=== PATIENT | female | born 1985 | race Caucasian/White ===

== ENCOUNTER → 2022-11-19 | Outpatient (OUT) | payer OTHER, MEDICAID, SELFPAY ==
[2022-11-19 15:16] LABS: Basophils Percent Auto 0.5 % (0.2-2.0); Eosinophils Absolute Auto 0.2 10^3/uL (0.0-0.7); Eosinophils Percent Auto 2.9 % (0.9-7.0); Hematocrit 39.3 % (36.0-48.0); Hemoglobin 13.3 g/dL (12.0-16.0); Immature Granulocytes Abs Auto 0.01 10^3/uL (0.00-0.03); Immature Granulocytes Pct Auto 0.2 % (0.0-0.5); Lymphocytes Absolute Auto 1.4 10^3/uL (1.2-3.8); Lymphocytes Percent Auto 24.7 % (20.5-60.0); Mean Corpuscular HGB Conc 33.8 g/dL (29.9-35.2); Mean Corpuscular Hemoglobin 29.8 pg (26.7-34.0); Mean Corpuscular Volume 88.1 fL (81.0-99.0); Mean Platelet Volume 9.8 fL (9.5-13.5); Monocytes Absolute Auto 0.6 10^3/uL (0.3-0.8); Monocytes Percent Auto 9.9 % (1.7-12.0); Neutrophils Absolute Auto 3.4 10^3/uL (1.4-6.5); Neutrophils Percent Auto 61.8 % (43.0-75.0); Platelet Count 254 10^3/uL (150-450); Red Blood Count 4.46 10^6/uL (4.20-5.40); Red Cell Distribution Width 12.6 % (11.0-15.0); White Blood Count 5.6 10^3/uL (4.0-11.0)
[2022-11-19 15:40] LABS: Alanine Aminotransferase 19 U/L (14-59); Albumin Globulin Ratio 1.2; Albumin Level 3.8 g/dL (3.4-5.0); Alkaline Phosphatase 48 U/L (46-116); Anion Gap 13.8; Aspartate Amino Transferase 13 U/L (15-37); BUN Creatinine Ratio 9.2; Bilirubin Total 0.4 mg/dL (0.2-1.0); Calcium 8.8 mg/dL (8.5-10.1); Carbon Dioxide 28.2 mmol/L (21.0-32.0); Chloride 100 mmol/L (98-107); Estimated GFR (African America >60 (>=60); Estimated GFR (Non-African Ame >60 (>=60); Globulin 3.2 g/dL; Glucose 100 mg/dL (74-106); Sodium 138 mmol/L (136-145)
== END ==
LOC: LAB 14:58
PROVIDERS: PCP Family Medicine; Visit Provider Physician Assistant
DX: G35 Multiple sclerosis (principal)
CPT/HCPCS: 36415; 80053; 85025

== ENCOUNTER 2023-04-23 10:30 | Outpatient (OUT) | payer OTHER, MEDICAID, SELFPAY ==
[2023-04-23 12:19] LABS: Basophils Absolute Auto 0.1 10^3/uL (0.0-0.1); Basophils Percent Auto 0.8 % (0.2-2.0); Eosinophils Absolute Auto 0.2 10^3/uL (0.0-0.7); Eosinophils Percent Auto 2.3 % (0.9-7.0); Hematocrit 40.1 % (36.0-48.0); Hemoglobin 13.5 g/dL (12.0-16.0); Immature Granulocytes Abs Auto 0.02 10^3/uL (0.00-0.03); Immature Granulocytes Pct Auto 0.3 % (0.0-0.5); Lymphocytes Absolute Auto 1.5 10^3/uL (1.2-3.8); Lymphocytes Percent Auto 20.1 % (20.5-60.0); Mean Corpuscular HGB Conc 33.7 g/dL (29.9-35.2); Mean Corpuscular Volume 89.1 fL (81.0-99.0); Mean Platelet Volume 10.1 fL (9.5-13.5); Monocytes Absolute Auto 0.6 10^3/uL (0.3-0.8); Monocytes Percent Auto 8.3 % (1.7-12.0); Neutrophils Absolute Auto 5.1 10^3/uL (1.4-6.5); Neutrophils Percent Auto 68.2 % (43.0-75.0); Platelet Count 240 10^3/uL (150-450); Red Cell Distribution Width 13.2 % (11.0-15.0); White Blood Count 7.5 10^3/uL (4.0-11.0)
[2023-04-23 12:39] LABS: Alanine Aminotransferase 16 U/L (14-59); Albumin Globulin Ratio 1.3; Albumin Level 3.8 g/dL (3.4-5.0); Alkaline Phosphatase 48 U/L (46-116); Anion Gap 12.2; Aspartate Amino Transferase 14 U/L (15-37); BUN Creatinine Ratio 9.6; Bilirubin Total 0.3 mg/dL (0.2-1.0); Carbon Dioxide 27.9 mmol/L (21.0-32.0); Chloride 102 mmol/L (98-107); Estimated GFR (African America >60 (>=60); Estimated GFR (Non-African Ame >60 (>=60); Globulin 2.9 g/dL; Glucose 98 mg/dL (74-106); Potassium 4.1 mmol/L (3.5-5.1); Sodium 138 mmol/L (136-145); Total Protein 6.7 g/dL (6.4-8.2)
--- OUTSIDE RECORDS SUMMARY | 2023-06-03 13:50 | XMS_ITS | CCD ---
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 Name Role Phone Dot Patricia Primary Care Physician MD Francesca White Primary Care Provider [phone] CHANTEL Wallace Attending Provider Jennifer Moon Primary Care Physician [phone] CLAYTON WALLACE Admitting Unavailable CLAYTON WALLACE Attending Unavailable CLAYTON WALLACE Consulting Unavailable CLAYTON WALLACE Primary Care Unavailable DR FRANCESCA WHITE Primary Care Unavailable ONESIMOFABIO Attending Unavailable SUSAN ECHOLSOE Admitting Unavailable SHAVON, DR MA Primary Care Unavailable SHAVON, DR MA Admitting Unavailable SHAVON, DR AM Attending Unavailable DR FRANCESCA WHITE Consulting Unavailable WEST, DR TYLER Méndez Consulting Unavailable CLAYTON WALLACE Attending Unavailable CLAYTON WALLACE Consulting Unavailable CLAYTON WALLACE Primary Care Unavailable CLAYTON WALLACE Admitting Unavailable MD Francesca White Primary Care Provider [phone] DO Marty Jade Attending Provider Marty Jade Admitting Unavailab Marty Rider Attending Unavailab Francesca Marie Primary Care Unavailable Francesca White Primary Care Unavailable Clayton Wallace Admitting Unavailable Clayton Wallace Attending Unavailable Marty Jade Admitting Unavailab Marty Rider Attending Unavailab Francesca Marie Primary Care Unavailable Francesca White MD Primary Care Provider [phone] Giorgio Kim Attending Unavailable Giorgio Kim Admitting Unavailable iGorgio Kim Admitting Unavailable Giorgio Kim Attending Unavailable Giorgio Kim Admitting Unavailable Giorgio Kim Attending Unavailable Giorgio Kim Admitting Unavailable Giorgio Kim Attending Unavailable FRANCESCA WHITE Primary Care Unavailable NURIA GONSALEZ Attending Unavailable Allergies Allergy Classification Reported Allergen(s) Allergy Type Date of Onset Reaction(s) Facility (2 sources) diphenhydrAMINE; Translations: [diphenhydramine] Drug Allergy itching [facility] (1 source) diphenhydrAMINE Drug Allergy [facility] Repository Medications Current Medications Medication Drug Class(es) Dates Sig (Normalized) Sig (Original) acetaminophen 325 mg / HYDROcodone bitartrate 5 mg oral tablet (4 sources) Opioid Agonist Start: 01-15-2019 [place] 325 mg-5 mg oral tablet 1 tab(s), Oral, q6hr for pain, 8 tab(s), Refill(s) 0 Start Date: 10/25/20 Status: Ordered cephalexin 500 mg oral capsule (1 source) Cephalosporin Antibacterial Start: 01-15-2019 take 1 capsule by mouth twice daily Keflex 500 mg Cap 500 mg = 1 cap(s), Oral, BID, # 14 cap(s), Refills(s) 0, Pharmacy: [facility]/pharmacy #[id number] Start Date: 01/15/19 Status: Ordered Ibuprofen (4 sources) Nonsteroidal Anti-inflammatory Drug Start: 10-25-2020 ibuprofen Refills(s) 0 Start Date: 10/25/20 Status: Ordered Start: 12-23-2013 take 1 tablet by aleksander th every eight hours at mealtime Motrin 800 mg Tab 800 mg = 1 tab(s), Oral, q8hr, Take one tab by mouth every eight hours with food, # 10 tab(s), Refills(s) 0 Start Date: 12/23/13 Status: Ordered Synthroid (3 sources) l-Thyroxine Start: 05-06-2010 Synthroid Ananya y, Refills(s) 0 Start Date: 05/06/10 Status: Ordered take 1 tablet by mouth once ananya y levothyroxine (SYNTHROID) 125 mcg tablet Take 125 mcg by mouth once daily. 0 Active Comment on above: Take 125 mcg by mout h once daily. naproxen 500 mg oral tablet (3 sources) Nonsteroidal Anti-inflammatory Drug Start: 10-25-2020 take 1 tablet by mouth twice daily at mealtime naproxen 500 mg Tab 500 mg = 1 tab(s), Oral, BID, with food, # 14 tab(s), Refills(s) 0 Start Date: 10/25/20 Status: Ordered penicillin v potassium 500 mg oral tablet (1 source) Start: 12-23-2013 take 1 tablet by mouth every six hours penicillin V potassium 500 mg Tab 500 mg = 1 tab(s), Oral, q6hr, # 40 tab(s), Refills(s) 0 Start Date: 12/23/13 Status: Ordered tamsulosin hydrochloride 0.4 mg oral capsule (1 source) alpha-Adrenergic Araseli Start: 01-15-2019 take 1 capsule by mouth once daily Flomax 0.4 mg Cap 0.4 mg = 1 cap(s), Oral, Daily Start Date: 01/15/19 Status: Ordered Completed/Discontinued Medications Medication Drug Class(es) Dates Sig (Normalized) Sig (Original) amitriptyline hydrochloride 100 mg oral tablet (2 sources) Tricyclic Antidepressant take 1 tablet by mouth once daily at bedtime amitriptyline (ELAVIL) 100 mg tablet Take 100 mg by mouth daily at bedtime. 0 Active Comment on above: Take 100 mg by mouth daily at bedtime. fingolimod 0.5 mg oral capsule (2 sources) Sphingosine 1-phosphate Receptor Modulator Start: 12-23-2016 take 1 capsule by mouth once daily fingolimod (GILENYA) 0.5 mg cap Indications: Multiple sclerosis (HCC) Take 1 capsule by mouth once daily. 90 capsule 3 12/23/2016 Active Comment on above: Take 1 capsule by [facility] once daily. gabapentin 300 mg oral capsule (1 source) Anti-epileptic Agent Start: 11-04-2017 take 1 capsule by mouth three times daily gabapentin (NEURONTIN) 300 mg capsule TAKE ONE CAPSULE BY MOUTH 3 TIMES A DAY 90 capsule 11 11/04/2017 Active Comment on above: TAKE ONE CAPSULE BY MOUTH 3 TIMES A DAY medroxyPROGESTERone (2 sources) Progestin MEDROXYPROGESTER ONE ACETATE (DEPO-PROVERA INTRAMUSC.) Inject intramuscularly every 3 months. 0 Active Comment on above: Inject intramuscular ly every 3 months. Problems Active Problems Problem Classification Problem Date Documented Da te Episodic/Chronic Abdominal pain (1 source) Flank pain 08-09-2021 Episodic Calculus of urinary tract (8 sources) Kidney stone; Translations: [Ureteric stone] 01-27-2015 Episodic Comment on above: left RIGHT Deficiency and other anemia (1 source) Anemia, unspecified; Translations: [ANEMIA UNSPECIFIED] Onset: 07-09-2022 Episodic Diabetes mellitus without complication (1 source) Type 2 diabetes mellitus without complications; Translations: [TYPE 2 DM WITHOUT COMPLICATIONS] Onset: 07-09-2022 Chronic Disorders of lipid metabolism (1 source) Hyperlipidemia, unspecified; Translations: [HYPERLIPIDEMIA UNSPECIFIED] Onset: 07-09-2022 Chronic Genitourinary symptoms and ill-defined conditions (4 sources) Dysuria; Translations: [Liam hematuria] 08-09-2021 Episodic Headache; including migraine (1 source) Migraine 08-09-2021 Chronic Heart valve disorders (1 source) Mitral valve stenosis 08-09-2021 Chronic Malaise and fatigue (5 sources) Other fatigue; Translations: [OTHER FATIGUE] Onset: 08-18-2021 Episodic Multiple sclerosis (8 sources) Multiple sclerosis; Translations: [Multiple sclerosis] Onset: 07-28-2012 Chronic Nutritional deficiencies (1 source) Vitamin D deficiency, unspecified; Translations: [VITAMIN D DEFICIENCY UNSPECIFIED] Onset: 07-09-2022 Chronic Other aftercare (1 source) Other nursing home (current) drug therapy; Translations: [OTH USP CURRENT DRUG THERAPY] Onset: 07-09-2022 Episodic Other and unspecified benign neoplasm (1 source) Neoplasm of meninges; Translations: [Benign neoplasm of meninges, unspecified] 02-21-2023 Chronic Other screening for suspected conditions (not mental disorders or infectious disease) (1 source) Encounter for screening mammogram for malignant neoplasm of breast; Translations: [ENC SCR MAMMO MALIG NEOPLASM BREAST] Onset: 07-09-2022 Episodic Residual codes; unclassified (1 source) Family history of malignant neoplasm of breast; Translations: [FAMILY HX MALIG NEOPLASM OF BREAST] Onset: 07-09-2022 Episodic Substance-related disorders (7 sources) Cigarette smoker ; Translations: [Smoker] Resolved: 11-16-2009 08-27-2013 Chronic Comment on above: Added secondary to d ocumentation in Social History. Unclassified (1 source) Late care( Confirmed ) 09-06-2019 Unclassified (2 sources) Late care 09-06-2019 Past or Other Problems Problem Classification Problem Date Documented Da te Episodic/Chronic Unclassified (15 sources) Onset: 04-07-2011 Resolved: 09-07-2019 12-22-2014 Results Test Name Value Interpretation Reference Range Facil ity Nursing Assessmenton 023 Nursing Assessment [id number]:127 Normal [facility] MR cervical spine wo/w conon 02-07-2023 MR cervical spine wo/w con [facility] [place] [address] [place] [address] MRI Report Signed Patient: Martha Valencia MR#: [id number] : 1985 Acct:[id number] Age/Sex: 37 / F ADM Date: 02/07/23 Loc: Room: Type: [facility] Attending Dr: Marty Jade DO Copies to: Marty Jade DO Ordering Provider: Marty Jade DO Date of Service: 02/07/23 MR/MR cervical spine wo/w con: G35 MR cervical spine wo/w con 02/07/2023 10:21 AM SIGNS AND SYMPTOMS: History of multiple sclerosis, annual follow-up. Weakness and numbness on left side PROTOCOL: Multiplanar multisequence MR images of the cervical spine were obtained with and without IV contrast CONTRAST: 11 mL of intravenous ProHance COMPARISON: 03/05/2021 FINDINGS: There is straightening of the normal cervical lordosis. There is preservation of vertebral body heights. There is disc desiccation with mild disc height loss at C5-C6 and C6-C7. There is Modic type I endplate edema at C6-C7. The marrow signal is within normal limits, otherwise. There are areas of increased T2 and STIR signal intensity within the cervical cord at C2, C3, C4, and C5, similar to that seen on the prior exam. There is a new focus of T2 and STIR hyperintense signal centrally and to the left of midline posteriorly at the level of the C4-C5 intervertebral disc measuring 11 mm in length. No accompanying abnormal postcontrast enhancement is noted. No epidural or paraspinous fluid collection is appreciated. The visualized paraspinous soft tissues are within normal limits. The prevertebral soft tissues are within normal limits. At C2-C3: There is a normal disc, central canal, and neural foramen. At C3-C4: There is a normal disc, central canal, and neural foramen. At C4-C5: There is a normal disc, central canal, and neural foramen. At C5-C6: There is a broad-based disc bulge with uncovertebral joint spurring contributing to mild spinal canal narrowing and mild bilateral neural foraminal narrowing. This is unchanged. At C6-C7: There is a left central disc protrusion with uncovertebral joint spurring contributing to mild left neural foraminal narrowing and mild spinal canal stenosis. This is unchanged. At C7-T1: There is a normal disc, central canal, and neural foramen. MR/MR cervical spine wo/w con IMPRESSION: There is a new focus of T2 and STIR hyperintense signal centrally and to the left of midline posteriorly at the level of the C4-C5 intervertebral disc measuring 11 mm in length. No accompanying abnormal postcontrast enhancement is noted. There are areas of increased T2 and STIR signal intensity within the cervical cord at C2, C3, C4, and C5, similar to that seen on the prior exam. At C5-C6: There is a broad-based disc bulge with uncovertebral joint spurring contributing to mild spinal canal narrowing and mild bilateral neural foraminal narrowing. This is unchanged. At C6-C7: There is a left central disc protrusion with uncovertebral joint spurring contributing to mild left neural foraminal narrowing and mild spinal canal stenosis. This is unchanged. Impression dictated by: Daniel Mcgee M.D.02/07/2023 3:10 PM Dictation Location: [place] [address] Transcribed By: [facility] 02/07/23 0420 Dictated By: Daniel Mcgee II, MD 02/07/23 5686 Signed By: 02/07/23 6770 [facility] MR head/brain wo/w sukumaron MR head/brain wo/w con [place] [address] MRI Report Signed Patient: Martha Valencia MR#: [id number] : 1985 Acct:[id number] Age/Sex: 37 / F ADM Date: 02/07/23 Loc: MR Room: Type: [facility] Attending Dr: Marty Jade DO Copies to: Marty Jade DO Ordering Provider: Marty Jade DO Date of Service: 02/07/23 MR/MR head/brain wo/w con: G35 MR head/brain wo/w con 02/07/2023 10:21 AM SIGN AND SYMPTOMS: History of multiple sclerosis. Left-sided weakness and numbness. PROTOCOL: Multiplanar multisequence MR images of the brain were obtained with and without IV contrast CONTRAST: 11 mL of intravenous ProHance COMPARISON: None. FINDINGS: Extra axial spaces: There is mild diffuse volume loss. Along the floor of the right anterior cranial fossa is an extra-axial dural based homogeneously enhancing 13 x 8 x 10 mm meningioma. Hemorrhage: None. Ventricular system: Within normal limits. Basal cisterns: Within normal limits and not effaced. Cerebral parenchyma: Atrophy of the corpus callosum is noted. Multifocal T2 and FLAIR hyperintense foci are noted in the periventricular white matter, subcortical white matter, and corpus callosum consistent with a history of gliosis. Midline shift: None.. Cerebellum: T2 and FLAIR hyperintense foci are noted in the right middle cerebellar peduncle. There is also T2 and FLAIR hyperintense focus in the left cerebellar hemisphere. Brainstem: T2 and FLAIR hyperintense foci are noted in the pontine white matter. OTHER: Calvarium: Normal marrow signal. Vascular system: Satisfactory flow voids within the anterior and posterior circulation. Visualized Paranasal sinuses: Within normal limits. Visualized Orbits: Within normal limits. Visualized upper cervical spine: Within normal limits. Sella and skull base: Within normal limits. MR/MR head/brain wo/w con IMPRESSION: Findings consistent with the history of demyelinating disease with multiple demyelinating plaques, as above. There is no diffusion restriction or abnormal postcontrast enhancement accompanying these plaques to suggest active demyelination. There is mild diffuse volume loss. Along the floor of the right anterior cranial fossa is an extra-axial dural based homogeneously enhancing 13 x 8 x 10 mm meningioma. Impression dictated by: Daniel Mcgee M.D.02/07/2023 3:21 PM Dictation Location: [place] [address] Transcribed By: [facility] 02/07/23 152 Dictated By: Daniel Mcgee II, MD 02/07/23 151 Signed By: 02/07/23 152 [facility] Insurance Correspondence Off ice01-14-2023 Insurance Correspondence Office [id number]:127 Normal [facility] General Message Officeon General Message Office --- --- --- --- - -- --- --- --- --- From: CruzDinesh, DirectInbox To: MARTHA VALENCIA Sent: 01/11/23 02:30:57 AM EDT Subject: Discharge Summary Ready to View A summary regarding your recent visit is available in the Documents section of your health record. Normal [facility] C Urineon 01-10-2023 Bacteria identified Cx Nom (U) Microbiology PROCEDURE: Urine Culture [R1] SOURCE: U Cath BODY SITE: COLLECTED DATE/TIME: 01/08/2023 21:20 EDT RECEIVED DATE/TIME: 01/08/2023 22:03 EDT START DATE/TIME: 01/08/2023 22:03 EDT FREE TEXT SOURCE: SYSTEM, SYSTEM SYSTEM, SYSTEM FINAL REPORTS Final Report [] Verified Date/Time: 01/10/2023 06:57 EDT No growth at 2 days. Performing Locations R1: This test was performed at: [facility], [address] [place] [address], [phone] , [place], Normal [facility] Comment on above: Performed By: #### 1 [id number] ####[facility] [address] [place] [address] CBC w/Indiceson 01-10-2023 Erythrocyte distribution wid th (RBC) [Ratio] 14.7 % High 10.9-14.2 [facility] Comment on above: Performed By: #### 2 [id number] ####[address] [address] Hematocrit (Bld) [Volume fraction] 35.4 % Normal 34.0-46.0 [facility] Comment on above: Performed By: #### 2 [id number] ####[address] [address] Hemoglobin (Bld) [Mass/Vol] 11.7 g/dL Low 12.0-16. 0 [facility] Comment on above: Performed By: #### 2 [id number] ####[address] [address] MCH (RBC) [Entitic mass] 27.3 pg Normal 27.0-34.0 [facility] Comment on above: Performed By: #### 2 [id number] ####[address] [address] MCHC (RBC) [Mass/Vol] 33.1 g/dL Normal 31.4-36.0 [facility] Comment on above: Performed By: #### 2 [id number] ####[address] [address] MCV (RBC) [Entitic vol] 82.3 fL Normal 80.0-100.0 [facility] Comment on above: Performed By: #### 2 [id number] ####[address] [address] Platelet mean volume (Bld) [Entitic vol] 7.1 fL Normal 6.4-10.8 [facility] Comment on above: Performed By: #### 2 [id number] ####[address] [address] Platelets (Bld) [#/Vol] 183.0 E9/L Normal 150.0-500.0 [facility] Comment on above: Performed By: #### 2 [id number] ####[address] [address] RBC (Bld) [#/Vol] 4.3 E12/L Normal 4.3-5.9 [facility] Comment on above: Performed By: #### 2 [id number] ####[facility] [address] [place] [address] WBC corrected for nucl RBC A uto (Bld) [#/Vol] 7.7 E9/L Normal 4.0-11.0 [facility] Comment on above: Performed By: #### 2 [id number] ####[facility] [address] [place] [address] Delivery Summaryon Delivery Summary DATE OF DELIVERY: The patient is a 35 year old, VII, Para V, I, white female at 39 weeks and 1/7 who presented to Labor and Delivery for labor. She had artificial rupture of membranes, a gentle Pitocin augmentation which allowed her to make gradual progress through the latent phase of labor into the active phase of labor. She reached complete and complete and pushed through the second stage of labor spontaneously delivering an 8 pound 6 ounce male with Apgars of seven and nine. Nuchal cord reduced x1. Arterial cord pH obtained. The placenta delivered spontaneously intact. Uterus contracted down well. No repair was necessary and both mom and were doing well in the Room. Giorgio Kim M.D. lr Dictated: 01/10/2023 [id number] Transcribed: 01/10/2023 Normal [facility] Comment on above: Result Comment: Elec tronically Signed By: Giorgio Kim MD\.br\Date and Time Signed: 01/10/23 09:47 EDT Discharge Instructionson Discharge Instructions [id number]:127 Normal [facility] Help Me Grow Referralon 12-15 Help Me Grow Referral [id number]:127 Normal [facility] Inpatient Clinical Summaryon 01-10-2023 Inpatient Clinical Summary [address] [address] Clinical Summary Person Information Name: MARTHA VALENCIA [place] Age: 35 Years : 1987 Sex: Female PCP: Dot Patricia DO Marital Status: Single Race: White Ethnicity: Non- or Language: Pashto Visit Id: Visit Reason: INDUCTION Speciality: Acuity: 1 PP Enc Type: Inpatient Med Service: Obstetrics Arrival: 01/08/2023 16:54:02 Discharge: 01/10/2023 17:45:00 Dispo Type: Home (Routine DC) Address: [address] [place] [id number] Provider Notes: Diagnosis: AMA (advanced maternal age) multigravida 35+; (spontaneous vaginal delivery); Smoker Problems Active Smoker Ureteral stone Smoking Status: Former Smoker Functional Status: Sensory Deficits: History of Falls: Mobility Assistance Prior to Admission: Independent ADLs: Independent Current Level of Assistance for Self-Care/Mobility: Cognitive Status: Allergies No Known Allergies Laboratory or Other Results This Visit (last charted value for your 01/08/2023 visit) Hematology 01/10/2023 5:45 AM Hct: 35.4 % -- Normal range between ( 34.0 and 46.0 ) HGB: 11.7 gm/dL -- Normal range between ( 12.0 and 16.0 ) RBC: 4.3 E12/L -- Normal range between ( 4.3 and 5.9 ) RDW: 14.7 % -- Normal range between ( 10.9 and 14.2 ) MCH: 27.3 pg -- Normal range between ( 27.0 and 34.0 ) MCHC: 33.1 gm/dL -- Normal range between ( 31.4 and 36.0 ) MCV: 82.3 fL -- Normal range between ( 80.0 and 100.0 ) MPV: 7.1 fL -- Normal range between ( 6.4 and 10.8 ) Platelet: 183.0 E9/L -- Normal range between ( 150.0 and 500.0 ) WBC: 7.7 E9/L -- Normal range between ( 4.0 and 11.0 ) Urinalysis 01/08/2023 9:20 PM UA Bili: Negative UA Color: Yellow UA Glucose: Negative UA Ketones: Trace UA Leuk Est: 1+ UA Nitrite: Negative UA Protein: Negative UA RBC: 21-30 /HPF UA Squam Epithelial: 0-2 /HPF UA Urobilinogen: 0.2 EU/dL -- Normal range between ( 0.0 and 1.0 ) UA WBC: 0-5 /HPF UA Spec Desc: Leger UA Blood: 3+ UA Clarity: Clear UA pH: 6.0 -- Normal range between ( 5.0 and 9.0 ) UA Spec Grav: 1.020 -- Normal range between ( 1.005 and 1.030 ) Microbiology 01/08/2023 9:20 PM Urine Culture: NEG Blood Bank 01/08/2023 5:31 PM ABO/Rh: A POS ABSC Gel Interp: Negative Measurements: Height: 172.7 cm Weight: 120 kg Blood Pressure: 117 mmHg / 81 mmHg BMI: 40.56 kg/m2 Procedures No Procedures Documented Immunizations No Immunizations Documented This Visit Final Med List: multivitamin By Mouth every day. Care Team Members: Attending Physician: Giorgio Kim MD Consulting Physician: Referring Physician: Follow up: With: Address: When: Dr. Kim [phone] Within 6 weeks Comments: Call for any problems. Call Dr if fever>100.5 F, heavy bleeding Nothing in the vagina for 6 weeks Patient Education Information: Normal [facility] Inpatient Patient Summaryon 01-10-2023 Inpatient Patient Summary [place] [address] Patient Discharge Instructions PERSON INFORMATION Name: MARTHA VALENCIA Date of : 1987 Current Date: 01/10/2023 17:52:51 PHYSICIANS Admitting Physician: Giorgio Kim MD Primary Care Physician: Dot Patricia DO PCP Comment: Discharge Diagnosis: AMA (advanced maternal age) multigravida 35+; (spontaneous vaginal delivery); Smoker Condition at Discharge: Stable MARTHA VALENCIA has been given the following list of follow-up instructions, prescriptions, and patient education materials: PATIENT FOLLOW-UP INFORMATION Diet: Regular Activity: Expect mild pain, Expect minimal amount of drainage and/or bleeding, Activity as tolerated Wound Care Instructions: Remove Your Dressing IN: Days Call Your Doctor For: Persistent or heavy bleeding, Temperature above 101.5 degrees, Persistent vomiting IF UNABLE TO CONTACT YOUR PHYSICIAN AND YOU FEEL IT IS AN EMERGENCY, GO TO THE NEAREST EMERGENCY ROOM OR CALL 911 Home Treatment: Devices/Equipment: Special Services: Additional Instructions: Physician to provide the following pending test results: None Follow up: With: Address: When: Dr. Kim [phone] Within 6 weeks Comments: Call for any problems. Call Dr if fever>100.5 F, heavy bleeding Nothing in the vagina for 6 weeks In the event that this physician does not participate in your insurance network, please consult with your insurance company to find a nearby participating provider. Comment: JIMMY Suarez JENNIFER L, have received the attached patient education materials/instructions and have verbalized understanding. Patient Signature Date Clinican/Nurse Signature Date MEDICATION LIST Medications to Continue with No Changes Other Medications multivitamin By Mouth every day. Last Dose: Next Dose: Pharmacy Information: [facility] PATIENT EDUCATION INFORMATION Instructions: Medication Leaflets: You may receive a survey from Alexandra Kirby asking you to rate your care experience. Your feedback is important and will help us understand what we do well and how we can improve the quality of care we provide to you, your loved ones and our community. It?s an honor to serve you. Thank you for choosing [facility] 01-09-2023 Consent [id number] :127 [facility] Discharge Instructionson Discharge Instructions [id number]:127 [facility] GetWell Education Videoon GetWell Education Video Yes Well-Baby Visits to the Doctor Patient [facility] GetWell Education Video Patient Safe Sleep for Babies Yes [facility] GetWell Education Video Yes Patient Jaundice in Newborns Normal [facility] GetWell Education Video Yes Patient Caring for Yourself After Vaginal Delivery [facility] GetWell Education Video Yes Patient Car Seat Safety [facility] GetWell Education Video Yes Patient Your Baby [facility] GetWell Education Video Understanding Po stpartum Depression [facility] GetWell Education Video Yes Patient Ways to Keep Your Baby Safe [facility] GetWell Education Video Yes Patient Infant CPR [facility] GetWell Education Video Yes Patient Avoiding Infections in the Hospital [facility] Insurance Correspondence Off iceon 01-09-2023 Insurance Correspondence Office [id number]#1.00CD:127 [facility] Insurance Correspondence Office [id number]#1.00CD:127 [facility] Recordson Records [id number]#1.00CD:127 Normal [facility] Vaccinationson 01-09-2023 Vaccinations [id number]#1.00 CD:127 Normal [facility] ABO/Rhon 01-08-2023 ABO/Rh Positive Invalid Interpretation Code [facility] Comment on above: Performed By: #### 2 [id number], [id number], [id number], [id number] ####[facility] [address] [place] [address] ABO/Rh History Checkon 01-08 ABO/Rh History Check Verified Hx Blood Type Normal [facility] Comment on above: Performed By: #### 2 [id number], [id number], [id number], [id number] ####[facility] [address] [place] [address] ABSCon 01-08-2023 ABSC Gel Interp Negative Normal [facility] Comment on above: Performed By: #### 2 984646, [id number], [id number], [id number] ####[facility] [address] [place] [address] Blood Bank ID#on 01-08-2023 BBID# [id number] Invalid Interpretation Code [facility] Comment on above: Performed By: #### 2 [id number], [id number], [id number], [id number] ####[facility] [address] [place] [address] CBC w/Indiceson 01-08-2023 Erythrocyte distribution wid th (RBC) [Ratio] 14.5 % High 10.9-14.2 [facility] Comment on above: Performed By: #### 2 653338 ####[facility] [address] [place] [address] Hematocrit (Bld) [Volume fraction] 37.2 % Normal 34.0-46.0 [facility] Comment on above: Performed By: #### 2 419807 ####[facility] [address] [place] [address] Hemoglobin (Bld) [Mass/Vol] 12.4 g/dL Normal 12.0-16. 0 [facility] Comment on above: Performed By: #### 2 720989 ####[address] [address] MCH (RBC) [Entitic mass] 27.5 pg Normal 27.0-34.0 [facility] Comment on above: Performed By: #### 2 880421 ####[address] [address] MCHC (RBC) [Mass/Vol] 33.4 g/dL Normal 31.4-36.0 [facility] Comment on above: Performed By: #### 2 271730 ####[address] [address] MCV (RBC) [Entitic vol] 82.1 fL Normal 80.0-100.0 [facility] Comment on above: Performed By: #### 2 921376 ####[address] [address] Platelet mean volume (Bld) [Entitic vol] 7.5 fL Normal 6.4-10.8 [facility] Comment on above: Performed By: #### 2 667171 ####[address] [address] Platelets (Bld) [#/Vol] 203.0 E9/L Normal 150.0-500.0 [facility] Comment on above: Performed By: #### 2 364498 ####[address] [address] RBC (Bld) [#/Vol] 4.5 E12/L Normal 4.3-5.9 [facility] Comment on above: Performed By: #### 2 697586 ####[address] [address] WBC corrected for nucl RBC A uto (Bld) [#/Vol] 9.0 E9/L Normal 4.0-11.0 [facility] Comment on above: Performed By: #### 2 771419 ####[facility] [address] [place] [address] Consenton 01-08-2023 Consent [id number]#1.00CD :127 [facility] Consent for Treatmenton 12-15 Consent for Treatment [id number]#1.00CD:127 [facility] Consent for Treatment [id number]#1.00CD:127 [facility] Progress Note-Physicianon Progress Note-Physician Patient: MARTHA IRWIN Age: 35 years Sex: Female : 1987 Associated Diagnoses: None Author: Broderick Uribe Jr., DO Postoperative Information Postoperative disposition: Postoperative disposition: Day 2. Optimetrix number: Optimetrix number [id number]. Anesthetic utilized: Regional: Epidural. Physical Examination Hemodynamically stable. Pain Assessment: Controlled. General: Awake, Alert, Appropriate. Respiratory: Adequate air exchange. Cardiovascular: Stable. Neurological: Normal sensory function. Assessment Anesthetic outcome No post-epidural complications noted.. Review / Management Condition: Stable. Plan Transfer/Discharge: Stable for discharge from anesthetic standpoint.. [facility] Comment on above: Result Comment: Elec tronically Signed By: Broderick Uribe Jr., DO\.br\Date and Time Signed: 01/08/23 21:20 EDT Progress Note-Physician Patient: MARTHA IRWIN Age: 35 years Sex: Female : 1987 Associated Diagnoses: None Author: Broderick Uribe Jr., DO Postoperative Information Postoperative disposition: Postoperative disposition: Day 2. Optimetrix number: Optimetrix number [id number]. Anesthetic utilized: Regional: Epidural. Physical Examination Hemodynamically stable. Pain Assessment: Controlled. General: Awake, Alert, Appropriate. Respiratory: Adequate air exchange. Cardiovascular: Stable. Neurological: Normal sensory function. Assessment Anesthetic outcome No post-epidural complications noted.. Review / Management Condition: Stable. Plan Transfer/Discharge: Stable for discharge from anesthetic standpoint.. Normal [facility] Comment on above: Result Comment: Elec tronically Signed By: Broderick Uribe Jr., DO\.br\Date and Time Signed: 01/08/23 21:19 EDT Progress Note-Physician Patient: MARTHA IRWIN Age: 35 years Sex: Female : 1987 Associated Diagnoses: None Author: Broderick Uribe Jr., DO Postoperative Information Postoperative disposition: Postoperative disposition: Day 2. Optimetrix number Anesthetic utilized: Regional: Epidural. Physical Examination Hemodynamically stable. Pain Assessment: Controlled. General: Awake, Alert, Appropriate. Respiratory: Adequate air exchange. Cardiovascular: Stable. Neurological: Normal sensory function. Assessment Anesthetic outcome No post-epidural complications noted.. Review / Management Condition: Stable. Plan Transfer/Discharge: Stable for discharge from anesthetic standpoint.. Normal [facility] Comment on above: Result Comment: Elec tronically Signed By: Broderick Uribe Jr., DO Progress Note-Physician Patient: MARTHA IRWIN Age: 35 years Sex: Female : 1987 Associated Diagnoses: None Author: Broderick Uribe Jr., DO Chief Complaint Intrauterine Health Status Allergies: Allergic Reactions (All) No Known Allergies Canceled/Inactive Reactions (All) Mild Benadryl- No reactions were documented. Current medications.Problem list: All Problems Age mother conceived over 35 / Patient Care / Confirmed Group B streptococcus / SNOMED CT 726619973 / Confirmed Kidney stone complicating / SNOMED CT 399936227 / Confirmed left Late care / Patient Care / Confirmed Obesity / ICD-9-CM 278.00 / Possible / SNOMED CT 732930164 / Confirmed Smoker / SNOMED CT 597680585 / Confirmed Added secondary to documentation in Social History. Ureteral stone / SNOMED CT 75572647 / Confirmed RIGHT Resolved: / SNOMED CT 672737721 Resolved: / SNOMED CT 085607175 Resolved: / SNOMED CT 715332808 Resolved: Cigarette smoker / SNOMED CT 691948472 Resolved: / SNOMED CT 375818479 Resolved: / SNOMED CT 671763021 Resolved: / SNOMED CT 933117520 Review of Systems Respiratory: Negative. Cardiovascular: Negative. Hematology/Lymphatics: No bruising tendency, No bleeding tendency. Neurologic: Negative. Physical Examination Please refer to Labor floor nursing records for ongoing vital signs, and for intake and output totals while epidural was running. Review / Management Differential diagnosis: Active labor. Impression and Plan Plan Labor epidural at request of patient.. Procedure Epidural injection procedure Date/ Time: 01/08/2023 20:25:00. Confirmed: patient, procedure, site, safety procedures followed. Performed by: Broderick Uribe DO. Informed consent: signed by patient. Indication: Active labor.. Preparation and technique: informed consent obtained (from patient before the procedure), positioned (sitting), sterile preparation of site (patient's back was sterilly prepped and draped) (in usual fashion, with 10 % povidone iodine, draped to expose affected area), local anesthesia (1% lidocaine was applied to the patient's back before the epidural was attempted) (lidocaine without epinephrine, _1_ cc injected subcutaneously), approach (midline), needle (17 ga touhy) (placed via loss of resistance technique, At _L4-L5_ interspace.), aspiration (attempted for blood and CSF), injectant (test dose consisting of 3 ml of 1.5% lodocaine with 1:200,000 epi) (test dose given, Epidural catheter inserted and secured at a depth of _11_ cm at skin.). Procedure tolerated: well. Complications: Negative heme, negative CSF, and negative response to test dose.. [facility] Epidural Medications Administered: Bolus dose consisted of 5 ml of 0.2% Ropivacaine and 100 mcg of fentanyl (2 ml) at 2040. Then a premixed epidural bag of 0.2% Ropivacaine, and 2 mcg/ml of fentanyl was administered via PCEA with basal rate at 10 ml/hour and demand boluses of _5_ ml with a lockout interval of _30_ minutes. The PCEA was started at 2043. Normal [facility] Comment on above: Result Comment: Elec tronically Signed By: Broderick Uribe Jr., DO.br\Date and Time Signed: 01/08/23 21:18 EDT UA With Cult Reflexon 2022 Bilirubin Ql (U) Negative Normal Negative [facility] Comment on above: Order Comment: Urina ry Catheter Insertion triggered Urinalysis With Culture Reflex order by discern. Performed By: #### 1 [id number], 0555075 ####[facility] [address] [place] [address] Clarity (U) CLEAR Normal Clear [facility] Comment on above: Order Comment: Urina ry Catheter Insertion triggered Urinalysis With Culture Reflex order by discern. Performed By: #### 1 3336466, 9689609 ####[address] [address] Color (U) YELLOW Normal Yellow [facility] Comment on above: Order Comment: Urina ry Catheter Insertion triggered Urinalysis With Culture Reflex order by discern. Performed By: #### 1 0275537, 9184754 ####[address] [address] Epithelial cells.squamous LM .HPF (Urine sed) [#/Area] 0-2 Normal 0-2 [facility] Comment on above: Order Comment: Urina ry Catheter Insertion triggered Urinalysis With Culture Reflex order by discern. Performed By: #### 1 6726738, 4909831 ####[facility] [address] [place] [address] Glucose Test strip (U) [Mass/Vol] Negative Normal Negative [facility] Comment on above: Order Comment: Urina ry Catheter Insertion triggered Urinalysis With Culture Reflex order by discern. Performed By: #### 1 2082011, 5490050 ####[facility] [address] [place] [address] Hemoglobin Ql (U) 3+ Abnormal Negative [facility] Comment on above: Order Comment: Urina ry Catheter Insertion triggered Urinalysis With Culture Reflex order by discern. Performed By: #### 1 9636890, 1428005 ####[address] [address] Ketones (U) [Mass/Vol] TRACE Abnormal Negative [facility] Comment on above: Order Comment: Urina ry Catheter Insertion triggered Urinalysis With Culture Reflex order by discern. Performed By: #### 1 2193525, 8655575 ####[address] [address] [place].plasma/[place].RBC ( Bld) [Mass ratio] 21-30 Abnormal 0-3 [facility] Comment on above: Order Comment: Urina ry Catheter Insertion triggered Urinalysis With Culture Reflex order by discern. Performed By: #### 1 5537114, 4557731 ####[address] [address] Nitrite Ql (U) Negative Normal Negative [facility] Comment on above: Order Comment: Urina ry Catheter Insertion triggered Urinalysis With Culture Reflex order by discern. Performed By: #### 1 4932162, 5244497 ####[place] [address]857 pH (U) 6.0 [pH] Invalid Interpretation Code 5.0-9.0 [facility] Comment on above: Order Comment: Urina ry Catheter Insertion triggered Urinalysis With Culture Reflex order by discern. Performed By: #### 1 2739355, 7902861 ####[address] [address] Protein (U) [Mass/Vol] Negative Normal Negative [facility] Comment on above: Order Comment: Urina ry Catheter Insertion triggered Urinalysis With Culture Reflex order by discern. Performed By: #### 1 2809762, 5189809 ####[address] [address] Specific gravity (U) [Rel density] 1.020 Invalid Interpretation Code 1.005-1.030 [facility] Comment on above: Order Comment: Urina ry Catheter Insertion triggered Urinalysis With Culture Reflex order by discern. Performed By: #### 1 0551482, 3395362 ####[address] [address] Type of Urine collection method Leger Normal [facility] Comment on above: Order Comment: Urina ry Catheter Insertion triggered Urinalysis With Culture Reflex order by discern. Performed By: #### 1 3847422, 2058958 ####[address] [address] Urobilinogen Qn (U) 0.2 {Bob'U}/dL Normal 0.0-1.0 [facility] Comment on above: Order Comment: Urina ry Catheter Insertion triggered Urinalysis With Culture Reflex order by discern. Performed By: #### 1 2286895, 8807542 ####[address] [address] WBC Auto Ql (U) 1+ Abnormal Negative [facility] Comment on above: Order Comment: Urina ry Catheter Insertion triggered Urinalysis With Culture Reflex order by discern. Performed By: #### 1 9513914, 3460242 ####[place] [address]857 WBC LM.HPF (Urine sed) [#/Area] 0-5 Normal 0-5 [facility] Comment on above: Order Comment: Urina ry Catheter Insertion triggered Urinalysis With Culture Reflex order by discern. Performed By: #### 1 7038936, 9058903 ####[address] [address] RPR with Conf Rfxon 11-09-19 23 Reagin Ab RPR Ql (S) Non-Reactive Invalid Interpretation Code Non Reactive [facility] Comment on above: Result Comment: Perf ormed at: [facility] [address] [id number] PhD Aftab Flores Performed By: #### 1 1432276, [id number], [id number] ####[place] [address]857 Consent for Treatmenton 10-15 Consent for Treatment [id number]:127 Normal [facility] Gest Scr Glu 1 Hron 05-24-20 23 Glucose [Mass/Vol] 127 mg/dL Normal 55-140 [facility] Comment on above: Result Comment: Posi tive Screen =1 HR > 140mg/dL Performed By: #### 1 4157781, 03580124, [id number] ####[facility] [address] [place] [address] Hct & Hgbon 11-06-2022 Hematocrit (Bld) [Volume fraction] 35.7 % Normal 34.0-46.0 [facility] Comment on above: Performed By: #### 1 0054665, 97395385, [id number] ####[place] [address] [place] [address] Hemoglobin (Bld) [Mass/Vol] 12.0 g/dL Normal 12.0-16. 0 [facility] Comment on above: Performed By: #### 1 8701136, 05175346, [id number] ####[address] [place] [address] Physician Orderon 11-06-2022 Physician Order [id number]#1.00CD:127 Normal [facility] Coding Summary.on 07-12-2022 Coding Summary. CD:[id number] [file] ci1j (more content not included)... Normal [facility] C Urineon 07-10-2022 Bacteria identified Cx Nom (U) Microbiology PROCEDURE: Urine Culture [R1] SOURCE: U CleanCatch BODY SITE: COLLECTED DATE/TIME: 07/08/2022 12:00 EST RECEIVED DATE/TIME: 07/08/2022 22:23 EST START DATE/TIME: 07/08/2022 22:23 EST FREE TEXT SOURCE: Julio REYNOSO, Giorgio Kim MD, Giorgio Katz FINAL REPORTS Final Report [] Verified Date/Time: 07/10/2022 10:06 EST 10,000 cfu/ml Streptococcus agalactiae (Group B) Presumptive isolated. Penicillin is the drug of choice for Beta Hemolytic Streptococci Isolates. Routine susceptibility testing on Beta Hemolytic Streptococcus isolates is no longer performed. Susceptibilities will continue to be performed on Isolates from sterile body fluids and serious wound infections. 3,000 cfu/ml Mixed skin contaminants Performing Locations R1: This test was performed at: [facility], [address] [place] [address], [address] , , [facility] Comment on above: Performed By: #### 2 [id number] ####[facility] [address] [place] [address] Physician Orderon 07-08-2022 Physician Order [id number]#1.00CD:127 [facility] CBC AUTO DIFFon 07-04-2022 BASO # 0.0 103/ul Normal 0.0-0.1 [facility] Comment on above: Performed By: #### T SH, T7, LIPID, CMP #### [facility] [address] [place] [address] Dr. Shari Mobley Basophils/100 WBC (Bld) 0.6 % Normal 0.2-2.0 [facility] Comment on above: Performed By: #### T SH, T7, LIPID, CMP #### [facility] [address] [place] [address] Dr. Shari Mobley EO # 0.1 103/ul Normal 0.0-0.7 [facility] Comment on above: Performed By: #### T SH, T7, LIPID, CMP #### [facility] [address] [place] [address] Dr. Shari Mobley Eosinophils/100 WBC (Bld) 2.1 % Normal 0.9-7.0 [facility] Comment on above: Performed By: #### T SH, T7, LIPID, CMP #### [facility] [address] [place] [address] Dr. Shari Mobley Erythrocyte distribution wid th (RBC) [Ratio] 13.1 % Normal 11.0-15.0 [facility] Comment on above: Performed By: #### T SH, T7, LIPID, CMP #### [facility] [address] [place] [address] Dr. Shari Mobley Hematocrit (Bld) [Volume fraction] 40.0 % Normal 3 6.0-48.0 [facility] Comment on above: Performed By: #### T SH, T7, LIPID, CMP #### [facility] [address] [place] [address] Dr. Shari Mobley Hemoglobin (Bld) [Mass/Vol] 13.3 g/dL Normal 12.0-16. 0 [facility] Comment on above: Performed By: #### T SH, T7, LIPID, CMP #### [facility] [address] [place] [address] Dr. Shari Mobley IG # 0.02 10e3/ul Normal 0.00-0.03 [facility] Comment on above: Performed By: #### T SH, T7, LIPID, CMP #### [facility] [address] [place] [address] Dr. Shari Mobley IG % 0.3 % Normal 0.0-0.5 [facility] Comment on above: Performed By: #### T SH, T7, LIPID, CMP #### [facility] [address] [place] [address] Dr. Shari Mobley LYMPH # 1.3 103/ul Normal 1.2-3.8 [facility] Comment on above: Performed By: #### T SH, T7, LIPID, CMP #### [facility] [address] [place] [address] Dr. Shari Mobley Lymphocytes/100 WBC (Bld) 20.6 % Normal 20.5-60.0 [facility] Comment on above: Performed By: #### T SH, T7, LIPID, CMP #### [facility] [address] [place] [address] Dr. Shari Mobley MANUAL DIFF REQ NO Normal [facility] Comment on above: Performed By: #### T SH, T7, LIPID, CMP #### [facility] [address] [place] [address] Dr. Shari Mobley MCH (RBC) [Entitic mass] 28.7 pg Normal 26.7-34.0 [facility] Comment on above: Performed By: #### T SH, T7, LIPID, CMP #### [facility] [address] [place] [address] Dr. Shari Mobley MCHC (RBC) [Mass/Vol] 33.3 g/dL Normal 29.9-35.2 [facility] Comment on above: Performed By: #### T SH, T7, LIPID, CMP #### [facility] [address] [place] [address] Dr. Shari Mobley MCV (RBC) [Entitic vol] 86.2 fL Normal 81.0-99.0 [facility] Comment on above: Performed By: #### T SH, T7, LIPID, CMP #### [facility] [address] [place] [address] Dr. Shari Mobley MONO # 0.7 103/ul Normal 0.3-0.8 [facility] Comment on above: Performed By: #### T SH, T7, LIPID, CMP #### [facility] [address] [place] [address] Dr. Shari Mobley Monocytes/100 WBC (Bld) 10.6 % Normal 1.7-12.0 [facility] Comment on above: Performed By: #### T SH, T7, LIPID, CMP #### [facility] [address] [place] [address] Dr. Shari Mobley NEUT # 4.2 103/ul Normal 1.4-6.5 [facility] Comment on above: Performed By: #### T SH, T7, LIPID, CMP #### [facility] [address] [place] [address] Dr. Shari Mobley Neutrophils/100 WBC (Bld) 65.8 % Normal 43.0-75.0 [facility] Comment on above: Performed By: #### T SH, T7, LIPID, CMP #### [facility] [address] [place] [address] Dr. Shari Mobley Platelet mean volume (Bld) [Entitic vol] 9.6 fL Normal 9.5-13.5 [facility] Comment on above: Performed By: #### T SH, T7, LIPID, CMP #### [facility] [address] [place] [address] Dr. Shari Mobley PLT 304 103/ul Normal 150-450 [facility] Comment on above: Performed By: #### T SH, T7, LIPID, CMP #### [facility] [address] [place] [address] Dr. Shari Mobley RBC 4.64 106/ul Normal 4.20-5.40 [facility] Comment on above: Performed By: #### T SH, T7, LIPID, CMP #### [facility] [address] [place] [address] Dr. Shari Mobley WBC 6.3 103/ul Normal 4.0-11.0 [facility] Comment on above: Performed By: #### T SH, T7, LIPID, CMP #### [facility] [address] [place] [address] Dr. Shari Mobley FREE THYROXINE INDEX T7on FTI 2.48 Normal 1.30-4.50 [facility] Comment on above: Performed By: #### T SH, T7, LIPID, CMP #### [facility] [address] [place] [address] Dr. Shari Mobley T3U 34.0 % Normal 30.0-39.0 [facility] Comment on above: Performed By: #### T SH, T7, LIPID, CMP #### [facility] [address] [place] [address] Dr. Shari Mobley T4 [Mass/Vol] 7.30 ug/dL Normal 4.80-13.90 [facility] Comment on above: Performed By: #### T SH, T7, LIPID, CMP #### [facility] [address] [place] [address] Dr. Shari Mobley GLYCOHEMOGLOBIN A1Con 2022 ADA RECOMMENDATION SEE BELOW Normal [facility] Comment on above: Result Comment: ADA RECOMMENDED LIMIT 4.0 - 6.0 ADA THERAPEUTIC TARGET < 7.0 ACTION SUGGESTED > 7.0 Performed By: #### T SH, T7, LIPID, CMP #### [facility] [address] [address] [address] Shari Mobley Glucose [Mass/Vol] 111 mg/dL Normal [facility] Comment on above: Performed By: #### T SH, T7, LIPID, CMP #### [facility] [address] [address] [address] Shari Mobley HbA1c (Bld) [Mass fraction] 5.5 % Normal 4.5-6.2 [facility] Comment on above: Performed By: #### T SH, T7, LIPID, CMP #### [facility] [address] [place] [address] Dr. Shari Mobley IRONon 07-04-2022 Iron [Mass/Vol] 61.0 ug/dL Normal 50.0-170.0 [facility] Comment on above: Performed By: #### I TRENA VITAD #### [facility] [address] [place] [address] Dr. Shari Mobley LIPID PROFILEon 07-04-2022 CHOL-HDL RATIO NORM SEE BELOW Normal [facility] Comment on above: Result Comment: 3.3 - 4.4 LOW RISK 4.4 - 7.1 AVERAGE RISK 7.1 - 11.0 MODERATE RISK >11.0 HIGH RISK Performed By: #### T SH, T7, LIPID, CMP #### [facility] [address] [address] [address] Shari Mobley Cholesterol [Mass/Vol] 145 mg/dL Normal <=200 Th [facility] Comment on above: Performed By: #### T SH, T7, LIPID, CMP #### [facility] [address] [address] [address] Shari Mobley Cholesterol in HDL [Mass/Vol] 64 mg/dL Critically high 4 0-60 [facility] Comment on above: Performed By: #### T SH, T7, LIPID, CMP #### [facility] [address] [address] [address] Shari Mobley Cholesterol in LDL [Mass/Vol] 65.0 mg/dL Normal [facility] Comment on above: Performed By: #### T SH, T7, LIPID, CMP #### [facility] [address] [address] [address] Shari Mobley Cholesterol.total/Cholestero l in HDL [Mass ratio] 2.3 {ratio} Normal [facility] Comment on above: Performed By: #### T SH, T7, LIPID, CMP #### [facility] [address] [address] [address] Shari Mobley HDL NORMAL > or = 60 mg/dl - LO W CARDIOVASCULAR RISK <40 mg/dl - HIGH CARDIOVASCULAR RISK Normal [facility] Comment on above: Performed By: #### T SH, T7, LIPID, CMP #### [facility] [address] [address] [address] Shari Mobley LDL CALC NORMAL SEE BELOW Normal [facility] Comment on above: Result Comment: <100 mg/dl OPTIMAL 100 - 129 mg/dl NEAR OR ABOVE OPTIMAL 130 - 159 mg/dl BORDERLINE HIGH 160 - 189 mg/dl HIGH >190 mg/dl VERY HIGH Performed By: #### T SH, T7, LIPID, CMP #### [facility] [address] [address] [address] Shari Mobley Triglyceride [Mass/Vol] 80 mg/dL Normal <=150 [facility] Comment on above: Performed By: #### T SH, T7, LIPID, CMP #### [facility] [address] [address] [address] Shari Mobley VLDL CALC 16.0 mg/dL Normal [facility] Comment on above: Performed By: #### T SH, T7, LIPID, CMP #### [facility] [address] [address] [address] Shari Mobley MG MAMM SCREEN 3D ANNY CADon 07-04-2022 MG MAMM SCREEN 3D ANNY CAD Patient: MARTHA VALENCIAKory Exam Date: 07/04/2022 : 1985 Gender:F Ordering : DR FRANCESCA WHITE . Admission #: [id number] Family : Order #: [id number] CLICK HERE TO VIEW EXAM RADIOLOGY REPORT PROCEDURE: MAMMOGRAM SCREENING 3D BILATERAL CAD COMPARISON: None. INDICATIONS: Screening mammography Calculator Name NCI Breast Cancer Risk Assessment Tool 5 Year Breast Cancer Risk 0.20% Lifetime Breast Cancer Risk 6.80% Personal Breast Cancer No Personal Ovarian Cancer No Treatments None Family Cancers Aunt-paternal with breast cancer at age 32; Grandmother-paternal with breast cancer at age 55. LOCATION: [facility] BREAST COMPOSITION: Scattered areas fibroglandular density. FINDINGS: DIAGNOSTIC CATEGORY 1--NEGATIVE. RIGHT BREAST: No significant suspicious finding. LEFT BREAST: No significant suspicious finding. RECOMMENDATIONS: CLINICAL EVALUATION. PLEASE NOTE: A NORMAL MAMMOGRAM DOES NOT EXCLUDE THE POSSIBILITY OF BREAST CANCER. A CLINICALLY SUSPICIOUS PALPABLE LUMP SHOULD BE BIOPSIED. Dictated by: Tyler Trejo MD on 07/04/2022 at 10:56 Approved by: Tyler Trejo MD on 07/04/2022 at 10:58 Normal [facility] l PROF 14(COMP METB)on 023 Albumin [Mass/Vol] 4.1 g/dL Normal 3.4-5.0 [facility] Comment on above: Performed By: #### T SH, T7, LIPID, CMP #### [facility] [address] [place] [address] Dr. Shari Mobley Albumin/Globulin [Mass ratio] 1.3 {ratio} Normal [facility] Comment on above: Performed By: #### T SH, T7, LIPID, CMP #### [facility] [address] [address] [address] Shari Mobley ALP [Catalytic activity/Vol] 49 U/L Normal 46-116 [facility] Comment on above: Performed By: #### T SH, T7, LIPID, CMP #### [facility] [address] [address] [address] Shari Mobley ALT [Catalytic activity/Vol] 16 U/L Normal 14-59 [facility] Comment on above: Performed By: #### T SH, T7, LIPID, CMP #### [facility] [address] [address] [address] Shari Mobley Anion gap [Moles/Vol] 10.5 mmol/L Normal Th [facility] Comment on above: Performed By: #### T SH, T7, LIPID, CMP #### [facility] [address] [address] [address] Shari Mobley AST [Catalytic activity/Vol] 15 U/L Normal 15-37 [facility] Comment on above: Performed By: #### T SH, T7, LIPID, CMP #### [facility] [address] [place] [address] Dr. Shari Mobley Bilirubin [Mass/Vol] 0.4 mg/dL Normal 0.2-1.0 [facility] Comment on above: Performed By: #### T SH, T7, LIPID, CMP #### [facility] [address] [place] [address] Dr. Shari Mobley Calcium [Mass/Vol] 9.5 mg/dL Normal 8.5-10.1 [facility] Comment on above: Performed By: #### T SH, T7, LIPID, CMP #### [facility] [address] [address] [address] Shari Mobley Chloride [Moles/Vol] 100 mmol/L Normal 98-107 [facility] Comment on above: Performed By: #### T SH, T7, LIPID, CMP #### [facility] [address] [address] [address] Shari Mobley CO2 [Moles/Vol] 30.9 mmol/L Normal 21.0-32.0 [facility] Comment on above: Performed By: #### T SH, T7, LIPID, CMP #### [facility] [address] [place] [address] Dr. Shari Mobley Creatinine [Mass/Vol] 0.84 mg/dL Normal 0.55-1.02 [facility] Comment on above: Performed By: #### T SH, T7, LIPID, CMP #### [facility] [address] [place] [address] Dr. Shari Mobley EGFR-AF TRISTANIAN >60 Normal >=60 [facility] Comment on above: Performed By: #### T SH, T7, LIPID, CMP #### [facility] [address] [place] [address] Dr. Shari Mobley EGFR-NON AF TRISTANIAN >60 Normal >=60 [facility] Comment on above: Performed By: #### T SH, T7, LIPID, CMP #### [facility] [address] [place] [address] Dr. Shari Mobley Globulin (S) [Mass/Vol] 3.1 g/dL Normal T [facility] Comment on above: Performed By: #### T SH, T7, LIPID, CMP #### [facility] [address] [place] [address] Dr. Shari Mobley Glucose [Mass/Vol] 78 mg/dL Normal 74-106 [facility] Comment on above: Performed By: #### T SH, T7, LIPID, CMP #### [facility] [address] [place] [address] Dr. Shari Mobley Potassium [Moles/Vol] 4.4 mmol/L Normal 3.5-5.1 [facility] Comment on above: Performed By: #### T SH, T7, LIPID, CMP #### [facility] [address] [place] [address] Dr. Shari Mobley Protein [Mass/Vol] 7.2 g/dL Normal 6.4-8.2 [facility] Comment on above: Performed By: #### T SH, T7, LIPID, CMP #### [facility] [address] [place] [address] Dr. Shari Mobley Sodium [Moles/Vol] 137 mmol/L Normal 136-145 [facility] Comment on above: Performed By: #### T SH, T7, LIPID, CMP #### [facility] [address] [place] [address] Dr. Shari Mobley Urea nitrogen [Mass/Vol] 10.0 mg/dL Normal 7.0-18.0 [facility] Comment on above: Performed By: #### T SH, T7, LIPID, CMP #### [facility] [address] [address] [address] Shari Mobley Urea nitrogen/Creatinine [Mass ratio] 11.9 mg/mg Normal [facility] Comment on above: Performed By: #### T SH, T7, LIPID, CMP #### [facility] [address] [address] [address] Shari Mobley TSHon 07-04-2022 TSH 2.258 uIU/mL Normal 0.358-3.740 [facility] Comment on above: Performed By: #### T SH, T7, LIPID, CMP #### [facility] [address] [address] [address] Shari Mobley VITAMIN D 25 OHon 07-04-2022 VIT D 25-OH 47.2 ng/mL Normal [facility] Comment on above: Performed By: #### I TRENA, VITAD #### [facility] [address] [place] [address] Dr. Shari Mobley VIT D RANGES SEE BELOW Normal [facility] Comment on above: Result Comment: <20 ng/mL Vit D deficient 20 - <30 ng/mL Vit D insufficient 30 - 100 ng/mL Vit D sufficient >100 ng/mL Potential Toxicity Performed By: #### I TRENA, VITAD #### [facility] [address] [place] [address] Dr. Shari Mobley Coding Summary.on 06-27-2022 Coding Summary. CD:[id number] [file] Y29s (more content not included)... Normal Fish er [facility] HIV Screen 4th Generation wR fxon 06-26-2022 HIV 1+2 Ab+HIV1 p24 Ag IA Ql Non-Reactive Invalid Interpretation Code Non Reactive [facility] Comment on above: Result Comment: HIV Negative HIV-1/HIV-2 antibodies and HIV-1 p24 antigen were NOT detected. There is no laboratory evidence of HIV infection. Performed at: [address] [id number] PhD Aftab Flores Performed By: #### 2 [id number], [id number], 6735070, [id number], [id number], [id number] ####[facility] [address] [place] [address] Hep Bs Agon 06-26-2022 HBV surface Ag IA Ql Negative Invalid Interpretation Cod e Negative [facility] Comment on above: Result Comment: Perf ormed at: [address] [id number] PhD Aftab Flores Performed By: #### 2 [id number], [id number], 4497620, 4680044, [id number], [id number] ####[address] [address] RPR with Conf Rfxon 06-26-19 23 Reagin Ab RPR Ql (S) Non-Reactive Invalid Interpretation Code Non Reactive [facility] Comment on above: Result Comment: Perf ormed at: [address] [id number] PhD Aftab Flores Performed By: #### 2 510788, [id number], 6870347, 1398596, [id number], [id number] ####[address] [address] Rubella IgGon 06-26-2022 Rubella virus IgG Qn (S) 3.33 [IU]/mL Invalid Interpretation Code Immune >0.99 [facility] Comment on above: Result Comment: Non- immune <0.90 Equivocal 0.90 - 0.99 Immune >0.99 Performed at: [address] [id number] PhD Aftab Flores Performed By: #### 2 901496, [id number], 0226301, 6783471, [id number], [id number] ####[address] [place] [address] ABO/Rhon 06-25-2022 ABO/Rh Positive Invalid Interpretation Code [facility] Comment on above: Performed By: #### 2 477648, [id number] ####[facility] [address] [place] [address] ABSCon 06-25-2022 ABSC Gel Interp Negative Normal [facility] Comment on above: Performed By: #### 2 547962, [id number] ####[facility] [address] [place] [address] BLOOD BANKOrdered By: Ileana Christianson on 06-25-2022 ABO/Rh Interp Positive Invalid Interpretation Code FT BB Subsection ABSC Gel Interp Negative (06/25/22 1:45 PM) Normal [facility] BB Subsection BhCG Quanton 06-25-2022 [place] [address] m[IU]/mL High 1-3 F [facility] Comment on above: Result Comment: GEST ATIONAL AGE HCG RANGE (mIU/mL) NON- <1-3 0.2-1 WEEKS 5-50 1-2 WEEKS 50-500 2-3 WEEKS 100-5,000 3-4 WEEKS 500-10,000 4-5 WEEKS 1,000-50,000 5-6 WEEKS 10,000-100,000 6-8 WEEKS 15,000-200,000 8-12 WEEKS 10,000-100,000 Performed By: #### 2 635183 ####[address] [place] [address] CBC w/Indiceson 06-25-2022 Erythrocyte distribution wid th (RBC) [Ratio] 13.7 % Normal 10.9-14.2 [facility] Comment on above: Performed By: #### 2 755202, [id number], 0751235, 3727432, [id number], 75550391 ####[facility] [address] [place] [address] Hematocrit (Bld) [Volume fraction] 42.0 % Normal 34.0-46.0 [facility] Comment on above: Performed By: #### 2 929085, 723163096, 2845613, 7450383, 248787605, 90565212 ####[facility] [address] [place] [address] Hemoglobin (Bld) [Mass/Vol] 14.4 g/dL Normal 12.0-16. 0 [facility] Comment on above: Performed By: #### 2 658390, [id number], 4991456, 7271100, 632093204, 02778443 ####[facility] [address] [place] [address] MCH (RBC) [Entitic mass] 29.7 pg Normal 27.0-34.0 [facility] Comment on above: Performed By: #### 2 379381, [id number], 5908120, 6093387, 571332238, 27800671 ####[facility] [address] [place] [address] MCHC (RBC) [Mass/Vol] 34.3 g/dL Normal 31.4-36.0 [facility] Comment on above: Performed By: #### 2 546075, 888887949, 9912244, 1009054, 451551286, 17882310 ####[facility] [address] [place] [address] MCV (RBC) [Entitic vol] 86.4 fL Normal 80.0-100.0 [facility] Comment on above: Performed By: #### 2 679303, 037015817, 2283684, 3476872, 174705197, 47238962 ####[facility] [address] [place] [address] Platelet mean volume (Bld) [Entitic vol] 7.2 fL Normal 6.4-10.8 [facility] Comment on above: Performed By: #### 2 755180, 668645346, 8007636, 4838161, 867179086, 94079141 ####[facility] [address] [place] [address] Platelets (Bld) [#/Vol] 231.0 E9/L Normal 150.0-500.0 [facility] Comment on above: Performed By: #### 2 785593, 224441014, 4131824, 2333710, 953703545, 29620733 ####[facility] [address] [place] [address] RBC (Bld) [#/Vol] 4.9 E12/L Normal 4.3-5.9 [facility] Comment on above: Performed By: #### 2 617987, 111155168, 9876787, 1225514, 308564396, 86535528 ####[facility] [address] [place] [address] WBC corrected for nucl RBC A uto (Bld) [#/Vol] 8.5 E9/L Normal 4.0-11.0 [facility] Comment on above: Performed By: #### 2 211021, 012860712, 9664541, 9966758, 477254768, 24693359 ####[facility] [address] [place] [address] CHEMISTRYOrdered By: [employer] SYSTEM on 06-25-2022 [place] [address] m[IU]/mL High 1 - 3 mIU/mL FT Remisol Progesterone [Mass/Vol] 10.80 ng/mL Invalid Interpretation Code [facility] Remisol Consent for Treatmenton 06-16 Consent for Treatment [id number]:127 Normal [facility] HEMATOLOGYOrdered By: Juana Hartley on 06-25-2022 Erythrocyte distribution wid th (RBC) [Ratio] 13.7 % Normal 10.9 - 14.2 % FT [facility] Hematocrit (Bld) [Volume fraction] 42.0 % Normal 34.0 - 46.0 % FT [facility] Hemoglobin (Bld) [Mass/Vol] 14.4 g/dL Normal 12.0 - 1 6.0 gm/dL [facility] MCH (RBC) [Entitic mass] 29.7 pg Normal 27.0 - 34.0 pg [facility]eAutoSS MCHC (RBC) [Mass/Vol] 34.3 g/dL Normal 31.4 - 36.0 gm /dL [facility] HemeAutoSS MCV (RBC) [Entitic vol] 86.4 fL Normal 80.0 - 100.0 fL [facility]eAutoSS Platelet mean volume (Bld) [Entitic vol] 7.2 fL Normal 6.4 - 10.8 fL [facility]eAutoSS Platelets (Bld) [#/Vol] 231.0 E9/L Normal 150.0 - 500. 0 E9/L [facility] HemeAutoSS RBC (Bld) [#/Vol] 4.9 E12/L Normal 4.3 - 5.9 E12/L [facility] HemeAutoSS WBC corrected for nucl RBC A uto (Bld) [#/Vol] 8.5 E9/L Normal 4.0 - 11.0 E9/L [facility] Physician Orderon 06-25-2022 Physician Order [id number]:127 Normal [facility] Progesteroneon 06-25-2022 Progesterone [Mass/Vol] 10.80 ng/mL Invalid Interpretation Code [facility] Comment on above: Result Comment: REFE RENCE RANGE Males 0.14-2.06 ng/mL Non- Females Follicular 0.10-0.60 ng/mL Luteal 3.00-17.5 ng/mL Midluteal 3.30-18.6 ng/mL Post-Menopausal 0.10-0.40 ng/mL First Trimester 8.30-66.5 ng/mL Second Trimester 18.9-66.1 ng/mL Third Trimester 35.8-312.4 ng/mL Performed By: #### 2 273694, [id number], 5046686, 9981988, 330203591, 60293323 ####[facility] [address] [place] [address] MR thoracic spine wo/w conon 03-22-2022 MR thoracic spine wo/w [facility] [address] [address] MRI Report Signed Patient: Martha Valencia MR#: [id number] : 1985 Acct:[id number] Age/Sex: 36 / F ADM Date: 03/22/22 Loc: MR Room: Type: [facility] Attending Dr: Clayton Wallace PA-C Copies to: Clayton Wallace PA-C Ordering Provider: Clayton Wallace PA-C Date of Service: 03/22/22 MR/MR thoracic spine wo/w con: G35 MR thoracic spine wo/w con 03/22/2022 10:47 AM SIGNS AND SYMPTOMS: History of multiple sclerosis, numbness in left upper and lower extremity, dizziness, memory loss PROTOCOL: Multiplanar multisequence MR images of the thoracic spine were obtained with and without IV contrast CONTRAST: 12 mL of intravenous ProHance COMPARISON: 03/05/2021 FINDINGS: The bones of the thoracic spine are in anatomic alignment. There is preservation of vertebral body heights and intervertebral disc spaces. The marrow signal is within normal limits. There is STIR and T2 hyperintense signal within the thoracic cord similar to that seen on the prior exam posteriorly at T7, diffusely at T8 and T9, at the T10-T11 disc level, and to the right of midline at T11 and T12. There does appear to be a new demyelinating lesion to the left of midline at T6 which is not visualized on the prior exam. This measures approximately 2 mm in greatest axial dimension and is best seen on series 7 image 38. No epidural or paraspinous fluid collection is appreciated. The visualized paraspinous soft tissues are within normal limits. There is no abnormal postcontrast enhancement. At T1-T2: There is a normal disc, central canal, and neural foramen. At T2-T3: There is a normal disc, central canal, and neural foramen. At T3-T4: There is a normal disc, central canal, and neural foramen. At T4-T5: There is a normal disc, central canal, and neural foramen. At T5-T6: There is a normal disc, central canal, and neural foramen. At T6-T7: There is a normal disc, central canal, and neural foramen. At T7-T8: There is a normal disc, central canal, and neural foramen. At T8-T9: There is a normal disc, central canal, and neural foramen. At T9-T10: There is a normal disc, central canal, and neural foramen. At T10-T11: There is a normal disc, central canal, and neural foramen. At T11-T12: There is a normal disc, central canal, and neural foramen. At T12-L1: There is a normal disc, central canal, and neural foramen. MR/MR thoracic spine wo/w con IMPRESSION: There is a new demyelinating lesion to the left of midline at T6 which is not visualized on the prior exam. This measures approximately 2 mm in greatest axial dimension and is best seen on series 7 image 38. There is no accompanying abnormal enhancement. Additional unchanged demyelinating plaques are noted below this. These are similar to that seen on the prior study. No significant spinal canal or neural foraminal narrowing is noted. Impression dictated by: Daniel Mcgee M.D.03/22/2022 3:56 PM Dictation Location: [address] [address] Transcribed By: [facility] 03/22/22 1556 Dictated By: Daniel Mcgee II, MD 03/22/22 1545 Signed By: 03/22/22 1556 [facility] CBC AUTO DIFFon 12-03-2021 BASO # 0.1 103/ul Normal 0.0-0.1 [facility] Comment on above: Performed By: #### T SH, T7, LIPID, CMP #### [facility] [address] [place] [address] Dr. Shari Mobley Basophils/100 WBC (Bld) 0.8 % Normal 0.2-2.0 [facility] Comment on above: Performed By: #### T SH, T7, LIPID, CMP #### [facility] [address] [place] [address] Dr. Shari Mobley EO # 0.1 103/ul Normal 0.0-0.7 [facility] Comment on above: Performed By: #### T SH, T7, LIPID, CMP #### [facility] [address] [place] [address] Dr. Shari Mobley Eosinophils/100 WBC (Bld) 1.0 % Normal 0.9-7.0 [facility] Comment on above: Performed By: #### T SH, T7, LIPID, CMP #### [facility] [address] [place] [address] Dr. Shari Mobley Erythrocyte distribution wid th (RBC) [Ratio] 12.3 % Normal 11.0-15.0 [facility] Comment on above: Performed By: #### T SH, T7, LIPID, CMP #### [facility] [address] [place] [address] Dr. Shari Mobley Hematocrit (Bld) [Volume fraction] 42.6 % Normal 3 6.0-48.0 [facility] Comment on above: Performed By: #### T SH, T7, LIPID, CMP #### [facility] [address] [place] [address] Dr. Shari Mobley Hemoglobin (Bld) [Mass/Vol] 14.5 g/dL Normal 12.0-16. 0 [facility] Comment on above: Performed By: #### T SH, T7, LIPID, CMP #### [facility] [address] [place] [address] Dr. Shari Mobley IG # 0.02 10e3/ul Normal 0.00-0.03 [facility] Comment on above: Performed By: #### T SH, T7, LIPID, CMP #### [facility] [address] [place] [address] Dr. Shari Mobley IG % 0.3 % Normal 0.0-0.5 [facility] Comment on above: Performed By: #### T SH, T7, LIPID, CMP #### [facility] [address] [place] [address] Dr. Shari Mobley LYMPH # 1.4 103/ul Normal 1.2-3.8 [facility] Comment on above: Performed By: #### T SH, T7, LIPID, CMP #### [facility] [address] [place] [address] Dr. Shari Mobley Lymphocytes/100 WBC (Bld) 23.1 % Normal 20.5-60.0 [facility] Comment on above: Performed By: #### T SH, T7, LIPID, CMP #### [facility] [address] [place] [address] Dr. Shari Mobley MANUAL DIFF REQ NO Normal [facility] Comment on above: Performed By: #### T SH, T7, LIPID, CMP #### [facility] [address] [place] [address] Dr. Shari Mobley MCH (RBC) [Entitic mass] 30.3 pg Normal 26.7-34.0 [facility] Comment on above: Performed By: #### T SH, T7, LIPID, CMP #### [facility] [address] [place] [address] Dr. Shari Mobley MCHC (RBC) [Mass/Vol] 34.0 g/dL Normal 29.9-35.2 [facility] Comment on above: Performed By: #### T SH, T7, LIPID, CMP #### [facility] [address] [place] [address] Dr. Shari Mobley MCV (RBC) [Entitic vol] 88.9 fL Normal 81.0-99.0 [facility] Comment on above: Performed By: #### T SH, T7, LIPID, CMP #### [facility] [address] [place] [address] Dr. Shari Mobley MONO # 0.5 103/ul Normal 0.3-0.8 [facility] Comment on above: Performed By: #### T SH, T7, LIPID, CMP #### [facility] Laboratory [address] [place] [address] Dr. Shari Mobley Monocytes/100 WBC (Bld) 9.0 % Normal 1.7-12.0 [facility] Comment on above: Performed By: #### T SH, T7, LIPID, CMP #### [facility] [address] [place] [address] Dr. Shari Mobley NEUT # 4.0 103/ul Normal 1.4-6.5 [facility] Comment on above: Performed By: #### T SH, T7, LIPID, CMP #### [facility] [address] [place] [address] Dr. Shari Mobley Neutrophils/100 WBC (Bld) 65.8 % Normal 43.0-75.0 [facility] Comment on above: Performed By: #### T SH, T7, LIPID, CMP #### [facility] [address] [place] [address] Dr. Shari Mobley Platelet mean volume (Bld) [Entitic vol] 9.9 fL Normal 9.5-13.5 [facility] Comment on above: Performed By: #### T SH, T7, LIPID, CMP #### [facility] [address] [place] [address] Dr. Shari Mobley PLT 251 103/ul Normal 150-450 [facility] Comment on above: Performed By: #### T SH, T7, LIPID, CMP #### [facility] [address] [place] [address] Dr. Shari Mobley RBC 4.79 106/ul Normal 4.20-5.40 [facility] Comment on above: Performed By: #### T SOURAV, T7, LIPID, CMP #### [facility] [address] [place] [address] Dr. Shari Mobley WBC 6.0 103/ul Normal 4.0-11.0 [facility] Comment on above: Performed By: #### T SH, T7, LIPID, CMP #### [facility] [address] [place] [address] Dr. Shari Mobley LIVER PROFILEon 12-03-2021 Albumin [Mass/Vol] 4.3 g/dL Normal 3.4-5.0 [facility] Comment on above: Performed By: #### L CHRISTINA BMP #### [facility] [address] [place] [address] Dr. Shari Mobley Albumin/Globulin [Mass ratio] 1.4 {ratio} Normal [facility] Comment on above: Performed By: #### Carolyne VASQUEZ BMP #### [facility] [address] [place] [address] Dr. Shari Mobley ALP [Catalytic activity/Vol] 48 U/L Normal 46-116 [facility] Comment on above: Performed By: #### L IVER, BMP #### [facility] [address] [place] [address] Dr. Shari Mobley ALT [Catalytic activity/Vol] 24 U/L Normal 14-59 [facility] Comment on above: Performed By: #### L IVER, BMP #### [facility] [address] [place] [address] Dr. Shari Mobley AST [Catalytic activity/Vol] 15 U/L Normal 15-37 [facility] Comment on above: Performed By: #### L IVER, BMP #### [facility] [address] [place] [address] Dr. Shari Mobley BILI, CONJUGATED 0.1 mg/dL Normal 0.0-0.2 [facility] Comment on above: Performed By: #### L IVER, BMP #### [facility] [address] [place] [address] Dr. Shari Mobley Bilirubin [Mass/Vol] 0.6 mg/dL Normal 0.2-1.0 [facility] Comment on above: Performed By: #### L IVER, BMP #### [facility] [address] [place] [address] Dr. Shari Mobley Globulin (S) [Mass/Vol] 3.1 g/dL Normal T [facility] Comment on above: Performed By: #### L IVER, BMP #### [facility] [address] [place] [address] Dr. Shari Mobley Protein [Mass/Vol] 7.4 g/dL Normal 6.4-8.2 [facility] Comment on above: Performed By: #### L IVER, BMP #### [facility] [address] [place] [address] Dr. Shari Mobley PROF CHEM 8 (BAS METB)on Anion gap [Moles/Vol] 12.3 mmol/L Normal [facility] Comment on above: Performed By: #### L IVER, BMP #### [facility] [address] [place] [address] Dr. Shari Mobley Calcium [Mass/Vol] 9.2 mg/dL Normal 8.5-10.1 [facility] Comment on above: Performed By: #### L IVER, BMP #### [facility] [address] [address] [address] Shari Mobley Chloride [Moles/Vol] 102 mmol/L Normal 98-107 [facility] Comment on above: Performed By: #### L IVER, BMP #### [facility] [address] [address] [address] Shari Mobley CO2 [Moles/Vol] 26.7 mmol/L Normal 21.0-32.0 [facility] Comment on above: Performed By: #### L IVER, BMP #### [facility] [address] [address] [address] Shari Mobley Creatinine [Mass/Vol] 0.89 mg/dL Normal 0.55-1.02 [facility] Comment on above: Performed By: #### L IVER, BMP #### [facility] [address] [place] [address] Dr. Shari Mobley EGFR-AF TRISTANIAN >60 Normal >=60 [facility] Comment on above: Performed By: #### L IVER, BMP #### [facility] [address] [place] [address] Dr. Shari Mobley EGFR-NON AF TRISTANIAN >60 Normal >=60 [facility] Comment on above: Performed By: #### L IVER, BMP #### [facility] [address] [address] [address] Shari Mobley Glucose [Mass/Vol] 98 mg/dL Normal 74-106 [facility] Comment on above: Performed By: #### L IVER, BMP #### [facility] [address] [address] [address] Shari Mobley Potassium [Moles/Vol] 4.0 mmol/L Normal 3.5-5.1 [facility] Comment on above: Performed By: #### L IVER, BMP #### [facility] [address] [place] [address] Dr. Shari Mobley Sodium [Moles/Vol] 137 mmol/L Normal 136-145 [facility] Comment on above: Performed By: #### L CHRISTINA, BMP #### [facility] [address] [place] [address] Dr. Shari Mobley Urea nitrogen [Mass/Vol] 8.0 mg/dL Normal 7.0-18.0 [facility] Comment on above: Performed By: #### L CHRISTINA, BMP #### [facility] [address] [place] [address] Dr. Shari Mobley Urea nitrogen/Creatinine [Mass ratio] 9.0 mg/mg Normal [facility] Comment on above: Performed By: #### L CHRISTINA, BMP #### [facility] [address] [place] [address] Dr. Shari Mobley CBC AUTO DIFFon 08-18-2021 BASO # 0.1 103/ul Normal 0.0-0.1 [facility] Comment on above: Performed By: #### C BC #### [facility] [address] [place] [address] Dr. Shari Mobley Basophils/100 WBC (Bld) 1.0 % Normal 0.2-2.0 [facility] Comment on above: Performed By: #### C BC #### [facility] [address] [place] [address] Dr. Shari Mobley EO # 0.0 103/ul Normal 0.0-0.7 [facility] Comment on above: Performed By: #### C BC #### [facility] [address] [place] [address] Dr. Shari Mobley Eosinophils/100 WBC (Bld) 0.3 % Critically low 0.9-7. 0 [facility] Comment on above: Performed By: #### C BC #### [facility] [address] [place] [address] Dr. Shari Mobley Erythrocyte distribution wid th (RBC) [Ratio] 13.2 % Normal 11.0-15.0 [facility] Comment on above: Performed By: #### C BC #### [facility] [address] [place] [address] Dr. Shari Mobley Hematocrit (Bld) [Volume fraction] 39.9 % Normal 3 6.0-48.0 [facility] Comment on above: Performed By: #### C BC #### [facility] [address] [place] [address] Dr. Shari Mobley Hemoglobin (Bld) [Mass/Vol] 13.4 g/dL Normal 12.0-16. 0 [facility] Comment on above: Performed By: #### C BC #### [facility] [address] [place] [address] Dr. Shari Mobley IG # 0.01 10e3/ul Normal 0.00-0.03 [facility] Comment on above: Performed By: #### C BC #### [facility] [address] [place] [address] Dr. Shari Mobley IG % 0.2 % Normal 0.0-0.5 [facility] Comment on above: Performed By: #### C BC #### [facility] [address] [place] [address] Dr. Shari Mobley LYMPH # 2.0 103/ul Normal 1.2-3.8 [facility] Comment on above: Performed By: #### C BC #### [facility] [address] [place] [address] Dr. Shari Mobley Lymphocytes/100 WBC (Bld) 31.6 % Normal 20.5-60.0 [facility] Comment on above: Performed By: #### C BC #### [facility] [address] [place] [address] Dr. Shari Mobley MANUAL DIFF REQ NO Normal [facility] Comment on above: Performed By: #### C BC #### [facility] [address] [place] [address] Dr. Shari Mobley MCH (RBC) [Entitic mass] 30.2 pg Normal 26.7-34.0 [facility] Comment on above: Performed By: #### C BC #### [facility] [address] [place] [address] Dr. Shari Mobley MCHC (RBC) [Mass/Vol] 33.6 g/dL Normal 29.9-35.2 [facility] Comment on above: Performed By: #### C BC #### [facility] [address] [place] [address] Dr. Shari Mobley MCV (RBC) [Entitic vol] 90.1 fL Normal 81.0-99.0 [facility] Comment on above: Performed By: #### C BC #### [facility] [address] [place] [address] Dr. Shari Mobley MONO # 0.7 103/ul Normal 0.3-0.8 [facility] Comment on above: Performed By: #### C BC #### [facility] [address] [place] [address] Dr. Shari Mobley Monocytes/100 WBC (Bld) 10.7 % Normal 1.7-12.0 [facility] Comment on above: Performed By: #### C BC #### [facility] [address] [place] [address] Dr. Shari Mobley NEUT # 3.5 103/ul Normal 1.4-6.5 [facility] Comment on above: Performed By: #### C BC #### [facility] [address] [place] [address] Dr. Shari Mobley Neutrophils/100 WBC (Bld) 56.2 % Normal 43.0-75.0 [facility] Comment on above: Performed By: #### C BC #### [facility] [address] [place] [address] Dr. Shari Mobley Platelet mean volume (Bld) [Entitic vol] 9.7 fL Normal 9.5-13.5 [facility] Comment on above: Performed By: #### C BC #### [facility] [address] [place] [address] Dr. Shari Mobley PLT 256 103/ul Normal 150-450 [facility] Comment on above: Performed By: #### C BC #### [facility] [address] [place] [address] Dr. Shari Mobley RBC 4.43 106/ul Normal 4.20-5.40 [facility] Comment on above: Performed By: #### C BC #### [facility] [address] [address] [address] Shari Mobley WBC 6.2 103/ul Normal 4.0-11.0 [facility] Comment on above: Performed By: #### C BC #### [facility] [address] [address] [address] Shari Mobley PROF 14(COMP METB)on 022 Albumin [Mass/Vol] 3.9 g/dL Normal 3.5-5.0 [facility] Comment on above: Performed By: #### T SH, T7, LIPID, CMP #### [facility] [address] [place] [address] Dr. Shari Mobley Albumin/Globulin [Mass ratio] 1.4 {ratio} Normal [facility] Comment on above: Performed By: #### T SH, T7, LIPID, CMP #### [facility] [address] [place] [address] Dr. Shari Mobley ALP [Catalytic activity/Vol] 50 U/L Normal 38-126 [facility] Comment on above: Performed By: #### T SH, T7, LIPID, CMP #### [facility] [address] [place] [address] Dr. Shari Mobley ALT [Catalytic activity/Vol] 12 U/L Normal 9-52 [facility] Comment on above: Performed By: #### T SH, T7, LIPID, CMP #### [facility] [address] [place] [address] Dr. Shari Mobley Anion gap [Moles/Vol] 9.6 mmol/L Normal [facility] Comment on above: Performed By: #### T SH, T7, LIPID, CMP #### [facility] [address] [place] [address] Dr. Shari Mobley AST [Catalytic activity/Vol] 12 U/L Critically low 14- 36 [facility] Comment on above: Performed By: #### T SH, T7, LIPID, CMP #### [facility] [address] [address] [address] Shari Mobley Bilirubin [Mass/Vol] 0.6 mg/dL Normal 0.2-1.3 [facility] Comment on above: Performed By: #### T SH, T7, LIPID, CMP #### [facility] [address] [address] [address] Shari Mobley Calcium [Mass/Vol] 8.8 mg/dL Normal 8.4-10.2 [facility] Comment on above: Performed By: #### T SH, T7, LIPID, CMP #### [facility] [address] [address] [address] Shari Mobley Chloride [Moles/Vol] 103 mmol/L Normal 98-107 [facility] Comment on above: Performed By: #### T SH, T7, LIPID, CMP #### [facility] [address] [place] [address] Dr. Shari Mobley CO2 [Moles/Vol] 28.6 mmol/L Normal 22.0-30.0 [facility] Comment on above: Performed By: #### T SH, T7, LIPID, CMP #### [facility] [address] [address] [address] Shari Mobley Creatinine [Mass/Vol] 0.98 mg/dL Normal 0.52-1.04 [facility] Comment on above: Performed By: #### T SH, T7, LIPID, CMP #### [facility] [address] [place] [address] Dr. Shari Mobley EGFR-AF TRISTANIAN >60 Normal >=60 [facility] Comment on above: Performed By: #### T SH, T7, LIPID, CMP #### [facility] [address] [address] [address] Shari Mobley EGFR-NON AF TRISTANIAN >60 Normal >=60 [facility] Comment on above: Performed By: #### T SH, T7, LIPID, CMP #### [facility] [address] [place] [address] Dr. Shari Mobley Globulin (S) [Mass/Vol] 2.8 g/dL Normal T [facility] Comment on above: Performed By: #### T SH, T7, LIPID, CMP #### [facility] [address] [address] [address] Shari Mobley Glucose [Mass/Vol] 103 mg/dL Normal 74-106 [facility] Comment on above: Performed By: #### T SH, T7, LIPID, CMP #### [facility] [address] [address] [address] Shari Mobley Potassium [Moles/Vol] 4.2 mmol/L Normal 3.4-5.0 [facility] Comment on above: Performed By: #### T SH, T7, LIPID, CMP #### [facility] [address] [place] [address] Dr. Shari Mobley Protein [Mass/Vol] 6.7 g/dL Normal 6.1-8.2 [facility] Comment on above: Performed By: #### T SH, T7, LIPID, CMP #### [facility] [address] [address] [address] Shari Mobley Sodium [Moles/Vol] 137 mmol/L Normal 137-145 [facility] Comment on above: Performed By: #### T SH, T7, LIPID, CMP #### [facility] [address] [place] [address] Dr. Shari Mobley Urea nitrogen [Mass/Vol] 10.0 mg/dL Normal 7.0-17.0 [facility] Comment on above: Performed By: #### T SH, T7, LIPID, CMP #### [facility] [address] [place] [address] Dr. Shari Mobley Urea nitrogen/Creatinine [Mass ratio] 10.2 mg/mg Normal [facility] Comment on above: Performed By: #### T SH, T7, LIPID, CMP #### [facility] [address] [place] [address] Dr. Shari Mobley TSHon 08-18-2021 TSH 1.756 uIU/mL Normal 0.470-4.680 [facility] Comment on above: Performed By: #### T SH, T7, LIPID, CMP #### [facility] [address] [address] [address] Shari Mobley TSH RANGE SEE BELOW Normal [facility] Comment on above: Result Comment: <0.3 4 UIU/ml HYPERTHYROID 0.34-5.60 UIU/ml EUTHYROID >5.60 UIU/ml HYPOTHYROID Performed By: #### T SH, T7, LIPID, CMP #### [facility] [address] [address] [address] Shari Mobley Provider Letteron 01-10-2020 Provider Letter (Inserted Image. Agatha ble to display) January 10, 2020 MARTHA VALENCIA [address] [place] [id number] MARTHA VALENCIA 1985 Dear Martha Valencia, This letter is to inform you that you have missed at least two appointments in our office within a twelve-month period which you did not cancel. According to our records those missed appointments were on: 08-25-2019 and 01-10-2020. We make every effort to accommodate patients as quickly as possible. If we know you are not able to make an appointment, we can schedule another patient who needs to see one of our providers. As our previous letter stated, there is a $30.00 charge for a second missed *no show* appointment. This is in accordance with our office policy. If you are unable to keep future appointments, please let us know 24 hours in advance. Sincerely, [facility], [facility] [address], [address] [place] [id number] Normal [facility] Coding Summary.on 02-10-2019 Coding Summary. CODING DATE: 019 FINAL [facility] DSC STATUS: Home (Routine DC) PAYOR: Laurie WADE DESCRIPTION 5373 Level 3 Urology and Related Services ADMIT DX: REASON FOR VISIT DX: Z46.6 Encounter for fitting and adjustment of urinary device FINAL DX: PRINCIPAL: Z46.6 Encounter for fitting and adjustment of urinary device SECONDARY: Z87.442 Personal history of urinary calculi F17.210 Nicotine dependence, cigarettes, uncomplicated PYMT PROC APC STAT DESCRIPTION DOCTOR NAME DATE NOTE: The code number assigned matches the documented diagnosis and / or procedure in the patient's chart. However, the narrative phrase printed from the coding software may appear abbreviated, or result in slightly different terminology. Coded By: Luciana Mcfadden Date Saved: 02/10/2019 12:02 pm Normal [facility] Main OR Intraoperative Recor don 02-09-2019 Main OR Intraoperative Record IntraOp Document Type FTURO Summary Primary Physician: Eric SANCHEZ MD Finalized Date/Time: 02/09/19 15:13:08 Pt. Name: MARTHA VALENCIA Carolyne Godinez/Sex: 1985 Female Med Rec #: [id number] Physician: Eric SANCHEZ MD Financial #: [id number] Pt. Type: O Room/Bed: / Admit/Disch: 02/09/19 13:50:37 - Institution: Case Times FTURO Entry 1 Patient Times In Room 02/09/19 15:01:00 Out Room 02/09/19 15:12:00 Procedure Times Start 02/09/19 15:08:00 Stop 02/09/19 15:10:00 Anesthesia Times Last Modified By: CHRISTIN Matias RN, Lou Ann 02/09/19 15:11:11 Case Attendance FTURO Entry 1 Entry 2 Entry 3 Case Attendee Eric SANCHEZ MD RN, ARTOR, Catherine Copeland CST, Miquel Webb Role Performed Surgeon - Primary Roller Operator - Primary Scrub - Primary Time In 02/09/19 15:06:00 02/09/19 15:01:00 02/09/19 15:01:00 Time Out 02/09/19 15:12:00 02/09/19 15:12:00 02/09/19 15:12:00 Procedure CYSTOSCOPY LOCAL WITH CYSTOSCOPY LOCAL WITH CYSTOSCOPY LOCAL WITH STENT REMOVAL(Left) STENT REMOVAL(Left) STENT REMOVAL(Left) Comments Last Modified By: Polly MEHTA, ARTOR, Catherine Matias RN, ARTOR, Catherine Matias RN, ARTOR, Catherine Treviño 02/09/19 15:11:12 02/09/19 15:11:12 02/09/19 15:11:12 Surgical Procedures FTURO Entry 1 Procedure Description Procedure CYSTOSCOPY LOCAL WITH Modifiers Left STENT REMOVAL Surgeon Description CYSTOSCOPY LEFT STENT REMOVAL Primary Procedure Yes Primary Surgeon Eric SANCHEZ MD Start 02/09/19 15:08:00 Stop 02/09/19 15:10:00 Anesthesia Type Local Surgical Service Urology Wound Class 2 - Clean-Contaminated Last Modified By: CHRISTIN Matias RN, Lou Ann 02/09/19 15:11:13 General Case Data FTURO Pre-Care Text: Classifies surgical wound, implements aseptic technique, initiates traffic control Entry 1 Case Information OR URO 1 FT Case Level None Wound Class 2 - Clean-Contaminated Specialty Urology Preop Diagnosis S/P LEFT STENT PLACEMENT Postop Same As Preop Yes Postop Diagnosis S/P LEFT STENT PLACEMENT Outcomes Met? Yes Last Modified By: CHRISTIN Matias RN, Lou Ann 02/09/19 13:54:22 Post-Care Text: The patient is free from signs and symptoms of infection EU IntraOp - FTURO Pre-Care Text: Implements protective measures prior to operative or invasive procedure, confirms identity before the operative or invasive procedure, verifies operative procedure, surgical site, and laterality Entry 1 EU Perioperative Protocols Procedure(s) CYSTOSCOPY LOCAL WITH Patient Identity ID Band Check, Patient STENT REMOVAL(Left) Verified (select at Participation least 2): Consents / H and P HandP, Surgery/Procedure Operative Site N/A Verified Consent Marking Verified Surgical Site Yes Laterality Verified Yes Verified Procedure Verified Yes Correct Patient Yes Position Verified Availability Equipment, Medication Time Out Eric SANCHEZ MD, Verified (If Participants CHRISTIN Matias RN, Lou Applicable) Dinorah Treviño CST, Foster M Time Out Complete 02/09/19 15:06:00 Allergies Reviewed? Yes Allergies Reviewed Self/Patient With Body Position Frog Legged Prep Area perenium Prep Agents Betadine Solution Skin. Condition Intact, [place], Warm, and Dry Additional Other (See Comment) Specimens Comment stent disposed of Specimens Collected Vitals - EU Blood Pressure Pulse Respirations SPO2 EBL 0 IandO - EU Total Intake 0 mL Total Output 0 mL Outcomes Met? Yes Last Modified By: CHRISTIN Matias RN, Lou Ann 02/09/19 15:10:29 Post-Care Text: The patient is free from signs and symptoms of injury caused by extraneous objects Case Comments Finalized By: CHRISTIN Matias RN, Lou Ann Document Signatures Signed By: CHRISTIN Matias RN, Lou Ann 02/09/19 15:13 Normal [facility] Main OR Preoperative Recordo n 02-09-2019 Main OR Preoperative Record Holding Area Document Type FTURO Summary Primary Physician: Eric SANCHEZ MD Finalized Date/Time: 02/09/19 15:03:32 Pt. Name: MARTHA VALENCIA /Sex: 1985 Female Med Rec #: [id number] Physician: Eric SANCHEZ MD Financial #: [id number] Pt. Type: O Room/Bed: / Admit/Disch: 02/09/19 13:50:37 - Institution: Case Times Holding FTURO Pre-Care Text: Verifies consent for planned procedure, identifies individual values and wishes concerning care, includes family members in perioperative teaching Secures patient's records' belongings, and valuables, maintains patient's dignity and privacy, and maintains patient confidentiality Entry 1 In Holding 02/09/19 14:14:00 Outcomes Met? Yes Last Modified By: Marcie Rice LPN 02/09/19 14:14:08 Post-Care Text: The patient participates in decisions affecting his or her perioperative plan of care The patient's right to privacy is maintained Surgery Checklist FTURO Entry 1 Patient Birthday, ID Band Procedure History and Physical, Identification: Check, Patient Verification: Surgical Consent, With Participation Patient NPO after Midnight: n/a Personal Items: Jewelry Personal Items nose ring Complaints of Pain: No Comment: Skin Integrity Intact, [place], Warm, & Dry Vitals - EU Blood Pressure 111/69 Pulse 55 bpm Respirations 18 br/min SPO2 Additional None RN Reviewed Yes Specimens Collected Last Modified By: CHRISTIN Matias RN, Lou Ann 02/09/19 15:03:30 Finalized By: CHRISTIN Matias RN, Lou Ann Document Signatures Signed By: Marcie Rice LPN 02/09/19 14:16 CHRISTIN Matias RN, Lou Ann 02/09/19 15:03 Normal [facility] Operative Reporton 9 Operative Report Patient: Pamela VALENCIA Age: 33 years Sex: Female : 1985 Associated Diagnoses: None Author: Eric SANCHEZ MD Procedure Operative Information Details: Date/ Time: 02/09/19 15:11:00. Pre-Op Dx: Foreign Body in Bladder - T19.1XXA. Post-Op Dx: Same. Anesthesia Type: Local. Procedure: Local Cystoscopy with Stent Removal. Complications: None. Risks/Benefits/Informed Consent: Surgical risks, benefits, details of the procedure have been explained to the patient, Full informed consent has been obtained. Intraoperative Information Prepped: The patient was placed in a modified dorso-lithotomy position, The patient was prepped with the Betadine solution. Anesthesia: 2% Xylocaine Jelly per urethra. Procedure: Cystoscopy and Left Stent Removal, The flexible Cystoscope was passed in retrograde fashion into the bladder without difficulty, The bladder was viewed in entirety and found to be without tumors or stones, Mild inflammation was seen surrounding the orifice with the stent seen protruding from it, The stent was then grasped and removed in its entirety. Specimens Removed: None. Devices Implanted: None. Postoperative Information Discharge: The patient tolerated the procedure well and was subsequently discharged home. metabolic w/u and 3 month f/u.. Normal [facility] Comment on above: Result Comment: Elec tronically Signed By: Eric SANCHEZ MD\.br\Date and Time Signed: 02/09/19 15:11 EDT Vital Signs Date Time Vital Sign Value Performing Clinician Debbie alonso 02-07-2023 10:38-0400 Diastolic blood pressure 102 mm[Hg] MD Francesca White Work Phone: [facility] 02-07-2023 10:38-0400 Heart rate 86 /min MD Francesca White Work Phone: [facility] 02-07-2023 10:38-0400 Respiratory rate 16 /min MD Francesca White Work Phone: [facility] 02-07-2023 10:38-0400 SaO2% (BldA) [Mass fraction] 100 % MD Francesca White Work Phone: [facility] 02-07-2023 10:38-0400 Systolic blood pressure 138 mm[Hg] MD Francesca White Work Phone: [facility] 02-07-2023 10:27-0400 Body height 165.1 cm MD Francesca Whtie Work Phone: [facility] 02-07-2023 10:27-0400 Body weight 61.23 kg MD Francesca White Work Phone: [facility] 01-03-2023 10:10-0400 Diastolic blood pressure 73 mm[Hg] MD Francesca White Work Phone: [facility] 01-03-2023 10:10-0400 Heart rate 100 /min MD Francesca White Work Phone: [facility] 01-03-2023 10:10-0400 Systolic blood pressure 123 mm[Hg] MD Francesca White Work Phone: [facility] 07-05-2022 09:05-0500 Body temperature 97.5 [degF] MD Francesca White Work Phone: [facility] 07-05-2022 09:05-0500 Respiratory rate 18 /min MD Francesca White Work Phone: [facility] 07-05-2022 09:05-0500 SaO2% (BldA) [Mass fraction] 96 % MD Francesca White Work Phone: [facility] 03-22-2022 10:57-0400 Diastolic blood pressure 84 mm[Hg] MD Francesca White Work Phone: [facility] 03-22-2022 10:57-0400 Heart rate 79 /min MD Francesca White Work Phone: [facility] 03-22-2022 10:57-0400 Respiratory rate 14 /min MD Francesca White Work Phone: [facility] 03-22-2022 10:57-0400 SaO2% (BldA) [Mass fraction] 100 % MD Francesca White Work Phone: [facility] 03-22-2022 10:57-0400 Systolic blood pressure 117 mm[Hg] MD Francesca White Work Phone: [facility] 03-22-2022 07:24-0400 Body height 165.1 cm MD Francesca White Work Phone: [facility] 03-22-2022 07:24-0400 Body weight 58.96 kg MD Francesca White Work Phone: [facility] 05-01-2021 12:52-0500 Body height 165.1 cm MD Francesca White Work Phone: [facility] 05-01-2021 12:52-0500 Body mass index (BMI) [Ratio] 24.4 kg/m2 MD Francesca White Work Phone: [facility] 05-01-2021 12:52-0500 Body weight 66.68 kg MD Francesca White Work Phone: [facility] Encounters Encounter Date Encounter Type Care Provider Facility Start: 03-05-2023 ambulatory Nuria Gonsalez MD Work Phone: [facility] Comment on above: Martha Valencia Start: 02-21-2023 End: 02-21-2023 ambulatory Nuria Gonsalez MD Work Phone: [facility] Comment on above: Meningioma (HCC) (Pr imary Dx) Start: 02-21-2023 End: 02-21-2023 Telemedicine consultation with patient Nuria Gonsalez MD Work Phone: [facility] Start: 02-07-2023 End: 02-07-2023 ambulatory Marty Jade Facility:[facility] Start: 02-07-2023 End: 02-07-2023 ambulatory MD Francesca White Work Phone: [facility] Work Phone: Start: 02-07-2023 End: 02-07-2023 Patient encounter procedure MD Francesca White Work Phone: [facility] [place] Work Phone: Start: 01-08-2023 End: 01-10-2023 Evaluation and management of inpatient Giorgio Kim Facility:[facility] Start: 01-03-2023 ambulatory Marty Zapien acility:[facility] Start: 01-03-2023 Registered Recurring MD Yessenia White Work Phone: [facility]Infusion Therapy [facility] Work Phone: Start: 11-06-2022 End: 11-07-2022 ambulatory Giorgio Hatchten Facility:[facility] Start: 07-09-2022 Encounter for genera l adult medical examination without abnormal findings DR FRANCESCA WHITE [facility] Start: 07-08-2022 End: 07-09-2022 ambulatory Giorgio Hatchten Facility:[facility] Start: 07-08-2022 End: 07-08-2022 Lab Drop off Giorgio Kim [facility] Start: 07-04-2022 End: 07-05-2022 Encounter for general adult medical examination without abnormal findings DR FRANCESCA WHITE Facility: Start: 07-04-2022 End: 07-05-[address] FRANCESCA WHITE Facility: Start: 06-25-2022 End: 06-26-2022 ambulatory Giorgio Hatchten Facility:[facility] Start: 06-25-2022 End: 06-25-2022 Patient encounter procedure Giorgio Kim [facility] Start: 03-22-2022 End: 03-22-2022 ambulatory Francesca White Facility:[facility] Start: 03-22-2022 End: 03-22-2022 ambulatory MD Francesca White Work Phone: [facility] Work Phone: Start: 03-22-2022 End: 03-22-2022 Patient encounter procedure MD Francesca White Work Phone: [facility] [place] Start: 12-28-2021 End: 12-28-2021 Lab Drop off Betzaida J Dago [facility] Start: 12-03-2021 End: 12-04-2021 ambulatory [facility] Facility:H1 Start: 08-18-2021 End: 08-19-2021 ambulatory [facility] Facility:[facility] Procedures Date Procedure Procedure Detail Performing Clinician Start: 02-07-2023 MRI of head MD Francesca White Work Phone: Start: 02-07-2023 MRI of cervical spin e with contrast MD Francesca White Work Phone: Start: 03-22-2022 MRI of thoracic spin e with contrast MD Francesca White Work Phone: Start: 02-03-2015 cystoscopy 1 Betzaida Antonio pe Comment on above: spinal Start: 11-18-2014 cystoscopy, left ure teroscopy all the way up to the left ureteropelvic junction, Holmium laser ablation, attempt at basket extraction of fragments without success, and a left facet joint stent placement under fluoroscopic guidance Betzaida Dago section Betzaida Lamp e Cholecystectomy Betzaida Dago Extracorporeal shock wave lithotripsy of calculus of kidney Betzaida Dago Plan of Treatment Date Care Activity Detail Author Start: 02-14-2023 Influenza vaccination [facility] Start: 06-16-2022 DEPRESSION ASSESSMENT DEPRESSION ASS ESSMENT [facility] Start: 12-17-2015 HPV TESTING HPV TESTING [facility] Start: 2006 PAP TESTING PAP TESTING [facility] Start: 2004 Urine microalbumin profile [facility] Start: 12-17-2003 HEPATITIS C SCREENING HEPATITIS C SC DAVID [facility] Start: 12-17-2003 HIV SCREENING HIV SCREENING [facility] Start: 12-17-1991 PNEUMOCOCCAL (1 - PCV) PNEUMOCOCCAL (1 - PCV) [facility] Start: 12-17-1991 Pneumococcal vaccination Pneum ococcal Vaccine (1 - PCV) [facility] Start: 06-18-1986 COVID-19 VACCINE (#1) COVID-19 VACCI NE (#1) [facility] Start: 1985 HEPATITIS B (1 of 3 - 3-dose series) HEPATITIS B (1 of 3 - 3-dose series) [facility] Start: 1985 Hepatitis B Vaccine (1 of 3 - 3-dose series) Hepatitis B Vaccine (1 of 3 - 3-dose series) [facility] Immunizations Immunization Date Immunization Notes Care Provider Fa bradley 04-20-2009 influenza virus vacc ine, unspecified formulation Nuria Gonsalez MD Work Phone: [facility] Payers Date Payer Category Payer Medicare DEVOTED MEDICARE [facility] HMO [id number] 2022-Present [phone] [address] [place] [address] O [id number] 2022 Unknown [id number] 2022 Unknown [id number] 2021 Medicare [facility] [id number] 2021 Self-pay [id number] 2012 Medicaid [place] [id number] 2012-Present [phone] [address] [place] [address] Medicaid [id number] 1987 Unknown [id number] 1987 Unknown [id number] 1987 Unknown [id number] 1987 Unknown [id number] 1985 Unknown [id number] 1985 Unknown [id number] 1985 Unknown [id number] 1985 Unknown [id number] 1959 Medicaid [id number] 1959 Medicare [id number] 1959 Unknown [id number] Medicare [place] [employer] Dual Adv [id number] Unknown [id number] Unknown [id number] Unknown [id number] Social History Date Type Detail Facility Start: 01-15-2019 Tobacco smoking status Heavy t obacco smoker (finding) [facility] Start: 12-15-2017 End: 02-21-2023 Sex Assigned At Female [facility] Start: 1985 Sex Assigned At Female F [facility] Start: 04-03-2015 Tobacco smoking status Ex-smoker (fi nding) [facility] Start: 08-14-2015 Tobacco smoking stat us KYIS Smokes tobacco daily [facility] History of tobacco use Cigarette Smoker [facility] Start: 08-14-2015 End: 02-21-2023 Cigarettes smoked current (pack per day) - Reported 1 [facility] Start: 08-14-2015 Tobacco use and exposure Smokeless tobacco non-user [facility] Start: 12-23-2016 Alcohol intake Current drinke r of alcohol (finding) [facility] Adult Depression Screening Assessment 5 [facility] Start: 08-14-2015 Tobacco Comment Patient states she is currently trying to quit [facility] Start: 1985 Sex Assigned At Not on file C [facility] Start: 02-19-2023 Gender identity Identifies as female gender (finding) [facility] Clinical Notes 12-01-2021 to 02-21-2023 Nuria Gonsalez MD - 02/21/2023 11:07 AM EDT Note Date & Type Note Facility 02-21-2023 Note HNO ID: [id number] Author: Nuria Gonsalez MD Service: ? Author Type: Physician Type: Progress Notes Filed: 02/21/2023 12:52 PM Note Text: [facility]ULT[facility] VIRTUAL VISIT FOR NEW PATIENT EVALUATION Referral source: No referring provider defined for this encounter. Also followed by: Francesca White [address] [place] [address] PRINCIPAL NEUROLOGIC DIAGNOSIS: Multiple sclerosis, meningioma incidentally discovered HISTORY OF ILLNESS: Date of onset: 2008 Date of diagnosis of MS: 2008 Disease course at onset: relapsing remitting Current disease course: relapsing remitting Medications for MS Used in the Past: Rebif (2008, stopped when - only took for 4 mos), Gilenya. Started: 2009 Current MS med: Ocrevus (started mid-2021) Most recent MRI brain: 23 DEC 2016 (stable) Most recent MRI cervical: 02 AUG 2015 JCV Status: Positive (MAY 2013) HISTORY OF ILLNESS: The patient requested a virtual visit for education about MS diagnosis or management. History is taken via the virtual visit platform. Former [facility]ie/Maurice patient. Last seen by Katy Richards 2016. Marty Jade from [facility] in [place] She has been dropping things with the left side of her body, and slurred speech, and severe headache, for about 6 months. Currently on Ocrevus for MS, since 2021 approximately. On a scan a few weeks ago they told her she had a brain tumor. Scan was at [facility] in [place]. She reads the report to me: mild diffuse volume loss. right anterior cranial fossa extraxial dural based enhancing [id number]. Likely meningioma. Neuro-Qol Functions (higher = better functioning) 02/21/2023 08/14/2015 Upper Extremity Domain T Score 30 35.13 02/21/2023 08/14/2015 Lower Extremity Domain T Score 36 44.4 02/21/2023 Cognitive Function Domain T Score 38 02/21/2023 Ability To Participate In Social Roles T Score 42 02/21/2023 Satisfaction With Social Roles T Score 46 Neuro-Qol Symptoms (higher = worse symptoms) 02/21/2023 08/14/2015 Sleep Domain T Score 65 65.92 02/21/2023 08/14/2015 Fatigue Domain T Score 65 58.38 02/21/2023 Anxiety Domain T Score 63 02/21/2023 Depression Domain T Score 58 02/21/2023 Stigma Domain T Score 60 *NeuroQoL is a multi-domain patient-reported quality of life questionnaire. PAST HISTORY: PAST MEDICAL HISTORY Diagnosis Date Migraine MS (multiple sclerosis) (HCC) PAST SURGICAL HISTORY Procedure Laterality Date REMOVAL GALLBLADDER Cholecystectomy Current Outpatient Medications Medication Sig gabapentin (NEURONTIN) 300 mg capsule TAKE ONE CAPSULE BY MOUTH 3 TIMES A DAY amitriptyline (ELAVIL) 100 mg tablet Take 100 mg by mouth daily at bedtime. fingolimod (GILENYA) 0.5 mg cap Take 1 capsule by mouth once daily. levothyroxine (SYNTHROID) 125 mcg tablet Take 125 mcg by mouth once daily. MEDROXYPROGESTERONE ACETATE (DEPO-PROVERA INTRAMUSC.) Inject intramuscularly every 3 months. No current facility-administered medications for this visit. ALLERGIES No Known Allergies FAMILY HISTORY Problem Relation Age of Onset Hypertension Father Thyroid Mother REVIEW OF OUTSIDE RECORDS: No outside records were available for my review. REVIEW OF IMAGING STUDIES: No imaging studies were available for my review. ASSESSMENT: 37 year-old woman with MS, on Ocrevus, plus discovered extraaxial mass that must be new since the last MRI brain we have on file from 2017. -refer to [facility] neurosurgery/BTNC for management plan for meningioma -call to [facility] imaging who will send MRIs to [facility] PACS -for MS follow-up, a good option would be Dr. Carmen Bobo at [facility] I have communicated my name and active licensure. The patient's identity and physical location were verified at the time of this visit. Either the patient or their legal underwriting service representative has been informed of the risks and benefits of -- and alternatives to -- treatment through a remote evaluation and consents to proceed with the evaluation remotely. Nuria Gonsalez MD Staff Neurologist [facility] 02-21-2023 History of Present illness Narrative [facility] VIRTUAL VISIT FOR NEW PATIENT EVALUATION Referral source: No referring provider defined for this encounter. Also followed by: Francesca White [facility] [place] [address] PRINCIPAL NEUROLOGIC DIAGNOSIS: Multiple sclerosis, meningioma incidentally discovered HISTORY OF ILLNESS: Date of onset: 2008 Date of diagnosis of MS: 2008 Disease course at onset: relapsing remitting Current disease course: relapsing remitting Medications for MS Used in the Past: Rebif (2008, stopped when - only took for 4 mos), Gilenya. Started: 2009 Current MS med: Ocrevus (started mid-2021) Most recent MRI brain: 23 DEC 2016 (stable) Most recent MRI cervical: 02 AUG 2015 JCV Status: Positive (MAY 2013) HISTORY OF ILLNESS: The patient requested a virtual visit for education about MS diagnosis or management. History is taken via the virtual visit platform. Former [facility]/Maurice patient. Last seen by Katy Richards 2016. Marty Jade from [facility] in [place] She has been dropping things with the left side of her body, and slurred speech, and severe headache, for about 6 months. Currently on Ocrevus for MS, since 2021 approximately. On a scan a few weeks ago they told her she had a brain tumor. Scan was at [facility] in [place]. She reads the report to me: mild diffuse volume loss. right anterior cranial fossa extraxial dural based enhancing [id number]. Likely meningioma. Neuro-Qol Functions (higher = better functioning) 02/21/2023 08/14/2015 Upper Extremity Domain T Score 30 35.13 02/21/2023 08/14/2015 Lower Extremity Domain T Score 36 44.4 02/21/2023 Cognitive Function Domain T Score 38 02/21/2023 Ability To Participate In Social Roles T Score 42 02/21/2023 Satisfaction With Social Roles T Score 46 Neuro-Qol Symptoms (higher = worse symptoms) 02/21/2023 08/14/2015 Sleep Domain T Score 65 65.92 02/21/2023 08/14/2015 Fatigue Domain T Score 65 58.38 02/21/2023 Anxiety Domain T Score 63 02/21/2023 Depression Domain T Score 58 02/21/2023 Stigma Domain T Score 60 *NeuroQoL is a multi-domain patient-reported quality of life questionnaire. PAST HISTORY: PAST MEDICAL HISTORY Diagnosis Date Migraine MS (multiple sclerosis) (HCC) PAST SURGICAL HISTORY Procedure Laterality Date REMOVAL GALLBLADDER Cholecystectomy Current Outpatient Medications Medication Sig gabapentin (NEURONTIN) 300 mg capsule TAKE ONE CAPSULE BY MOUTH 3 TIMES A DAY amitriptyline (ELAVIL) 100 mg tablet Take 100 mg by mouth daily at bedtime. fingolimod (GILENYA) 0.5 mg cap Take 1 capsule by mouth once daily. levothyroxine (SYNTHROID) 125 mcg tablet Take 125 mcg by mouth once daily. MEDROXYPROGESTERONE ACETATE (DEPO-PROVERA INTRAMUSC.) Inject intramuscularly every 3 months. No current facility-administered medications for this visit. ALLERGIES No Known Allergies FAMILY HISTORY Problem Relation Age of Onset Hypertension Father Thyroid Mother REVIEW OF OUTSIDE RECORDS: No outside records were available for my review. REVIEW OF IMAGING STUDIES: No imaging studies were available for my review. ASSESSMENT: 37 year-old woman with MS, on Ocrevus, plus discovered extraaxial mass that must be new since the last MRI brain we have on file from 2017. -refer to [facility] neurosurgery/BTNC for management plan for meningioma -call to [facility] imaging who will send MRIs to [facility] PACS -for MS follow-up, a good option would be Dr. Carmen Bobo at [facility] I have communicated my name and active licensure. The patient's identity and physical location were verified at the time of this visit. Either the patient or their legal underwriting service representative has been informed of the risks and benefits of -- and alternatives to -- treatment through a remote evaluation and consents to proceed with the evaluation remotely. Nuria Gonsalez MD Staff Neurologist [facility] documented in this encounter [facility] 01-22-2023 Note DATE OF DISCHARGE: 0 01/10/2023 The patient is without complaints. Positive flatus. Positive void. Vital signs are stable, afebrile. Breasts non-tender, non-pathologic. Abdomen fundus firm and below the umbilicus. She has scant lochia. The perineum is intact. The patient is ready for release. Good instructions are given. The patient is to return to my office in six weeks. She is given the following prescriptions for her home use: Motrin and vitamins. DISCHARGE DIAGNOSIS: Vaginal delivery. Course: Advanced maternal age, otherwise uncomplicated. Intrapartum Course: Spontaneously vaginal delivery of an 8 pound 6 ounce male infant with Apgars of 7 and 9, nuchal cord reduced x 1, otherwise without complications. Course: Without complications. Whitney Isaacs Dictated: 01/19/2023 [id number] Transcribed: 01/20/2023 [facility] Comment on above: Result Comment: Elec tronically Signed By: Giorgio Kim MD\.br\Date and Time Signed: 01/22/23 07:22 EDT 01-10-2023 Note The following Patien t Education Materials have been given to the patient: EducationMaterial [facility] 01-10-2023 Note HOSPITAL REGULATIONS : All Positive and Important Negative Findings Shall Be Recorded DATE ADMITTED: 01/08/2023 TRIAGE NOTE The patient is a 35 year old, VII, Para V, I, white female who presented to Labor and Delivery for labor. Her course had been complicated by advanced maternal age, otherwise relatively uncomplicated. We anticipate spontaneous vaginal delivery around 8.5 pounds. Please see records for details. Giorgio Kim M.D. lr Dictated: 01/10/2023 [id number] Transcribed: 01/10/2023 [facility] Comment on above: Result Comment: Elec tronically Signed By: Giorgio Kim MD\.br\Date and Time Signed: 01/10/23 09:47 EDT 01-23-2023 Evaluation + Plan note Diagnostic Tests PendingUrine Culture 07/08/22 [facility] 06-25-2022 Evaluation + Plan note Diagnostic Tests PendingRubella Antibody IgG 06/25/22[facility]PR with Conf Rfx 06/25/22Hepatitis B Surface Antigen 06/25/22HIV Screen 4th Generation wRfx 06/25/22 [facility] 12-01-2021 Evaluation + Plan note Diagnostic Tests PendingPAP [id number] IG Apt HPV,rfx 16/18,45 12/28/21 [facility] Evaluation note No assessment inform ation available [facility] Work Phone: Evaluation note Diagnosis Meningioma (HCC)- Primary Benign neoplasm of cerebral meninges [facility] N[facility] No data available for this section [facility] No data available for this section [facility] No data available for this section [facility] Summary Purpose Family History No Family History Records FoundNo Family History Records FoundNo Family History Records FoundNo Family History Records FoundNo Family History Records Found Advance Directives Advance Directive Response Recorded Date/ Time Advance Directives No February 5:09pm Chief Complaint and Reason for Visit Chief Complaint G35 Chief Complaint MS g35 Reason for Referral Specialty Diagnoses / Procedures Referred By Brett harrison Referred To Contact Neurosurgery Diagnoses Meningioma (HCC) Procedures CONSULT TO NEUROSURGERY OFFICE/OUTPATIENT NEW HIGH MDM 60-74 MINUTES Nuria Gonsalez MD [address] [place] [address] Referral ID Status Reason Start Date Expiration Date Visits Requested Visits Authorized [id number] Pending Review PCP Requested Referral 02/21/2023 02/21/2024 1 1 Additional Source Comments INFORMATION SOURCE (unrecogn ized section and content) DATE CREATED AUTHOR 01/10/2020 [facility] DATE CREATED AUTHOR AUTHOR'S ORGANIZ ATION 07/10/2022 [facility] DATE CREATED AUTHOR AUTHOR'S ORGANIZ ATION 02/16/2023 [facility] DATE CREATED AUTHOR AUTHOR'S ORGANIZ ATION 02/22/2023 [facility] DATE CREATED AUTHOR AUTHOR'S ORGANIZ ATION 02/22/2023 [facility] Care Team (unrecognized sect ion and content) Team Status: Inactive Member Role Status Dates Francesca White MD Primary Care Provider Active Clayton Wallace PA-C Attending Provider Active Team Status: Active Member Role Status Dates Francesca White MD Primary Care Provider Active Team Status: Inactive Member Role Status Dates Francesca White MD Primary Care Provider Active Marty Jade , DO Attending Provider Active Team Status: Active Member Role Status Dates Francesca White MD Primary Care Provider Active Marty Jade , DO Attending Provider Active Liberal Arts Teacher Relationship Specialty Start Date End Date Francesca White MD PCP - General Family Medicine 05/28/12 Liberal Arts Teacher Relationship Specialty Start Date End Date Francesca White MD PCP - General Family Medicine 05/28/12 Goals (unrecognized section and content) Goals may be documented in a n alternate section Source Comments (unrecognize d section and content) In the event this informatio n is protected by the Federal Confidentiality of Alcohol and Drug Abuse Patient Records regulations: The Federal rules restrict any use of the information to criminally investigate or prosecute any alcohol or drug abuse patient.[facility] the event this information is protected by the Federal Confidentiality of Alcohol and Drug Abuse Patient Records regulations: The Federal rules restrict any use of the information to criminally investigate or prosecute any alcohol or drug abuse patient.[facility] Reason for Visit (unrecogniz ed section and content) Reason Comments New Patient Evaluation FOR RECORDS PERTAINING TO PATIENTS WHO ARE OR HAVE BEEN ENROLLED IN A CHEMICAL DEPENDENCY/SUBSTANCEABUSE PROGRAM, SOME INFORMATION MAY BE OMITTED. This clinical summary was aggregated from multiple sources. Caution should be exercised in using it in the provision of clinical care. This summary normalizes information from multiple sources, and as a consequence, information in this document may materially change the coding, format and clinical context of patient data. In addition, data may be omitted in some cases. CLINICAL DECISIONS SHOULD BE BASED ON THE PRIMARY CLINICAL RECORDS. [facility] [employer] [facility]. provides no warranty or guarantee of the accuracy or completeness of information in this document.
== END 2023-04-23 10:31 | disposition home or self-care (01) ==
LOC: LAB 10:33
PROVIDERS: PCP Family Medicine; Visit Provider Psychiatry & Neurology Neurology
DX: G35 Multiple sclerosis (principal); R41.3 Other amnesia; F98.8 Other specified behavioral and emotional disorders with onset usually occurring in childhood and adolescence
CPT/HCPCS: 36415; 80053; 85025

== ENCOUNTER 2024-12-20 20:29 | Emergency (ER) | payer MEDICARE, MEDICAID, SELFPAY ==
--- OUTSIDE RECORDS SUMMARY | 2024-10-22 10:41 | XMS_ITS ---
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 Role Phone NO PCP, NO PCP Primary Care Unavailable MILLY DEMARCO Attending Unavailable Purpose PROBLEMS DATE TYPE CONDITION / CODE ATTENDING STATUS [facility] 10/22/2024 Unknown Procedure and treatment not carried out due to patient leaving prior to being seen by health care provider / Z53.21(ICD-10) MILLY DEMARCO [facility] 10/22/2024 Unknown Chest pain, unspecified / R07.9(ICD-10) MILLY DEMARCO [facility] 10/22/2024 Unknown Medical Screenin g / [facility](AOF) MILLY DEMARCO [facility] 10/22/2024 Unknown Numbness / UNK(Unknown) JOHNMILLY PANCHAL [facility] PROCEDURES No Procedure Records Found VITAL SIGNS No Vital Signs Records Found RESULTS TROP I, HIGH SENSITIVITY 1 HOUR Collected: 02/2025 12:22 PM Status: COMPLETED Source: [facility] TYPE CODE TESTS RESULT OUT OF RANGE REFERENCE UNITS LAB TNIHS TROPONIN I, HIGH SENSITIVITY <^2 <16 ng/L Performed By: #### [email or web address] ## ## [facility] ([address] BRAIN WO CONT Observed: 10/22/2024 11:36 AM Status: COMPLETED Source: [facility] CT BRAIN WO CONT STUDY: CT HEAD WITHOUT CONTRAST CLINICAL HISTORY: MS relapse Weakness. Dropping objects. COMPARISON: None Procedure: Multi-detector CT performed through the brain without IV contrast. The lack of IV contrast limits evaluation for acute infarct, mass, infectious process,or demyelinating disease.Automated exposure control was utilized. Findings: Probable calcified meningioma right frontal floor of the anterior cranial fossa measuring 11.3 mm. Contrast brain MRI including demyelinating protocol recommended for further assessment. Scattered periventricular heterogeneous white matter attenuation which can be seen with demyelinating process but nonspecific. Demyelinating protocol brain MRI with contrast recommended. There is no other intracranial hemorrhage, extra-axial fluid collection, mass effect, or hydrocephalus. Franco-white matter differentiation is appropriate. Infarcts and masses may be occult on CT, but grossly no acute infarct identified There is no midline shift. IMPRESSION: Probable calcified meningioma right frontal floor of the anterior cranial fossa measuring 11.3 mm. Contrast brain MRI including demyelinating protocol recommended for further assessment. Scattered periventricular heterogeneous white matter attenuation which can be seen with demyelinating process but nonspecific. Demyelinating protocol brain MRI with contrast recommended. * All CT scans at this facility use dose modulation, iterative reconstruction, and/or weight based dosing when appropriate to reduce radiation dose to as low as reasonably achievable. Finalized by Mendoza Aguirre MD on 10/22/2024 11:46 AM POCT , URINE (NUCG) Collected: 10/22/2024 11:25 AM Status: COMPLETED Source: [facility] TYPE CODE TESTS RESULT OUT OF RANGE REFERENCE UNITS LAB NUCG URINE NURSING Negative Negative Performed By: #### NUCG #### [facility] ([address] [place] [address] VIR POCT NURSING URINE MACROSCOPIC UA Collected: 10/22/2024 11:24 AM Status: COMPLETED Source: [facility] TYPE CODE TESTS RESULT OUT OF RANGE REFERENCE UNITS LAB SPGRN SPECIFIC GRAVITY BRAD 1.015 1.010, 1.015, 1.020, 1.025 LAB LESTN LEUKOCYTE ESTERASE BRAD Negative Negative LAB NITN NITRITE BRAD Negative Negative LAB PHURN PH BRAD 7.5 5.0, 6.0, 6.5, 7.0, 7.5, 8.0, 8.5, 5.5 LAB PRURN PROTEIN BRAD Negative Negative LAB GLURN GLUCOSE BRAD Negative Negative LAB KETN KETONES BRAD Negative Negative LAB UROBN UROBILINOGEN BRAD 0.2 E.U./dL LAB BILEN BILIRUBIN BRAD Negative Negative LAB BLURN BLOOD/HGB BRAD Negative Negative Performed By: #### NUM #### [facility] ([address] [address] VIR CBC WITH AUTO DIFFERENTIAL Collected: 0 10/22/2024 11:18 AM Status: COMPLETED Source: [facility] TYPE CODE TESTS RESULT OUT OF RANGE REFERENCE UNITS LAB WBC WBC 6.1 4-11 x10E9/L LAB RBC RBC COUNT 4.69 3.8-5.2 X10E12/L LAB HGB HEMOGLOBIN 13.9 11.7-15.5 g/dL LAB HCT HEMATOCRIT 40.3 35-47 % LAB MCV MCV 86 80-100 fL LAB MCH MCH 29.6 27-34 pg LAB MCHC MCHC 34.4 32-36 g/dL LAB RDW RDW 13.6 11.5-15 % LAB PLTC PLATELET COUNT 272 150-450 X10E9/L LAB MPV MPV 8.3 7-12 fL LAB NEUT NEUTROPHILS RELATIVE PERCENT BY AUTOMATED COUNT 58.9 % LAB LYMP LYMPHOCYTES RELATIVE PERCENT BY AUTOMATED COUNT 28.4 % LAB MONO MONOCYTES RELATIVE PERCENT BY AUTOMATED COUNT 8.4 % LAB EOS EOSINOPHILS RELATIVE PERCENT BY AUTOMATED COUNT 2.9 % LAB BASO BASOPHILS RELATIVE PERCENT BY AUTOMATED COUNT 1.4 % LAB ANEUT NEUTROPHILS ABSOLUTE COUNT BY AUTOMATED COUNT 3.6 1.5-6.6 10*3/uL LAB ALYMP LYMPHOCYTES ABSOLUTE COUNT (10*3/UL) BY AUTOMATED COUNT 1.7 1.0-3.5 10*3/uL LAB AMONO MONOCYTES ABSOLUTE COUNT (10*3/UL) BY AUTOMATED COUNT 0.5 0.0-0.9 10*3/uL LAB AEOS EOSINOPHILS ABSOLUTE COUNT (10*3/UL) BY AUTOMATED COUNT 0.2 0.0-0.4 10*3/uL LAB ABASO BASOPHILS ABSOLUTE COUNT (10*3/UL) BY AUTOMATED COUNT 0.1 0.0-0.2 10*3/uL LAB DTYPE CELLAVISION DIFFERENTIAL TYPE AUTOMATED DIFFERENTIAL Performed By: #### CBCA #### [facility] ([address] [address] VIR MAGNESIUM Collected: 10/22/2024 11:18 AM Status: COMPLETED Source: [facility] TYPE CODE TESTS RESULT OUT OF RANGE REFERENCE UNITS LAB MG MAGNESIUM 1.9 1.8-2.6 mg/dL Performed By: #### MG #### [facility] ([address] [address] VIR COMPREHENSIVE METABOLIC PANEL Collected : 10/22/2024 11:18 AM Status: COMPLETED Source: [facility] TYPE CODE TESTS RESULT OUT OF RANGE REFERENCE UNITS LAB NA SODIUM 136 134-146 mmol/L LAB K POTASSIUM 4.1 3.5-5.0 mmol/L LAB CL CHLORIDE 105 98-109 mmol/L LAB CO2 CARBON DIOXIDE 25 22-32 mmol/L LAB AGAP ANION GAP 6 5-15 mmol/L LAB BUN BLOOD UREA NITROGEN 11 5-23 mg/dL LAB CRET CREATININE 0.96 0.40-1.00 mg/dL Result Comment: METHOD TRACE ABLE TO IDMS STANDARD LAB GLU GLUCOSE 96 65-99 mg/dL LAB CA CALCIUM 9.4 8.5-10.5 mg/dL LAB TP TOTAL PROTEIN 7.2 6.0-8.0 g/dL LAB ALB ALBUMIN 4.3 3.2-5.3 g/dL LAB ALK ALKALINE PHOSPHATASE 43 39-130 U/L LAB AST AST 16 <=41 U/L LAB ALT ALT 10 <=31 U/L LAB TBIL BILIRUBIN,TOTAL 0.9 0.3-1.2 mg/dL LAB EGFR EGFR (CKD-EPI) NON-RACE DEPENDENT 78 >=60 ml/min/1 .73sq.m Result Comment: eGFR not rep orted due to non-numeric value for Creatinine. Reported eGFR is based on the CKD-EPI 2020 equation that does not use a race coefficient. Performed By: #### CMP #### [facility] ([address] [address] VIR TROPONIN I, HIGH SENSITIVITY 0 HOUR Collected: 10/22/2024 11:18 AM Status: COMPLETED Source: [facility] TYPE CODE TESTS RESULT OUT OF RANGE REFERENCE UNITS LAB TNIHS TROPONIN I, HIGH SENSITIVITY 2 <16 ng/L Performed By: #### TNIHS0 ## ## [facility] ([place] [address] [place] [address] VIR ALLERGIES DATE TYPE / CODE NAME / CODE REACTION SEVERITY SOURCE Drug Class/[id number](SNO MED CT) NO KNOWN ALLERGIES [facility] ENCOUNTERS ADMIT/DISCHARGE ACCOUNT NUMBER ADMITTING ENCOUNTER CLASS LOCATION SOURCE 10/22/2024/ 5 [id number] Emergency Building:[facility]_ EDRoom: 10Bed: 10 [facility] FUNCTIONAL STATUS No Functional Status Records Found EQUIPMENT No Equipment Records Found PAYERS ENCOUNTER GUARANTOR PAYER SUBSCRIBER SOURCE 10/22/2024 THEODORA ABBASIOB: [id number] [place] [address]Wrc: () Primary Insurance:[facility] MEDICARE ADVANTAGE [facility] Number: [id number] Date:2024-09-14 THEODORA ABBASIOB: [id number] [place] [address] [facility] SOCIAL HISTORY No Social History Records Found FAMILY HISTORY No Family History Records Found ADVANCE DIRECTIVES No Advanced Directives Records Found INFORMATION SOURCE DATE CREATED AUTHOR AUTHOR'S SANTANA ATION 12/21/2024 JACINTO
[2024-12-20] VITALS (9 sets, daily range): BP systolic 114–124; BP diastolic 76–82; PULSE 69–89; TEMP 36.6; O2SAT 98–100; BMI 24.1
--- NOTE | 2024-12-20 20:38 | ED.GENADUL1 ---
HPI HPI - General Adult General Chief complaint: Chest Pain Stated complaint: CHEST PAIN Time Seen by Provider: 12/20/24 20:36 History of Present Illness HPI narrative: The patient is a 39-year-old female presenting to the emergency department complaining of chest pain. The patient stated that she was engaged in nonspecific activity 1 hour prior to arrival. She felt chest pain in the left breast area. It lasted about 10 minutes. It did not radiate or move anywhere. Unknown what made it worse. Nothing in particular made it better. She took no pain medication prior to arrival. She described the pain as moderate in severity. It was associated with shortness of breath. It was not associated with radiation, diaphoresis, or nausea. The patient has no known medical history with coronary artery disease but she does have family with a medical history. The patient states that she does not have high blood pressure, high cholesterol, or diabetes. She does have a primary medical physician Dr. White but states has been greater than a year since she has seen him. Recently the patient states that she has had chest pain and shortness of breath with exertion. The patient stated that she walked about an hour here to be evaluated. Related Data Home Medications ?Medication ?Instructions ?Recorded ?Confirmed No Known Home Medications 12/20/24 12/20/24 Allergies Allergy/AdvReac Type Severity Reaction Status Date / Time No Known Drug Allergies Allergy Verified 12/20/24 20:40 Review of Systems ROS Narrative 10 Systems were reviewed, and unless noted in the HPI, all other systems are reviewed, unremarkable, or noncontributory. PFSH PFS Social History Little interest or pleasure in doing things: not at all Feeling down, depressed, or hopeless: not at all Exam Narrative Exam Narrative: Prior to examining the patient, I have washed with hospital approved and provided Antiseptic Hand Assembly Associate and have also applied gloves.? Prior to touching the patient, I asked for consent to examine the patient.? General: Alert and oriented, well nourished, mild distress. Eye: PERRL, EOMI, normal conjunctiva. HENT: Normocephalic, normal hearing, moist oral mucosa, no scleral icterus, no sinus tenderness. Neck: Supple, non-tender, no carotid bruits, no JVD, no lymphadenopathy. Lungs: Clear to auscultation and percussion, non-labored respiration. Heart: Normal rate, regular rhythm, no murmur, gallop or edema. Abdomen: Soft, non-tender, non-distended, normal bowel sounds, no masses. Musculoskeletal: Normal range of motion and strength, no tenderness or swelling. Skin: Skin is warm, dry and pink, no rashes or lesions. Neurologic: Awake, alert, and oriented X3, CN II-XII intact. Psychiatric: Cooperative, appropriate mood and affect.? Following the conclusion of the examination, I have washed my hands thoroughly after removing examination gloves. Constitutional Vital Signs, click to edit/add: Last Vital Signs Temp 97.9 F 12/20/24 20:36 Pulse 88 12/20/24 20:36 Resp 18 12/20/24 20:36 BP 114/82 12/20/24 20:36 Pulse Ox 99 12/20/24 20:36 O2 Del Method Room Air 12/20/24 20:36 Course Course Hospital Course: The patient arrived by herself. She was hooked up to clinical research monitor. The clinical research monitor reveals a sinus rhythm with a ventricular rate in the 70s. There is no evidence of ectopy or arrhythmia appreciated with normal morphology appreciated. The patient currently is pain-free and is not going to necessitate any pain medications initially upon arrival. The patient is going to be started with some laboratories, an EKG, and a chest x-ray. At this time, I cannot PERC the patient out for pulmonary embolism so I do have to get a D-dimer. Reevaluation(s) Reevaluation #1: Discussed all of the results with the patient. Time: 21:27 Vital Signs Vital signs: Vital Signs Temperature 97.9 F 12/20/24 20:36 Pulse Rate 88 12/20/24 20:36 Respiratory Rate 18 12/20/24 20:36 Blood Pressure 114/82 12/20/24 20:36 Pulse Oximetry 99 12/20/24 20:36 Oxygen Delivery Method Room Air 12/20/24 20:36 Temperature 97.9 F 12/20/24 20:36 Pulse Rate 88 12/20/24 20:36 Respiratory Rate 18 12/20/24 20:36 Blood Pressure 114/82 12/20/24 20:36 Pulse Oximetry 99 12/20/24 20:36 Oxygen Delivery Method Room Air 12/20/24 20:36 Medical Decision Making MDM Narrative Medical decision making narrative: The patient's heart rate was too high to PERC her out so I did a D-dimer the D-dimer was negative. The patient is low risk per Wells criteria and therefore is negative for a blood clot and does not need to have a scan. The patient's HEART score is 2 with family history and then her troponin being 1 times the normal limit. Patient's considered low risk with a MACE of 0.9 to 1.7%. Therefore the patient can be safely discharged to follow-up with Dr. White. Differential Diagnosis Differential Diagnosis: Acute chest wall pain, acute coronary syndrome, pulmonary embolism, anxiety Medical Records Medical records reviewed: Yes I reviewed the patient's medical records Lab Data Lab results reviewed: Yes I reviewed the patient's lab results Labs: Lab Results 12/20/24 Range/Units 20:47 WBC 9.5 (4.0-11.0) 10^3/uL RBC 4.64 (4.20-5.40) 10^6/uL Hgb 13.7 (12.0-16.0) g/dL Hct 40.2 (36.0-48.0) % MCV 86.6 (81.0-99.0) fL MCH 29.5 (26.7-34.0) pg MCHC 34.1 (29.9-35.2) g/dL RDW 13.2 (11.0-15.0) % Plt Count 280 (150-450) 10^3/uL MPV 10.1 (9.5-13.5) fL Neut % (Auto) 62.4 (43.0-75.0) % Lymph % (Auto) 26.9 (20.5-60.0) % [place] % (Auto) 7.9 (1.7-12.0) % Eos % (Auto) 2.1 (0.9-7.0) % Baso % (Auto) 0.5 (0.2-2.0) % Neut # (Auto) 5.9 (1.4-6.5) 10^3/uL Lymph # (Auto) 2.6 (1.2-3.8) 10^3/uL [place] # (Auto) 0.8 (0.3-0.8) 10^3/uL Eos # (Auto) 0.2 (0.0-0.7) 10^3/uL Baso # (Auto) 0.1 (0.0-0.1) 10^3/uL Abs Immat Gran (auto) 0.02 (0.00-0.03) 10^3/uL Imm/Tot Granulo (auto) 0.2 (0.0-0.5) % D-Dimer 0.21 (<=0.59) mg/L FEU Sodium 138 (136-145) mmol/L Potassium 4.0 (3.5-5.1) mmol/L Chloride 102 (98-107) mmol/L Carbon Dioxide 27.4 (21.0-32.0) mmol/L Anion Gap 12.6 BUN 11.0 (7.0-18.0) mg/dL Creatinine 0.80 (0.55-1.02) mg/dL Est GFR ( Amer) >60 (>=60 mL/min/1.73m^2) Est GFR (Non-Af Amer) >60 (>=60 mL/min/1.73m^2) BUN/Creatinine Ratio 13.8 Glucose 100 (74-106) mg/dL Calcium 9.7 (8.5-10.1) mg/dL Total Bilirubin 0.4 (0.2-1.0) mg/dL AST 14 L (15-37) U/L ALT 13 L (14-59) U/L Alkaline Phosphatase 50 (46-116) U/L Troponin I High Sens 4.5 (4.0-51.3) pg/mL Total Protein 7.0 (6.4-8.2) g/dL Albumin 3.8 (3.4-5.0) g/dL Globulin 3.2 g/dL Albumin/Globulin Ratio 1.2 Imaging Data Chest x-ray: Radiologist's impression: ITS Impressions Chest X-Ray 12/20/24 20:44 IMPRESSION: NO ACUTE CARDIOPULMONARY ABNORMALITY. Impression dictated by: Hector Mo M.D. 12/20/2024 9:14 PM Dictation Location: [place] [address] Electronically authenticated by: [id number] Y Date: 12/20/2024 21:14 ECG Data Attestation: I personally reviewed and interpreted this ECG as follows: Interpretation: Twelve-lead EKG reveals a sinus rhythm with a ventricular of 86 bpm. The PA interval and QRS duration are normal. QTc is not prolonged. No evidence of ST segment elevation or depression suggestive of infarction or ischemia. There is baseline wandering in the septal leads. Summary: Normal EKG. Discharge Plan Discharge Chief Complaint: Chest Pain Clinical Impression: Chest pain Patient Disposition: Home, Self-Care Time of Disposition Decision: 21:31 Condition: Good Mode of Transportation: Private Vehicle Prescriptions / Home Meds: No Action No Known Home Medications Print Language: Trinidadian Instructions: Chest Pain (ED) Additional Instructions: Thank you for trusting me with your care today. I am sorry that I was unable to discover what was causing her discomfort this evening. Obviously it was concerning or you would not be in the emergency department. Please follow-up with Dr. White for further evaluation. Referrals: Oh White MD [Primary Care Provider, Family Practice] - 1 week
--- NOTE | 2024-12-20 20:44 | XR_ITS ---
The [address] [address] Patient Name: THEODORA MARQUEZ MRN: [id number] date: 1985 Sex: F Assigned Patient Location: ER Current Patient Location: ED.MAIN Accession/Order Number: [id number] Exam Date: 12/20/2024 21:13 Report Date: 12/20/2024 21:14 At the request of: ILAN AMES DO Procedure: XR chest 2V PA AND LATERAL CHEST: CLINICAL HISTORY: CP COMPARISON: None FINDINGS: Unremarkable cardiomediastinal. Lungs clear. No effusion or pneumothorax. XR/XR chest 2V IMPRESSION: NO ACUTE CARDIOPULMONARY ABNORMALITY. Impression dictated by: Hector Mo M.D. 12/20/2024 9:14 PM Dictation Location: [place] [address] Electronically authenticated by: [id number] Y Date: 12/20/2024 21:14
--- NOTE | 2024-12-20 20:44 | ECG_ITS ---
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 Measurements Intervals [place] Rate: 86 P: 58 VT: 108 QRS: 77 QRSD: 70 T: 69 QT: 352 QTc: 395 Interpretive Statements 1100 Sinus rhythm 2210 Short VT interval 9150 abnormal ECG Compared to ECG 12/30/2020 18:55:53 Short VT interval now present T-wave abnormality no longer present Electronically Signed On 12-21-2024 17:49:49 EDT by SATYA IBARRA M.D.
[2024-12-20 20:53] LABS: Hematocrit 40.2 % (36.0-48.0); Hemoglobin 13.7 g/dL (12.0-16.0); Immature Granulocytes Abs Auto 0.02 10^3/uL (0.00-0.03); Immature Granulocytes Pct Auto 0.2 % (0.0-0.5); Lymphocytes Absolute Auto 2.6 10^3/uL (1.2-3.8); Mean Corpuscular HGB Conc 34.1 g/dL (29.9-35.2); Mean Corpuscular Hemoglobin 29.5 pg (26.7-34.0); Mean Corpuscular Volume 86.6 fL (81.0-99.0); Platelet Count 280 10^3/uL (150-450); Red Blood Count 4.64 10^6/uL (4.20-5.40); White Blood Count 9.5 10^3/uL (4.0-11.0)
[2024-12-20 21:09] LABS: Alanine Aminotransferase 13 U/L (14-59); Albumin Globulin Ratio 1.2; Albumin Level 3.8 g/dL (3.4-5.0); Alkaline Phosphatase 50 U/L (46-116); Anion Gap 12.6; Aspartate Amino Transferase 14 U/L (15-37); Blood Urea Nitrogen 11.0 mg/dL (7.0-18.0); Calcium 9.7 mg/dL (8.5-10.1); Carbon Dioxide 27.4 mmol/L (21.0-32.0); Chloride 102 mmol/L (98-107); Estimated GFR (African America >60 (>=60 mL/min/1.73m^2); Estimated GFR (Non-African Ame >60 (>=60 mL/min/1.73m^2); Globulin 3.2 g/dL; Glucose 100 mg/dL (74-106); Potassium 4.0 mmol/L (3.5-5.1); Sodium 138 mmol/L (136-145); Total Protein 7.0 g/dL (6.4-8.2)
== END 2024-12-20 21:40 | disposition home or self-care (01) ==
PROVIDERS: Emergency Provider Emergency Medicine; PCP Family Medicine
DX: R07.9 Chest pain, unspecified (principal)
CPT/HCPCS: 36415; 71046; 80053; 84484; 85025; 85378; 93005; 99285

== ENCOUNTER 2025-01-12 13:05 | Outpatient (OUT) | payer MEDICARE, SELFPAY ==
--- OUTSIDE RECORDS SUMMARY | 2023-10-20 04:59 | XMS_ITS ---
Author Organization The [facility] in [place] Address [address] [place] [address] Care Team Providers Care Sander Operator Name Role Phone Silver Sands Primary Care Provider [phone] FRANCESCA SANDS Unavailable [phone] REASON FOR VISIT Yearly Appt Encounters Encounter Location Date Provider Diagnosis [facility] [address] [facility] [place] [address] 10/20/2023 FRANCESCA SANDS Plan Of Treatment No Information Progress Notes * Martha MARQUEZ LDOB:08/1985 (37 yo F)Acc No.[id number]:10/20/2023 Patient: Key MOYASterling Martha Carolyne :1985 A ge:37 Y S ex:Female Address:[address] [place] [address] * true * Date: Generated for Osmari trent/Fayarielg/eTransmitting on: 0 01/12/2025 01:12 PM EDT
--- OUTSIDE RECORDS SUMMARY | 2023-12-10 07:15 | XMS_ITS ---
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) Active confirmed Problem COVID-19 (963606158) COVID-19 (U07.1) Active confirmed Problem Neck pain (01994141) Neck pain (M54.2) Active confirmed Problem Insomnia (381709961) Insomnia (G47.00) Active confirmed Problem Vertigo (515752691) Vertigo (R42) Active confirmed Problem Migraine (51810859) Migraine (G43.909) Active confirmed Problem Edema (76893078) Edema (R60.9) Active confirmed Problem Gait abnormality (38077139) Gait abnormality (R26.9) Active confirmed Problem Weakness (75957277) Weakness (R53.1) Active confirmed Problem Paresthesia (21600731) Paresthesia (R20.2) Active confirmed Problem Depression (862489164) Depression (F32.9) Active confirmed Encounters Encounter Location Date Provider Diagnosis [facility] [address] [place] [address] 12/10/2023 FRANCESCA SANDS Plan Of Treatment No Information Progress Notes * Martha MARQUEZ LDOB:08/1985 (39 yo F)Acc No.[id number]:12/10/2023 UNLOCKED PROGRESS NOTE Progress Note Patient: Martha PEARSON Provider: Sterling Sands M.D. :1985 A ge:37 Y S ex:Female Date:12/10/2023 Address:[address] [place], [place] [address] Pcp:Shaneka Sands Subjective: * Chief Complaints: * * Medical History: Objective: * Vitals: Assessment: Plan: * Treatment: * * Electronic signature of SHANEKA SANDS MD on 01/12/2025 at 01:12 PM EDT Sign off status: Pending Visit Status: C ANCPHONE (Cancelled Phone) * Provider: Sterling Sands M.D. Date: 12/10/2023 Generated for Ken newman/Tiffani/eTransmitting on: 01/12/2025 01:12 PM EDT
--- OUTSIDE RECORDS SUMMARY | 2025-01-12 13:13 | XMS_ITS | Patient Health Record ---
Author Organization [facility] [place] Address [address] [place] [address] Care Team Providers Care Journalism Professor Name Role Phone Silver White Primary Care Provider Results Component Value Reference Range Notes CBC AUTO DIFF Reviewed date:12/20/2024 09:32:14 PM Interpretation: Performing Lab: Notes/Report: [facility] , White Blood Count 9.5 4.0-11.0 10 3/uL Red Blood Count 4.64 4.20-5.40 10 6/uL Hemoglobin 13.7 12.0-16.0 g/dL Hematocrit 40.2 36.0-48.0 % Mean Corpuscular Volume 86.6 81.0-99.0 fL Mean Corpuscular Hemoglobin 29.5 26.7-34.0 pg Mean Corpuscular HGB Conc 34.1 29.9-35.2 g/dL Red Cell Distribution Width 13.2 11.0-15.0 % Platelet Count 280 150-450 10 3/uL Mean Platelet Volume 10.1 9.5-13.5 fL Neutrophils Percent Auto 62.4 43.0-75.0 % Lymphocytes Percent Auto 26.9 20.5-60.0 % Monocytes Percent Auto 7.9 1.7-12.0 % Eosinophils Percent Auto 2.1 0.9-7.0 % Basophils Percent Auto 0.5 0.2-2.0 % Immature Granulocytes Pct Auto 0.2 0.0-0.5 % Neutrophils Absolute Auto 5.9 1.4-6.5 10 3/uL Lymphocytes Absolute Auto 2.6 1.2-3.8 10 3/uL Monocytes Absolute Auto 0.8 0.3-0.8 10 3/uL Eosinophils Absolute Auto 0.2 0.0-0.7 10 3/uL Basophils Absolute Auto 0.1 0.0-0.1 10 3/uL Immature Granulocytes Abs Auto 0.02 0.00-0.03 10 3/uL Performing Lab: see note ML - [facility] LB D-DIMER Reviewed date:12/20/2024 09:32:14 PM Interpretation: Performing Lab: Notes/Report: [facility] , D Dimer 0.21 <=0.59 mg/L FEU of disorders including advanced age, , coronary reference range. D-Dimers may also be elevated for a variety event cannot be diagnosed with certainty on the basis of the size, and age of the thrombus. Therefore, a thromboembolic hospitalization. Increases in D-Dimer concentration observed with or anticoagulant therapy, stress, and generalized hematoma, DIC, trauma, post-surgery, diabetes, thrombolytic disease, cancer, liver disease, infection, inflammation, thromboembolic events can be variable due to localization, Performing Lab: see note ML - [facility] LB PROF 14(COMP METB) Reviewed date:12/20/2024 09:32:14 PM Interpretation: Performing Lab: Notes/Report: [facility] , Sodium 138 136-145 mmol/L Potassium 4.0 3.5-5.1 mmol/L Chloride 102 98-107 mmol/L Carbon Dioxide 27.4 21.0-32.0 mmol/L Anion Gap 12.6 Glucose 100 74-106 mg/dL Blood Urea Nitrogen 11.0 7.0-18.0 mg/dL Creatinine 0.80 0.55-1.02 mg/dL Estimated GFR ( Kathi >60 >=60 mL/min/1.73m 2 Estimated GFR (Non- Honey >60 >=60 mL/min/1.73m 2 BUN Creatinine Ratio 13.8 Calcium 9.7 8.5-10.1 mg/dL Bilirubin Total 0.4 0.2-1.0 mg/dL Aspartate Amino Transferase 14 15-37 U/L Alanine Aminotransferase 13 14-59 U/L Alkaline Phosphatase 50 46-116 U/L Total Protein 7.0 6.4-8.2 g/dL Albumin Level 3.8 3.4-5.0 g/dL Globulin 3.2 Albumin Globulin Ratio 1.2 Performing Lab: see note ML - [facility] LB Troponin I High Sensitivity Reviewed date:12/20/2024 09:32:14 PM Interpretation: Performing Lab: Notes/Report: [facility] , Troponin I High Sensitivity 4.5 4.0-51.3 pg/mL NOTE: HIGH-SENSITIVITY TROPONIN ASSAY IS NOT INTENDED TO BE 99TH PERCENTILE = 51.4 PG/ML HAS BEEN CONFIRMED THE DECISION THRESHOLD FOR ME PERCENTILE OF cTnI DISTRIBUTION IN A REFERENCE POPULATION, DIAGNOSIS. REFERENCE LIMIT (URL) OF TROPONIN, DEFINED THE 99TH CUT-OFF POINTS HAVE BEEN ESTABLISHED BASED ON THE FOURTH UNIVERSAL DEFINITION OF MYOCARDIAL INFARCTION. THE UPPER WITH OTHER DIAGNOSTIC AND CLINICAL INFORMATION. USED IN ISOLATION BUT SHOULD BE INTERPRETED IN CONJUNCTION Performing Lab: see note ML - [facility] LB ECG 12 lead Reviewed date:12/21/2024 07:27:21 PM Interpretation: Performing Lab: Notes/Report: Source Facility: [place] [address] Electrocardiograph Report Signed Patient: THEODORA MARQUEZ MR#: [id number] : 1985 Acct:[id number] Age/Sex: 39 / F ADM Date: 12/20/24 Loc: ER Attending Dr: Ordering Physician: Ilan Medina D.O. 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 Measurements Intervals [place] Rate: 86 P: 58 IL: 108 QRS: 77 QRSD: 70 T: 69 QT: 352 QTc: 395 Interpretive Statements 1100 Sinus rhythm 2210 Short IL interval 9150 abnormal ECG Compared to ECG 12/30/2020 18:55:53 Short [place] interval now present T-wave abnormality no longer present Electronically Signed On 12-21-2024 17:49:49 EDT by SATYA IBARRA M.D. Dictated By: SATYA IBARRA Signed By: 12/21/241749 DD/ 37 TD/TT: Workforce Planner: [place] [address] Electrocardiograph Report Signed Patient: THEODORA MARQUEZ MR#: [id number] : 1985 Acct:[id number] Age/Sex: 39 / F ADM Date: 12/20/24 Loc: ER Attending Dr: Ordering Physician: Ilan Medina D.O. Date of Service: 12/20/24 Procedure(s): ECG 12 lead Accession Number(s): [id number] cc: [facility] Test Date: 2024-12-20 Pat Name: THEODORA MARQUEZ Department: 26 Room: - Gender: Female Relief Charge Nurse: : 1985 Requ ested By: 2381 Order Number: [id number] Reading MD: SATYA IBARRA M.D. Measurements Intervals [place] Rate: 86 P: 58 IL: 108 QRS: 77 QRSD: 70 T: 69 QT: 352 QTc: 395 Interpretive Statements 1100 Sinus rhythm 2210 Short IL interval 9150 abnormal ECG Compared to ECG 12/30/2020 18:55:53 Short [place] interval no w present T-wave abnormality n o longer present Electronically Sandra d On 12-21-2024 17:49:49 EDT by SATYA IBARRA M.D. Dictated By: SATYA IBARRA Signed By: 12/21/241749 DD/ 37 TD/TT: Workforce Planner: [facility] chest 2V Reviewed date:12/20/2024 09:32:14 PM Interpretation: Performing Lab: Notes/Report: Source Facility: [place] [address] [place] [address] XRay Report Signed Patient: THEODORA MARQUEZ MR#: [id number] : 1985 Acct:[id number] Age/Sex: 39 / F ADM Date: 12/20/24 Loc: ER Attending Dr: Ordering Physician: Ilan Medina D.O. Date of Service: 12/20/24 Procedure(s): XR chest 2V Accession Number(s): [id number] cc: Oh Wihte M.D.; Ilan Medina D.O. [place] [address] Patient Name: THEODORA MARQUEZ MRN: [facility]:[id number] date: 1985 Sex: F Assigned Patient Location: ER Current Patient Location: ED.MAIN Accession/Order Number: [id number] Exam Date: 12/20/2024 21:13 Report Date: 12/20/2024 21:14 At the request of: ILAN MEDINA DO Procedure: XR chest 2V PA AND LATERAL CHEST: CLINICAL HISTORY: CP COMPARISON: None FINDINGS: Unremarkable cardiomediastinal. Lungs clear. No effusion or pneumothorax. XR/XR chest 2V IMPRESSION: NO ACUTE CARDIOPULMONARY ABNORMALITY. Impression dictated by: Hector Mo M.D. 12/20/2024 9:14 PM Dictation Location: [place] [address] Electronically authenticated by: [id number] Y Date: 12/20/2024 21:14 Dictated By: Hector Mo M.D. Signed By: 12/20/242116 DD/ 13 TD/TT: Workforce Planner: [place] [address] XRay Report Signed Patient: THEODORA MARQUEZ MR#: [id number] : 1985 Acct:[id number] Age/Sex: 39 / F ADM Date: 12/20/24 Loc: ER Attending Dr: Ordering Physician: Ilan Medina D.O. Date of Service: 12/20/24 Procedure(s): XR chest 2V Accession Number(s): [id number] cc: Oh White M.D. ; Ilan Medina D.O. [address] [address] Patient Name: THEODORA MARQUEZ MRN: [id number] date: 1985 Sex: F Assigned Patient Location: ER Current Patient Loca tion: ED.MAIN Accession/Order Numb er: [id number] Exam Date: 12/20/2024 21:13 Report Date: 12/20/2024 21:14 At the request of: ILAN FONTENOT DO Procedure: XR chest 2V PA AND LATERAL CHEST: CLINICAL HISTORY: CP COMPARISON: None FINDINGS: Unremarkable cardiomediastinal. Lungs clear. No effusion or pneumothorax. X R/XR chest 2V IMPRESSION: NO ACUTE CARDIOPULMO NARY ABNORMALITY. Impression dictated by: Hector Mo M.D. 12/20/2024 9:14 PM Dictation Location: [place] [address] Electronically authenticated by: [id number] Y Date: 12/20/2024 21:14 Dictated By: Nafisa Mo M.D. Signed By: 12/20/242116 DD/ 13 TD/TT: Workforce Planner: Reason For Referral No Information Medications Medication SIG (Take, Route, Frequency, Duration) Notes Start Date End Date Status oxyBUTYnin Chloride ER 5 MG 1 tablet Ora lly Once a day for 90 days 12/19/2022 Active Desvenlafaxine Succinate ER 50 mg TAKE ONE TABLET BY MOUTH DAILY AT 9AM for 30 Active valACYclovir HCl 500 MG 1 tablet Orally Once a day for 90 days 2022 Active Problems Problem Type SNOMED Code ICD Code Onset Dates Problem Status W/U Status Risk Notes Problem Weakness (22007717) Weakness (R53.1) Active confirmed Problem Neck pain (14842483) Neck pain (M54.2) Active confirmed Problem Edema (08839921) Edema (R60.9) Active confirmed Problem Depression (101279267) Depression (F32.9) Active confirmed Problem Vertigo (153103369) Vertigo (R42) Active confirmed Problem Insomnia (904554862) Insomnia (G47.00) Active confirmed Problem Migraine (83609560) Migraine (G43.909) Active confirmed Problem Gait abnormality (26652677) Gait abnormality (R26.9) Active confirmed Problem Paresthesia (20353038) Paresthesia (R20.2) Active confirmed Problem COVID-19 (243772183) COVID-19 (U07.1) Active confirmed Problem 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
--- OUTSIDE RECORDS SUMMARY | 2025-01-12 13:13 | XMS_ITS | Clinical Summary ---
Author Organization [facility] Address [address] [place] [address] Phone Care Team Providers Care Grain Broker And Market Operator Name Role Phone Unavailable Primary Care Provider Unavailabl e Social History Tobacco Use Types Packs/Day Years Used Date Smoking Tobacco: Never Assessed Comments Unknown Sex and Gender Information Value Date Recorded Sex Assigned at Not on file Legal Sex Female 8:15 AM EST Gender Identity Not on file Sexual Orientation Not on file Plan of Treatment Not on file
--- OUTSIDE RECORDS SUMMARY | 2025-01-12 13:13 | XMS_ITS | Encounter Summary ---
Author Organization [facility] Address [address] [place] [address] Care Team Providers Care Dinkey Operator Slag Name Role Phone Oh White MD Primary Care Provider [phone] Encounter Details Date Type Department Care Team ([facility] st Contact Info) Description 04/18/2023 Abstract [facility] [address] [place] [phone] Osmar Hernandez MD [address] [facility] [address] [place] [address] Social History Tobacco Use Types Packs/Day Years Used Date Smoking Tobacco: Every Day Cigarettes Smokeless Tobacco: Never Tobacco Cessation:Ready to Q uit: Not Asked; Counseling Given: Not Answered Comments:11-20 cigarettes/day Alcohol Use Standard Drinks/Week Comments Yes 0 (1 standard drink = 0.6 oz pur e alcohol) 1-2 drinks on a typical day Comments Unknown Sex and Gender Information Value Date Recorded Sex Assigned at Not on file Legal Sex Female 6:36 PM EDT Gender Identity Not on file Sexual Orientation Not on file documented as of this encounter Plan of Treatment Not on file documented as of this encounter Visit Diagnoses Not on filedocumented in this encounter Care Teams Dinkey Operator Slag Relationship Specialty Start Date End Date Oh White MD PCP - General Family Medicine 03/26/23 documented as of this encounter
--- OUTSIDE RECORDS SUMMARY | 2025-01-12 13:13 | XMS_ITS | Clinical Summary ---
Author Organization [facility] Address [address] [place] [address] Care Team Providers Care Embroidery Supervisor Name Role Phone Oh White MD Primary Care Provider [phone] Allergies Active Allergy Reactions Criticality Noted Date Comments Other Medium 12/08/2023 IVP DYE Medications desvenlafaxine (Pristiq) 50 MG 24 hr tablet TAKE ONE TABLET BY MOUTH DAILY AT 9AM Active gabapentin (Neurontin) 300 MG capsule TAKE ONE CAPSULE BY MOUTH THREE TIMES DAILY @ 9AM-1PM-5PM Active valACYclovir (Valtrex) 500 MG tablet TAKE ONE TABLET BY MOUTH DAILY AT 9AM Active propranolol LA (Inderal LA) 60 MG 24 hr capsuleIndication s:Multiple sclerosis (HCC),Shakiness,R acing heart beat TAKE 1 CAPSULE BY MOUTH DAILY DO NOT CRUSH, CHEW, OR SPLIT 90 capsule 1 11/03/19 24 Active ofatumumab (Kesimpta) 20 MG/0.4ML injectionIndicati ons:Multiple sclerosis (HCC) Inject subcutaneously once every 30 days 0.4 mL 11 12/08/19 24 Active lisdexamfetamine (Vyvanse) 50 MG capsuleIndication s:Multiple sclerosis (HCC),ADD (attention deficit disorder) without hyperactivity TAKE ONE CAPSULE (50 MG) BY MOUTH IN THE MORNING 30 capsule 04/13/20 24 Active Active Problems Problem Noted Date Diagnosed Date COVID-19 03/01/2024 Edema 03/01/2024 Insomnia 03/01/2024 Major depressive disorder, single episode, unspe cified 03/01/2024 Monoplegia of upper limb affecting left nondomin ant side 03/01/2024 Paresthesia 03/01/2024 Weakness 03/01/2024 Cervical paraspinal muscle spasm 12/10/2023 ADD (attention deficit disorder) without hyperac tivity 10/12/2023 Migraine 03/24/2023 Dizziness 03/24/2023 Abnormal gait 03/24/2023 Multiple sclerosis 07/28/2012 Encounters Date Type Department Care Team Description 10/22/2024 Telephone [facility] [address] [place] [facility] [place] [address] Osmar Hernandez MD 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 Last 3 Months Family History Medical History Relation Name Comments ADD / ADHD Brother 1 Faisal Barton ADD / ADHD Brother 2 Marty Barton Anxiety disorder Brother 2 Marty Barton Depression Brother 2 Marty Barton Seizures Brother 2 Marty Barton Breast cancer Father Colon cancer Father Hyperlipidemia Father Hypertension Father Diabetes Mother Hypothyroidism Mother Depression Other Family history Heart disease Other Family history Hyperlipidemia Other Family history Hypertension Other Family history Relation Name Status Comments Brother 1 Faisal Barton Brother 2 Marty Barton Father Mother Other Family history Social History Tobacco Use Types Packs/Day Years Used Date Smoking Tobacco: Former Cigarettes 1 15 0 06/17/2008 - 06/17/2023 Smokeless Tobacco: Never Tobacco Cessation:Counseling Given: Not Answered Comments:I switched to vaping Alcohol Use Standard Drinks/Week Comments Yes 2 (1 standard drink = 0.6 oz pur e alcohol) 1-2 drinks on a typical day Comments Unknown Sex and Gender Information Value Date Recorded Sex Assigned at Not on file Legal Sex Female 6:36 PM EDT Gender Identity Not on file Sexual Orientation Not on file Last Filed Vital Signs Vital Sign Reading Time Taken Comments Blood Pressure 119/83 04/25/2023 8:59 AM EST Pulse 102 04/25/2023 8:59 AM EST Temperature - - Respiratory Rate - - Oxygen Saturation - - Inhaled Oxygen Concentration - - Weight 56.1 kg (123 lb 9.6 oz) 12/05/2023 12:43 PM EDT Height 165.1 cm (5' 5 ) 12/05/2023 12:43 PM EDT Body Mass Index 20.57 12/05/2023 12:43 PM EDT Plan of Treatment Not on file Insurance [facility] MEDICAID [place] Care Teams Embroidery Supervisor Relationship Specialty Start Date End Date hO White MD PCP - General Family Medicine 03/26/23
[2025-01-12 14:37] LABS: Thyroid Stimulating Hormone 2.240 uIU/mL (0.358-3.740)
[2025-01-12 17:25] LABS: BOX Test Sent Out CD19 COUNT
[2025-01-12 17:26] LABS: BOX Test Date Sent 7/30/25; BOX Test Reference Lab CLEVELAND CLINIC
[2025-01-13 08:13] LABS: Immunoglobulin A, Qn, Serum 131 mg/dL (87-352)
[2025-01-14 12:15] LABS: BOX Test Result 7/31/25
== END 2025-01-12 13:06 | disposition home or self-care (01) ==
LOC: LAB 13:11
PROVIDERS: PCP Family Medicine
DX: G35 Multiple sclerosis (principal); Z51.81 Encounter for therapeutic drug level monitoring; E03.9 Hypothyroidism, unspecified
CPT/HCPCS: 36415; 82784; 84443; 85048; 86355; 86480; 86704; 86706; 86803; 87340

== ENCOUNTER 2025-03-29 08:09 | Outpatient (OUT) | payer MEDICARE, SELFPAY ==
--- OUTSIDE RECORDS SUMMARY | 2025-03-29 08:22 | XMS_ITS | CCD ---
Author Organization [facility] Care Team Providers Care Finish Photographer Name Role Phone MD Francesca White Primary Care Provider [phone] CHANTEL Wallace Attending Provider CLAYTON WALLACE Admitting Unavailable CLAYTON WALLACE Attending Unavailable CLAYTON WALLACE Consulting Unavailable CLAYTON WALLACE Primary Care Unavailable DR FRANCESCA WHITE Primary Care Unavailable FABIO ECHOLS Attending Unavailable SUSAN ECHOLSOE Admitting Unavailable DR FRANCESCA WHITE Primary Care Unavailable SHAVON, DR MA Admitting Unavailable DR FRANCESCA WHITE Attending Unavailable DR FRANCESCA WHITE Consulting Unavailable WEST, DR TYLER Méndez Consulting Unavailable CLAYTON WALLACE Attending Unavailable CLAYTON WALLACE Consulting Unavailable CLAYTON WALLACE Primary Care Unavailable CLAYTON WALLACE Admitting Unavailable MD Francesca White Primary Care Provider [phone] DO Marty Jade Attending Provider [phone] Marty Jade Admitting Unavailab Marty Rider Attending Unavailab Francesca Marie Primary Care Unavailable Francesca White Primary Care Unavailable Clayton Wallace Admitting Unavailable Clayton Wallace Attending Unavailable Marty Jade Admitting Unavailab Marty Rider Attending Unavailab Francesca Marie Primary Care Unavailable Francesca White MD Primary Care Provider [phone] Francesca White MD Primary Care Provider [phone] Francesca White MD Primary Care Provider [phone] PCP, NO PCP Primary Care Unavailable MILLY DEMARCO Attending Unavailable Francesca White MD Primary Care Provider [phone] FRANCESCA WHITE Primary Care Unavailable SELF Referring Unavailable GAL NOGUEIRA Attending Unavailable SURINDER HERNANDEZ Attending Unavailable SURINDER HERNANDEZ Referring Unavailable Marcio Navarro Attending Unavailable Allergies Allergy Classification Reported Allergen(s) Allergy Type Date of Onset Reaction(s) Facility (2 sources) diphenhydrAMINE; Translations: [Benadryl] Drug Allergy [facility] Repository (5 sources) Other Propensity to adverse reactions 4 [facility] Medications Current Medications Medication Drug Class(es) Dates Sig (Normalized) Sig (Original) cyclobenzaprine hydrochloride 5 mg oral tablet (2 sources) Muscle Relaxant Start: 12-05-2023 End: 03-04-2024 take 1 tablet by mouth at bedtime cyclobenzaprine (Flexeril) 5 MG tablet Indications: Cervical paraspinal muscle spasm Take 1 tablet (5 mg) by mouth at bedtime 90 tablet 2 12/05/2023 03/04/2024 Active take 1 tablet by aleksander th once daily at bedtime cyclobenzaprine (Flexeril) 5 MG tablet T VIRGIE ONE TABLET BY MOUTH DAILY AT 9PM AT BEDTIME 0 Active LORazepam 0.5 mg oral tablet (2 sources) Benzodiazepine Start: 01-13-2025 take 1 tablet by mouth once LORazepam (Ativan) 0.5 MG tablet Indications: Claustrophobia Take 1 tablet (0.5 mg) by mouth every 12 (twelve) hours if needed for anxiety for up to 1 day 2 tablet 01/13/2025 Active metroNIDAZOLE 500 mg oral tablet (1 source) Nitroimidazole Antimicrobial Start: 07-16-2023 End: 07-23-2023 take 1 tablet by mouth in the morning metroNIDAZOLE (Flagyl) 500 MG tablet Indications: BV (bacterial vaginosis) Take 1 tablet (500 mg) by mouth in the morning and 1 tablet (500 mg) before bedtime. Do all this for 7 days. Do not drink alcohol while taking this medication. 14 tablet 0 07/16/2023 07/23/2023 Active 24 hr oxybutynin chloride 5 mg extended release oral tablet (1 source) Cholinergic Muscarinic Antagonist take 1 tablet by mouth once daily oxybutynin XL (Ditropan-XL) 5 MG 24 hr tablet TAKE ONE TABLET BY MOUTH DAILY AT 9AM 0 Active Completed/Discontinued Medications Medication Drug Class(es) Dates Sig (Normalized) Sig (Original) amitriptyline hydrochloride 100 mg oral tablet (3 sources) Tricyclic Antidepressant End: 01-11-2025 take 1 tablet by mouth once daily at bedtime amitriptyline (ELAVIL) 100 mg tablet Take 100 mg by mouth daily at bedtime. 01/11/2025 Discontinued Comment on above: Take 100 mg by mouth daily at bedtime. 24 hr desvenlafaxine succinate 50 mg extended release oral tablet (8 sources) Serotonin and Norepinephrine Reuptake Inhibitor End: 01-13-2025 take 1 tablet by mouth once daily desvenlafaxine (Pristiq) 50 MG 24 hr tablet TAKE ONE TABLET BY MOUTH DAILY AT 9AM 01/13/2025 Discontinued (Therapy completed) fingolimod 0.5 mg oral capsule (3 sources) Sphingosine 1-phosphate Receptor Modulator Start: 12-23-2016 End: 01-11-2025 take 1 capsule by mouth once daily fingolimod (GILENYA) 0.5 mg cap Indications: Multiple sclerosis (HCC) Take 1 capsule by mouth once daily. 90 capsule 3 12/23/2016 01/11/2025 Discontinued Comment on above: Take 1 capsule by [facility] once daily. gabapentin 300 mg oral capsule (10 sources) Anti-epileptic Agent Start: 11-04-2017 End: 01-13-2025 take 1 capsule by mouth three times daily gabapentin (NEURONTIN) 300 mg capsule TAKE ONE CAPSULE BY MOUTH 3 TIMES A DAY 90 capsule 11 11/04/2017 01/11/2025 Discontinued Comment on above: TAKE ONE CAPSULE BY MOUTH 3 TIMES A DAY iv contrast (will be provided with radiology test) (2 sources) Start: 01-11-2025 End: 01-12-2025 inject 1 dose intravenously once iv contrast (will be provided with radiology test) MRI Brain Inject, intravenously, once for 1 dose.No IV access, insert saline lock prior to beginning of sedation, infusion, injection of imaging exam.Discontinue saline lock post exam. If Pt. has a central line or IVAD, may access for administration according to line specific nursing protocol.Once exam is complete flush line and de-access according to line specific nursing protocol in the MR contrast administration guidelines link 1 each 01/11/2025 01/12/2025 Start: 01-11-2025 End: 01-12-2025 iv contrast (will be provide d with radiology test) MRI CSP Inject, intravenously, once for 1 dose. No IV access, insert saline lock prior to the beginning of sedation, infusion, injection of imaging exam. Discontinue saline lock post exam. If Pt. has a central line or IVAD, may access for administration according to line specific nursing protocol. Once exam is complete flush line and de-access according to line specific nursing protocol in the MR contrast administration guidelines link. 1 each 01/11/2025 01/12/2025 levothyroxine sodium 0.125 mg oral tablet (3 sources) l-Thyroxine End: 01-11-2025 take 1 tablet by mouth once daily levothyroxine (SYNTHROID) 125 mcg tablet Take 125 mcg by mouth once daily. 01/11/2025 Discontinued Comment on above: Take 125 mcg by mout h once daily. lisdexamfetamine dimesylate 50 mg oral capsule (10 sources) Central Nervous System Stimulant Start: 04-13-2024 End: 01-13-2025 take 1 capsule by mouth in the morning lisdexamfetamine (Vyvanse) 50 MG capsule Indications: Multiple sclerosis (HCC) , ADD (attention deficit disorder) without hyperactivity TAKE ONE CAPSULE (50 MG) BY MOUTH IN THE MORNING 30 capsule 04/13/2024 01/13/2025 Discontinued (Therapy completed) Start: 03-05-2024 take 1 capsule by mo uth in the morning lisdexamfetamine (Vyvanse) 50 MG capsule Indications: Multiple sclerosis (CMS/HCC) , ADD (attention deficit disorder) without hyperactivity TAKE ONE CAPSULE (50 MG) BY MOUTH IN THE MORNING 30 capsule 03/05/2024 Active Start: 2023 End: 04-13-2024 take 1 capsule by mouth in the morning lisdexamfetamine (Vyvanse) 50 MG capsule Indications: Multiple sclerosis (CMS/HCC) , ADD (attention deficit disorder) without hyperactivity TAKE ONE CAPSULE (50 MG) BY MOUTH IN THE MORNING 30 capsule 03/05/2024 04/13/2024 Discontinued take 1 capsule by mo uth in the morning lisdexamfetamine (Vyvanse) 40 MG capsule Take 40 mg by mouth in the morning. 0 Active medroxyPROGESTERone (3 sources) Progestin End: 01-11-2025 MEDROXYPROGESTERONE ACETATE (DEPO-PROVERA INTRAMUSC.) Inject intramuscularly every 3 months. 01/11/2025 Discontinued MEDROXYPROGESTER ONE ACETATE (DEPO-PROVERA INTRAMUSC.) Inject intramuscularly every 3 months. 0 Active Comment on above: Inject intramuscular ly every 3 months. 0.4 ml ofatumumab 50 mg/ml pen injector (8 sources) [id number] Cytolytic Antibody Start: 12-08-2023 End: 01-13-2025 ofatumumab (Kesimpta) 20 MG/0.4ML injection Indications: Multiple sclerosis (HCC) Inject subcutaneously once every 30 days 0.4 mL 12/08/2023 01/13/2025 Discontinued (Therapy completed) Start: 05-12-2023 ofatumumab (Ke simpta) 20 MG/0.4ML injection Indications: Multiple sclerosis (CMS/HCC) Inject subcutaneously once every 30 days 0.4 mL 05/12/2023 Active 24 hr propranolol hydrochloride 60 mg extended release oral capsule (7 sources) beta-Adrenergic Araseli Start: 11-03-2023 End: 01-13-2025 take 1 capsule by mouth once daily propranolol LA (Inderal LA) 60 MG 24 hr capsule Indications: Multiple sclerosis (HCC) , Shakiness , Racing heart beat TAKE 1 CAPSULE BY MOUTH DAILY DO NOT CRUSH, CHEW, OR SPLIT 90 capsule 1 11/03/2023 01/13/2025 Discontinued (Therapy completed) valACYclovir 500 mg oral tablet (8 sources) Herpesvirus Nucleoside Analog DNA Polymerase Inhibitor, Herpes Simplex Virus Nucleoside Analog DNA Polymerase Inhibitor, Herpes Zoster Virus Nucleoside Analog DNA Polymerase Inhibitor End: 01-13-2025 take 1 tablet by mouth once daily valACYclovir (Valtrex) 500 MG tablet TAKE ONE TABLET BY MOUTH DAILY AT 9AM 01/13/2025 Discontinued (Therapy completed) Problems Active Problems Problem Classification Problem Date Documented Date Episodic/Chronic Anxiety disorders (2 sources) Claustrophobia; Translations: [Claustrophobia] 01-13-2025 Chronic Blindness and vision defects (1 source) Blurring of visual image; Translations: [Other visual disturbances] 01-13-2025 Episodic Deficiency and other anemia (1 source) Anemia, unspecified; Translations: [ANEMIA UNSPECIFIED] Onset: 07-09-2022 Episodic Diabetes mellitus without complication (1 source) Type 2 diabetes mellitus without complications; Translations: [TYPE 2 DM WITHOUT COMPLICATIONS] Onset: 07-09-2022 Chronic Disorders of lipid metabolism (1 source) Hyperlipidemia, unspecified; Translations: [HYPERLIPIDEMIA UNSPECIFIED] Onset: 07-09-2022 Chronic Disorders usually diagnosed in infancy, childhood, or adolescence (10 sources) Attention deficit hyperactivity disorder, predominantly inattentive type; Translations: [Other specified behavioral and emotional disorders with onset usually occurring in childhood and adolescence] Onset: 10-12-2023 04-13-2024 Chronic Headache; including migraine (8 sources) Migraine; Translations: [Migraine, unspecified, not intractable, without status migrainosus] Onset: 03-24-2023 03-24-2023 Chronic Mood disorders (6 sources) Major depression, single episode; Translations: [Major depressive disorder, single episode, unspecified] Onset: 03-01-2024 03-01-2024 Chronic Multiple sclerosis (20 sources) Multiple sclerosis; Translations: [Multiple sclerosis] Onset: 07-28-2012 Chronic Nonspecific chest pain (1 source) Chest pain, unspecified; Translations: [Chest pain, unspecified] Onset: 10-22-2024 Episodic Nutritional deficiencies (1 source) Vitamin D deficiency, unspecified; Translations: [VITAMIN D DEFICIENCY UNSPECIFIED] Onset: 07-09-2022 Chronic Other aftercare (1 source) Other usp (current) drug therapy; Translations: [OTH [facility]FP CURRENT DRUG THERAPY] Onset: 07-09-2022 Episodic Other aftercare (1 source) Patient encounter status; Translations: [Encounter for therapeutic drug level monitoring] 01-11-2025 Episodic Other aftercare (1 source) Encounter for therapeutic drug level monitoring; Translations: [Medication monitoring encounter] Onset: 01-11-2025 Episodic Other and unspecified benign neoplasm (1 source) Neoplasm of meninges; Translations: [Benign neoplasm of meninges, unspecified] 02-21-2023 Chronic Other nervous system disorders (1 source) Numbness Onset: 10-22-2024 Episodic Other screening for suspected conditions (not mental disorders or infectious disease) (1 source) Encounter for screening mammogram for malignant neoplasm of breast; Translations: [ENC SCR MAMMO MALIG NEOPLASM BREAST] Onset: 07-09-2022 Episodic Paralysis (6 sources) Monoplegia of left nondominant upper limb; 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] Onset: 03-01-2024 03-01-2024 Chronic Residual codes; unclassified (1 source) Family history of malignant neoplasm of breast; Translations: [FAMILY HX MALIG NEOPLASM OF BREAST] Onset: 07-09-2022 Episodic Residual codes; unclassified (1 source) Procedure and treatment not carried out due to patient leaving prior to being seen by health care provider; Translations: [Procedure and treatment not carried out due to patient leaving prior to being seen by health care provider] Onset: 10-22-2024 Episodic Thyroid disorders (2 sources) Hypothyroidism; Translations: [Hypothyroidism, unspecified] Onset: 01-11-2025 01-11-2025 Chronic Unclassified (1 source) Medical Screening Onset: 10-22-2024 Past or Other Problems Problem Classification Problem Date Documented Date Episodic/Chronic Conditions associated with dizziness or vertigo (8 sources) Dizziness; Translations: [Dizziness and giddiness] Onset: 03-24-2023 03-24-2023 Episodic Malaise and fatigue (11 sources) Other fatigue; Translations: [Asthenia] Onset: 08-18-2021 Episodic Other connective tissue disease (7 sources) Spasm of cervical paraspinous muscle; Translations: [Other muscle spasm] Onset: 12-10-2023 12-10-2023 Episodic Other nervous system disorders (8 sources) Abnormal gait; Translations: [Unspecified abnormalities of gait and mobility] Onset: 03-24-2023 03-24-2023 Episodic Other nervous system disorders (6 sources) Paresthesia; Translations: [Paresthesia of skin] Onset: 03-01-2024 03-01-2024 Episodic Residual codes; unclassified (6 sources) Edema; Translations: [Edema, unspecified] Onset: 03-01-2024 03-01-2024 Episodic Residual codes; unclassified (6 sources) Insomnia; Translations: [Insomnia, unspecified] Onset: 03-01-2024 03-01-2024 Episodic Viral infection (6 sources) Disease caused by 2019-nCoV; Translations: [COVID-19] Onset: 03-01-2024 03-01-2024 Episodic Results Test Name Value Interpretation Reference Range Facility XR Chest Single Viewon 03-09 XR Chest Single View Exam Date/Time: 03/08/2025 16:28 EDT Reason for Exam: Chest pain Report IMPRESSION: No acute findings by portable radiography. EXAMINATION/TECHNIQU E: XR Chest Single View HISTORY: Chest pain. Shortness of breath. Smoking history. COMPARISON: None RESULT: No consolidation. No pleural effusion. No pneumothorax. Hyperinflated lungs. Normal cardiomediastinal silhouette. No acute osseous findings. Ordering Provider: Marcio Navarro FINAL REPORT Dictated: 03/09/2025 10:08 am Mateo Marks MD Signed (Electronic Signature): 03/09/2025 10:08 am Signed by: Mateo Marks MD Transcribed by: GRICELDA Technologist: CML Normal [facility] BMPon 03-08-2025 Anion gap [Moles/Vol] 9 mmol/L Normal 6-16 [facility] Comment on above: Performed By: #### 2 [id number] #### [facility] [address] [place] [address] BUN/Creat Ratio 10 No Units Normal 10-20 [facility] Comment on above: Performed By: #### 2 [id number] #### [facility] [address] [place] [address] Calcium [Mass/Vol] 9.2 mg/dL Normal 8.9-11.1 [facility] Comment on above: Performed By: #### 2 [id number] #### [facility] [address] [place] [address] Chloride [Moles/Vol] 105 mmol/L Normal 101-111 [facility] Comment on above: Performed By: #### 2 [id number] #### [facility] [address] [place] [address] CO2 [Moles/Vol] 25 mmol/L Normal 21-31 [facility] Comment on above: Performed By: #### 2 [id number] #### [facility] [address] [place] [address] Creatinine [Mass/Vol] 1.0 mg/dL Normal 0.5-1.3 [facility] Comment on above: Performed By: #### 2 [id number] #### [facility] [address] [place] [address] Glucose [Mass/Vol] 95 mg/dL Normal 55-199 [facility] Comment on above: Performed By: #### 2 [id number] #### [facility] [address] [place] [address] Potassium [Moles/Vol] 3.7 mmol/L Normal 3.5-5.3 [facility] Comment on above: Performed By: #### 2 [id number] #### [facility] [address] [place] [address] Sodium [Moles/Vol] 135 mmol/L Normal 135-145 [facility] Comment on above: Performed By: #### 2 [id number] #### [facility] [address] [place] [address] Urea nitrogen [Mass/Vol] 10 mg/dL Normal 5-21 [facility] Comment on above: Performed By: #### 2 [id number] #### [facility] [address] [place] [address] CBC w/ Auto Diffon 5 Basophil Absolute 0.1 E9/L Normal 0.0-0.2 [facility] Comment on above: Performed By: #### 2 [id number] #### [facility] [address] [place] [address] Basophils/100 WBC (Bld) 1.6 % Normal 0.0-2.0 [facility] Comment on above: Performed By: #### 2 [id number] #### [facility] [address] [place] [address] Eos Absolute 0.2 E9/L Normal 0.0-0.5 [facility] Comment on above: Performed By: #### 2 [id number] #### [facility] [address] [place] [address] Eosinophils/100 WBC (Bld) 2.2 % Normal 0.0-8.0 [facility] Comment on above: Performed By: #### 2 [id number] #### [facility] [address] [place] [address] Erythrocyte distribution width (RBC) [Ratio] 13.8 % Normal 10.9-14.2 [facility] Comment on above: Performed By: #### 2 [id number] #### [facility] [address] [place] [address] Hematocrit (Bld) [Volume fraction] 42.0 % Normal 34.0-46.0 [facility] Comment on above: Performed By: #### 2 [id number] #### [facility] [address] [place] [address] Hemoglobin (Bld) [Mass/Vol] 14.7 g/dL Normal 12.0-16.0 [facility] Comment on above: Performed By: #### 2 [id number] #### [facility] [address] [place] [address] Lymph Absolute 2.1 E9/L Normal 1.0-4.0 [facility] Comment on above: Performed By: #### 2 [id number] #### [facility] [address] [place] [address] Lymphocytes/100 WBC (Bld) 23.2 % Normal 14.0-50.0 [facility] Comment on above: Performed By: #### 2 [id number] #### [facility] [address] [place] [address] MCH (RBC) [Entitic mass] 29.9 pg Normal 27.0-34.0 [facility] Comment on above: Performed By: #### 2 [id number] #### [facility] [address] [place] [address] MCHC (RBC) [Mass/Vol] 34.9 g/dL Normal 31.4-36.0 [facility] Comment on above: Performed By: #### 2 [id number] #### [facility] [address] [place] [address] MCV (RBC) [Entitic vol] 85.8 fL Normal 80.0-100.0 [facility] Comment on above: Performed By: #### 2 [id number] #### [facility] [address] [place] [address] [place] Absolute 0.9 E9/L Normal 0.2-1.0 [facility] Comment on above: Performed By: #### 2 [id number] #### [facility] [address] [place] [address] Monocytes/100 WBC (Bld) 9.9 % Normal 4.0-14.0 [facility] Comment on above: Performed By: #### 2 [id number] #### [facility] [address] [place] [address] Neutro Absolute 5.7 E9/L Normal 2.0-7.5 [facility] Comment on above: Performed By: #### 2 [id number] #### [facility] [address] [place] [address] Neutro Auto 63.1 % Normal 36.0-75.0 [facility] Comment on above: Performed By: #### 2 [id number] #### [facility] [address] [place] [address] Platelet 260.0 E9/L Normal 150.0-500.0 [facility] Comment on above: Performed By: #### 2 [id number] #### [facility] [address] [place] [address] Platelet mean volume (Bld) [Entitic vol] 8.3 fL Normal 6.4-10.8 [facility] Comment on above: Performed By: #### 2 [id number] #### [facility] [address] [place] [address] RBC 4.9 E12/L Normal 4.3-5.9 [facility] Comment on above: Performed By: #### 2 [id number] #### [facility] [address] [place] [address] WBC 9.1 E9/L Normal 4.0-11.0 [facility] Comment on above: Performed By: #### 2 [id number] #### [facility] [address] [place] [address] ED Clinical Summaryon 2024 ED Clinical Summary ED Clinical Summary [address] [address] ED Clinical Summary Person Information Name: MARTHA VALENCIA [place] Age: 39 Years : 1985 Sex: Female Language: Greenlandic PCP: Francesca White MD Marital Status: Phone: [phone] Visit Id: Visit Reason: Paresthesia; Shortness of breath; Chest pain; SOB, RAPID HR, LEFT SIDED NUMBNESS Speciality: Acuity: 2 Enc Type: Emergency Med Service: Emergency Arrival: 03/08/2025 15:58:45 Discharge: 03/08/2025 19:27:55 LOS: 000 03:29 Checkin: 03/08/2025 15:58:45 Checkout: 03/08/2025 19:27:55 Dispo Type: Home (Routine DC) EVENTS: Event Name Event Status Request Date/Time Start Date/Time Complete Date/Time Arrive Complete 03/08/2025 15:58:45 03/08/2025 15:58:45 03/08/2025 15:58:45 Document Home Meds Request 03/08/2025 15:58:45 Triage Complete 03/08/2025 15:58:45 03/08/2025 16:05:02 03/08/2025 16:05:02 Bed Assign Complete 03/08/2025 16:00:17 03/08/2025 16:00:17 03/08/2025 16:00:17 Dr Exam Complete 03/08/2025 16:00:17 03/08/2025 16:02:59 03/08/2025 16:02:59 RN Exam Complete 03/08/2025 16:00:17 03/08/2025 18:13:29 03/08/2025 18:13:29 EKG Complete 03/08/2025 16:02:06 03/08/2025 16:08:38 Registration Complete 03/08/2025 16:02:59 03/08/2025 16:47:52 03/08/2025 16:47:52 Pending Labs Complete 03/08/2025 16:07:53 03/08/2025 19:00:01 Lab Complete 03/08/2025 16:07:53 03/08/2025 17:19:02 Patient Care Request 03/08/2025 16:07:53 RT Request 03/08/2025 16:07:53 X-Ray Complete 03/08/2025 16:07:53 03/08/2025 16:12:40 03/08/2025 16:28:51 Wet Read Request 03/08/2025 16:28:51 Reg Complete Request 03/08/2025 16:47:52 Reg Bed Request Complete 03/08/2025 16:47:52 03/08/2025 16:47:52 03/08/2025 16:47:52 Pending Labs Complete 03/08/2025 16:54:06 03/08/2025 16:54:06 03/08/2025 17:19:02 Lab Complete 03/08/2025 16:54:06 03/08/2025 16:54:06 03/08/2025 17:19:02 Discharge Complete 03/08/2025 19:11:48 03/08/2025 19:28:37 03/08/2025 19:28:37 Transfer Complete 03/08/2025 19:28:37 03/08/2025 19:28:37 03/08/2025 19:28:37 ADDRESS: [facility] [place] [address] PHYS DOC NOTES: MEDICAL INFORMATION: Prescriptions Given: New Medications [id number], [address], [place] [id number], [phone] predniSONE (predniSONE 20 mg Tab) 3 By Mouth every day. Refills: 0. Medications to Continue with No Changes Other Medications acetaminophen-hydroc odone (Rillito 325 mg-5 mg oral tablet) 1 Tablets By Mouth every 6 hours. Refills: 0. cephalexin (Keflex 500 mg Cap) 1 Capsules By Mouth 2 times a day. Refills: 0. ibuprofen (Motrin 800 mg Tab) 1 Tablets By Mouth every 8 hours. Take one tab by mouth every eight hours with food. Refills: 0. levothyroxine (Synthroid) every day. penicillin V potassium (penicillin V potassium 500 mg Tab) 1 Tablets By Mouth every 6 hours. Refills: 0. tamsulosin (Flomax 0.4 mg Cap) 1 Capsules By Mouth every day. PATIENT EDUCATION INFORMATION: Instructions: Follow up: With: Address: When: Francesca White [address] [place] [address], [address] [place] [phone] Business (1) In 3 days DIAGNOSIS: Chest pain; Paresthesias Normal [facility] ED Note-Physicianon 03-08-20 ED Note-Physician ED Note-Physician Basic Information Time Seen: Marcio Navarro DO 03/08/2025 16:03 Chief Complaint patient presents with chest pain and SOB that started 1 hour ago when she woke up from nap. also c/o left sided numbness that started 1 month. hx MS History of Present Illness MsKory Valencia is a 39 year old female with a PMHx of multiple sclerosis who presents to the ER d/t chest pain and SOB that began after waking from a nap about 1 hr ago. She states heart conditions run in her family which prompted her to come here. She does note L sided numbness which has been ongoing for the last month. Patient states she has not taken any medications and is not on any anticoagulants but reports smoking hx. patient states that she has history of MS and sometimes these types of things flareup on her regarding the numbness on the left side of her body. Patient just had an MRI recently she does not wish to have any CT scans at this time. Only CAD risk factor includes tobacco use. She has never had cardiac workup previously. No other aggravating or relieving factors no other associated symptoms no other prior treatments or complaints. Family: Reviewed and noncontributory Social: lives at home Review of systems negative unless otherwise specified in the HPI. Review of Systems Constitutional: no fever, no chills, no sweats, no weakness Respiratory: no shortness of breath, no cough, no orthopnea, no wheezing Cardiovascular: no chest pain, no palpitations, no edema Gastrointestinal: no nausea, no vomiting, no diarrhea, no GI bleeding Neurologic: no headache, no dizziness, moderate L sided numbness, no weakness Physical Exam Vitals & Measurements T: 36.6 ???C(Oral) HR: 109(Peripheral) RR: 20 BP: 132/92 SpO2: 100% HT: 165.10 cm WT: 64.2 kg BMI: 23.55 General: The patient appears well and in no apparent distress. Patient is resting comfortably on cart. Skin: Warm, dry, no pallor noted. Head: Normocephalic, atraumatic Neck: No JVD Eye: PERRLA, EOMI ENT: Moist mucus membranes Cardiovascular: Regular rate normal peripheral perfusion Respiratory: No respiratory distress no accessory muscle use no obvious audible wheezing Chest Wall: no deformity Musculoskeletal: normal ROM, no deformity, no swelling GI: Soft no obvious distention. No rebound or rigidity. No guarding. No tenderness. Neurological: A&O moves all extremities equal strength and symmetry. Cranial nerves grossly intact as tested Psychiatric: Cooperative and appropriate Procedure Heart Score for Major Cardiac Event History: Example factors for history - pattern of chest pain, onset, duration, relation with exercise, stress or cold, localization, concominant symptoms. reaction to sublingual nitrates, [] Highly suspicious +2 [] Moderately suspicious +1 [x] Slightly suspicious 0 EKG: [] Significant ST-Depression +2 [] Non specific repolarization disturbance +1 [x] Normal 0 Age: [] >= 65 +2 [] 45-65 + 1 [x] <45 0 Risk Factors: (HLD, HTN, DM, Cigarette Smoking, Pos Family Hx, Obesity) [] >3 risk factors or hx of atheroslerotic disease + 2 [x] 1-2 risk factors + 1 [] No risk factors known 0 Troponin: [] >= 3X normal + 2 [] 1-3X normal + 1 [x] <= Normal 0 [x] 0-3 Points 0.9 - 1.7% risk of major adverse cardiac event in 6 weeks [] 4-6 Points 12-16.6% risk of major adverse cardiac event in 6 weeks [] 7-10 Points 50-65% risk of major adverse cardiac event in 6 weeks [] 0-3 Points with 2 sets of negative cardiac markers <1% risk of major adverse cardiac event in 30 days. Medical Decision Making Workup in the ER has been reviewed and noted. Initial cardiac workup including EKG chest x-ray 2 negative cardiac enzymes reviewed and noted. Ultimately patient is discharged home will be provided with some prednisone as this may help with the MS flareup and also may help with any bronchospasm that she is having could be playing a role in her chest discomfort. She is to follow-up in the outpatient setting return to ER symptoms change or worsen. We did offer CT scan she declined stating she just had MRI I think this is reasonable given that the paresthesias have been ongoing for quite some time. I, Dr. Navarro was present for the student's history, physical exam and medical decision making. I personally performed a physical exam and medical decision making. I have verified the documentation by the student as accurately representing the information obtained. Assessment/Plan Chest pain (R07.9: Chest pain, unspecified) Paresthesias (R20.2: Paresthesia of skin) Orders: predniSONE, 3, Oral, Daily, # 15 tab(s), Refills(s) 0, Pharmacy: [facility]/pharmacy #[id number], 165.1, cm, 03/08/25 16:05:00 EDT, Height/Length Dosing, 64.2, kg, 03/08/25 16:05:00 EDT, Weight Dosing Basic Metabolic Panel CB (more content not included)... Normal [facility] Comment on above: Result Comment: Elec tronically Signed By: Marcio Navarro DO\.br\Date and Time Signed: 03/08/25 19:13 EDT ED Patient Education Noteon 03-08-2025 ED Patient Education Note ED Patient Education Note Normal [facility] ED Patient Summaryon 025 ED Patient Summary ED Patient Summary [address] [address] Patient Discharge Instructions Person Information Name: MARTHA VALENCIA Age: 39 Years Arrival Date: 03/08/2025 15:58:45 Discharge Diagnosis: Chest pain; Paresthesias Primary Care Physician: Francesca White MD Provider Information Primary Provider: Marcio Navarro DO Advanced President/[employer] Live Experiences:None The exam and treatment you received in the Emergency Department were for an urgent problem and are not intended as complete care. It is important that you follow up with a doctor, nurse practitioner, or physician???s case management assistant for ongoing care. If your symptoms become worse or you do not improve as expected and you are unable to reach your usual health care provider, you should return to the Emergency Department. We are available 24 hours a day. MARTHA VALENCIA has been given the following list of patient education materials, prescriptions and follow-up instructions: Follow-up Instructions: With: Address: When: Francesca White [address] [place] [address], [facility] [place] [address] [facility] (1) In 3 days In the event that this physician does not participate in your insurance network, please consult with your insurance company to find a nearby participating provider. Patient Education Materials: A MESSAGE TO ALL PATIENTS REGARDING OPIOIDS PRESCRIPTION OPIOIDS: WHAT YOU NEED TO KNOW Prescription opioids can be used to help relieve qybejkjz-my-sxtdvi pain and are often prescribed following a surgery or injury, or for certain health conditions. These medications can be an important part of the treatment but also come with serious risks. It is important to work with your healthcare provider to make sure you are getting the safest, most effective care. WHAT ARE THE RISKS AND SIDE EFFECTS OF OPIOID USE? Prescription opioids carry serious risks of addiction and overdose, especially with prolonged use. An opioid overdose, often marked by slowed breathing, can cause sudden . The use of prescription opioids can have a number of side effects as well, even when taken as directed: ??? Tolerance???meaning you might need to take more of the medication for the same pain relief ??? Physical dependence???meaning you have symptoms of withdrawal when a medication is stopped ??? Increased sensitivity to pain ??? Constipation ??? Nausea, vomiting, and dry mouth ??? Sleepiness and dizziness ??? Confusion ??? Depression ??? Low levels of testosterone that can result in lower sex drive, energy, and strength ??? Itching and sweating RISKS ARE GREATER WITH: ??? History of drug misuse, substance use disorder, or overdose ??? Mental health conditions (such as depression or anxiety) ??? Sleep apnea ??? Older age (65 years and older) ??? Avoid alcohol while taking prescription opioids. Also, unless specifically advised by your health care provider, medications to avoid include: ??? Benzodiazepines (such as Xanax or Valium) ??? Muscle relaxants (such as Soma or Flexeril) ??? Hypnotics (such as Ambien or Lunesta) ??? Other prescription opioids KNOW YOUR OPTIONS Talk to your health care provider about ways to manage your pain that don???t involve prescription opioids. Some of these options may actually work better and have fewer risks and side effects. Options may include: ??? Pain relievers such as acetaminophen, ibuprofen, and naproxen ??? Some medication that are also used for depression or seizures ??? Physical therapy and exercise ??? Cognitive behavioral therapy, a psychological, goal-directed approach, in which patients learn how to modify physical, behavioral, and emotional triggers of pain and stress. IF YOU ARE PRESCRIBED OPIOIDS FOR PAIN: ??? Never take opioids in greater amounts or more often than prescribed. ??? Follow up with your primary health care provider. o Work together to create a plan on how to manage your pain. o Talk about ways to help manage your pain that don???t involve prescription opioids. o Talk about any and all concerns and side effects. ??? Help prevent misuse and abuse o Never sell or share prescription opioids. o Never use another person???s prescription opioids. ??? Store prescription opioids in a secure place and out of reach of others (this may include visitors, children, friends, and family). ??? Safely dispose of unused prescription opioids: Find your community drug take-back program or your pharmacy mail-back program, or flush them down the toilet, following guidance from the Food and Drug Administration (www.fda.gov/Drugs/R esourcesForYou). ??? Visit www.cdc.gov/drugover dose to learn about the risks of opioids abuse and overdose. ??? If you believe you may be struggling with addiction, tell your health animal caregiver and ask for guidance or call [facility]??? (more content not included)... Normal [facility] PT & PTTon 03-08-2025 INR Coag (PPP) [Relative time] 0.96 {INR} Invalid Interpretation Code [facility] Comment on above: Result Comment: INR results are specifically intended to assess patients stabilized on long-term Anticoagulation therapy suggested INR???s ???Less Intensive Anticoagulation??? 2.0 ??? 3.0 Conventional Range 3.0 ??? 4.5 Performed By: #### 1 [id number] #### [facility] [address] [place] [address] PT 10.7 second(s) Normal 9.4-12.5 [facility] Comment on above: Result Comment: 15 d ays - 4 weeks 1 - 5 months 6 -11 months 1 ??? 5 years 6 ??? 10 years 11 -17 years Mean: 11.2 (9.5 ??? 12.6) Mean: 11.0 (9.7 ??? 12.8) Mean: 11.0 (9.8 ??? 13.0) Mean: 11.3 (9.9 ??? 13.4) Mean: 11.7 (10.0 ??? 14.6) Mean: 11.8 (10.0 - 14.1) Pediatric Reference ranges were obtained from a study by salvatore Dickens al. prepared from 1437 samples obtained at 7 different centers using the same coagulation reagent and instrumentation as [facility]. Currently there are no coagulation studies available worldwide for children to 14 days, and no normal ranges. Performed By: #### 1 [id number] #### [facility] [address] [place] [address] PTT 34.2 second(s) Normal 25.1-36.5 [facility] Comment on above: Result Comment: Para meter 15 days - 4 weeks 1 - 5 months 6 - 11 months 1 - 5 years 6 - 10 years 11 - 17 years PTT Mean: 35.4 (27.6-45.6) Mean: 33.5 (24.8-40.7) Mean: 32.4 (25.1-40.7) Mean: 31.6 (24.0-39.2) Mean: 31.6 (26.9-38.7) Mean: 31.0 (24.6-38.4) Pediatric Reference ranges were obtained from a study by Flakito Armenta et al. prepared from 1437 samples obtained at 7 different centers using the same coagulation reagent and instrumentation as [facility]. Currently there are no coagulation studies available worldwide for children to 14 days, and no normal ranges. Heparin therapeutic range (represented by Anti-Factor Xa activity of 0.2 - 0.4 U/mL) corresponds to PTT of 56.6 - 109.0 sec. Performed By: #### 1 [id number] #### [facility] [address] [place] [address] Troponin 0 Hr.on 03-08-2025 Troponin HS 4.90 pg/mL Low 10.10-27.10 [facility] Comment on above: Result Comment: The 95% CI (Confidence Interval) PPV (Positive Predictive Value) for myocardial infarction in females is 38 pg/mL, in males 51 pg/mL. The results should be used in conjunction with clinical conditions of myocardial infarction. (Access High Sensitivity Troponin I Instructions For Use, [place], January 2018) Performed By: #### 1 [id number] #### [facility] [address] [place] [address] Troponin 1 Hr.on 03-08-2025 Troponin HS <2.30 Low 10.10-27.10 [facility] Comment on above: Order Comment: 1 pop sylvester due at 1744 Result Comment: The 95% CI (Confidence Interval) PPV (Positive Predictive Value) for myocardial infarction in females is 38 pg/mL, in males 51 pg/mL. The results should be used in conjunction with clinical conditions of myocardial infarction. (Access High Sensitivity Troponin I Instructions For Use, [employer] Mike, January 2018) Performed By: #### 1 [id number] #### [facility] [address] [place] [address] eGFRon 03-08-2025 eGFR 73 mL/min/1.73 m2 Normal >=59 [facility] Comment on above: Performed By: #### 1 [id number] #### [facility] [address] [place] [address] MR BRAIN W AND WO CONTRAST ( ROUTINE)on 01-26-2025 MR BRAIN W AND WO CONTRAST (ROUTINE) EXAM: MR BRAIN W AND WO CONTRAST (ROUTINE) History: Multiple sclerosis Technique: Multiplanar multisequence MRI of the brain was performed without and with contrast. Comparison: MRI of the brain February 07, 2023 Findings: Bilateral supratentorial periventricular and subcortical white matter lesions and right cerebellar peduncle lesion are again identified and do not appear significantly changed. There is a new rim-enhancing lesion of the periventricular white matter of the right frontal lobe measuring approximately 9 mm x 7 mm x 13 mm in craniocaudal dimension. An avidly enhancing lesion of the anterior right frontal region just superior to the orbit has not safely changed, measuring approximately 1.2 cm in greatest dimension. This appears to be extra-axial and may have a tiny dural tail, favored to represent a meningioma rather than lesion of MS. Prominence of the sulci and ventricles compatible with mild generalized parenchymal volume loss. No acute hemorrhage, mass effect, midline shift, or abnormal extra-axial fluid collection. There is diffuse thinning of the corpus callosum. No overt abnormality of the pituitary gland. Rachel and midbrain appear within normal limits. There is no diffusion restriction. No susceptibility artifact is identified on the gradient echo sequence. The major intracranial vascular flow voids are maintained. Cranial nerve 7/8 complexes appear grossly unremarkable. The visualized paranasal sinuses and bilateral mastoid air cells are clear. IMPRESSION: New rim-enhancing 9 x 7 x 13 mm lesion within the periventricular white matter of the right frontal lobe most likely representing demyelinating plaque of multiple sclerosis. Otherwise no significant interval change. ELECTRONICALLY SIGNED BY: Jim J Kath, DO Normal Not Available CD19 ABSOLUTE COUNTon 2024 CD3-CD19+ cells (Bld) [#/Vol] 278 cells/uL Normal 75-660 [facility] Comment on above: Order Comment: Ree araujo Type: BLOOD SPECIMEN Ordering Facility: [facility] Address: ATTN: LABORATORY, [place] [address] Performed By: #### A BS19 #### [facility] CLIA [id number] [address] [place] [address] [place] [facility] CD3-CD19+ cells/100 cells (Bld) 15 % Normal 5-22 [facility] Comment on above: Order Comment: Ree araujo Type: BLOOD SPECIMEN Ordering Facility: [facility] Address: ATTN: LABORATORY, [place] [address] Performed By: #### A BS19 #### [facility] CLIA [id number] [address] [place] Lymphocytes/100 WBC FC (Bld) Normal [facility] Comment on above: Order Comment: Ree araujo Type: BLOOD SPECIMEN Ordering Facility: [facility] Address: ATTN: LABORATORY, [place] [address] Performed By: #### A BS19 #### [facility] CLIA [id number] [address] [place] CNOVon 01-11-2025 CNOV [place] MARTHA VALENCIA ([id number]) 1985 F Date Time Provider Department 01/11/25 2:30 PM [facility] During your visit today, we recorded the following information about you: Blood pressure Weight 124/84 65 kg Ludwin Nogueirakelli Arana, KLYSTROM TUBE TESTER.ATOMIC SPECTROSCOPIST 01/13/2025 4:33 PM [facility] FOLLOWUP/ESTABLISHED PATIENT VISIT PRINCIPAL NEUROLOGIC DIAGNOSIS: Multiple sclerosis, meningioma incidentally discovered HISTORY OF ILLNESS: Date of onset: 2008 Date of diagnosis of MS: 2008 Disease course at onset: relapsing remitting Current disease course: relapsing remitting Medications for MS Used in the Past: - Rebif (2008- 2008, stopped when - only took for 4 mos) - Gilenya. Started: 2009 - Ocrevus (summer 2021-summer 2022, felt not beneficial) - Kesimpta (fall 2022-winter 2023) Current MS med: none Most recent MRI brain: 23 DEC 2016 (stable) Most recent MRI cervical: 02 AUG 2015 JCV Status: Positive (MAY 2013) CHIEF COMPLAINT: Follow-up for monitoring off MS modifying therapy INTERVAL HISTORY: Refer to patient-entered data. Usual treating team: Wallace/Jose The patient is unaccompanied. The patient was last seen 02/21/23, currently Not on DMT. Since the patient's last visit the patient reports overall feeling stable. Last seen 02/21/23 by virtual visit to establish care with Dr Gonsalez. Previously seen by Dr Loomis/Katy Richards PA-C. In the interim, following with Dr Surinder Hernandez in [place] for MS care. Switched from Ocrevus to Kesimpta given perceived lack of benefit. Switched Adderall to Vyvanse for cognitive symptoms. Last office visit 11/2023. Reports wanted to continue following with Dr Hernandez but her kids felt she should follow up at [facility] since she was historically seen here. Admits she has difficulty driving to [place] and [place] would be easier. Lost on way to appt today and arrived at 3:09 for 2:30 appt. Has been without all medications for the past 6 months or so. Reports medical records got messed up . Liked Kesimpta and was tolerating well. [place] she was able to manage injections. Had a hard time tolerating Ocrevus. Throat irritation during infusion, felt restless during long infusion. No new neurological symptoms, but continued fluctuations of her typical symptoms. - intermittent foot drop, primarily right side - intermittent numbness, primarily left hand - daily mild headaches associated with stress, treats with PRN ibuprofen (reports tried multiple prescription medications over the years to treat) - intermittent blurry vision and tunnel vision, no recent eye appt - worsening cognitive symptoms, attention deficit Mood stable without medication. Previously taking Pristiq for depression and Adderall for attention/concentrat ion deficit and fatigue. Prefers to avoid anti-depressants unless needed. Hx hypothyroid, but has been without Synthroid for several months. PCP was managing previously. Has not reached out. 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 No notable recent infections or illnesses. Neuro-QoL Functions (higher=better functioning) Flowsheet [facility] from 02/21/2023 in [facility] Office Visit from 08/14/2015 in [facility] Appointment from 07/03/2015 in [facility] Upper Extremity Domain T Score 30 35.13 45.23 Lower Extremity Domain T Score 36 44.4 44.4 Cognitive Function Domain T Score 38 -- -- Positive Affect Well Being T Score -- -- -- Ability To Participate In Social Roles T Score 42 -- -- Satisfaction With Social Roles T Score 46 -- -- Neuro-QoL Symptoms (higher=worse symptoms) Flowsheet [facility] from 02/21/2023 in [facility] Office Visit from 08/14/2015 in [facility] Appointment from 07/03/2015 in [facility] Sleep Domain T Score 65 65.92 74.44 Fatigue Domain T Score 65 58.38 65.37 Anxiety Domain T Score 63 -- -- Depression Domain T Score 58 -- -- Stigma Domain T Score 60 -- -- Emotional Behavior Dyscontrol T Score -- -- -- has a past medical history of Migraine and MS (multiple sclerosis) ([facility]). currently has no medications in their medication list. EXAM: BP 124/84 Wt 65 kg (143 lb 3.2 oz) BMI 23.83 kg/m? MSPT Results Flowsheet [facility] Office Visit from 12/23/2016 in [facility] Office Visit from 08/14/2015 in [facility] Appointment from 07/03/2015 in [facility] Processing Speed Total Number Correct 47 -- -- Processing Speed Z score -- -- -- Dominant hand Right hand Right hand Right hand MDT Left Hand Time 29.5 -- -- MDT Right Hand Time 27.8 -- -- Walking Speed Test (25 feet) 5.4 -- -- Memory Z Score -- -- -- EXAM: General Appearance: well appearing, in no acute distress Mental status evaluation during the interview and examination showed normal l (more content not included)... Normal [facility] CBC WITH AUTO DIFFERENTIALon 10-22-2024 BASOPHILS ABSOLUTE COUNT (10*3/UL) BY AUTOMATED COUNT 0.1 10*3/uL Normal 0.0-0.2 [facility] Comment on above: Performed By: #### C BCA #### [facility] ([address] [place] [address] VIR BASOPHILS RELATIVE PERCENT BY AUTOMATED COUNT 1.4 % Normal [facility] Comment on above: Performed By: #### C BCA #### [facility] ([address] [place] [address] VIR CELLAVISION DIFFERENTIAL TYPE AUTOMATED DIFFERENTIAL Normal [facility] Comment on above: Performed By: #### C BCA #### [facility] ([address] [place] [address] VIR Eosinophils (Bld) [#/Vol] 0.2 10*3/uL Normal 0.0-0.4 [facility] Comment on above: Performed By: #### C BCA #### [facility] ([address] [place] [address] VIR EOSINOPHILS RELATIVE PERCENT BY AUTOMATED COUNT 2.9 % Normal [facility] Comment on above: Performed By: #### C BCA #### [facility] ([address] [place] [address] VIR Erythrocyte distribution width (RBC) [Ratio] 13.6 % Normal 11.5-15 [facility] Comment on above: Performed By: #### C BCA #### [facility] ([address] [place] [address] VIR Hematocrit (Bld) [Volume fraction] 40.3 % Normal 35-47 [facility] Comment on above: Performed By: #### C BCA #### [facility] ([address] [address] VIR Hemoglobin (Bld) [Mass/Vol] 13.9 g/dL Normal 11.7-15.5 [facility] Comment on above: Performed By: #### C BCA #### [facility] ([address] [address] VIR LYMPHOCYTES ABSOLUTE COUNT (10*3/UL) BY AUTOMATED COUNT 1.7 10*3/uL Normal 1.0-3.5 [facility] Comment on above: Performed By: #### C BCA #### [facility] ([address] [address] VIR LYMPHOCYTES RELATIVE PERCENT BY AUTOMATED COUNT 28.4 % Normal [facility] Comment on above: Performed By: #### C BCA #### [facility] ([address] [address] VIR MCH (RBC) [Entitic mass] 29.6 pg Normal 27-34 [facility] Comment on above: Performed By: #### C BCA #### [facility] ([address] [address] VIR MCHC (RBC) [Mass/Vol] 34.4 g/dL Normal 32-36 [facility] Comment on above: Performed By: #### C BCA #### [facility] ([address] [address] VIR MCV (RBC) [Entitic vol] 86 fL Normal 80-100 [facility] Comment on above: Performed By: #### C BCA #### [facility] ([address] [address] VIR MONOCYTES ABSOLUTE COUNT (10*3/UL) BY AUTOMATED COUNT 0.5 10*3/uL Normal 0.0-0.9 [facility] Comment on above: Performed By: #### C BCA #### [facility] ([address] [address] VIR MONOCYTES RELATIVE PERCENT BY AUTOMATED COUNT 8.4 % Normal [facility] Comment on above: Performed By: #### C BCA #### [facility] ([address] [address] VIR NEUTROPHILS ABSOLUTE COUNT BY AUTOMATED COUNT 3.6 10*3/uL Normal 1.5-6.6 [facility] Comment on above: Performed By: #### C BCA #### [facility] ([address] [address] VIR NEUTROPHILS RELATIVE PERCENT BY AUTOMATED COUNT 58.9 % Normal [facility] Comment on above: Performed By: #### C BCA #### [facility] ([address] [address] VIR Platelet mean volume (Bld) [Entitic vol] 8.3 fL Normal 7-12 [facility] Comment on above: Performed By: #### C BCA #### [facility] ([address] [address] VIR Platelets (Bld) [#/Vol] 272 10*3/uL Normal 150-450 [facility] Comment on above: Performed By: #### C BCA #### [facility] ([address] [address] VIR RBC COUNT 4.69 X10E12/L Normal 3.8-5.2 [facility] Comment on above: Performed By: #### C BCA #### [facility] ([address] [place] [address] VIR WBC (Bld) [#/Vol] 6.1 10*3/uL Normal 4-11 [facility] Comment on above: Performed By: #### C BCA #### [facility] ([place] [address] [place] [address] VIR COMPREHENSIVE METABOLIC PANE [place] 10-22-2024 Albumin [Mass/Vol] 4.3 g/dL Normal 3.2-5.3 [facility] Comment on above: Performed By: #### C MP #### [facility] ([place] [address] [address] VIR ALP [Catalytic activity/Vol] 43 U/L Normal 39-130 [facility] Comment on above: Performed By: #### C MP #### [facility] ([address] [place] [address] VIR ALT [Catalytic activity/Vol] 10 U/L Normal <=31 [facility] Comment on above: Performed By: #### C MP #### [facility] ([address] [address] VIR Anion gap [Moles/Vol] 6 mmol/L Normal 5-15 [facility] Comment on above: Performed By: #### C MP #### [facility] ([address] [place] [address] VIR AST [Catalytic activity/Vol] 16 U/L Normal <=41 [facility] Comment on above: Performed By: #### C MP #### [facility] ([place] [address] [address] VIR Bilirubin [Mass/Vol] 0.9 mg/dL Normal 0.3-1.2 [facility] Comment on above: Performed By: #### C MP #### [facility] ([place] [address] [place] [address] VIR Calcium [Mass/Vol] 9.4 mg/dL Normal 8.5-10.5 [facility] Comment on above: Performed By: #### C MP #### [facility] ([address] [place] [address] VIR Chloride [Moles/Vol] 105 mmol/L Normal 98-109 [facility] Comment on above: Performed By: #### C MP #### [facility] ([address] [place] [address] VIR CO2 [Moles/Vol] 25 mmol/L Normal 22-32 [facility] Comment on above: Performed By: #### C MP #### [facility] ([address] [place] [address] VIR Creatinine [Mass/Vol] 0.96 mg/dL Normal 0.40-1.00 [facility] Comment on above: Result Comment: METH OD TRACEABLE TO IDMS STANDARD Performed By: #### C MP #### [facility] ([address] [place] [address] VIR GFR/1.73 sq M.predicted among non-blacks MDRD (S/P/Bld) [Vol rate/Area] 78 mL/min/{1.73_m2} Normal >=60 [facility] Comment on above: Result Comment: eGFR not reported due to non-numeric value for Creatinine. Reported eGFR is based on the CKD-EPI 1 equation that does not use a race coefficient. Performed By: #### C MP #### [facility] ([address] [place] [address] VIR Glucose [Mass/Vol] 96 mg/dL Normal 65-99 [facility] Comment on above: Performed By: #### C MP #### [facility] ([address] [place] [address] VIR Potassium [Moles/Vol] 4.1 mmol/L Normal 3.5-5.0 [facility] Comment on above: Performed By: #### C MP #### [facility] ([address] [place] [address] VIR Protein [Mass/Vol] 7.2 g/dL Normal 6.0-8.0 [facility] Comment on above: Performed By: #### C MP #### [facility] ([facility]) [address] [place] [address] [place] [address] VIR Sodium [Moles/Vol] 136 mmol/L Normal 134-146 [facility] Comment on above: Performed By: #### C MP #### [facility] ([facility]) [address] [place] [address] [place] [address] VIR Urea nitrogen [Mass/Vol] 11 mg/dL Normal 5-23 [facility] Comment on above: Performed By: #### C MP #### [facility] ([facility]) [address] [place] [address] [place] [address] BRAIN WO CONTon 5 CT BRAIN WO CONT CT BRAIN WO CONT STUDY: CT HEAD [...] Mendoza Aguirre MD on 10/22/2024 11:46 AM Normal [facility] MAGNESIUMon 10-22-2024 Magnesium [Mass/Vol] 1.9 mg/dL Normal 1.8-2.6 [facility] Comment on above: Performed By: #### M G #### [facility] ([address] [place] [address] VIR POCT NURSING URINE MACROSCOP IC UAon 10-22-2024 BILIRUBIN BRAD Negative Normal Negative [facility] Comment on above: Performed By: #### N UM #### [facility] ([address] [place] [address] VIR BLOOD/HGB BRAD Negative Normal Negative [facility] Comment on above: Performed By: #### N UM #### [facility] ([address] [place] [address] VIR GLUCOSE BRAD Negative Normal Negative [facility] Comment on above: Performed By: #### N UM #### [facility] ([address] [place] [address] VIR KETONES BRAD Negative Normal Negative [facility] Comment on above: Performed By: #### N UM #### [facility] ([address] [place] [address] VIR LEUKOCYTE ESTERASE BRAD Negative Normal Negative [facility] Comment on above: Performed By: #### N UM #### [facility] ([address] [place] [address] VIR NITRITE BRAD Negative Normal Negative [facility] Comment on above: Performed By: #### N UM #### [facility] ([address] [place] [address] VIR PH BRAD 7.5 Normal 5.0, 6.0, 6.5, 7.0, 7.5, 8.0, 8.5, 5.5 [facility] Comment on above: Performed By: #### N UM #### [facility] ([address] [place] [address] VIR PROTEIN BRAD Negative Normal Negative [facility] Comment on above: Performed By: #### N UM #### [facility] ([address] [place] [address] VIR SPECIFIC GRAVITY BRAD 1.015 Normal 1.010, 1.015, 1.020, 1.025 [facility] Comment on above: Performed By: #### N UM #### [facility] ([address] [place] [address] VIR UROBILINOGEN BRAD 0.2 E.U./dL Normal [facility] Comment on above: Performed By: #### N UM #### [facility] ([address] [place] [address] VIR POCT , URINE (NUCG) on 10-22-2024 Beta HCG ( test) Ql (U) Negative Normal Negative [facility] Comment on above: Performed By: #### N UCG #### [facility] ([address] [place] [address] VIR TROP I, HIGH SENSITIVITY 1 H OURon 10-22-2024 TROPONIN I, HIGH SENSITIVITY <^2 Normal <16 [facility] Comment on above: Performed By: #### T NIHS1 #### [facility] ([address] [place] [address] VIR TROPONIN I, HIGH SENSITIVITY 0 HOURon 10-22-2024 TROPONIN I, HIGH SENSITIVITY 2 ng/L Normal <16 [facility] Comment on above: Performed By: #### T NIHS0 #### [facility] ([address] [place] [address] VIR MR cervical spine wo/w conon 02-07-2023 MR cervical spine wo/w con [facility] [place] [address] [place] [address] MRI Report Signed Patient: Martha Valencia MR#: [id number] : 1985 Acct:[id number] Age/Sex: 37 / F ADM Date: 02/07/23 Loc: MR Room: Type: [facility] Attending Dr: Marty Jade DO Copies to: [...] Daniel Mcgee M.D.02/07/2023 3:10 PM Dictation Location: [place] [address] Transcribed By: [facility] 02/07/23 1510 Dictated By: aDniel Mcgee II, MD 02/07/23 1455 Signed By: 02/07/23 1510 [facility] MR head/brain wo/w conon MR head/brain wo/w [place] [address] MRI Report Signed Patient: Martha Valencia MR#: [id number] : 1985 Acct:[id number] Age/Sex: 37 / F ADM Date: 02/07/23 Loc: MR Room: Type: [facility] Attending Dr: Marty Jade DO Copies to: [...] Daniel Mcgee M.D.02/07/2023 3:21 PM Dictation Location: [place] [address] Transcribed By: [facility] 02/07/23 1521 Dictated By: Daniel Mcgee II, MD 02/07/23 1512 Signed By: 02/07/23 1521 [facility] CBC AUTO DIFFon 07-04-2022 BASO # 0.0 103/ul Normal 0.0-0.1 [facility] Comment on above: Performed By: #### T SH, T7, LIPID, CMP #### [facility] [address] [place] [address] Dr. Shari Mobley Basophils/100 WBC (Bld) 0.6 % Normal 0.2-2.0 [facility] Comment on above: Performed By: #### T SH, T7, LIPID, CMP #### [facility] [address] [place] [address] Dr. Shari Mobley EO # 0.1 103/ul Normal 0.0-0.7 [facility] Comment on above: Performed By: #### T SH, T7, LIPID, CMP #### [facility] [address] [place] [address] Dr. Shari Mobley Eosinophils/100 WBC (Bld) 2.1 % Normal 0.9-7.0 [facility] Comment on above: Performed By: #### T SH, T7, LIPID, CMP #### [facility] [address] [place] [address] Dr. Shari Mobley Erythrocyte distribution width (RBC) [Ratio] 13.1 % Normal 11.0-15.0 [facility] Comment on above: Performed By: #### T SH, T7, LIPID, CMP #### [facility] [address] [place] [address] Dr. Shari Mobley Hematocrit (Bld) [Volume fraction] 40.0 % Normal 36.0-48.0 [facility] Comment on above: Performed By: #### T SH, T7, LIPID, CMP #### [facility] [address] [place] [address] Dr. Shari Mobley Hemoglobin (Bld) [Mass/Vol] 13.3 g/dL Normal 12.0-16.0 [facility] Comment on above: Performed By: #### T SH, T7, LIPID, CMP #### [facility] [address] [place] [address] Dr. Shari Mobley IG # 0.02 10e3/ul Normal 0.00-0.03 [facility] Comment on above: Performed By: #### T SH, T7, LIPID, CMP #### [facility] [address] [place] [address] Dr. Shari Mobley IG % 0.3 % Normal 0.0-0.5 [facility] Comment on above: Performed By: #### T SH, T7, LIPID, CMP #### [facility] [address] [place] [address] Dr. Shari Mobley LYMPH # 1.3 103/ul Normal 1.2-3.8 [facility] Comment on above: Performed By: #### T SH, T7, LIPID, CMP #### [facility] [address] [place] [address] Dr. Shari Mobley Lymphocytes/100 WBC (Bld) 20.6 % Normal 20.5-60.0 [facility] Comment on above: Performed By: #### T SH, T7, LIPID, CMP #### [facility] [address] [place] [address] Dr. Shari Mobley MANUAL DIFF REQ NO Normal [facility] Comment on above: Performed By: #### T SH, T7, LIPID, CMP #### [facility] [address] [place] [address] Dr. Shari Mobley MCH (RBC) [Entitic mass] 28.7 pg Normal 26.7-34.0 [facility] Comment on above: Performed By: #### T SH, T7, LIPID, CMP #### [facility] [address] [place] [address] Dr. Shari Mobley MCHC (RBC) [Mass/Vol] 33.3 g/dL Normal 29.9-35.2 [facility] Comment on above: Performed By: #### T SH, T7, LIPID, CMP #### [facility] [address] [place] [address] Dr. Shari Mobley MCV (RBC) [Entitic vol] 86.2 fL Normal 81.0-99.0 [facility] Comment on above: Performed By: #### T SH, T7, LIPID, CMP #### [facility] [address] [place] [address] Dr. Shari Mobley MONO # 0.7 103/ul Normal 0.3-0.8 [facility] Comment on above: Performed By: #### T SH, T7, LIPID, CMP #### [facility] [address] [place] [address] [address] Shari Mobley Monocytes/100 WBC (Bld) 10.6 % Normal 1.7-12.0 [facility] Comment on above: Performed By: #### T SH, T7, LIPID, CMP #### [facility] [address] [place] [address] [address] Shari Mobley NEUT # 4.2 103/ul Normal 1.4-6.5 [facility] Comment on above: Performed By: #### T SH, T7, LIPID, CMP #### [facility] [address] [place] [address] Dr. Shari Mobley Neutrophils/100 WBC (Bld) 65.8 % Normal 43.0-75.0 [facility] Comment on above: Performed By: #### T SH, T7, LIPID, CMP #### [facility] [address] [place] [address] Dr. Shari Mobley Platelet mean volume (Bld) [Entitic vol] 9.6 fL Normal 9.5-13.5 [facility] Comment on above: Performed By: #### T SH, T7, LIPID, CMP #### [facility] [address] [place] [address] Dr. Shari Mobley PLT 304 103/ul Normal 150-450 [facility] Comment on above: Performed By: #### T SH, T7, LIPID, CMP #### [facility] [address] [place] [address] Dr. Shari Mobley RBC 4.64 106/ul Normal 4.20-5.40 [facility] Comment on above: Performed By: #### T SH, T7, LIPID, CMP #### [facility] [address] [place] [address] Dr. Shari Mobley WBC 6.3 103/ul Normal 4.0-11.0 [facility] Comment on above: Performed By: #### T SH, T7, LIPID, CMP #### [facility] [address] [place] [address] Dr. Shari Mobley FREE THYROXINE INDEX T7on FTI 2.48 Normal 1.30-4.50 [facility] Comment on above: Performed By: #### T SH, T7, LIPID, CMP #### [facility] [address] [place] [address] [address] Shari Mobley T3U 34.0 % Normal 30.0-39.0 [facility] Comment on above: Performed By: #### T SH, T7, LIPID, CMP #### [facility] [address] [place] [address] [address] Shari Mobley T4 [Mass/Vol] 7.30 ug/dL Normal 4.80-13.90 [facility] Comment on above: Performed By: #### T SH, T7, LIPID, CMP #### [facility] [address] [place] [address] [address] Shari Mobley GLYCOHEMOGLOBIN A1Con 2022 ADA RECOMMENDATION SEE BELOW Normal [facility] Comment on above: Result Comment: ADA RECOMMENDED LIMIT 4.0 - 6.0 ADA THERAPEUTIC TARGET < 7.0 ACTION SUGGESTED > 7.0 Performed By: #### T SH, T7, LIPID, CMP #### [facility] [address] [place] [address] [address] Shari Mobley Glucose [Mass/Vol] 111 mg/dL Normal [facility] Comment on above: Performed By: #### T SH, T7, LIPID, CMP #### [facility] [address] [place] [address] [address] Shari Mobley HbA1c (Bld) [Mass fraction] 5.5 % Normal 4.5-6.2 [facility] Comment on above: Performed By: #### T SH, T7, LIPID, CMP #### [facility] [address] [place] [address] [address] Shari Mobley IRONon 07-04-2022 Iron [Mass/Vol] 61.0 ug/dL Normal 50.0-170.0 [facility] Comment on above: Performed By: #### I TRENA, VITAD #### [facility] [address] [place] [address] [address] Shari Mobley LIPID PROFILEon 01-19-2023 CHOL-HDL RATIO NORM SEE BELOW Normal [facility] Comment on above: Result Comment: 3.3 - 4.4 LOW RISK 4.4 - 7.1 AVERAGE RISK 7.1 - 11.0 MODERATE RISK >11.0 HIGH RISK Performed By: #### T SH, T7, LIPID, CMP #### [facility] [address] [place] [address] [address] Shari Mobley Cholesterol [Mass/Vol] 145 mg/dL Normal <=200 [facility] Comment on above: Performed By: #### T SH, T7, LIPID, CMP #### [facility] [address] [place] [address] [address] Shari Mobley Cholesterol in HDL [Mass/Vol] 64 mg/dL Critically high 40-60 [facility] Comment on above: Performed By: #### T SH, T7, LIPID, CMP #### [facility] [address] [place] [address] Dr. Shari Mobley Cholesterol in LDL [Mass/Vol] 65.0 mg/dL Normal [facility] Comment on above: Performed By: #### T SH, T7, LIPID, CMP #### [facility] [address] [place] [address] [address] Shari Mobley Cholesterol.total/Ch olesterol in HDL [Mass ratio] 2.3 {ratio} Normal [facility] Comment on above: Performed By: #### T SH, T7, LIPID, CMP #### [facility] [address] [place] [address] [address] Shari Mobley HDL NORMAL > or = 60 mg/dl - LOW CARDIOVASCULAR RISK <40 mg/dl - HIGH CARDIOVASCULAR RISK Normal [facility] Comment on above: Performed By: #### T SH, T7, LIPID, CMP #### [facility] [address] [place] [address] Dr. Shari Mobley LDL CALC NORMAL SEE BELOW Normal [facility] Comment on above: Result Comment: <100 mg/dl OPTIMAL 100 - 129 mg/dl NEAR OR ABOVE OPTIMAL 130 - 159 mg/dl BORDERLINE HIGH 160 - 189 mg/dl HIGH >190 mg/dl VERY HIGH Performed By: #### T SH, T7, LIPID, CMP #### [facility] [address] [place] [address] [address] Shari Mobley Triglyceride [Mass/Vol] 80 mg/dL Normal <=150 [facility] Comment on above: Performed By: #### T SH, T7, LIPID, CMP #### [facility] [address] [place] [address] [address] Shari Mobley VLDL CALC 16.0 mg/dL Normal [facility] Comment on above: Performed By: #### T SH, T7, LIPID, CMP #### [facility] [address] [place] [address] [address] Shari Mobley MG MAMM SCREEN 3D ANNY CADon 07-04-2022 MG MAMM SCREEN 3D ANNY CAD Patient: MARTHA VALENCIA Exam Date: 07/04/2022 : 1985 Gender:F Ordering : DR FRANCESCA WHITE . Admission #: [id number] Family : Order #: [id number] CLICK HERE TO VIEW EXAM RADIOLOGY REPORT [...] breast cancer at age 55. LOCATION: [facility] BREAST COMPOSITION: Scattered areas fibroglandular density. FINDINGS: [...] MD on 07/04/2022 at 10:58 Normal [facility] PROF 14(COMP METB)on 023 Albumin [Mass/Vol] 4.1 g/dL Normal 3.4-5.0 [facility] Comment on above: Performed By: #### T SH, T7, LIPID, CMP #### [facility] [address] [place] [address] [address] Shari Mobley Albumin/Globulin [Mass ratio] 1.3 {ratio} Normal [facility] Comment on above: Performed By: #### T SH, T7, LIPID, CMP #### [facility] [address] [place] [address] Dr. Shari Mobley ALP [Catalytic activity/Vol] 49 U/L Normal 46-116 [facility] Comment on above: Performed By: #### T SH, T7, LIPID, CMP #### [facility] [address] [place] [address] Dr. Shari Mobley ALT [Catalytic activity/Vol] 16 U/L Normal 14-59 [facility] Comment on above: Performed By: #### T SH, T7, LIPID, CMP #### [facility] [address] [place] [address] Dr. Shari Mobley Anion gap [Moles/Vol] 10.5 mmol/L Normal [facility] Comment on above: Performed By: #### T SH, T7, LIPID, CMP #### [facility] [address] [place] [address] Dr. Shari Mobley AST [Catalytic activity/Vol] 15 U/L Normal 15-37 [facility] Comment on above: Performed By: #### T SH, T7, LIPID, CMP #### [facility] [address] [place] [address] Dr. Shari Mobley Bilirubin [Mass/Vol] 0.4 mg/dL Normal 0.2-1.0 [facility] Comment on above: Performed By: #### T SH, T7, LIPID, CMP #### [facility] [address] [place] [address] Dr. Shari Mobley Calcium [Mass/Vol] 9.5 mg/dL Normal 8.5-10.1 [facility] Comment on above: Performed By: #### T SH, T7, LIPID, CMP #### [facility] [address] [place] [address] Dr. Shari Mobley Chloride [Moles/Vol] 100 mmol/L Normal 98-107 [facility] Comment on above: Performed By: #### T SH, T7, LIPID, CMP #### [facility] [address] [place] [address] [address] Shari Mobley CO2 [Moles/Vol] 30.9 mmol/L Normal 21.0-32.0 [facility] Comment on above: Performed By: #### T SH, T7, LIPID, CMP #### [facility] [address] [place] [address] [address] Shari Mobley Creatinine [Mass/Vol] 0.84 mg/dL Normal 0.55-1.02 [facility] Comment on above: Performed By: #### T SH, T7, LIPID, CMP #### [facility] [address] [place] [address] [address] Shari Mobley EGFR-AF [place]IZ[place] >60 Normal >=60 [facility] Comment on above: Performed By: #### T SH, T7, LIPID, CMP #### [facility] [address] [place] [address] [address] Shari Mobley EGFR-NON AF CITIZEN [place] >60 Normal >=60 [facility] Comment on above: Performed By: #### T SH, T7, LIPID, CMP #### [facility] [address] [place] [address] [address] Shari Mobley Globulin (S) [Mass/Vol] 3.1 g/dL Normal [facility] Comment on above: Performed By: #### T SH, T7, LIPID, CMP #### [facility] [address] [place] [address] [address] Shari Mobley Glucose [Mass/Vol] 78 mg/dL Normal 74-106 [facility] Comment on above: Performed By: #### T SH, T7, LIPID, CMP #### [facility] [address] [place] [address] [address] Shari Mobley Potassium [Moles/Vol] 4.4 mmol/L Normal 3.5-5.1 [facility] Comment on above: Performed By: #### T SH, T7, LIPID, CMP #### [facility] [address] [place] [address] [address] Shari Mobley Protein [Mass/Vol] 7.2 g/dL Normal 6.4-8.2 [facility] Comment on above: Performed By: #### T SH, T7, LIPID, CMP #### [facility] [address] [place] [address] Dr. Shari Mobley Sodium [Moles/Vol] 137 mmol/L Normal 136-145 [facility] Comment on above: Performed By: #### T SH, T7, LIPID, CMP #### [facility] [address] [place] [address] Dr. Shari Mobley Urea nitrogen [Mass/Vol] 10.0 mg/dL Normal 7.0-18.0 [facility] Comment on above: Performed By: #### T SH, T7, LIPID, CMP #### [facility] [address] [place] [address] Dr. Shari Mobley Urea nitrogen/Creatinine [Mass ratio] 11.9 mg/mg Normal [facility] Comment on above: Performed By: #### T SOURAV, T7, LIPID, CMP #### [facility] [facility] [address] [place] [address] Dr. Shari Mobley TSHon 07-04-2022 TSH 2.258 uIU/mL Normal 0.358-3.740 [facility] Comment on above: Performed By: #### T SH, T7, LIPID, CMP #### [facility] [address] [place] [address] Dr. Shari Mobley VITAMIN D 25 OHon 07-04-2022 VIT D 25-OH 47.2 ng/mL Normal [facility] Comment on above: Performed By: #### I TRENA VITAD #### [facility] [address] [place] [address] Dr. Shari Mobley VIT D RANGES SEE BELOW Normal [facility] Comment on above: Result Comment: <20 ng/mL Vit D deficient 20 - <30 ng/mL Vit D insufficient 30 - 100 ng/mL Vit D sufficient >100 ng/mL Potential Toxicity Performed By: #### I TRENA VITAD #### [facility] [address] [place] [address] Dr. Shari Mobley MR thoracic spine wo/w conon 03-22-2022 MR thoracic spine wo/w [place] [address] MRI Report Signed Patient: Martha Valencia MR#: [id number] : 1985 Acct:[id number] Age/Sex: 36 / F ADM Date: 03/22/22 Loc: MR Room: Type: [facility] Attending Dr: Clayton Wallace PA-C Copies to: [...] Daniel Mcgee M.D.03/22/2022 3:56 PM Dictation Location: [place] [address] Transcribed By: [facility] 03/22/22 155 Dictated By: Daniel Mcgee II, MD 03/22/22 1545 Signed By: 03/22/22 1556 [facility] CBC AUTO DIFFon 12-03-2021 BASO # 0.1 103/ul Normal 0.0-0.1 [facility] Comment on above: Performed By: #### T SH, T7, LIPID, CMP #### [facility] [address] [place] [address] Dr. Shari Mobley Basophils/100 WBC (Bld) 0.8 % Normal 0.2-2.0 [facility] Comment on above: Performed By: #### T SH, T7, LIPID, CMP #### [facility] [address] [address] [address] Shari Mobley EO # 0.1 103/ul Normal 0.0-0.7 [facility] Comment on above: Performed By: #### T SH, T7, LIPID, CMP #### [facility] [address] [place] [address] Dr. Shari Mobley Eosinophils/100 WBC (Bld) 1.0 % Normal 0.9-7.0 [facility] Comment on above: Performed By: #### T SH, T7, LIPID, CMP #### [facility] [address] [place] [address] Dr. Shari Mobley Erythrocyte distribution width (RBC) [Ratio] 12.3 % Normal 11.0-15.0 [facility] Comment on above: Performed By: #### T SH, T7, LIPID, CMP #### [facility] [address] [place] [address] Dr. Shari Mobley Hematocrit (Bld) [Volume fraction] 42.6 % Normal 36.0-48.0 [facility] Comment on above: Performed By: #### T SH, T7, LIPID, CMP #### [facility] [address] [place] [address] Dr. Shari Mobley Hemoglobin (Bld) [Mass/Vol] 14.5 g/dL Normal 12.0-16.0 [facility] Comment on above: Performed By: #### T SH, T7, LIPID, CMP #### [facility] [address] [place] [address] Dr. Shari Mobley IG # 0.02 10e3/ul Normal 0.00-0.03 [facility] Comment on above: Performed By: #### T SH, T7, LIPID, CMP #### [facility] [address] [place] [address] Dr. Shari Mobley IG % 0.3 % Normal 0.0-0.5 [facility] Comment on above: Performed By: #### T SH, T7, LIPID, CMP #### [facility] [address] [place] [address] Dr. Shari Mobley LYMPH # 1.4 103/ul Normal 1.2-3.8 [facility] Comment on above: Performed By: #### T SH, T7, LIPID, CMP #### [facility] [address] [place] [address] Dr. Shari Mobley Lymphocytes/100 WBC (Bld) 23.1 % Normal 20.5-60.0 [facility] Comment on above: Performed By: #### T SH, T7, LIPID, CMP #### [facility] [address] [place] [address] Dr. Shari Mobley MANUAL DIFF REQ NO Normal [facility] Comment on above: Performed By: #### T SH, T7, LIPID, CMP #### [facility] [address] [place] [address] Dr. Shari Mobley MCH (RBC) [Entitic mass] 30.3 pg Normal 26.7-34.0 [facility] Comment on above: Performed By: #### T SH, T7, LIPID, CMP #### [facility] [address] [place] [address] Dr. Shari Mobley MCHC (RBC) [Mass/Vol] 34.0 g/dL Normal 29.9-35.2 [facility] Comment on above: Performed By: #### T SH, T7, LIPID, CMP #### [facility] [address] [place] [address] Dr. Shari Mobley MCV (RBC) [Entitic vol] 88.9 fL Normal 81.0-99.0 [facility] Comment on above: Performed By: #### T SH, T7, LIPID, CMP #### [facility] [address] [place] [address] Dr. Shari Mobley MONO # 0.5 103/ul Normal 0.3-0.8 [facility] Comment on above: Performed By: #### T SH, T7, LIPID, CMP #### [facility] [address] [place] [address] Dr. Shari Mobley Monocytes/100 WBC (Bld) 9.0 % Normal 1.7-12.0 [facility] Comment on above: Performed By: #### T SH, T7, LIPID, CMP #### [facility] [address] [place] [address] Dr. Shari Mobley NEUT # 4.0 103/ul Normal 1.4-6.5 [facility] Comment on above: Performed By: #### T SH, T7, LIPID, CMP #### [facility] [address] [place] [address] Dr. Shari Mobley Neutrophils/100 WBC (Bld) 65.8 % Normal 43.0-75.0 [facility] Comment on above: Performed By: #### T SH, T7, LIPID, CMP #### [facility] [address] [place] [address] Dr. Shari Mobley Platelet mean volume (Bld) [Entitic vol] 9.9 fL Normal 9.5-13.5 [facility] Comment on above: Performed By: #### T SH, T7, LIPID, CMP #### [facility] [address] [place] [address] Dr. Shari Mobley PLT 251 103/ul Normal 150-450 [facility] Comment on above: Performed By: #### T SH, T7, LIPID, CMP #### [facility] [address] [place] [address] Dr. Shari Mobley RBC 4.79 106/ul Normal 4.20-5.40 [facility] Comment on above: Performed By: #### T SH, T7, LIPID, CMP #### [facility] [address] [place] [address] Dr. Shari Mobley WBC 6.0 103/ul Normal 4.0-11.0 [facility] Comment on above: Performed By: #### T SH, T7, LIPID, CMP #### [facility] [address] [place] [address] Dr. Shari Mobley LIVER PROFILEon 12-03-2021 Albumin [Mass/Vol] 4.3 g/dL Normal 3.4-5.0 [facility] Comment on above: Performed By: #### L CHRISTINA BMP #### [facility] [address] [place] [address] Dr. Shari Mobley Albumin/Globulin [Mass ratio] 1.4 {ratio} Normal [facility] Comment on above: Performed By: #### L CHRISTINA BMP #### [facility] [address] [place] [address] Dr. Shari Mobley ALP [Catalytic activity/Vol] 48 U/L Normal 46-116 [facility] Comment on above: Performed By: #### L IVER, BMP #### [facility] [address] [place] [address] Dr. Shari Mobley ALT [Catalytic activity/Vol] 24 U/L Normal 14-59 [facility] Comment on above: Performed By: #### L IVER, BMP #### [facility] [address] [place] [address] Dr. Shari Mobley AST [Catalytic activity/Vol] 15 U/L Normal 15-37 [facility] Comment on above: Performed By: #### L IVER, BMP #### [facility] [address] [place] [address] Dr. Shari Mobley BILI, CONJUGATED 0.1 mg/dL Normal 0.0-0.2 [facility] Comment on above: Performed By: #### L IVER, BMP #### [facility] [address] [place] [address] Dr. Shari Mobley Bilirubin [Mass/Vol] 0.6 mg/dL Normal 0.2-1.0 [facility] Comment on above: Performed By: #### L IVER, BMP #### [facility] [address] [place] [address] Dr. Shari Mobley Globulin (S) [Mass/Vol] 3.1 g/dL Normal [facility] Comment on above: Performed By: #### L IVER, BMP #### [facility] [address] [place] [address] Dr. Shari Mobley Protein [Mass/Vol] 7.4 g/dL Normal 6.4-8.2 [facility] Comment on above: Performed By: #### L IVER, BMP #### [facility] [address] [place] [address] Dr. Shari Mobley PROF CHEM 8 (BAS METB)on Anion gap [Moles/Vol] 12.3 mmol/L Normal [facility] Comment on above: Performed By: #### L IVER, BMP #### [facility] [address] [place] [address] [address] Shari Mobley Calcium [Mass/Vol] 9.2 mg/dL Normal 8.5-10.1 [facility] Comment on above: Performed By: #### L IVELIZABETH, BMP #### [facility] [address] [place] [address] Dr. Shari oMbley Chloride [Moles/Vol] 102 mmol/L Normal 98-107 [facility] Comment on above: Performed By: #### L IVELIZABETH, BMP #### [facility] [address] [place] [address] Dr. Shari Mobley CO2 [Moles/Vol] 26.7 mmol/L Normal 21.0-32.0 [facility] Comment on above: Performed By: #### L CHRISTINA, BMP #### [facility] [address] [place] [address] Dr. Shari Mobley Creatinine [Mass/Vol] 0.89 mg/dL Normal 0.55-1.02 [facility] Comment on above: Performed By: #### L CHRISTINA, BMP #### [facility] [address] [place] [address] Dr. Shari Mobley EGFR-AF CITIZ[place] >60 Normal >=60 [facility] Comment on above: Performed By: #### L CHRISTINA, BMP #### [facility] [address] [place] [address] Dr. Shari Mobley EGFR-NON AF CITIZEN OF [place] >60 Normal >=60 [facility] Comment on above: Performed By: #### L CHRISTINA, BMP #### [facility] [address] [place] [address] Dr. Shari Mobley Glucose [Mass/Vol] 98 mg/dL Normal 74-106 [facility] Comment on above: Performed By: #### L IVELIZABETH, BMP #### [facility] [address] [place] [address] Dr. Shari Mobley Potassium [Moles/Vol] 4.0 mmol/L Normal 3.5-5.1 [facility] Comment on above: Performed By: #### L IVELIZABETH, BMP #### [facility] [address] [place] [address] Dr. Shari Mobley Sodium [Moles/Vol] 137 mmol/L Normal 136-145 [facility] Comment on above: Performed By: #### L CHRISTINA, BMP #### [facility] [address] [place] [address] Dr. Shari Mobley Urea nitrogen [Mass/Vol] 8.0 mg/dL Normal 7.0-18.0 [facility] Comment on above: Performed By: #### L CHRISTINA, BMP #### [facility] [address] [place] [address] Dr. Shari Mobley Urea nitrogen/Creatinine [Mass ratio] 9.0 mg/mg Normal [facility] Comment on above: Performed By: #### L CHRISTINA BMP #### [facility] [address] [place] [address] Dr. Shari Mobley CBC AUTO DIFFon 08-18-2021 BASO # 0.1 103/ul Normal 0.0-0.1 [facility] Comment on above: Performed By: #### C BC #### [facility] [address] [place] [address] Dr. Shari Mobley Basophils/100 WBC (Bld) 1.0 % Normal 0.2-2.0 [facility] Comment on above: Performed By: #### C BC #### [facility] [address] [place] [address] Dr. Shari Mobley EO # 0.0 103/ul Normal 0.0-0.7 [facility] Comment on above: Performed By: #### C BC #### [facility] [address] [place] [address] Dr. Shari Mobley Eosinophils/100 WBC (Bld) 0.3 % Critically low 0.9-7.0 [facility] Comment on above: Performed By: #### C BC #### [facility] [address] [place] [address] Dr. Shari Mobley Erythrocyte distribution width (RBC) [Ratio] 13.2 % Normal 11.0-15.0 [facility] Comment on above: Performed By: #### C BC #### [facility] [address] [place] [address] Dr. Shari Mobley Hematocrit (Bld) [Volume fraction] 39.9 % Normal 36.0-48.0 [facility] Comment on above: Performed By: #### C BC #### [facility] [address] [place] [address] Dr. Shari Mobley Hemoglobin (Bld) [Mass/Vol] 13.4 g/dL Normal 12.0-16.0 [facility] Comment on above: Performed By: #### C BC #### [facility] [address] [place] [address] Dr. Shari Mobley IG # 0.01 10e3/ul Normal 0.00-0.03 [facility] Comment on above: Performed By: #### C BC #### [facility] [address] [place] [address] Dr. Shari Mobley IG % 0.2 % Normal 0.0-0.5 [facility] Comment on above: Performed By: #### C BC #### [facility] [address] [place] [address] Dr. Shari Mobley LYMPH # 2.0 103/ul Normal 1.2-3.8 [facility] Comment on above: Performed By: #### C BC #### [facility] [address] [place] [address] Dr. Shari Mobley Lymphocytes/100 WBC (Bld) 31.6 % Normal 20.5-60.0 [facility] Comment on above: Performed By: #### C BC #### [facility] [address] [place] [address] Dr. Shari Mobley MANUAL DIFF REQ NO Normal [facility] Comment on above: Performed By: #### C BC #### [facility] [address] [place] [address] Dr. Shari Mobley MCH (RBC) [Entitic mass] 30.2 pg Normal 26.7-34.0 [facility] Comment on above: Performed By: #### C BC #### [facility] [address] [place] [address] Dr. Shari Mobley MCHC (RBC) [Mass/Vol] 33.6 g/dL Normal 29.9-35.2 [facility] Comment on above: Performed By: #### C BC #### [facility] [address] [place] [address] Dr. Shari Mobley MCV (RBC) [Entitic vol] 90.1 fL Normal 81.0-99.0 [facility] Comment on above: Performed By: #### C BC #### [facility] [address] [place] [address] Dr. Shari Mobley MONO # 0.7 103/ul Normal 0.3-0.8 [facility] Comment on above: Performed By: #### C BC #### [facility] [address] [place] [address] Dr. Shari Mobley Monocytes/100 WBC (Bld) 10.7 % Normal 1.7-12.0 [facility] Comment on above: Performed By: #### C BC #### [facility] [address] [place] [address] Dr. Shari Mobley NEUT # 3.5 103/ul Normal 1.4-6.5 [facility] Comment on above: Performed By: #### C BC #### [facility] [address] [place] [address] Dr. Shari Mobley Neutrophils/100 WBC (Bld) 56.2 % Normal 43.0-75.0 [facility] Comment on above: Performed By: #### C BC #### [facility] [address] [place] [address] Dr. Shari Mobley Platelet mean volume (Bld) [Entitic vol] 9.7 fL Normal 9.5-13.5 [facility] Comment on above: Performed By: #### C BC #### [facility] [address] [place] [address] Dr. Shari Mobley PLT 256 103/ul Normal 150-450 [facility] Comment on above: Performed By: #### C BC #### [facility] [address] [place] [address] Dr. Shari Mobley RBC 4.43 106/ul Normal 4.20-5.40 [facility] Comment on above: Performed By: #### C BC #### [facility] [address] [place] [address] Dr. Shari Mobley WBC 6.2 103/ul Normal 4.0-11.0 [facility] Comment on above: Performed By: #### C BC #### [facility] [address] [place] [address] Dr. Shari Mobley PROF 14(COMP METB)on 022 Albumin [Mass/Vol] 3.9 g/dL Normal 3.5-5.0 [facility] Comment on above: Performed By: #### T SH, T7, LIPID, CMP #### [facility] [address] [place] [address] Dr. Shari Mobley Albumin/Globulin [Mass ratio] 1.4 {ratio} Normal [facility] Comment on above: Performed By: #### T SH, T7, LIPID, CMP #### [facility] [address] [place] [address] Dr. Shari Mobley ALP [Catalytic activity/Vol] 50 U/L Normal 38-126 [facility] Comment on above: Performed By: #### T SH, T7, LIPID, CMP #### [facility] [address] [place] [address] Dr. Shari Mobley ALT [Catalytic activity/Vol] 12 U/L Normal 9-52 [facility] Comment on above: Performed By: #### T SH, T7, LIPID, CMP #### [facility] [address] [place] [address] Dr. Shari Mobley Anion gap [Moles/Vol] 9.6 mmol/L Normal [facility] Comment on above: Performed By: #### T SH, T7, LIPID, CMP #### [facility] [address] [place] [address] Dr. Shari Mobley AST [Catalytic activity/Vol] 12 U/L Critically low 14-36 [facility] Comment on above: Performed By: #### T SH, T7, LIPID, CMP #### [facility] [address] [address] [address] Shari Mobley Bilirubin [Mass/Vol] 0.6 mg/dL Normal 0.2-1.3 [facility] Comment on above: Performed By: #### T SH, T7, LIPID, CMP #### [facility] [address] [address] [address] Shari Mobley Calcium [Mass/Vol] 8.8 mg/dL Normal 8.4-10.2 [facility] Comment on above: Performed By: #### T SH, T7, LIPID, CMP #### [facility] [address] [address] [address] Shari Mobley Chloride [Moles/Vol] 103 mmol/L Normal 98-107 [facility] Comment on above: Performed By: #### T SH, T7, LIPID, CMP #### [facility] [address] [place] [address] Dr. Shari Mobley CO2 [Moles/Vol] 28.6 mmol/L Normal 22.0-30.0 [facility] Comment on above: Performed By: #### T SH, T7, LIPID, CMP #### [facility] [address] [address] [address] Shari Mobley Creatinine [Mass/Vol] 0.98 mg/dL Normal 0.52-1.04 [facility] Comment on above: Performed By: #### T SH, T7, LIPID, CMP #### [facility] [address] [place] [address] Dr. Shari Mobley EGFR-AF [place]IZ[place] >60 Normal >=60 [facility] Comment on above: Performed By: #### T SH, T7, LIPID, CMP #### [facility] [address] [place] [address] Dr. Shari Mobley EGFR-NON AF CITIZEN [place] >60 Normal >=60 [facility] Comment on above: Performed By: #### T SH, T7, LIPID, CMP #### [facility] [address] [place] [address] Dr. Shari Mobley Globulin (S) [Mass/Vol] 2.8 g/dL Normal [facility] Comment on above: Performed By: #### T SH, T7, LIPID, CMP #### [facility] [address] [address] [address] Shari Mobley Glucose [Mass/Vol] 103 mg/dL Normal 74-106 [facility] Comment on above: Performed By: #### T SH, T7, LIPID, CMP #### [facility] [address] [address] [address] Shari Mobley Potassium [Moles/Vol] 4.2 mmol/L Normal 3.4-5.0 [facility] Comment on above: Performed By: #### T SH, T7, LIPID, CMP #### [facility] [address] [place] [address] Dr. Shari Mobley Protein [Mass/Vol] 6.7 g/dL Normal 6.1-8.2 [facility] Comment on above: Performed By: #### T SH, T7, LIPID, CMP #### [facility] [address] [address] [address] Shari Mobley Sodium [Moles/Vol] 137 mmol/L Normal 137-145 [facility] Comment on above: Performed By: #### T SH, T7, LIPID, CMP #### [facility] [address] [place] [address] Dr. Shari Mobley Urea nitrogen [Mass/Vol] 10.0 mg/dL Normal 7.0-17.0 [facility] Comment on above: Performed By: #### T SH, T7, LIPID, CMP #### [facility] [address] [place] [address] Dr. Shari Mobley Urea nitrogen/Creatinine [Mass ratio] 10.2 mg/mg Normal [facility] Comment on above: Performed By: #### T SH, T7, LIPID, CMP #### [facility] [address] [place] [address] Dr. Shari Mobley TSHon 08-18-2021 TSH 1.756 uIU/mL Normal 0.470-4.680 [facility] Comment on above: Performed By: #### T SH, T7, LIPID, CMP #### [facility] [address] [place], [place] [address] Dr. Shari Mobley TSH RANGE SEE BELOW Normal [facility] Comment on above: Result Comment: <0.3 4 UIU/ml HYPERTHYROID 0.34-5.60 UIU/ml EUTHYROID >5.60 UIU/ml HYPOTHYROID Performed By: #### T SH, T7, LIPID, CMP #### [facility] [address] [address] [address] Shari Mobley Provider Letteron 01-10-2020 Provider Letter January 10, 2020 MARTHA VALENCIA [address] [place] [id number] MARTHA VALENCIA 1985 Dear Martha Valencia, This [...] us know 24 hours in advance. Sincerely, [facility], [facility] [address], [place] [address] Normal [facility] Coding Summary.on 02-10-2019 Coding Summary. CODING DATE: 02/10/2019 FINAL [facility] DSC STATUS: Home (Routine DC) PAYOR: Laurie APC DESCRIPTION 5373 Level 3 Urology and Related [...] Luciana Mcfadden Date Saved: 02/10/2019 12:02 pm [facility] Main OR Intraoperative Recor don 02-09-2019 Main OR Intraoperative Record IntraOp Document Type FTURO Summary Primary Physician: Eric SANCHEZ MD Finalized Date/Time: 02/09/19 15:13:08 Pt. Name: MARTHA VALENCIA Carolyne BalderramaB./Sex: 1985 Female Med Rec #: [id number] Physician: Eric SANCHEZ MD Financial #: [id number] Pt. Type: O Room/Bed: / Admit/Disch: 02/09/19 13:50:37 - Institution: Case Times FTURO Entry 1 Patient Times In Room 02/09/19 15:01:00 Out Room 02/09/19 15:12:00 Procedure Times Start 02/09/19 15:08:00 Stop 02/09/19 15:10:00 Anesthesia Times Last Modified By: CHRISTIN Matias RN, Lou Ann 02/09/19 15:11:11 Case Attendance FTURO Entry 1 Entry 2 Entry 3 Case Attendee Eric SANCHEZ MD, RN, ARTORCatherine PROCESS EXCELLENCE MANAGER, Miquel Webb Role Performed Surgeon - Primary Combination Machine Tool Operator - Primary Scrub - Primary Time In 02/09/19 15:06:00 02/09/19 15:01:00 02/09/19 15:01:00 Time Out 02/09/19 15:12:00 02/09/19 15:12:00 02/09/19 15:12:00 Procedure CYSTOSCOPY LOCAL WITH CYSTOSCOPY LOCAL WITH CYSTOSCOPY LOCAL WITH STENT REMOVAL(Left) STENT REMOVAL(Left) STENT REMOVAL(Left) Comments Last Modified By: Polly MEHTA, ARTOR, Catherine Matias RN, ARTORCatherine RN, Catherine WALLER 02/09/19 15:11:12 02/09/19 15:11:12 02/09/19 15:11:12 Surgical [...] Prep Agents Betadine Solution Skin. Condition Intact, [place], Warm, and Dry Additional Other (See Comment) [...] Matias RN, Lou Ann 02/09/19 15:13 Normal [facility] Main OR Preoperative Recordo n 02-09-2019 Main OR Preoperative Record Holding Area Document Type FTURO Summary Primary Physician: Eric SANCHEZ MD Finalized Date/Time: 02/09/19 15:03:32 Pt. Name: MARTHA VALENCIA /Sex: 1985 Female Med Rec #: [id number] Physician: Eric SANCHEZ MD Financial #: [id number] Pt. Type: O Room/Bed: / Admit/Disch: 02/09/19 [...] of Pain: No Comment: Skin Integrity Intact, [place], Warm, & Dry Vitals - EU Blood Pressure 111/69 Pulse 55 bpm Respirations 18 br/min SPO2 Additional None RN Reviewed Yes Specimens Collected Last Modified By: CHRISTIN Matias RN, Lou Ann 02/09/19 15:03:30 Finalized By: CHRISTIN Mtaias RN, Lou Ann Document Signatures Signed By: Marcie Rice LPN 02/09/19 14:16 CHRISTIN Matias RN, Lou Ann 02/09/19 15:03 Normal [facility] Operative Reporton 9 Operative Report Patient: MARTHA VALENCIA Age: 33 years Sex: Female : 1985 Associated Diagnoses: None Author: Eric SANCHEZ MD Procedure Operative Information Details: Date/ Time: 02/09/19 15:11:00. Pre-Op Dx: Foreign Body in Bladder - T19.1XXA. Post-Op Dx: Same. Anesthesia Type: Local. Procedure: Local Cystoscopy with Stent Removal. Complications: None. Risks/Benefits/Infor med Consent: Surgical risks, benefits, details of the [...] metabolic w/u and 3 month f/u.. Normal [facility] Comment on above: Result Comment: Elec tronically Signed By: Eric SANCHEZ MD\.br\Date and Time Signed: 02/09/19 15:11 EDT Vital Signs Date Time Vital Sign Value Performing Clinician Facility 01-13-2025 09:35-0400 Body height 165.1 cm Surinder Hernandez MD Work Phone: [facility] 01-13-2025 09:35-0400 Body mass index (BMI) [Ratio] 24.4 kg/m2 Surinder Hernandez MD Work Phone: [facility] 01-13-2025 09:35-0400 Body weight 66.5 kg Surinder Hernandez MD Work Phone: [facility] 01-13-2025 09:35-0400 Diastolic blood pressure 80 mm[Hg] Surinder Hernandez MD Work Phone: [facility] 01-13-2025 09:35-0400 Respiratory rate 18 /min Surinder Hernandez MD Work Phone: [facility] 01-13-2025 09:35-0400 Systolic blood pressure 110 mm[Hg] Surinder Hernandez MD Work Phone: [facility] 01-11-2025 15:13-0400 Body mass index (BMI) [Ratio] 23.83 kg/m2 Gal Cebull KLYSTROM TUBE TESTER.ATOMIC SPECTROSCOPIST Work Phone: [facility] 01-11-2025 15:13-0400 Body weight 64.95 kg Gal Cebull KLYSTROM TUBE TESTER.ATOMIC SPECTROSCOPIST Work Phone: [facility] 01-11-2025 15:13-0400 Diastolic blood pressure 84 mm[Hg] Gal Cebull KLYSTROM TUBE TESTER.ATOMIC SPECTROSCOPIST Work Phone: [facility] 01-11-2025 15:13-0400 Systolic blood pressure 124 mm[Hg] Gal Cebull KLYSTROM TUBE TESTER.ATOMIC SPECTROSCOPIST Work Phone: [facility] 02-07-2023 10:38-0400 Diastolic blood pressure 102 mm[Hg] MD Francesca White Work Phone: [facility] 02-07-2023 10:38-0400 Heart rate 86 /min MD Francesca White Work Phone: [facility] 02-07-2023 10:38-0400 Respiratory rate 16 /min MD Francesca White Work Phone: [facility] 02-07-2023 10:38-0400 SaO2% (BldA) [Mass fraction] 100 % MD Francesca White Work Phone: [facility] 02-07-2023 10:38-0400 Systolic blood pressure 138 mm[Hg] MD Francesca White Work Phone: [facility] 02-07-2023 10:27-0400 Body height 165.1 cm MD Francesca White Work Phone: [facility] 02-07-2023 10:27-0400 Body weight 61.23 kg MD Francesca White Work Phone: [facility] 01-03-2023 10:10-0400 Diastolic blood pressure 73 mm[Hg] MD Francesca White Work Phone: [facility] 01-03-2023 10:10-0400 Heart rate 100 /min MD Francesca White Work Phone: [facility] 01-03-2023 10:10-0400 Systolic blood pressure 123 mm[Hg] MD Francesca White Work Phone: [facility] 07-05-2022 09:05-0500 Body temperature 97.5 [degF] MD Francesca White Work Phone: [facility] 07-05-2022 09:05-0500 Respiratory rate 18 /min MD Francesca White Work Phone: [facility] 07-05-2022 09:05-0500 SaO2% (BldA) [Mass fraction] 96 % MD Francesca White Work Phone: [facility] 03-22-2022 10:57-0400 Diastolic blood pressure 84 mm[Hg] MD Francesca White Work Phone: [facility] 03-22-2022 10:57-0400 Heart rate 79 /min MD Francesca White Work Phone: [facility] 03-22-2022 10:57-0400 Respiratory rate 14 /min MD Francesca White Work Phone: [facility] 03-22-2022 10:57-0400 SaO2% (BldA) [Mass fraction] 100 % MD Francesca White Work Phone: [facility] 03-22-2022 10:57-0400 Systolic blood pressure 117 mm[Hg] MD Francesca White Work Phone: [facility] 03-22-2022 07:24-0400 Body height 165.1 cm MD Francesca White Work Phone: [facility] 03-22-2022 07:24-0400 Body weight 58.96 kg MD Francesca White Work Phone: [facility] 05-01-2021 12:52-0500 Body height 165.1 cm MD Francesca White Work Phone: [facility] 05-01-2021 12:52-0500 Body mass index (BMI) [Ratio] 24.4 kg/m2 MD Francesca White Work Phone: [facility] 05-01-2021 12:52-0500 Body weight 66.68 kg MD Francesca White Work Phone: [facility] Encounters Encounter Date Encounter Type Care Provider Facility Start: 03-08-2025 End: 03-08-2025 Emergency department patient visit [facility] Facility:[facility] Start: 01-26-2025 End: 01-26-2025 ambulatory SURINDER HERNANDEZ Not Available Start: 01-13-2025 End: 01-13-2025 Bamboo flowsheet Surinder Hernandez MD Work Phone: [facility] Start: 01-13-2025 End: 01-13-2025 Bamboo flowsheet Surinder Hernandez MD Work Phone: [facility] Start: 01-13-2025 End: 01-13-2025 ambulatory SURINDER HERNANDEZ Not Available Start: 01-13-2025 End: 01-13-2025 Office outpatient visit 25 minutes Surinder Hernandez MD Work Phone: [facility] Comment on above: Claustrophobia (Prim awa Dx); Multiple sclerosis (HCC) Start: 01-11-2025 End: 01-11-2025 ambulatory FRANCESCA WHITE Facility:[facility] Start: 01-11-2025 End: 01-11-2025 Patient encounter procedure Gal Nogueira APRN.ATOMIC SPECTROSCOPIST Work Phone: [facility] Comment on above: Multiple sclerosis ( HCC) (Primary Dx); Medication monitoring encounter; Hypothyroidism, unspecified type; Blurry vision Start: 10-22-2024 End: 10-22-2024 Telephone encounter Surinder Hernandez MD Work Phone: [facility] Comment on above: Other (house calls nurse practitioner) Start: 10-22-2024 End: 10-22-2024 Emergency department patient visit NO PCP NO PCP [facility] Start: 04-13-2024 End: 04-13-2024 Refill Surinder Hernandez MD Work Phone: [facility] Comment on above: Multiple sclerosis ( CMS/HCC); ADD (attention deficit disorder) without hyperactivity Start: 03-05-2024 End: 03-05-2024 Refill Surinder Hernandez MD Work Phone: [facility] 210 Comment on above: Multiple sclerosis ( CMS/HCC); ADD (attention deficit disorder) without hyperactivity Start: 02-19-2024 End: 02-19-2024 Refill Surinder Hernandez MD Work Phone: [facility] 210 Comment on above: Multiple sclerosis ( CMS/HCC); ADD (attention deficit disorder) without hyperactivity Start: 07-17-2023 Chart abstracting Surinder cartwright MD Work Phone: [facility] Start: 03-05-2023 ambulatory Jim Gonsalez MD Work Phone: [facility] Comment on above: Martha Valencia Start: 02-21-2023 End: 02-21-2023 ambulatory Jim Gonsalez MD Work Phone: [facility] Comment on above: Meningioma (HCC) (Pr imary Dx) Start: 02-21-2023 End: 02-21-2023 Telemedicine consultation with patient Jim Gonsalez MD Work Phone: [facility] Start: 02-07-2023 End: 02-07-2023 ambulatory Marty aJde Facility:[facility] Start: 02-07-2023 End: 02-07-2023 ambulatory MD Francesca White Work Phone: [facility] Work Phone: Start: 02-07-2023 End: 02-07-2023 Patient encounter procedure MD Francesca White Work Phone: [facility] [place] Work Phone: Start: 01-03-2023 ambulatory Marty Zapien acility:[facility] Start: 01-03-2023 Registered Recurring MD Yessenia White Work Phone: [facility] Work Phone: Start: 07-09-2022 Encounter for genera l adult medical examination without abnormal findings DR FRANCESCA WHITE [facility] Start: 07-04-2022 End: 07-05-2022 Encounter for general adult medical examination without abnormal findings DR FRANCESCA WHITE Facility:[facility] Start: 07-04-2022 End: 07-05-[address] FRANCESCA WHITE Facility:[facility] Start: 03-22-2022 End: 03-22-2022 ambulatory Francesca White Facility:[facility] Start: 03-22-2022 End: 03-22-2022 ambulatory MD Francesca White Work Phone: [facility] Work Phone: Start: 03-22-2022 End: 03-22-2022 Patient encounter procedure MD Francesca White Work Phone: [facility] [place] Start: 12-03-2021 End: 12-04-2021 ambulatory CLAYTON WALLACE Facility:[facility] Start: 08-18-2021 End: 08-19-2021 ambulatory CLAYTON WALLACE Facility:[facility] Procedures Date Procedure Procedure Detail Performing Clinician Start: 02-07-2023 MRI of head MD Francesca White Work Phone: Start: 02-07-2023 MRI of cervical spin e with contrast MD Francesca White Work Phone: Start: 03-22-2022 MRI of thoracic spin e with contrast MD Francesca White Work Phone: Plan of Treatment Date Care Activity Detail Author Start: 04-21-2025 End: 04-21-2025 Patient encounter procedure 04/21/2025 10:00 AM EST [facility] [address] [place] [address] Surinder Hernandez MD [address] [place] [id number] [facility] Start: 02-14-2025 Influenza vaccination Influenza Vacc ine (#1) [facility] Start: 01-13-2025 End: 01-13-2026 MR Brain WO and W contrast IV MR brain w and wo contrast routine Imaging Routine Multiple sclerosis (HCC) Expected: 01/13/2025, Expires: 01/13/2026 [facility] Work Phone: Comment on above: Expected: 01/13/2025 , Expires: 01/13/2026 Start: 01-11-2025 End: 04-12-2025 BLOOD TB SCREEN BLOOD TB SCREEN Lab Routine Multiple sclerosis (HCC) Medication monitoring encounter Expected: 01/11/2025, Expires: 04/12/2025 [facility] Work Phone: Comment on above: Expected: 01/11/2025 , Expires: 04/12/2025 Start: 01-11-2025 End: 04-12-2025 CD19 ABSOLUTE COUNT CD19 ABSOLUTE COUNT Lab Routine Multiple sclerosis (HCC) Medication monitoring encounter Expected: 01/11/2025, Expires: 04/12/2025 [facility] Comment on above: Expected: 01/11/2025 , Expires: 04/12/2025 Start: 01-11-2025 End: 04-12-2025 Chronic hepatitis differentiation between hepatitis B and C virus panel - Serum or Plasma HEP REMOTE PANEL BL Lab Routine Multiple sclerosis (HCC) Medication monitoring encounter Expected: 01/11/2025, Expires: 04/12/2025 [facility] Comment on above: Expected: 01/11/2025 , Expires: 04/12/2025 Start: 01-11-2025 End: 04-12-2025 IMMUNOGLOBULINS,IGG,IGA,I GM IMMUNOGLOBULINS,IGG,IG A,IGM Lab Routine Multiple sclerosis (HCC) Medication monitoring encounter Expected: 01/11/2025, Expires: 04/12/2025 [facility] Comment on above: Expected: 01/11/2025 , Expires: 04/12/2025 Start: 01-11-2025 End: 04-12-2025 Thyrotropin [Units/volume] in Serum or Plasma THYROID STIMULATING HORMONE Lab Routine Multiple sclerosis (HCC) Medication monitoring encounter Hypothyroidism, unspecified type Expected: 01/11/2025, Expires: 04/12/2025 [facility] Comment on above: Expected: 01/11/2025 , Expires: 04/12/2025 Start: 06-16-2024 Medicare Advantage A nnual Wellness Visit Medicare Advantage Annual Wellness Visit [facility] Start: 03-01-2024 End: 03-01-2024 Patient encounter procedure 03/01/2024 11:00 AM EDT Office Visit [facility] [address] [phone] Surinder Hernandez MD [address] [facility] [address] [address] [facility] Start: 07-18-2023 End: 07-18-2023 Patient encounter procedure 07/18/2023 9:50 AM EST Office Visit [facility] [address] [phone] Surinder Hernandez MD [address] [place] [id number] [facility] Start: 02-14-2023 Influenza vaccination C [facility] Start: 06-16-2022 DEPRESSION ASSESSMENT DEPRESSION ASS ESSMENT [facility] Start: 12-17-2015 HPV TESTING HPV TESTING [facility] Start: 2006 PAP TESTING PAP TESTING [facility] Start: 2006 Screening for malign ant neoplasm of cervix Cervical Cancer Screening [facility] Start: 2004 Hepatitis B Vaccine (1 of 3 - 19+ 3-dose series) Hepatitis B Vaccine (1 of 3 - 19+ 3-dose series) [facility] Start: 2004 Pneumococcal vaccination Pneum ococcal Vaccine (1 of 2 - PCV) [facility] Start: 2004 Urine microalbumin profile [facility] Start: 12-17-2003 Anxiety Screening Anxiety Screening [facility] Start: 12-17-2003 Depression Screening Depression Scre erikaing [facility] Start: 12-17-2003 HEPATITIS C SCREENING HEPATITIS C [facility] Start: 12-17-2003 Hepatitis C screening Hepatitis C [facility] Start: 12-17-2003 HIV SCREENING HIV SCREENING [facility] Start: 12-17-2003 HIV screening HIV Screening [facility] Start: 12-17-1991 PNEUMOCOCCAL (1 - PCV) PNEUMOCOCCAL (1 - PCV) [facility] Start: 12-17-1991 Pneumococcal vaccination Pneum ococcal Vaccine (1 - PCV) [facility] Start: 06-18-1986 COVID-19 VACCINE (#1) COVID-19 VACCI NE (#1) [facility] Start: 1985 HEPATITIS B (1 of 3 - 3-dose series) HEPATITIS B (1 of 3 - 3-dose series) [facility] Start: 1985 Hepatitis B Vaccine (1 of 3 - 3-dose series) Hepatitis B Vaccine (1 of 3 - 3-dose series) [facility] End: 02-10-2026 MR Brain WO and W contrast IV MRI BRAIN WO/W IVCON Radiology Routine Multiple sclerosis (HCC) 1 Occurrences starting 01/11/2025 until 02/10/2026 [facility] Comment on above: 1 Occurrences starti ng 01/11/2025 until 02/10/2026 End: 02-10-2026 MR Cervical spine WO and W contrast IV MRI CERVICAL SPINE WO/W IVCON Radiology Routine Multiple sclerosis (HCC) 1 Occurrences starting 01/11/2025 until 02/10/2026 [facility] Comment on above: 1 Occurrences starti ng 01/11/2025 until 02/10/2026 Immunizations Immunization Date Immunization Notes Care Provider Gama huerta 04-20-2009 influenza virus vacc ine, unspecified formulation Jim Gonsalez MD Work Phone: [facility] Payers Date Payer Category Payer Medicare [id number] 2022 Medicare (Managed Care) 1.2. [id number] 2022 Unknown [employer] [facility] 2022-Present [address] [place] [phone] [id number] 2021 Medicare [facility] [id number] 2021 Self-pay [id number] 2020 Medicare [id number] 2012 Medicaid [id number] 1985 Unknown [id number] 93 1985 Unknown [id number] 93 1985 Unknown [id number] 93 1985 Unknown [id number] 93 1985 Unknown [id number] 286 1985 Unknown [id number] 259 1985 Unknown [id number] 259 1985 Unknown [id number] 27 1959 Medicaid [id number] 1959 Medicare [id number] 1959 Unknown [id number] Medicare [place] [employer] Dual Adv [id number] Unknown [id number] 31 Unknown [id number] 31 Unknown [id number] 31 Social History Date Type Detail Facility Tobacco smoking stat [facility] Unknown if ever smoked [facility] Work Phone: Start: 1985 Sex Assigned At Female [facility] Start: 08-14-2015 End: 01-11-2025 Tobacco smoking status NHIS Smokes tobacco daily [facility] Start: 06-17-2008 End: 06-17-2023 History of tobacco use Cigarette Smoker [facility] Start: 08-14-2015 End: 12-05-2023 Cigarettes smoked current (pack per day) - Reported 1 [facility] Start: 08-14-2015 End: 12-05-2023 Tobacco use and exposure Smokeless tobacco non-user [facility] Start: 12-23-2016 End: 12-05-2023 Alcohol intake Current drinker of alcohol (finding) [facility] Start: 12-15-2017 End: 12-05-2023 Tobacco use panel [facility] Adult Depression Screening Assessment 5 [facility] Start: 08-14-2015 End: 01-11-2025 Tobacco Comment Patient states she is currently trying to quit [facility] Start: 1985 Sex Assigned At Not on file [facility] Start: 02-19-2023 Gender identity Identifies as female gender (finding) [facility] Start: 04-18-2023 Tobacco Comment 11-20 cigarettes/day [facility] Start: 04-18-2023 Alcohol Comment 1-2 drinks on a typical day [facility] Start: 12-05-2023 Tobacco smoking stat [facility] Ex-smoker [facility] Start: 06-17-2008 End: 06-17-2023 History of tobacco use Current smoker [facility] Start: 07-18-2023 Tobacco Comment I switched to vaping [facility] Functional Status Date Assessment Result Facility 04-25-2014 Are you deaf, or do you have serious difficulty hearing No 04/25/2014 2:21 PM Eveline Kaur MA No [facility] 04-25-2014 Are you blind, or do you have serious difficulty seeing, even when wearing glasses No 04/25/2014 2:21 PM Eveline Kaur MA No [facility] 04-25-2014 Do you have serious difficulty walking or climbing stairs No 04/25/2014 2:21 PM Evelien Kaur MA No [facility] 04-25-2014 Do you have difficul ty dressing or bathing No 04/25/2014 2:21 PM Eveline Kaur MA No [facility] 04-25-2014 Because of a physica l, mental, or emotional condition, do you have difficulty doing errands alone such as visiting a physician's office or shopping No 04/25/2014 2:21 PM Eveline Kaur MA No [facility] Mental Status Date Assessment Result Facility 04-25-2014 Because of a physica l, mental, or emotional condition, do you have serious difficulty concentrating, remembering, or making decisions Yes 04/25/2014 2:21 PM Eveline Kaur MA Yes [facility] Clinical Notes 02-21-2023 to 01-13-2025 Surinder Hernandez MD - 01/13/2025 9:30 AM EDTPatient Gal Worthington APRN.TALITA - 01/11/2025 2:30 PM EDTTelephone Encounter - Caitie Muñoz NP - 10/22/2024 3:42 PM EDT Note Date & Type Note Facility 01-13-2025 History of Present illness Narrative CHIEF COMPLAINT REASON FOR VISIT : a follow up to her multiple sclerosis. She was on ocrevus. But she wants to go back on kesimpta Subjective Martha Valencia is a 39 y.o. female who presents for multiple sclerosis. History of Present Illness The patient presents for evaluation of multiple sclerosis. She has been managing her condition with Kesimpta, which she prefers due to its home administration. She consulted with Dr. Gal Isaac at [facility], who recommended resuming Keytruda, a medication that had previously improved her symptoms. She reports no issues with the dosing of Kesimpta at home. She recently underwent blood work at [facility] on 01/12/2025. She also mentions that Ocrevus was causing throat issues. She experiences severe fatigue, even during outdoor activities, and has tried various remedies without success. Caffeine does not alleviate her fatigue. Additionally, she struggles with insomnia, finding it difficult to fall asleep and feeling unrested. She reports experiencing tunnel vision while driving at high speeds, describing it as similar to being on a roller coaster. She has an order for an MRI but requires medication to relax during the procedure. MEDICATIONS CURRENT MEDS: Kesimpta Monthly PREVIOUS MEDS: Ocrevus Reason for Discontinuation: Throat issues Keytruda Review of Systems Const: Denies appetite change, fever, chills. Allergy: Denies medication reaction. Ocular: Denies visual acuity change. ENT: Denies hearing change. Endoc: Denies weight loss. Resp: Denies dyspnoea, wheezing. Cardiac: Denies angina, palpitations. GI: Denies nausea, vomiting. Haem: Denies bleeding. : Denies incontinence. MSK: Denies arthralgias, joint oedema. Derm: Denies rash, hair loss. Neuro: Denies ataxia, tremor. Also see HPI for elements of ROS documented therein and for details of positive findings, which shall supersede the foregoing. Objective Blood pressure 110/80, resp. rate 18, height 5' 5 , weight 146 lb 9.6 oz. Physical Exam Cranial Nerve Examination CN III IV : Extraocular movements intact. CN VII: Facial movements are symmetrical. CN XI: Shoulder shrug and head turn are 5/5 bilaterally. Motor Examination Strength: Strength is 5/5 in all tested muscle groups. Reflexes Adductor Reflex: Adductor reflex is normal. Results Assessment & Plan 1. Multiple Sclerosis. She will be reinitiated on Kesimpta monthly injections, which will be procured through the specialty pharmacy. The necessary paperwork for Kesimpta has been completed and signed today. Blood work has been conducted at [facility]. 2. Fatigue. An MRI has been ordered to investigate potential causes of her fatigue and insomnia, including any new activity related to her multiple sclerosis. 3. Insomnia. An MRI has been ordered to investigate potential causes of her fatigue and insomnia, including any new activity related to her multiple sclerosis. 4. Tunnel vision. An MRI has been ordered to investigate potential causes of her fatigue and insomnia, including any new activity related to her multiple sclerosis. A prescription for Ativan has been provided to help manage her anxiety during the MRI procedure. She is advised to take one tablet an hour before the MRI and another immediately prior if necessary. 5. Change from Ocrevus to Kessimpta monthly subcutaneous injections. 6. I counseled the patient on the possible side effects and interactions of medications. 7. I will obtain an MRI of the brain to assess for an intracranial process which may be contributing to the patient's symptoms including This clinical note was created utilizing [employer] documentation system. All information has been thoroughly reviewed, corrected as necessary, and authenticated by the provider to ensure accuracy and completeness. On occasion, [employer] documentation system erroneously drops words or replaces a spoken word with a similar sounding word. Please notify with any questions or concerns regarding this clinical note. documented in this encounter [facility] 01-11-2025 Instructions Gal Nogueira APRN.TALITA - 01/11/2025 3:51 PM EDT Schedule MRIs and repeat screening labs for Kesimpta. Let us know if you would like our office or Dr Hernandez to prescribe Kesimpta. If you want to go to a closer [facility] location, Dr Carmen Bobo and Natalya Logan, her nurse practitioner, see patients at the [facility]. Recommend eye exam locally. documented in this encounter [facility] 01-11-2025 History of Present illness Narrative Images from the original note were not included. [facility] FOLLOWUP/ESTABLISHED PATIENT VISIT PRINCIPAL NEUROLOGIC DIAGNOSIS: Multiple sclerosis, meningioma incidentally discovered HISTORY OF ILLNESS: Date of onset: 2008 Date of diagnosis of MS: 2008 Disease course at onset: relapsing remitting Current disease course: relapsing remitting Medications for MS Used in the Past: - Rebif (2008- 2008, stopped when - only took for 4 mos) - Gilenya. Started: 2009 - Ocrevus (summer 2021-summer 2022, felt not beneficial) - Kesimpta (fall 2022-winter 2023) Current MS med: none Most recent MRI brain: 23 DEC 2016 (stable) Most recent MRI cervical: 02 AUG 2015 JCV Status: Positive (MAY 2013) CHIEF COMPLAINT: Follow-up for monitoring off MS modifying therapy INTERVAL HISTORY: Refer to patient-entered data. Usual treating team: Wallace/Jose The patient is unaccompanied. The patient was last seen 02/21/23, currently Not on DMT. Since the patient's last visit the patient reports overall feeling stable. Last seen 02/21/23 by virtual visit to establish care with Dr Gonsalez. Previously seen by Dr Loomis/Katy Richards PA-C. In the interim, following with Dr Surinder Hernandez in [place] for MS care. Switched from Ocrevus to Kesimpta given perceived lack of benefit. Switched Adderall to Vyvanse for cognitive symptoms. Last office visit 11/2023. Reports wanted to continue following with Dr Hernandez but her kids felt she should follow up at [facility] since she was historically seen here. Admits she has difficulty driving to [place] and [place] would be easier. Lost on way to appt today and arrived at 3:09 for 2:30 appt. Has been without all medications for the past 6 months or so. Reports medical records got messed up . Liked Kesimpta and was tolerating well. [place] she was able to manage injections. Had a hard time tolerating Ocrevus. Throat irritation during infusion, felt restless during long infusion. No new neurological symptoms, but continued fluctuations of her typical symptoms. - intermittent foot drop, primarily right side - intermittent numbness, primarily left hand - daily mild headaches associated with stress, treats with PRN ibuprofen (reports tried multiple prescription medications over the years to treat) - intermittent blurry vision and tunnel vision, no recent eye appt - worsening cognitive symptoms, attention deficit Mood stable without medication. Previously taking Pristiq for depression and Adderall for attention/concentration deficit and fatigue. Prefers to avoid anti-depressants unless needed. Hx hypothyroid, but has been without Synthroid for several months. PCP was managing previously. Has not reached out. 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 No notable recent infections or illnesses. Neuro-QoL Functions (higher=better functioning) Flowsheet [facility] from 02/21/2023 in [facility] Office Visit from 08/14/2015 in [facility] Appointment from 07/03/2015 in [facility] Upper Extremity Domain T Score 30 35.13 45.23 Lower Extremity Domain T Score 36 44.4 44.4 Cognitive Function Domain T Score 38 -- -- Positive Affect Well Being T Score -- -- -- Ability To Participate In Social Roles T Score 42 -- -- Satisfaction With Social Roles T Score 46 -- -- Neuro-QoL Symptoms (higher=worse symptoms) Flowsheet [facility] from 02/21/2023 in [facility] Office Visit from 08/14/2015 in [facility] Appointment from 07/03/2015 in [facility] Sleep Domain T Score 65 65.92 74.44 Fatigue Domain T Score 65 58.38 65.37 Anxiety Domain T Score 63 -- -- Depression Domain T Score 58 -- -- Stigma Domain T Score 60 -- -- Emotional Behavior Dyscontrol T Score -- -- -- has a past medical history of Migraine and MS (multiple sclerosis) ([facility]). currently has no medications in their medication list. EXAM: BP 124/84 Wt 65 kg (143 lb 3.2 oz) BMI 23.83 kg/m MSPT Results Flowsheet [facility] Office Visit from 12/23/2016 in [facility] Office Visit from 08/14/2015 in [facility] Appointment from 07/03/2015 in [facility] Processing Speed Total Number Correct 47 -- -- Processing Speed Z score -- -- -- Dominant hand Right hand Right hand Right hand MDT Left Hand Time 29.5 -- -- MDT Right Hand Time 27.8 -- -- Walking Speed Test (25 feet) 5.4 -- -- Memory Z Score -- -- -- EXAM: General Appearance: well appearing, in no acute distress Mental status evaluation during the interview and examination showed normal level of consciousness, orientation, language, memory, praxis, and higher intellectual function Affect: Normal Speech: normal Muscle strength (#/5): Right Left Upper Extremity: Deltoids 5 5 Biceps 5 5 Triceps 5 5 Angle Shear Operator 5 5 Dorsal interossei 5 5 Lower extremity: Iliopsoas 5 5 Quadriceps 5 5 Hamstrings 5 5 Tibialis anterior 5 5 Gastrocnemius 5 5 Coordination: Upper extremity dexterity and rapid movements: Normal bilaterally Finger-nose: no dysmetria; coordination intact Heel-zuñiga: no dysmetria; coordination intact Standing balance: Normal Standard gait: normal. Assistive device: independent RESULTS: No results found for: WBC , HB , HCT , PLT , ABSLYMPH No results found for: VITD25 No results found for: AST , GLUC , BUN , CREAT , NA , K , CHLOR , ALT No results found for: JCVIND , JCVAB MRI Results: Discrete MRI Results Component Value Date Brain New T2 Lesions None 08/02/2015 Brain New T2 Lesions None 08/02/2015 Brain Enhancing Lesions None 08/02/2015 Brain Enhancing Lesions None 08/02/2015 Cervical Spine New T2 Lesions None 08/02/2015 Cervical Spine New T2 Lesions None 08/02/2015 Cervical spine enhancing lesions None 08/02/2015 Cervical spine enhancing lesions None 08/02/2015 ASSESSMENT/PLAN: Martha Valencia is a 39 year old female with Multiple Sclerosis. Last seen virtually by Dr Gonsalez 02/21/23 and has since been following with local neurologist Dr Hernandez. Reports her medical records were confused and she has been without her usual medications, including Kesimpta, which she started around fall 2022 and tolerated well. Wishes to resume Kesimpta, but feels that it would be logistically easier to continue following with her local provider. Reviewed notes in Care Everywhere and agree with plan of care outlined at last visit. Discussed need to repeat Kesimpta screening labs since >6 months off therapy, and recommend new baseline MRI brain and cervical spine, which likely she will complete locally. Recommend ophthalmology evaluation locally. Encouraged follow up with PCP for management of hypothyroidism and will check TSH with routine labs today. Pending symptom stability once she resumes Kesimpta and pending MRI results, may need additional cognitive evaluation and may consider formal neuropsychological testing. She likely will continue following with Dr Hernandez, but discussed [place] providers at [facility] may be additional resource moving forward. PLAN: - repeat Kesimpta screening labs - MRI brain and cervical w/wo - f/u with CCCurry Cortés, CCCurry Gage, or Dr Hernandez pending patient preference - recommend local ophthalmology eval Office Visit on 01/11/25 MRI BRAIN WO/W IVCON MRI CERVICAL SPINE WO/W IVCON BLOOD TB SCREEN CD19 ABSOLUTE COUNT HEP REMOTE PANEL BL IMMUNOGLOBULINS,IGG,IGA,IGM THYROID STIMULATING HORMONE Patient Health Education Discussed at Visit: Risks and Common side effects of MS medications Follow-up: In 6 months or PRN at [place] with [facility] I spent a total of 40 minutes on the date of the service which included preparing to see the patient, [id number] patient care, completing clinical documentation, obtaining and/or reviewing separately obtained history, performing a medically appropriate examination, counseling and educating the patient/family/caregiver, ordering medications, tests, or procedures, communicating with other HCPs (not separately reported), independently interpreting results (not separately reported), and communicating results to the patient/family/caregiver. Gal Nogueira APRN.CNP [facility] for Multiple Sclerosis documented in this encounter [facility] 01-11-2025 Note HNO ID: [id number] Author: GAL NOGUEIRA APRN.TALITA Service: ? Author Type: Nurse Practitioner Type: Progress Notes Filed: 01/13/2025 16:33 Note Text: [facility] FOLLOWUP/ESTABLISHED PATIENT VISIT PRINCIPAL NEUROLOGIC DIAGNOSIS: Multiple sclerosis, meningioma incidentally discovered HISTORY OF ILLNESS: Date of onset: 2008 Date of diagnosis of MS: 2008 Disease course at onset: relapsing remitting Current disease course: relapsing remitting Medications for MS Used in the Past: - Rebif (2008- 2008, stopped when - only took for 4 mos) - Gilenya. Started: 2009 - Ocrevus (summer 2021-summer 2022, felt not beneficial) - Kesimpta (fall 2022-winter 2023) Current MS med: none Most recent MRI brain: 23 DEC 2016 (stable) Most recent MRI cervical: 02 AUG 2015 JCV Status: Positive (MAY 2013) CHIEF COMPLAINT: Follow-up for monitoring off MS modifying therapy INTERVAL HISTORY: Refer to patient-entered data. Usual treating team: Wallace/Jose The patient is unaccompanied. The patient was last seen 02/21/23, currently Not on DMT. Since the patient's last visit the patient reports overall feeling stable. Last seen 02/21/23 by virtual visit to establish care with Dr Gonsalez. Previously seen by Dr Loomis/Katy Richards PA-C. In the interim, following with Dr Surinder Hernandez in [place] for MS care. Switched from Ocrevus to Kesimpta given perceived lack of benefit. Switched Adderall to Vyvanse for cognitive symptoms. Last office visit 11/2023. Reports wanted to continue following with Dr Hernandez but her kids felt she should follow up at [facility] since she was historically seen here. Admits she has difficulty driving to [place] and [place] would be easier. Lost on way to appt today and arrived at 3:09 for 2:30 appt. Has been without all medications for the past 6 months or so. Reports medical records got messed up . Liked Kesimpta and was tolerating well. [place] she was able to manage injections. Had a hard time tolerating Ocrevus. Throat irritation during infusion, felt restless during long infusion. No new neurological symptoms, but continued fluctuations of her typical symptoms. - intermittent foot drop, primarily right side - intermittent numbness, primarily left hand - daily mild headaches associated with stress, treats with PRN ibuprofen (reports tried multiple prescription medications over the years to treat) - intermittent blurry vision and tunnel vision, no recent eye appt - worsening cognitive symptoms, attention deficit Mood stable without medication. Previously taking Pristiq for depression and Adderall for attention/concentration deficit and fatigue. Prefers to avoid anti-depressants unless needed. Hx hypothyroid, but has been without Synthroid for several months. PCP was managing previously. Has not reached out. 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 No notable recent infections or illnesses. Neuro-QoL Functions (higher=better functioning) Flowsheet [facility] from 02/21/2023 in [facility] Office Visit from 08/14/2015 in [facility] Appointment from 07/03/2015 in [facility] Upper Extremity Domain T Score 30 35.13 45.23 Lower Extremity Domain T Score 36 44.4 44.4 Cognitive Function Domain T Score 38 -- -- Positive Affect Well Being T Score -- -- -- Ability To Participate In Social Roles T Score 42 -- -- Satisfaction With Social Roles T Score 46 -- -- Neuro-QoL Symptoms (higher=worse symptoms) Flowsheet [facility] from 02/21/2023 in [facility] Office Visit from 08/14/2015 in [facility] Appointment from 07/03/2015 in [facility] Sleep Domain T Score 65 65.92 74.44 Fatigue Domain T Score 65 58.38 65.37 Anxiety Domain T Score 63 -- -- Depression Domain T Score 58 -- -- Stigma Domain T Score 60 -- -- Emotional Behavior Dyscontrol T Score -- -- -- has a past medical history of Migraine and MS (multiple sclerosis) ([facility]). currently has no medications in their medication list. EXAM: BP 124/84 Wt 65 kg (143 lb 3.2 oz) BMI 23.83 kg/m? MSPT Results Flowsheet [facility] Office Visit from 12/23/2016 in [facility] Office Visit from 08/14/2015 in [facility] Appointment from 07/03/2015 in [facility] Processing Speed Total Number Correct 47 -- -- Processing Speed Z score -- -- -- Dominant hand Right hand Right hand Right hand MDT Left Hand Time 29.5 -- -- MDT Right Hand Time 27.8 -- -- Walking Speed Test (25 feet) 5.4 -- -- Memory Z Score -- -- -- EXAM: General Appearance: well appearing, in no acute distress Mental status evaluation during the interview and examination showed normal level of consciousness, orientation, language, memory, praxis, and higher intellectual function Affect: Normal Speech: normal Muscle strength (#/5): Right Left Upper Extremity: Deltoids 5 5 Biceps 5 5 Triceps 5 5 G (more content not included)... [facility] 10-22-2024 Telephone encounter Note I called ER and they told me patient eloped no longer needed to speak with us. [facility] Work Phone: 10-22-2024 Miscellaneous Notes I called ER and they told me patient eloped no longer needed to speak with us. Per Caitie Muñoz NP i'll just call she hasn't been seen since last november Martha Medinad is a [address] Demarco called from [facility] requesting consult from Dr Hernandez for this pt . Call back number [phone] . (Secure chat sent to concrete block plant supervisor provider) documented in this encounter [facility] 10-22-2024 Telephone encounter Note Per Caitie Muñoz NP i'll just call she hasn't been seen since last november [facility] 10-22-2024 Telephone encounter Note Martha Valencia is a [address] Demarco called from [facility] requesting consult from Dr Hernandez for this pt . Call back number [phone] . (Secure chat sent to concrete block plant supervisor provider) [facility] 02-19-2024 Telephone encounter Note Lixdexamfetamine was already sent on 02/16 per [facility]. [facility] Work Phone: 02-19-2024 Miscellaneous Notes Lixdexamfetamine was already sent on 02/16 per [facility]. documented in this encounter [facility] 02-21-2023 History of Present illness Narrative [facility] VIRTUAL VISIT FOR NEW PATIENT EVALUATION Referral source: No referring provider defined for this encounter. Also followed by: Francesca White [address] [place] [address] PRINCIPAL NEUROLOGIC DIAGNOSIS: Multiple sclerosis, meningioma incidentally discovered HISTORY OF ILLNESS: Date of onset: 2008 Date of diagnosis of MS: 2008 Disease course at onset: relapsing remitting Current disease course: relapsing remitting Medications for MS Used in the Past: Rebif (2008- 2008, stopped when - only took for 4 [...] 2016. Marty Jade from [facility] in [place] She has been dropping things with the left side of her body, and slurred speech, and severe headache, for about 6 months. Currently on Ocrevus for MS, since 2021 approximately. On a scan a few weeks ago they told her she had a brain tumor. Scan was at [facility] in [place]. She reads the report to me: mild diffuse volume loss. right anterior cranial fossa extraxial dural based enhancing [id number]. Likely meningioma. Neuro-Qol Functions (higher = better [...] for management plan for meningioma -call to [facility] imaging who will send MRIs to [facility] PACS -for MS follow-up, a good option would be Dr. Carmen Bobo at [facility] I have communicated my name and active licensure. The patient's identity and physical location were verified at the time of this visit. Either the patient or their legal circulation representative has been informed of the risks and benefits of -- and alternatives to -- treatment through a remote evaluation and consents to proceed with the evaluation remotely. Jim Gonsalez MD Staff Neurologist [facility] for Multiple Sclerosis documented in this encounter [facility] Evaluation note No assessment inform ation available [facility] Work Phone: Evaluation note Diagnosis Meningioma (HCC)- Primary Benign neoplasm of cerebral meninges [facility] Multiple [facility] (CMS/HCC) Multiple sclerosis ADD (attention deficit disorder) without hyperactivity Attention deficit disorder without mention of hyperactivity documented in this encounter [facility]* Diagnosis Multiple sclerosis (CMS/HCC) Multiple sclerosis ADD (attention deficit disorder) without hyperactivity Attention deficit disorder without mention of hyperactivity documented in this encounter [facility]* Diagnosis Multiple sclerosis (HCC)- Primary Multiple sclerosis Medication monitoring encounter Encounter for therapeutic drug monitoring Hypothyroidism, unspecified type Blurry vision Other specified visual disturbances [facility] Claustrophobia- Primary Other isolated or specific phobias Multiple sclerosis (HCC) Multiple sclerosis documented in this encounter [facility] Summary Purpose Family History No Family History Records FoundNo Family History Records FoundNo Family History Records FoundNo Family History Records FoundNo Family History Records FoundNo Family History Records FoundNo Family History Records FoundNo Family History Records FoundNo Family History Records FoundNo Family History Records FoundNo Family History Records FoundNo Family History Records Found Advance Directives No Advanced Directives Records Found Advance Directive Response Recorded Date/ Time Advance Directives No February 5:09pm Chief Complaint and Reason for Visit Chief Complaint G35 Chief Complaint MS g35 Reason for Referral Specialty Diagnoses / Procedures Referred By Brett t Referred To Contact Neurosurgery Diagnoses Meningioma (HCC) Procedures CONSULT TO NEUROSURGERY OFFICE/OUTPATIENT [facility] 60-74 MINUTES Jim Gonsalez MD [address] [place] [address] Referral ID Status Reason Start Date Expiration Date Visits Requested Visits Authorized [id number] Pending Review PCP Requested Referral 02/21/2023 02/21/2024 1 1 Additional Source Comments INFORMATION SOURCE (unrecogn ized section and content) DATE CREATED AUTHOR 01/10/2020 [place] [facility] DATE CREATED AUTHOR AUTHOR'S ORGANIZ ATION 07/10/2022 [facility] DATE CREATED AUTHOR AUTHOR'S ORGANIZ ATION 02/16/2023 [facility] DATE CREATED AUTHOR AUTHOR'S ORGANIZ ATION 11/14/2024 [facility] DATE CREATED AUTHOR AUTHOR'S ORGANIZ ATION 01/15/2025 [facility] DATE CREATED AUTHOR AUTHOR'S ORGANIZ ATION 01/31/2025 [facility] DATE CREATED AUTHOR AUTHOR'S ORGANIZ ATION 03/10/2025 [facility] DATE CREATED AUTHOR AUTHOR'S ORGANIZ ATION 03/18/2025 [facility] Care Teams (unrecognized sec tion and content) Team Status: Inactive Member Role Status Dates Francesca White MD Primary Care Provider Active Clayton Wallace PA-C Attending Provider Active Team Status: Active Member Role Status Dates Francesca White MD Primary Care Provider Active Team Status: Inactive Member Role Status Dates Francesca White MD Primary Care Provider Active Marty Jade DO Attending Provider Active Team Status: Active Member Role Status Dates Francesca White MD Primary Care Provider Active Marty Jade DO Attending Provider Active Finish Photographer Relationship Specialty Start Date End Date Francesca White MD PCP - General Family Medicine 05/28/12 Finish Photographer Relationship Specialty Start Date End Date Francesca White MD PCP - General Family Medicine 05/28/12 Finish Photographer Relationship Specialty Start Date End Date Francesca White MD [address] [place] [address] PCP - General Family Medicine 03/26/23 Finish Photographer Relationship Specialty Start Date End Date Francesca White MD [address] [place] [address] PCP - General Family Medicine 03/26/23 Finish Photographer Relationship Specialty Start Date End Date Francesca White MD [address] [facility] [place] [address] PCP - General Family Medicine 03/26/23 Finish Photographer Relationship Specialty Start Date End Date Francesca White MD PCP - General Family Medicine 03/26/23 Finish Photographer Relationship Specialty Start Date End Date Francesca White MD PCP - General Family Medicine 03/26/23 Finish Photographer Relationship Specialty Start Date End Date Francesca White MD PCP - General Family Medicine 05/28/12 Finish Photographer Relationship Specialty Start Date End Date Francesca White MD PCP - General Family Medicine 03/26/23 Goals (unrecognized section and content) Goals may be documented in a n alternate sectionGoals may be documented in an alternate sectionGoals may be documented in an alternate section Source Comments (unrecognize d section and content) In the event this informatio n is protected by the Federal Confidentiality of Alcohol and Drug Abuse Patient Records regulations: The Federal rules restrict any use of the information to criminally investigate or prosecute any alcohol or drug abuse patient.[facility] the event this information is protected by the Federal Confidentiality of Alcohol and Drug Abuse Patient Records regulations: The Federal rules restrict any use of the information to criminally investigate or prosecute any alcohol or drug abuse patient.[facility] HospitalIn the event this information is protected by the Federal Confidentiality of Alcohol and Drug Abuse Patient Records regulations: The Federal rules restrict any use of the information to criminally investigate or prosecute any alcohol or drug abuse patient.[facility] Reason for Visit (unrecogniz ed section and content) Reason Comments New Patient Evaluation Reason Comments Med Refill Reason Onset Date Comments Other 10/22/2024 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 [facility] [employer] [facility]. provides no warranty or guarantee of the accuracy or completeness of information in this document.
[2025-03-29 08:44] LABS: Hematocrit 41.6 % (36.0-48.0); Hemoglobin 13.8 g/dL (12.0-16.0); Immature Granulocytes Abs Auto 0.03 10^3/uL (0.00-0.03); Immature Granulocytes Pct Auto 0.4 % (0.0-0.5); Lymphocytes Absolute Auto 1.3 10^3/uL (1.2-3.8); Mean Corpuscular HGB Conc 33.2 g/dL (29.9-35.2); Mean Corpuscular Hemoglobin 28.9 pg (26.7-34.0); Mean Corpuscular Volume 87.2 fL (81.0-99.0); Platelet Count 297 10^3/uL (150-450); Red Blood Count 4.77 10^6/uL (4.20-5.40); White Blood Count 8.4 10^3/uL (4.0-11.0)
[2025-03-29 09:39] LABS: Iron 105.0 ug/dL (50.0-170.0)
[2025-03-29 09:51] LABS: Alanine Aminotransferase 20 U/L (14-59); Albumin Globulin Ratio 1.2; Albumin Level 3.7 g/dL (3.4-5.0); Alkaline Phosphatase 46 U/L (46-116); Anion Gap 12.8; Aspartate Amino Transferase 13 U/L (15-37); Blood Urea Nitrogen 12.0 mg/dL (7.0-18.0); Calcium 9.0 mg/dL (8.5-10.1); Carbon Dioxide 26.4 mmol/L (21.0-32.0); Chloride 104 mmol/L (98-107); Cholesterol 174 mg/dL (<=200); Estimated GFR (African America >60 (>=60 mL/min/1.73m^2); Estimated GFR (Non-African Ame >60 (>=60 mL/min/1.73m^2); Folate 6.90 ng/mL (8.60-58.90); Free T3 2.40 pg/mL (2.18-3.98); Globulin 3.2 g/dL; Glucose 81 mg/dL (74-106); HDL Cholesterol 69 mg/dL (40-60); Potassium 4.2 mmol/L (3.5-5.1); Sodium 139 mmol/L (136-145); Thyroid Stimulating Hormone 1.247 uIU/mL (0.358-3.740); Total Protein 6.9 g/dL (6.4-8.2); Triglycerides 68 mg/dL (<=150); VLDL CHOLESTEROL 13.6 mg/dL
[2025-03-30 08:09] LABS: Vitamin B12 216 pg/mL (232-1245)
== END 2025-03-29 08:10 | disposition home or self-care (01) ==
LOC: LAB 08:19
PROVIDERS: PCP Family Medicine; Visit Provider Family Medicine
DX: G47.00 Insomnia, unspecified (principal); G43.909 Migraine, unspecified, not intractable, without status migrainosus; R60.9 Edema, unspecified; E78.5 Hyperlipidemia, unspecified; R73.09 Other abnormal glucose; D64.9 Anemia, unspecified; E03.9 Hypothyroidism, unspecified; I10 Essential (primary) hypertension; D50.9 Iron deficiency anemia, unspecified
CPT/HCPCS: 36415; 80053; 80061; 82306; 82607; 82746; 83036; 83540; 84436; 84443; 84481; 85025; 85652; 86140

== ENCOUNTER 2025-04-05 15:49 | Outpatient (OUT) | payer MEDICARE, SELFPAY ==
--- OUTSIDE RECORDS SUMMARY | 2023-12-09 07:30 | XMS_ITS ---
Author Organization The [facility] in [place] Address [address] [place] [address] Care Team Providers Care Body Liner Name Role Phone Silver Sands Primary Care Provider [place] SANDS Unavailable [phone] REASON FOR VISIT wants to discuss meds Encounters Encounter Location Date Provider Diagnosis [facility] [address] [place] [address] 12/09/2023 [place] SANDS Plan Of Treatment No Information Progress Notes * Martha MARQUEZ LDOB:08/1985 (39 yo F)Acc No.[id number]:12/09/2023 UNLOCKED PROGRESS NOTE Progress Note Patient: Key MOYASterling Martha Barfield :?Oh Sands M.D.:1985???Age:37 Y ???Sex:FemaleDate:4Phone:[phone]:[address], [place], [place]Aid:Silver Sands Subjective: * Chief Complaints: * 1 . Wants to discuss meds. * Medical History: Objective: * Vitals: Assessment: Plan: * Treatment: * * Electronic signature of [place] SANDS MD on 04/05/2025 at 03:53 PM EDTSign off status: PendingVisit Status:?OFF CANC (OFFICE CANCEL) * Provider: Sterling Sands M.D. Date: 0 12/09/2023 Generated for Printing/Faxing/eTransmitting on:?04/05/2025 03:53 PM EDT
--- OUTSIDE RECORDS SUMMARY | 2023-12-10 07:15 | XMS_ITS ---
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9)Activeconfirmed Encounters Encounter Location Date Provider Diagnosis [facility] [address] [place] [facility] [address] 12/10/2023 FRANCESCA SANDS Plan Of Treatment No Information Progress Notes * Martha MARQUEZ LDOB:08/1985 (39 yo F)Acc No.[id number]:12/10/2023 UNLOCKED PROGRESS NOTE Progress Note Patient: Martha PEARSON :?Francesca Sands M.D.:1985???Age:37 Y ???Sex:FemaleDate:12/10/2023hone:[phone]:[address], [place], [place]Pcp:Silver Sands Subjective: * Chief Complaints: * * Medical History: Objective: * Vitals: Assessment: Plan: * Treatment: * * Electronic signature of FRANCESCA SANDS MD on 04/05/2025 at 03:54 PM EDTSign off status: PendingVisit Status:?CANCPHONE (Cancelled Phone) * Provider: Sterling Sands M.D. Date: 0 12/10/2023 Generated for Printing/Faxing/eTransmitting on:?04/05/2025 03:54 PM EDT
--- OUTSIDE RECORDS SUMMARY | 2025-03-28 05:30 | XMS_ITS ---
Author Organization [facility] in [place] Address [address] [place] [address] Care Team Providers Care Pelt Dropper Name Role Phone Calitremaine Silver Primary Care Provider Allergies No Known Allergies Results Component Value Reference Range Notes CRP Reviewed date:03/29/2025 02:11:28 PM Interpretation: Performing Lab: Notes/Report: [facility] , C Reactive Protein <0.50 <=0.50 mg/dL Performing Lab:see noteML - [facility] LB Reason For Referral Diagnosis 1 Primary progressive multiple sclerosis, unspecified (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 Needs referral to [facility] for her MS. Has not been seen in awhile so they want a new referral, Has been off of all meds for 1 year Medications Medication SIG (Take, Route, Frequency, Duration) Notes Start Date End Date Status Wellbutrin XL 150 MG 1 tablet in the mor meño Orally Once a day; Duration: 30 day(s) 5Active Social History Tobacco Use: Social History Observation Description Date Details (start date - stop date) Current Smoker 03/18/2012 - NA Tobacco Control (Standard) Question Answer Notes Tobacco use: Current smoker When did you start smoking?03/18/2012UDIT-C (Standard) Question Answer Notes Did you have a drink containing alcohol in the p ast year? No [id number] Problems Problem Type SNOMED Code ICD Code Onset Dates Problem Status W/U Status Risk Notes Problem Multiple sclerosis (75510362) Multiple sc lerosis (G35) ActiveconfirmedProblemPrimary progressive multiple sclerosis, unspecified (G35.B0)Activeconfirmed Vital Signs Weight 143.6 lbs 03/28/2025 Height 65 in 03/28/2025 Blood pressure systolic 128 mm Hg 03/28/20 25 Blood pressure diastolic 72 mm Hg 025 BMI 23.89 kg/m2 03/28/2025 Encounters Encounter Location Date Provider Diagnosis [facility] [address] [place] [address] 03/28/2025 Silver Hoy Insomnia G47.00 ; Primary progressive multiple sclerosis, unspecified G35.B0 ; Edema R60.9 ; Migraine G43.909 and Well adult Z00.00 Assessments Encounter Date Diagnosis (ICD Code) Assessment Notes Treatment Notes Treatment Clinical Notes Section Notes 03/28/2025 Insomnia (ICD-10 - G47.00) 03/28/2025Primary progressive multiple sclerosis, unspecified (ICD-10 - G35.B0) 03/28/2025Edema (ICD-10 - R60.9)03/28/2025Migraine (ICD-10 - G43.909)03/28/2025 Well adult (ICD-10 - Z00.00) Plan Of Treatment Medication Medication Name Sig Start Date Stop Date Notes Wellbutrin XL 150 MG 1 tablet in the mor meño Orally Once a day; Duration: 30 day(s) 03/28/2025 Pending Test Test Name Order Date HEMOGLOBIN A1C (GLYCO) 03/28/2025 IRON, TOTAL 03/28/2025 LIPID PANEL (CHOL/TRIG/HDL/LDL) 03/28/20 25 SED RATE WESTERGREN 03/28/2025 VIT B12 AND FOLATE 03/28/2025 VITAMIN D 25 OH 03/28/2025 THYROID PANEL (T4/TSH/FREE T3) 5 MM screening mammo BI 03/28/2025 CMP (COMP MET GUTIÉRREZ) w/eGFR CKD-EPI 2024 CBC WITH DIFF 03/28/2025 Referrals Referral Date Details 03/28/2025 03/28/2025, Chevy Jade Progress Notes * Martha MARQUEZ LDOB:08/1985 (39 yo F)Acc No.[id number]:03/28/2025 Progress Note Patient: Martha PEARSON :?[place] White ([facility]), MDDOB:1985???Age: 39 Y???Sex:FemaleDate:03/28/2025Phone:[phone]:[address], [address], [place], [id number] In:09:24 AM ESTCheck Out:10:07 AM EST Subjective: * Chief Complaints: * P resents to office alone. Needs referral to [facility] for her MS. Has not been seen in awhile so they want a new referralHas been off of all meds for 1 year * HPI: ???Depression Screening:?PHQ-9?Little interest or pleasure in doing things More than half the days ?Feeling down, depressed, or hopeless?More than half the days ?Trouble falling or staying asleep, or sleeping too much?Nearly every day ?Feeling tired or having little energy?More than half the days ?Poor appetite or overeating?Not at all ?Feeling bad about yourself or that you are a failure, or have let yourself or your family down?Not at all ?Trouble concentrating on things, such as reading the newspaper or watching television?Several days ?Moving or speaking so slowly that other people could have noticed; or the opposite, being so fidgety or restless that you have been moving arounda lot more than usual?More than half the days ?Thoughts that you would be better off orof hurting yourself in some way?Not at all ?Total Score?12 ?Interpretation?Moderate Depression ? Disscussed depression - trial wellbutrin MS feels like maybe coming back - getting leg numbness. * ROS: ???EENT:?hearing changes?denies.?visual changes?denies. non-healing mouth sores?denies.?swollen glands or neck lumps?denies.?hoarseness?denies.?sore throat?denies.?difficulty swallowing?denies.?nose bleeds?denies.?nasal congestion?denies.?ear ache?denies.?ear discharge denies.?ringing in ears?denies.?light sensitivity?denies.?eye pain?denies.?blurring?denies.?eye irritation?denies.?double vision?denies. vision loss?denies.?General/Constitutional:?Sweats:?Denies.?Fatigue?denies.?Sleep proble ms?denies.?Anorexia?denies.?Malaise?denies.?Weight loss?denies. Fatigue or Weakness?denies.?Fever or Chills?denies.?Cardiovascular:?Shortness of Breath w/lying flat?denies.?Lightheadedne ss/dizziness?denies.?Chest tightness/ heavy pressure?denies.?Swelling of legs, a nkles, or feet?denies.?Waking up with shortness of breath?denies.?Chest pain&#16 0;denies.?Palpitations?denies.?Weight gain?denies.?Respiratory:?Chronic or frequent cough?denies.?Coughing up blood&#1 60;denies.?Difficulty breathing?denies.?Productive cough?denies.?Snoring&#1 60;denies.?Shortness of breath that awakens from sleep (PND)?denies.?Chest pain? denies.?Sputum production?denies.?Wheezing?denies.?Musculoskeletal:?Joint pain?denies.?Joint Fluid?denies.?Backpain?denies.?Knee pain?denies.?Neck pain?denies.?Joint Stiffness?denies.?Muscle cramps?denies.?Weakness of muscles?denies.?Arthritis?denies.?Muscle aches?denies.?Pain in shoulder(s)?denies.?Swollen joints?denies.? * Active Problem List G35 Multiple sclerosis Modified On:03/28/2025 Status:hpqsugsgiT13.24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, unspecified etiology Modified On:12/09/2023 Status:wcraiizzyJ25.1COVID-19 Modified On:12/09/2023 Status:skceqrrtyZ83.2Neck pain Modified On:12/09/2023 Status:lodelcsujU15.00Insomnia Modified On:12/09/2023 Status:oiwwtktqkW59Qekilsv Modified On:12/09/2023 Status:vjowuonbuJ45.909Migraine Modified On:12/09/2023 Status:cuyikzcwfA56.9Edema Modified On:12/09/2023 Status:lqpcqsukwD00.9Gait abnormality Modified On:12/09/2023 Status:eyoqznvenQ53.1Weakness Modified On:12/09/2023 Status:sfdhyhrbuB80.2Paresthesia Modified On:12/09/2023 Status:lqhfbfcopL20.9Depression Modified On:12/09/2023 Status:bgcsoxjiqL78.M5Eqjncnt progressive multiple sclerosis, unspecified Modified On:03/28/2025 Status:confirmed * Medical History: * Surgical History: C -section gallbladder Lithotripsy Mcdaniels teeth * Hospitalization/Major Diagno stic Procedure: * Family History: F ather: , from multi system organ failure, diagnosed with Hypertension, Heart Disease. M other: alive, thyroid disease, hyperlipidemia, diagnosed with Hypertension. B rother(s): alive. S ister(s): alive. 2 brother(s) , 1 sister(s) . 2 son(s) , 1 daughter(s) . . * Social History: ???Tobacco Use:?Tobacco Control (Standard)?Tobacco use:?Current smoker ?When did you start smoking??03/18/2012 ???Drug/Alcohol:?AUDIT-C (Standard)?Did you have a drink containing alcohol in the past year??No ?Points?0 ?Interpretation?Negative * Medications: D iscontinuedDesvenlafaxine Succinate ER 50 mg Tablet Extended Release 24 Hour TAKE ONE TABLET BY MOUTH DAILY AT 9AM oxyBUTYnin Chloride ER 5 MG Tablet Extended Release 24 Hour 1 tablet Orally Once a day valACYclovir HCl 500 MG Tablet 1 tablet Orally Once a day Medication List reviewed and reconciled with the patientDiscontinued Desvenlafaxine Succinate ER 50 mg Tablet Extended Release 24 Hour TAKE ONE TABLET BY MOUTH DAILY AT 9AM Discontinued oxyBUTYnin Chloride ER 5 MG Tablet Extended Release 24 Hour 1 tablet Orally Once a day Discontinued valACYclovir HCl 500 MG Tablet 1 tablet Orally Once a day Medication List reviewed and reconciled with the patient * Allergies: N .K.D.A.no[Allergies Verified] Objective: * Vitals: W t:143.6lbs, Ht: 65 in, BP:128/72mm Hg, BMI:23.89Index, Ht-cm: 165.1 cm, Wt-k.14 kg. * Examination: ???Physical Exam: ?GENERAL:?well developed, well nourished, in no acute distress.?HEAD:?normocephalic/atraumatic.?EYES:?pupils equal, round and reactive to light, conjunctivae and sclerae normal.?EARS:?no deformity or lesion of external ear, canals and TM appear normal bilaterally, TM's intact, not inflamed with normal light reflex, hearing grossly normal to conversational speech.?NOSE:?no deformity, discharge, inflammation, or lesions. ?MOUTH:?mucous membranes moist, normal oropharynx and posterior pharynx without lesions or exudates, tongue normal, dentition normal.?NECK:?neck supple, no masses or palpable cervical nodes, trachea midline, thyroid without nodules, masses, tenderness, or enlargement.?CHEST:?no chest wall deformity, no chest wall tenderness. ?LUNGS:?normal respiratory effort and clear to auscultation, no wheezes, rales, or rhonchi, good air exchange.?CARDIO:?regular rate and rhythm, normal S1 and S2, nor murmur, rub, or gallop.?PULSES:?normal capillary refill.?ABDOMEN:?soft, non-distended, non-tender, no masses.?MUSCULOSKELETAL:?no deformity or scoliosis noted, normal range of motion, joints normal, no erythema, edema, effusion, or ecchymosis.?EXTREMITY:?no clubbing, cyanosis, edema, or deformity withnormal ROM in both upper and lower bilateral extremities.?NEUROLOGIC:?grossly normal.?SKIN:?no rashes, ulcerations, or suspicious lesions.?LYMPH NODES:?no cervical adenopathy, nodes normal.?MENTAL STATUS:?alert and oriented x3, normal mood and affect.? Assessment: * Assessment: 1.?Insomnia - G47.00 (Primary)???2.?Migraine - G43.909???3. Edema - R60.9???4.?Primary progressive multiple sclerosis, unspecified - G3 5.B0???5.?Well adult - Z00.00??? Plan: * Treatment: Start Wellbutrin XL Tablet Extended Release 24 Hour, 150 MG, 1 tablet in the morning, Orally, Once a day, 30 day(s), 30.?LAB: HEMOGLOBIN A1C (GLYCO) ?LAB: IRON, TOTAL ?LAB: LIPID PANEL (CHOL/TRIG/HDL/LDL) ?LAB: SED RATE WESTERGREN ?LAB: VIT B12 AND FOLATE ?LAB: VITAMIN D 25 OH ?LAB: THYROID PANEL (T4/TSH/FREE T3) ?LAB: CMP (COMP MET GUTIÉRREZ) w/eGFR CKD-EPI ?LAB: CBC WITH DIFF ?LAB: CRP (Collection Date & Time - 03/29/2025 08:37 AM)2.?Migraine?LAB: HEMOGLOBIN A1C (GLYCO) ?LAB: IRON, TOTAL ?LAB: LIPID PANEL (CHOL/TRIG/HDL/LDL) ?LAB: SED RATE WESTERGREN ?LAB: VIT B12 AND FOLATE ?LAB: VITAMIN D 25 OH ?LAB: THYROID PANEL (T4/TSH/FREE T3) ?LAB: CMP (COMP MET GUTIÉRREZ) w/eGFR CKD-EPI ?LAB: CBC WITH DIFF ?LAB: CRP (Collection Date & Time - 03/29/2025 08:37 AM)3.?Edema?LAB: HEMOGLOBIN A1C (GLYCO) ?LAB: IRON, TOTAL ?LAB: LIPID PANEL (CHOL/TRIG/HDL/LDL) ?LAB: SED RATE WESTERGREN ?LAB: VIT B12 AND FOLATE ?LAB: VITAMIN D 25 OH ?LAB: THYROID PANEL (T4/TSH/FREE T3) ?LAB: CMP (COMP MET GUTIÉRREZ) w/eGFR CKD-EPI ?LAB: CBC WITH DIFF ?LAB: CRP (Collection Date & Time - 03/29/2025 08:37 AM)4.?Primary progressive multiple sclerosis, unspecified?LAB: HEMOGLOBIN A1C (GLYCO) ?LAB: IRON, TOTAL ?LAB: LIPID PANEL (CHOL/TRIG/HDL/LDL) ?LAB: SED RATE WESTERGREN ?LAB: VIT B12 AND FOLATE ?LAB: VITAMIN D 25 OH ?LAB: THYROID PANEL (T4/TSH/FREE T3) ?LAB: CMP (COMP MET GUTIÉRREZ) w/eGFR CKD-EPI ?LAB: CBC WITH DIFF ?LAB: CRP (Collection Date & Time - 03/29/2025 08:37 AM)? Referral To:Marty aJde??Neurology ?Reason: 5.?Well adult?LAB: SED RATE WESTERGREN ?LAB: VIT B12 AND FOLATE ?LAB: VITAMIN D 25 OH ?LAB: CRP (Collection Date & Time - 03/29/2025 08:37 AM) ?Imaging: MM screening mammo BI * Labs: * L ab: CRP (Collection Date & Time - 03/29/2025 08:37 AM) * Procedure Codes: 3 078F DIAST BP < 80 MM [id number] SYST BP LT 130 MM HG * * Sign off status: CompletedVisit Status:?CHK (Check Out) true * Provider: Sterling White ([facility])MD Date: 1 Generated for Printing/Faxing/eTransmitting on:?04/05/2025 03:53 PM EDT History and Physical Notes * HPI (History of Present Illness) CategorySub-CategoryDetailNotesCategory NotesDepression ScreeningPHQ-9Little interest or pleasure in doing things: More than half the days Disscussed depression - trial wellbutrin MS feels like maybe coming back - getting leg numbness Feeling down, depressed, or hopeless: More than half the daysTrouble falling or staying asleep, or sleeping too much: Nearly every dayFeeling tired or having little energy: More than half the daysPoor appetite or overeating: Not at all Feeling bad about yourself or that you are a failure, or have let yourself or your family down: Notat allTrouble concentrating on things, such as reading the newspaper or watching television: Several daysMoving or speaking so slowly that other people could have noticed; or the opposite, being so fidgety or restless that you have been moving around a lot more than usual: More than half the days Thoughts that you would be better off or of hurting yourself in some way: Not at allTotal Score: 12Interpretation: Moderate Depression Examination CategorySub-CategoryDetailNotesCategory NotesPhysical ExamGENERAL:well developed, well nourished, in no acute distressHEAD:normocephalic/atraumatic EYES:pupils equal, round and reactive to light, conjunctivae and sclerae normal EARS:no deformity or lesion of external ear, canals and TM appear normal bilaterally, TM's intact, not inflamed with normal light reflex, hearing grossly normal to conversational speechNOSE:no deformity, discharge, inflammation, or lesionsMOUTH:mucous membranes moist, normal oropharynx and posterior pharynx without lesions or exudates, tonguenormal, dentition normalNECK:neck supple, no masses or palpable cervical nodes, trachea midline, thyroid without nodules, masses, tenderness, or enlargementCHEST:no chest wall deformity, no chest wall tendernessLUNGS:normal respiratory effort and clear to auscultation, no wheezes, rales, or rhonchi, good air exchangeCARDIO:regular rate and rhythm, normal S1 and S2, nor murmur, rub, or gallopPULSES:normal capillary refillABDOMEN:soft, non-distended, non-tender, no massesRECTAL:MUSCULOSKELETAL:no deformity or scoliosis noted, normal range of motion, joints normal, no erythema, edema, effusion, or ecchymosisEXTREMITY:no clubbing, cyanosis, edema, or deformity with normal ROM in both upper and lower bilateral extremitiesNEUROLOGIC:grossly normalSKIN:no rashes, ulcerations, or suspicious lesionsLYMPH NODES:no cervical adenopathy, nodes normalMENTAL STATUS:alert and oriented x3, normal mood and affect Consultation Request Notes Referral Date Referring Provider Referred Provider Not chuck 03/28/2025 Silver White Christopher
--- OUTSIDE RECORDS SUMMARY | 2025-04-01 09:45 | XMS_ITS ---
Author Organization [facility] in [place] Address [address] [place] [address] Care Team Providers Care Title I Paraprofessional Name Role Phone Silver White Primary Care Provider REASON FOR VISIT B12 Encounters Encounter Location Date Provider Diagnosis [facility] [address] [place] [address] 04/01/2025 Silver White B12 deficiency E53.8 Assessments Encounter Date Diagnosis (ICD Code) Assessment Notes Treatment Notes Treatment Clinical Notes Section Notes 04/01/2025 B12 deficiency (ICD-10 - E53.8) Plan Of Treatment No Information Medications Administered Medication Instructions Date of Administration Dosage Notes Cyanocobalamin mL Progress Notes * JIMMY Martha LDOB:08/1985 (39 yo F)Acc No.[id number]:04/01/2025 Progress Note Patient: Martha PEARSON :?Oh White ([facility]), MDDOB:1985???Age: 39 Y???Sex:FemaleDate:04/01/2025Phone:[phone]:[address] HOSPITALFP-[id number] In:01:36 PM ESTCheck Out:01:42 PM EST Subjective: * Chief Complaints: * B 12 * Active Problem List G35 Multiple sclerosis Modified On:03/28/2025 Status:olxjacvypT23.24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, unspecified etiology Modified On:12/09/2023 Status:rzzqkdzrlK49.1COVID-19 Modified On:12/09/2023 Status:aszzthaftE61.2Neck pain Modified On:12/09/2023 Status:nojkbvdcjO65.00Insomnia Modified On:12/09/2023 Status:wicrotvznT57Iihisxq Modified On:12/09/2023 Status:htwgowmckD90.909Migraine Modified On:12/09/2023 Status:atcxxtgxpF44.9Edema Modified On:12/09/2023 Status:ssqkwyycsG08.9Gait abnormality Modified On:12/09/2023 Status:yzimrrhqvZ42.1Weakness Modified On:12/09/2023 Status:ffmczqxrmQ10.2Paresthesia Modified On:12/09/2023 Status:glmcsusmpO32.9Depression Modified On:12/09/2023 Status:eazaazjfsH09.R2Kkdkoth progressive multiple sclerosis, unspecified Modified On:03/28/2025 Status:confirmed * Medical History: * Surgical History: * Hospitalization/Major Diagno stic Procedure: * Medications: Objective: * Vitals: Assessment: * Assessment: 1.?B12 deficiency - E53.8 (Primary)??? Plan: * Treatment: * Therapeutic Injections: Cyanocobalamin : 1 mL (Route: Intramuscular) given by MOUNIKA Cool on right deltoid (B12 deficiency) * Procedure Codes: J 3420 VITAMIN B-12 < 1000 [id number] THERAP.INJ. OF MED. INTRAMUSCULAR OR SUBCUTANEOUS * * Sign off status: CompletedVisit Status:?CHK (Check Out) true * Provider: Sterling White (KINGSLEY)MD Date: 1 Generated for Printing/Faxing/eTransmitting on:?04/05/2025 03:54 PM EDT
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
--- OUTSIDE RECORDS SUMMARY | 2025-04-05 15:54 | XMS_ITS | Patient Health Record ---
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 Name Role Phone Silver White Primary Care Provider Allergies No Known Allergies Results Component Value Reference Range Notes CRP Reviewed date:03/29/2025 02:11:28 PM Interpretation: Performing Lab: Notes/Report: [facility] , C Reactive Protein <0.50 <=0.50 mg/dL Performing Lab:see noteML - [facility] LBTSH Reviewed date:01/12/2025 04:01:48 PM Interpretation: Performing Lab: Notes/Report: [facility] ,Thyroid Stimulating Hormone2.2400.358-3.740 uIU/mLPerforming Lab:see noteML - [facility] LBHBsAg Screen Reviewed date:01/13/2025 12:58:13 PM Interpretation: Performing Lab: Notes/Report: [facility] ,HBsAg ScreenNegativeNegativePerforming Lab:see noteLC - [facility] LBQuantiFERON- TB Gold Plus Reviewed date:01/16/2025 08:27:20 PM Interpretation: Performing Lab: Notes/Report: [facility] ,QuantiFERON Incubation. Incubation performed. Reference Range: . QuantiFERON-TB Gold PlusNegativeNegative No response to M tuberculosis antigens detected. Infection with M tuberculosis is unlikely, but high risk individuals should be considered for additional testing (ATS/IDSA/CDC Clinical Practice Guidelines, 2017). The reference range is an Antigen minus Nil result of <0.35 IU/mL. Chemiluminescence immunoassay methodology Performed at: [address] [id number] Placement Director: Mark Ugadle PhD, Phone: [phone] QuantiFERON CriteriaComment. QuantiFERON-TB Gold Plus is a qualitative indirect test for M tuberculosis infection (including disease) and is intended for use in conjunction with risk assessment, radiography, and other medical and diagnostic evaluations. The QuantiFERON-TB Gold Plus result is determined by subtracting the Nil value from either TB antigen (Ag) value. The Mitogen tube serves as a control for the test. QuantiFERON TB1 Ag Value0.03. IU/mLQuantiFERON TB2 Ag Value0.03. IU/mL QuantiFERON Nil Value0.02. IU/mLQuantiFERON Mitogen Value>10.00. IU/mLPerforming Lab:see [facility] LBHCV Antibody Reviewed date:01/13/2025 12:58:14 PM Interpretation: Performing Lab: Notes/Report: [facility] ,HCV AntibodyNon ReactiveNon Reactive HCV antibody alone does not differentiate between previously resolved infection and active infection. Equivocal and Reactive HCV antibody results should be followed up with an HCV RNA test to support the diagnosis of active HCV infection. Performing [facility] LBHep B Core Ab, Tot Reviewed date:01/13/2025 12:58:14 PM Interpretation: Performing Lab: Notes/Report: [facility] ,Hep B Core Ab, TotNegativeNegative Performed at: [address] [id number] Placement Director: Mark Ugalde PhD, Phone: [phone] Performing Lab:see [facility] LBHep B Surface Ab Reviewed date:01/13/2025 12:58:14 PM Interpretation: Performing Lab: Notes/Report: [facility] ,Hep B Surface AbNon Reactive. Non Reactive: Not immune to HBV infection. Equivocal: Unable to determine if anti-HBs is present at levels consistent with immunity. Reactive: Anti-HBs concentration detected at greater than 10 mIU/mL. Individual is considered to be immune to infection with HBV. Performing Lab:see [facility] LBBox Test Reviewed date:01/16/2025 08:27:20 PM Interpretation: Performing Lab: Notes/Report: ABS19 CD19 COUNT [facility] ,BOX Test Sent OutCD19 COUNTBOX Test Reference [facility]OX Test Date Sent01/12/25BOX Test Result01/13/25SEE SCANNED REPORTPerforming Lab:see noteML - [facility] LBImmunoglobulins A/G/M, Qn, Ser Reviewed date:01/13/2025 12:58:14 PM Interpretation: Performing Lab: Notes/Report: [facility] ,Immunoglobulin G, Qn, Tpgze407764-0378 mg/dLImmunoglobulin A, Qn, Izbga38542- 352 mg/dLImmunoglobulin M, Qn, Frdyv0306-088 mg/dL Performed at: [address] [id number] Placement Director: Mark Ugalde PhD, Phone: [phone] Performing Lab:see noteLC - [facility] LBCBC AUTO DIFF Reviewed date:03/29/2025 02:11:28 PM Interpretation: Performing Lab: Notes/Report: [facility] ,White Blood Count8.44.0-11.0 10 3/uLRed Blood Count4.774.20-5.40 10 6/uL Ajshnwsxkh60.812.0-16.0 g/qPJbxjtepzmt52.636.0-48.0 %Mean Corpuscular Iquslp81.2 81.0-99.0 fLMean Corpuscular Ecsrxjvbjk77.926.7-34.0 pgMean Corpuscular HGB Conc 33.229.9-35.2 g/dLRed Cell Distribution Width13.811.0-15.0 %Platelet Uugnu873 150-450 10 3/uLMean Platelet Volume9.59.5-13.5 fLNeutrophils Percent Auto71.7 43.0-75.0 %Lymphocytes Percent Auto15.020.5-60.0 %Monocytes Percent Auto9.31.7- 12.0 %Eosinophils Percent Auto3.00.9-7.0 %Basophils Percent Auto0.60.2-2.0 % Immature Granulocytes Pct Auto0.40.0-0.5 %Neutrophils Absolute Auto6.11.4-6.5 10 3/uLLymphocytes Absolute Auto1.31.2-3.8 10 3/uLMonocytes Absolute Auto0.80.3-0.8 10 3/uLEosinophils Absolute Auto0.30.0-0.7 10 3/uLBasophils Absolute Auto0.10.0- 0.1 10 3/uLImmature Granulocytes Abs Auto0.030.00-0.03 10 3/uLPerforming Lab:see noteML - [facility] LBFOLATE Reviewed date:03/29/2025 02:11:28 PM Interpretation: Performing Lab: Notes/Report: [facility] ,Folate6.908.60-58.90 ng/mLPerforming Lab:see noteML - [facility] FREE T3 Reviewed date:03/29/2025 02:11:28 PM Interpretation: Performing Lab: Notes/Report: [facility] ,Free T32.402.18-3.98 pg/mLPerforming Lab:see noteML - [facility] LB GLYCOHEMOGLOBIN A1C Reviewed date:03/29/2025 02:11:28 PM Interpretation: Performing Lab: Notes/Report: [facility] ,Glycohemoglobin A1C5.74.5-6.2 % ADA RECOMMENDED LIMIT 4.0 - 6.0 ADA THERAPEUTIC TARGET < 7.0 ACTION SUGGESTED > 7.0 Estimated Average Ysmjfex513Znqkzzatfc Lab:see noteML - [facility] LB IRON Reviewed date:03/29/2025 02:11:28 PM Interpretation: Performing Lab: Notes/Report: [facility] ,Rrqt653.050.0-170.0 ug/dLPerforming Lab:see noteML - [facility] LB LIPID PROFILE Reviewed date:03/29/2025 02:11:28 PM Interpretation: Performing Lab: Notes/Report: [facility] ,Exjhvewmbwrkb73<=150 mg/tCVbpvjmvsakb935<=200 mg/dLHDL Zdmoqbgzdch3842-70 mg/dL > or =60 mg/dl - LOW CARDIOVASCULAR RISK <40 mg/dl - HIGH CARDIOVASCULAR RISK LDL Cholesterol Gjnpiwznrq36.0 <100 mg/dl OPTIMAL 100-129 mg/dl NEAR OR ABOVE OPTIMAL 130-159 mg/dl BORDERLINE HIGH 160-189 mg/dl HIGH >190 mg/dl VERY HIGH VLDL QQAQPADOVUR80.6Chol HDL Ratio2.5 3.3 - 4.4 LOW RISK 4.4 - 7.1 AVERAGE RISK 7.1 - 11.0 MODERATE RISK >11.0 HIGH RISK Performing Lab:see note - [facility] LBPROF 14(COMP METB) Reviewed date:03/29/2025 02:11:28 PM Interpretation: Performing Lab: Notes/Report: [facility] ,Avfkdq641736-382 mmol/LPotassium4.23.5-5.1 mmol/LKwoctids70650-773 mmol/LCarbon Jaakxam19.421.0-32.0 mmol/LAnion Gap12.0Dkhnyqg6920-523 mg/dLBlood Urea Nitrogen 12.07.0-18.0 mg/dLCreatinine0.790.55-1.02 mg/dLEstimated GFR ( Kathi>60 >=60 mL/min/1.73m 2Estimated GFR (Non- Honey>60>=60 mL/min/1.73m 2BUN Creatinine Ratio15.4Drnmmwx0.08.5-10.1 mg/dLBilirubin Total0.90.2-1.0 mg/dL Aspartate Amino Oynffoqvxoy8490-09 U/LAlanine Vwmjwzjgucrnepgw0238-56 U/L Alkaline Efbyqvnwegw8550-267 U/LTotal Protein6.96.4-8.2 g/dLAlbumin Level3.73.4- 5.0 g/dLGlobulin3.2Albumin Globulin Ratio1.2Performing Lab:see noteML - [facility] LBT4 Reviewed date:03/29/2025 02:11:28 PM Interpretation: Performing Lab: Notes/Report: [facility] ,T4 Thyroxine6.904.80-13.90 ug/dLPerforming Lab:see note - [facility] LBTSH Reviewed date:03/29/2025 02:11:28 PM Interpretation: Performing Lab: Notes/Report: [facility] ,Thyroid Stimulating Hormone1.2470.358-3.740 uIU/mLPerforming Lab:see note - [facility] LBErythrocyte Sedimentation Rate Reviewed date:03/29/2025 02:11:28 PM Interpretation: Performing Lab: Notes/Report: [facility] ,Erythrocyte Sedimentation Rate2<=20 mm/hrPerforming Lab:see noteML - [facility] LBVitamin B12 Reviewed date:03/30/2025 07:43:40 PM Interpretation: Performing Lab: Notes/Report: [facility] ,Vitamin R59893999-3879 pg/mL Performed at: - [facility] [address] [id number] Placement Director: Mark Ugalde PhD, Phone: [phone] Performing Lab:see note - [facility] LBXR chest 2V Reviewed date:12/20/2024 09:32:14 PM Interpretation: Performing Lab: Notes/Report: Source Facility: [place] [address] XRay Report Signed Patient: MARTHA MARQUEZ MR#: [id number] : 1985 Acct:[id number] Age/Sex: 39 / F ADM Date: 12/20/24 Loc: ER Attending Dr: Ordering Physician: Jaja Medina D.O. Date of Service: 12/20/24 Procedure(s): XR chest 2V Accession Number(s): [id number] cc: Oh White M.D.; Jaja Medina D.O. [place] [address] Patient Name: MARTHA MARQUEZ MRN: [id number] date: 1985 Sex: F Assigned Patient Location: ER Current Patient Location: ED.MAIN Accession/Order Number: [id number] Exam Date: 12/20/2024 21:13 Report Date: 12/20/2024 21:14 At the request of: JAJA MEDINA DO Procedure: XR chest 2V PA AND LATERAL CHEST: CLINICAL HISTORY: CP COMPARISON: None FINDINGS: Unremarkable cardiomediastinal. Lungs clear. No effusion or pneumothorax. XR/XR chest 2V IMPRESSION: NO ACUTE CARDIOPULMONARY ABNORMALITY. Impression dictated by: Hector Mo M.D. 12/20/2024 9:14 PM Dictation Location: [place] [address] Electronically authenticated by: [id number] Y Date: 12/20/2024 21:14 Dictated By: Hector Mo M.D. Signed By: 12/20/242116 DD/ 13 TD/TT: Plant Propagator:ECG 12 lead Reviewed date:12/21/2024 07:27:21 PM Interpretation: Performing Lab: Notes/Report: Source Facility: [place] [address] Electrocardiograph Report Signed Patient: MARTHA MARQUEZ MR#: [id number] : 1985 Acct:[id number] Age/Sex: 39 / F ADM Date: 12/20/24 Loc: ER Attending Dr: Ordering Physician: Jaja Medina D.O. 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 Measurements Intervals [place] Rate: 86 P: 58 TX: 108 QRS: 77 QRSD: 70 T: 69 QT: 352 QTc: 395 Interpretive Statements 1100 Sinus rhythm 2210 Short TX interval 9150 abnormal ECG Compared to ECG 12/30/2020 18:55:53 Short TX interval now present T-wave abnormality no longer present Electronically Signed On 12-21-2024 17:49:49 EDT by SATYA IBARRA M.D. Dictated By: SATYA IBARRA Signed By: 12/21/241749 DD/ 37 TD/TT: Plant Propagator:Troponin I High Sensitivity Reviewed date:12/20/2024 09:32:14 PM Interpretation: Performing Lab: Notes/Report: [facility] ,Troponin I High Sensitivity4.54.0-51.3 pg/mL CUT-OFF POINTS HAVE BEEN ESTABLISHED BASED ON THE FOURTH UNIVERSAL DEFINITION OF MYOCARDIAL INFARCTION. THE UPPER REFERENCE LIMIT (URL) OF TROPONIN, DEFINED THE 99TH PERCENTILE OF cTnI DISTRIBUTION IN A REFERENCE POPULATION, HAS BEEN CONFIRMED THE DECISION THRESHOLD FOR WI DIAGNOSIS. 99TH PERCENTILE = 51.4 PG/ML NOTE: HIGH-SENSITIVITY TROPONIN ASSAY IS NOT INTENDED TO BE USED IN ISOLATION BUT SHOULD BE INTERPRETED IN CONJUNCTION WITH OTHER DIAGNOSTIC AND CLINICAL INFORMATION. Performing Lab:see noteML - [facility] LBPROF 14(COMP METB) Reviewed date:12/20/2024 09:32:14 PM Interpretation: Performing Lab: Notes/Report: [facility] ,Lpxfxw475859-943 mmol/LPotassium4.03.5-5.1 mmol/CSeyxbxil41391-341 mmol/LCarbon Vdehqnp77.421.0-32.0 mmol/LAnion Gap12.3Uqujeza36799-692 mg/dLBlood Urea Srefwxti18.07.0-18.0 mg/dLCreatinine0.800.55-1.02 mg/dLEstimated GFR ( Kathi>60>=60 mL/min/1.73m 2Estimated GFR (Non- Honey>60>=60 mL/min/1.73m 2BUN Creatinine Ratio13.5Aahvpos1.78.5-10.1 mg/dLBilirubin Total0.40.2-1.0 mg/dL Aspartate Amino Yvjwozslzfi2294-44 U/LAlanine Gpkkmdxlnjaurhlz4861-63 U/L Alkaline Htlabqvxphq2363-798 U/LTotal Protein7.06.4-8.2 g/dLAlbumin Level3.83.4- 5.0 g/dLGlobulin3.2Albumin Globulin Ratio1.2Performing Lab:see noteML - [facility] LBD-DIMER Reviewed date:12/20/2024 09:32:14 PM Interpretation: Performing Lab: Notes/Report: [facility] ,D Dimer0.21<=0.59 mg/L FEU Increases in D-Dimer concentration observed with thromboembolic events can be variable due to localization, size, and age of the thrombus. Therefore, a thromboembolic event cannot be diagnosed with certainty on the basis of the reference range. D-Dimers may also be elevated for a variety of disorders including advanced age, , coronary disease, cancer, liver disease, infection, inflammation, hematoma, DIC, trauma, post-surgery, diabetes, thrombolytic or anticoagulant therapy, stress, and generalized hospitalization. Performing Lab:see noteML - [facility] LBCBC AUTO DIFF Reviewed date:12/20/2024 09:32:14 PM Interpretation: Performing Lab: Notes/Report: [facility] ,White Blood Count9.54.0-11.0 10 3/uLRed Blood Count4.644.20-5.40 10 6/uL Gbyikleuaz95.712.0-16.0 g/hGKwmytdtuzj85.236.0-48.0 %Mean Corpuscular Dbmdyt76.6 81.0-99.0 fLMean Corpuscular Kjjuitbquw92.526.7-34.0 pgMean Corpuscular HGB Conc 34.129.9-35.2 g/dLRed Cell Distribution Width13.211.0-15.0 %Platelet Soygb615 150-450 10 3/uLMean Platelet Ymfbdv20.19.5-13.5 fLNeutrophils Percent Auto62.4 43.0-75.0 %Lymphocytes Percent Auto26.920.5-60.0 %Monocytes Percent Auto7.91.7- 12.0 %Eosinophils Percent Auto2.10.9-7.0 %Basophils Percent Auto0.50.2-2.0 % Immature Granulocytes Pct Auto0.20.0-0.5 %Neutrophils Absolute Auto5.91.4-6.5 10 3/uLLymphocytes Absolute Auto2.61.2-3.8 10 3/uLMonocytes Absolute Auto0.80.3-0.8 10 3/uLEosinophils Absolute Auto0.20.0-0.7 10 3/uLBasophils Absolute Auto0.10.0- 0.1 10 3/uLImmature Granulocytes Abs Auto0.020.00-0.03 10 3/uLPerforming Lab:see noteML - [facility] LB Reason For Referral Diagnosis 1 Primary progressive multiple sclerosis, unspecified (G35.B0) Referral Organization [facility] Referring Provider First Name Silver Referring Provider Last Name Christopher [facility] Referred Provider Marty Jade Referred Provider Specialty Neurology Referral Priority Routine Medications Medication SIG (Take, Route, Frequency, Duration) Notes Start Date End Date Status Cyanocobalamin 1000 MCG/ML 1 mL Injection; Durat ion: 30 day(s) 5ActiveWellbutrin XL 150 MG1 tablet in the morning Orally Once a day; Duration: 30 day(s)5Active Social History Tobacco Use: Social History Observation Description Date Details (start date - stop date) Current Smoker 03/18/2012 - NA Tobacco Control (Standard) Question Answer Notes Tobacco use: Current smoker When did you start smoking?03/18/2012UDIT-C (Standard) Question Answer Notes Did you have a drink containing alcohol in the p ast year? No Ulqjjm9AhmlqxjieeoykeKqqpgjqd Problems Problem Type SNOMED Code ICD Code Onset Dates Problem Status W/U Status Risk Notes Problem Multiple sclerosis (50765072) Multiple sc lerosis (G35) ActiveconfirmedProblemWeakness (05504802)Weakness (R53.1)ActiveconfirmedProblem Neck pain (05847031)Neck pain (M54.2)ActiveconfirmedProblemEdema (58294714)Edema (R60.9)ActiveconfirmedProblemDepression (285051612)Depression (F32.9)Active confirmedProblemVertigo (167551659)Vertigo (R42)ActiveconfirmedProblemInsomnia (418363551)Insomnia (G47.00)ActiveconfirmedProblemMigraine (27531612)Migraine (G43.909)ActiveconfirmedProblemGait abnormality (42972361)Gait abnormality (R26.9)ActiveconfirmedProblemParesthesia (77232788)Paresthesia (R20.2)Active confirmedProblemCOVID-19 (674811410)COVID-19 (U07.1)ActiveconfirmedProblem 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 (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)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, 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) ActiveconfirmedProblemPrimary progressive multiple sclerosis, unspecified (G35.B0)Activeconfirmed Vital Signs Blood pressure diastolic 72 mm Hg 03/28/2025 Fjnveo32 in03/28/2025lood pressure mm Hg03/28/20251727Jsxcvv580.6 lbs 03/28/2025BMI23.89 kg/m203/28/2025 Encounters Encounter Location Date Provider Diagnosis [address] [address] 04/01/2025 Silver White B12 deficiency E53.[address] [address] 03/28/2025 Silver White Insomnia G47.00 ; Primary progressive multiple sclerosis, unspecified G35.B0 ; Edema R60.9 ; Migraine G43.909 and Well adult Z00.[address] [address] 01/16/2025 Silver White [place] [id number] [place] [address] 03/29/2025Doseth [address] [address]/15/2025Silver White Assessments Encounter Date Diagnosis (ICD Code) Assessment Notes Treatment Notes Treatment Clinical Notes Section Notes 03/28/2025 Edema (ICD-10 - R60.9) 03/28/2025Insomnia (ICD-10 - G47.00)03/28/2025Migraine (ICD-10 - G43.909) 03/28/2025Primary progressive multiple sclerosis, unspecified (ICD-10 - G35.B0) 04/01/2025B12 deficiency (ICD-10 - E53.8)03/28/2025Well adult (ICD-10 - Z00.00) Plan Of Treatment Pending Test Test Name Order Date HEMOGLOBIN A1C (GLYCO) 03/28/2025 IRON, TOTAL 03/28/2025 LIPID PANEL (CHOL/TRIG/HDL/LDL) 03/28/20 25 SED RATE WESTERGREN 03/28/2025 VIT B12 AND FOLATE 03/28/2025 VITAMIN D 25 OH 03/28/2025 THYROID PANEL (T4/TSH/FREE T3) 5 MM screening mammo BI 03/28/2025 CMP (COMP MET GUTIÉRREZ) w/eGFR CKD-EPI 2024 CBC WITH DIFF 03/28/2025 Insurance Providers Payer Name Payer Address Payer Phone Subscriber Number Group Number Insured Name Patient Relationship to Insured Coverage Start Date Coverage End Date [place] [address] [place] [address] [id number] Shalini Marquez - patient is the insured Medications Administered Medication Instructions Date of Administration Dosage Notes Cyanocobalamin mL Medical (General) History Medical History History ICD Code Multiple sclerosis G35 Surgical History Surgery Date(Month/Year) gallbladderLithotripsyWisdom teeth
--- OUTSIDE RECORDS SUMMARY | 2025-04-05 15:54 | XMS_ITS | Clinical Summary ---
Author Organization [facility] Address [address] [place] [address] Care Team Providers Care Manager Of Health Name Role Phone Oh White MD Primary Care Provider [phone] Allergies No known active allergies Medications MedicationSigDispense QuantityRefillsLast FilledStart DateEnd DateStatus LORazepam (Ativan) 0.5 MG tablet Indications:ClaustrophobiaTake 1 tablet (0.5 mg) by mouth every 12 (twelve) hours if needed for anxiety for up to 1 day 2 tablet 5Active Active Problems ProblemNoted DateDiagnosed DateCOVID-19003/01/20246123Cesxd50/16/2024Insomnia 03/01/2024Major depressive disorder, single episode, vyuqxmztulg05/16/2024 Monoplegia of upper limb affecting left nondominant side03/01/2024aresthesia 03/01/20243684Ulsxfzdb44/16/2024ervical paraspinal muscle spasm12/10/2023DD (attention deficit disorder) without pvscyanlxnkpc84/28/3366Vmoghdto60/09/2023 Qqpekwtny61/09/2023bnormal gait03/24/2023Multiple idjuqzgsr58/12/2013 Encounters DateTypeDepartmentCare MnleWyrbyeifkuk11/29/2025Telephone [facility] [address] [facility] [address] [place] [address] Patti Pryor MA 02/24/2025Telephone [facility] [address] [facility] [address] [place] [phone] Patti Pryor MA Shujtqlq24/13/2025 9:45 AM EDTAncillary Procedure [facility] [address] [place] [phone] Multiple sclerosis (HCC)01/26/2025Results Follow-Up [facility] [address] [place] [phone] Osmar Hernandez MD MR brain w and wo contrast kbefxms6701/26/20250669Xspmwp81/31/2025 9:30 AM EDTOffice Visit [facility] [address] [place] [phone] Osmar Hernandez MD Claustrophobia (Primary Dx); Multiple sclerosis (HCC)01/13/2025amboo flowsheet [facility] [address] [place] [phone] Osmar Hernandez MD 01/13/2025Travelfrom Last 3 Months Family History Medical HistoryRelationNameCommentsADD / ADHDBrother 1Andrew LinkeyADD / ADHD Brother 2Christopher LinkeyAnxiety disorderBrother 2Christopher LinkeyDepression Brother 2Christopher LinkeySeizuresBrother 2Christopher LinkeyBreast cancer FatherColon cancerFatherHyperlipidemiaFatherHypertensionFatherDiabetesMother HypothyroidismMotherDepressionOtherFamily historyHeart diseaseOtherFamily historyHyperlipidemiaOtherFamily historyHypertensionOtherFamily historyRelation NameStatusCommentsBrother 1Andrew LinkeyBrother 2Christopher LinkeyFatherMother OtherFamily history Social History Tobacco UseTypesPacks/DayYears UsedDateSmoking Tobacco: VdvsseXkpgerytlr242 06/17/2008 - 06/17/2023Smokeless Tobacco: Never Tobacco Cessation:Counseling Given: Not Answered Comments:I switched to vaping Alcohol UseStandard Drinks/WeekCommentsYes2 (1 standard drink = 0.6 oz pure alcohol)1-2 drinks on a typical dayCommentsUnknownSex and Gender InformationValueDate RecordedSex Assigned at BirthNot on fileLegal SexFemale 08/28/2022 6:36 PM EDTGender IdentityNot on fileSexual OrientationNot on file Last Filed Vital Signs Vital SignReadingTime TakenCommentsBlood Skcwnynk063/8007 9:35 AM EDT Shjlm88281 8:59 AM ESTTemperature--Respiratory Ddqh435201/13/2025 9:35 AM EDTOxygen Saturation--Inhaled Oxygen Concentration--Yhxsix87.5 kg (146 lb 9.6 oz)01/13/2025 9:35 AM QUJNnwzzj495.1 cm (5' 5 )01/13/2025 9:35 AM EDTBody Mass Index24.407 9:35 AM EDT Plan of Treatment DateTypeDepartmentCare Team (Latest Contact Info)Lqpbxygmlsf44/19/2025 10:00 AM ESTProcedure Visit [facility] [address] [place] [phone] Dot Calvo PA [address] [place] [address] Procedures Procedure NamePriorityDate/TimeAssociated DiagnosisCommentsMR BRAIN W AND WO CONTRAST (ROUTINE)Zhkzmky2401/26/2025 11:51 AM EDT Multiple sclerosis (HCC) from Last 3 Months Results * MR brain w and wo contrast routine (01/26/2025 11:51 AM EDT)Anatomical Region LateralityModalityBrainMagnetic ResonanceSpecimen (Source)Anatomical Location / LateralityCollection Method / VolumeCollection TimeReceived Time01/26/2025 2:26 PM EDT Impressions 01/26/2025 2:37 PM EDT New rim-enhancing 9 x 7 x 13 mm lesion within the periventricular white matter of the right frontallobe most likely representing demyelinating plaque of multiple sclerosis. Otherwise no significant interval change. ELECTRONICALLY SIGNED BY: Jim Stockton DO Narrative 01/26/2025 2:37 PM EDT EXAM: MR BRAIN W AND WO CONTRAST [...] in greatest dimension. This appears to be extra- axial and may have a tiny dural tail, favored to represent a meningioma rather than lesion of MS. Prominence of the sulci and ventricles compatible with mild generalized parenchymal volume loss. Noacute hemorrhage, mass effect, midline shift, or abnormal extra-axial fluid collection. There is diffuse thinning of the corpus callosum. No overt abnormality of the pituitary gland. Rachel and midbrain appear within normal limits. There is no diffusion restriction. No susceptibility artifact is identified on the gradient echo sequence. ?? The major intracranial vascular flow voids are maintained. Cranial nerve 7/8 complexes appear grossly unremarkable. ??The visualized paranasal sinuses and bilateral mastoid air cells are clear. Procedure Note Jim Stockton, - 01/26/2025 EXAM: MR BRAIN W AND WO CONTRAST (ROUTINE) History: Multiple sclerosis Technique: Multiplanar multisequence MRI of the brain was performedwithout and with contrast. Comparison: MRI of the brain February 07, 2023 Findings: Bilateral supratentorial periventricular and subcortical white matterlesions and right cerebellar peduncle lesion are again identified and donot appear significantly changed. There is a new rim-enhancing lesion ofthe periventricular white matter of the right frontal lobe measuringapproximately 9 mm x 7 mm x 13 mm in craniocaudal dimension. An avidlyenhancing lesion of the anterior right frontal region just superior to theorbit has not safely changed, measuring approximately 1.2 cm in greatestdimension. This appears to be extra-axial and may have a tiny dural tail,favored to represent a meningioma rather than lesion of MS. Prominence of the sulci and ventricles compatible with mild generalized parenchymal volume loss. No acute hemorrhage, mass effect, midline shift,or abnormal extra-axial fluid collection. There is diffuse thinning of thecorpus callosum. No overt abnormality of the pituitary gland. Rachel andmidbrain appear within normal limits. There is no diffusion restriction. No susceptibility artifact isidentified on the gradient echo sequence. The major intracranial vascular flow voids are maintained. Cranial nerve7/8 complexes appear grossly unremarkable. The visualized paranasalsinuses and bilateral mastoid air cells are clear. IMPRESSION: New rim-enhancing 9 x 7 x 13 mm lesion within the periventricular whitematter of the right frontal lobe most likely representing demyelinatingplaque of multiple sclerosis. Otherwise no significant interval change. ELECTRONICALLY SIGNED BY: Jim Stockton DO Authorizing ProviderResult TypeResult StatusBrejarvis Hernandez MDIMG MRI PROCEDURES Final Result from Last 3 Months Insurance Care Teams Team MemberRelationshipSpecialtyStart DateEnd Oh White MD [address] [place] [address] PCP - GeneralFamily Neetotoq99/11/23
--- OUTSIDE RECORDS SUMMARY | 2025-04-05 15:55 | XMS_ITS | Clinical Summary ---
Author Organization [facility] Address [address] 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
--- OUTSIDE RECORDS SUMMARY | 2025-04-05 15:55 | XMS_ITS | CCD ---
Author Organization [facility] Care Team Providers Care Wax Pattern Repairer Name Role Phone MD Francesca Sands Primary Care Provider [phone] CHANTEL Blancas Attending Provider CLAYTON BLANCAS Admitting Unavailable CLAYTON BLANCAS Attending Unavailable CLAYTON BLANCAS Consulting Unavailable CLAYTON BLANCAS Primary Care Unavailable DR FRANCESCA SANDS Primary Care Unavailable FABIO ECHOLS Attending Unavailable SUSAN ECHOLSOE Admitting Unavailable DR FRANCESCA SANDS Primary Care Unavailable SHAVON, DR MA Admitting Unavailable DR FRANCESCA SANDS Attending Unavailable DR FRANCESCA SANDS Consulting Unavailable WEST, DR TYLER Méndez Consulting Unavailable CLAYTON BLANCAS Attending Unavailable CLAYTON BLANCAS Consulting Unavailable CLAYTON BLANCAS Primary Care Unavailable CLAYTON BLANCAS Admitting Unavailable MD Francesca Sands Primary Care Provider [phone] DO Marty Jade Attending Provider Marty Jade Admitting Unavailab Marty Rider Attending Unavailab Francesca Marie Primary Care Unavailable Francesca Sands Primary Care Unavailable Clayton lBancas Admitting Unavailable Clayton Blancas Attending Unavailable Marty Jade Admitting Unavailab Marty Rider Attending Unavailab Francesca Marie Primary Care Unavailable Francesca Sands MD Primary Care Provider [phone] Francesca Sands MD Primary Care Provider [phone] Francesca Sands MD Primary Care Provider [phone] PCP, NO PCP Primary Care Unavailable MILLY DEMARCO Attending Unavailable Francesca Sands MD Primary Care Provider [phone] FRANCESCA SANDS Primary Care Unavailable SELF Referring Unavailable GAL NOGUEIRA Attending Unavailable SURINDER HERNANDEZ Attending Unavailable SURINDER HERNANDEZ Referring Unavailable Marcio Navarro Attending Unavailable Allergies Allergy ClassificationReported Allergen(s)Allergy TypeDate of OnsetReaction(s) Facility (2 sources)diphenhydrAMINE; Translations: [Benadryl]Drug AllergyThe [facility] [place] Rep[facility] (5 sources)OtherPropensity to adverse ruoenxyfp43-46-4204VGGN Healthcare Medications Current Medications MedicationDrug Class(es)DatesSig (Normalized)Sig (Original)cyclobenzaprine hydrochloride 5 mg oral tablet (2 sources)Muscle RelaxantStart: 12-05-2023 End: 71-65-8187vjlh 1 tablet by mouth at bedtimecyclobenzaprine (Flexeril) 5 MG tablet Indications: Cervical paraspinal muscle spasm Take 1 tablet (5 mg) by mouth at bedtime 90 tablet 2 12/05/2023 03/04/2024 Activetake 1 tablet by mouth once daily at bedtimecyclobenzaprine (Flexeril) 5 MG tablet TAKE ONE TABLET BY MOUTH DAILY AT 9PM AT BEDTIME 0 ActiveLORazepam 0.5 mg oral tablet (2 sources)BenzodiazepineStart: 49-18-2867jmfr 1 tablet by mouth onceLORazepam (Ativan) 0.5 MG tablet Indications: Claustrophobia Take 1 tablet (0.5 mg) by mouth every 12 (twelve) hours if needed for anxiety for up to 1 day 2 tablet 01/13/2025 ActivemetroNIDAZOLE 500 mg oral tablet (1 source)Nitroimidazole AntimicrobialStart: 07-16-2023 End: 99-96-5425myic 1 tablet by mouth in the morningmetroNIDAZOLE (Flagyl) 500 MG tablet Indications: BV (bacterial vaginosis) Take 1 tablet (500 mg) by mouth in the morning and 1 tablet (500 mg) before bedtime. Do all this for 7 days. Do not drink alcohol while taking this medication. 14 tablet 0 07/16/2023 07/23/2023 Xtitgt10 hr oxybutynin chloride 5 mg extended release oral tablet (1 source)Cholinergic Muscarinic Antagonisttake 1 tablet by mouth once daily oxybutynin XL (Ditropan-XL) 5 MG 24 hr tablet TAKE ONE TABLET BY MOUTH DAILY AT 9AM 0 Active Completed/Discontinued Medications MedicationDrug Class(es)DatesSig (Normalized)Sig (Original)amitriptyline hydrochloride 100 mg oral tablet (3 sources)Tricyclic Antidepressant End: 17-11-8892zlue 1 tablet by mouth once daily at bedtimeamitriptyline (ELAVIL) 100 mg tablet Take 100 mg by mouth daily at bedtime. 01/11/2025 DiscontinuedComment on above:Take 100 mg by mouth daily at bedtime.24 hr desvenlafaxine succinate 50 mg extended release oral tablet (8 sources)Serotonin and Norepinephrine Reuptake Inhibitor End: 18-89-7753eeyv 1 tablet by mouth once dailydesvenlafaxine (Pristiq) 50 MG 24 hr tablet TAKE ONE TABLET BY MOUTH DAILY AT 9AM 01/13/2025 Discontinued (Therapy completed)fingolimod 0.5 mg oral capsule (3 sources)Sphingosine 1-phosphate Receptor ModulatorStart: 12-23-2016 End: 74-42-7369yccg 1 capsule by mouth once dailyfingolimod (GILENYA) 0.5 mg cap Indications: Multiple sclerosis (HCC) Take 1 capsule by mouth once daily. 90 capsule 3 12/23/2016 01/11/2025 DiscontinuedComment on above:Take 1 capsule by mouth once daily.gabapentin 300 mg oral capsule (10 sources)Anti-epileptic AgentStart: 11-04-2017 End: 01-06-1949dtlm 1 capsule by mouth three times dailygabapentin (NEURONTIN) 300 mg capsule TAKE ONE CAPSULE BY MOUTH 3 TIMES A DAY 90 capsule 11 11/04/2017 01/11/2025 DiscontinuedComment on above:TAKE ONE CAPSULE BY MOUTH 3 TIMES A DAY iv contrast (will be provided with radiology test) (2 sources)Start: 01-11-2025 End: 00-51-2462cwuumi 1 dose intravenously onceiv contrast (will be provided with radiology test) [...] administration guidelines link 1 each 01/11/2025 01/12/2025 ExpiredStart: 01-11-2025 End: 31-92-4930xt contrast (will be provided with radiology test) MRI CSP Inject, intravenously, [...] administration guidelines link. 1 each 01/11/2025 01/12/2025 Expiredlevothyroxine sodium 0.125 mg oral tablet (3 sources)l-Thyroxine End: 62-52-7500dzyt 1 tablet by mouth once dailylevothyroxine (SYNTHROID) 125 mcg tablet Take 125 mcg by mouth once daily. 01/11/2025 DiscontinuedComment on above:Take 125 mcg by mouth once daily.lisdexamfetamine dimesylate 50 mg oral capsule (10 sources)Central Nervous System StimulantStart: 04-13-2024 End: 90-78-4241xflq 1 capsule by mouth in the morninglisdexamfetamine (Vyvanse) 50 MG capsule Indications: Multiple sclerosis (HCC) , ADD (attention deficit disorder) without hyperactivity TAKE ONE CAPSULE (50 MG) BY MOUTH IN THE MORNING 30 capsule 04/13/2024 01/13/2025 Discontinued (Therapy completed)Start: 46-06-0870knqo 1 capsule by mouth in the morninglisdexamfetamine (Vyvanse) 50 MG capsule Indications: Multiple sclerosis (CMS/HCC) , ADD (attentiondeficit disorder) without hyperactivity TAKE ONE CAPSULE (50 MG) BY MOUTH IN THE MORNING 30 wahiwqw5803/05/2024 ActiveStart: 2023 End: 93-07-0187gifu 1 capsule by mouth in the morninglisdexamfetamine (Vyvanse) 50 MG capsule Indications: Multiple sclerosis (CMS/HCC) , ADD (attentiondeficit disorder) without hyperactivity TAKE ONE CAPSULE (50 MG) BY MOUTH IN THE MORNING 30 ndirmbt7403/05/2024 04/13/2024 Discontinuedtake 1 capsule by mouth in the morninglisdexamfetamine (Vyvanse) 40 MG capsule Take 40 mg by mouth in the morning. 0 ActivemedroxyPROGESTERone (3 sources)Progestin End: 78-75-1890HISYKHTOBCDQNJMOGWO ACETATE (DEPO-PROVERA INTRAMUSC.) Inject intramuscularly every 3 months. 01/11/2025 DiscontinuedMEDROXYPROGESTERONE ACETATE (DEPO-PROVERA INTRAMUSC.) Inject intramuscularly every 3 months. 0 Activ eComment on above:Inject intramuscularly every 3 months.0.4 ml ofatumumab 50 mg/ml pen injector (8 sources)GC29-ovifcipa Cytolytic AntibodyStart: 12-08-2023 End: 20-32-1379gybhlwnmnu (Kesimpta) 20 MG/0.4ML injection Indications: Multiple sclerosis (HCC) Inject subcutaneously once every 30 days 0.4 mL 11 12/08/2023 01/13/2025 Discontinued (Therapy completed)Start: 71-59-1041hdyxehffpk (Kesimpta) 20 MG/0.4ML injection Indications: Multiple sclerosis (CMS/HCC) Inject subcutaneously once every 30 days 0.4 mL 11 05/12/2023 Ljizux28 hr propranolol hydrochloride 60 mg extended release oral capsule (7 sources)beta-Adrenergic BlockerStart: 11-03-2023 End: 64-68-4822kfrd 1 capsule by mouth once dailypropranolol LA (Inderal LA) 60 MG 24 hr capsule Indications: Multiple sclerosis (HCC) , Shakiness ,Racing heart beat TAKE 1 CAPSULE BY MOUTH DAILY DO NOT CRUSH, CHEW, OR SPLIT 90 capsule 1 11/03/2023 01/13/2025 Discontinued (Therapy completed)valACYclovir 500 mg oral tablet (8 sources)Herpesvirus Nucleoside Analog DNA Polymerase Inhibitor, Herpes Simplex Virus Nucleoside Analog DNA Polymerase Inhibitor, Herpes Zoster Virus Nucleoside Analog DNA Polymerase Inhibitor End: 47-11-9683pvdf 1 tablet by mouth once dailyvalACYclovir (Valtrex) 500 MG tablet TAKE ONE TABLET BY MOUTH DAILY AT 9AM 01/13/2025 Discontinued (Therapy completed) Problems Active Problems Problem ClassificationProblemDateDocumented DateEpisodic/ChronicAnxiety disorders (2 sources)Claustrophobia; Translations: [Claustrophobia]60-36-1791Vjcdmqo Blindness and vision defects (1 source)Blurring of visual image; Translations: [Other visual disturbances] 28-14-8563QnczquxlWegudekjfp and other anemia (1 source)Anemia, unspecified; Translations: [ANEMIA UNSPECIFIED]Onset: 88-39-1879NzcfpetkEsxoelqm mellitus without complication (1 source)Type 2 diabetes mellitus without complications; Translations: [TYPE 2 DM WITHOUT COMPLICATIONS]Onset: 38-50-7200XowuwqhIgyxdjxff of lipid metabolism (1 source)Hyperlipidemia, unspecified; Translations: [HYPERLIPIDEMIA UNSPECIFIED]Onset: 57-80-3427WkrudnkPrmljnupk usually diagnosed in infancy, childhood, or adolescence (10 sources)Attention deficit hyperactivity disorder, predominantly inattentive type; Translations: [Other specified behavioral and emotional disorders with onset usually occurring in childhood and adolescence]Onset: ChronicHeadache; including migraine (8 sources)Migraine; Translations: [Migraine, unspecified, not intractable, without status migrainosus]Onset: 508148-96-1147WlgaivjBklu disorders (6 sources)Major depression, single episode; Translations: [Major depressive disorder, single episode, unspecified]Onset: 196300-21-6837JwpnklmYuzavcaf sclerosis (20 sources)Multiple sclerosis; Translations: [Multiple sclerosis]Onset: 22-35-4997FmtjgxeZdbxbxecilq chest pain (1 source)Chest pain, unspecified; Translations: [Chest pain, unspecified]Onset: 29-15-2544NuumrzodNtwrevjfbcw deficiencies (1 source)Vitamin D deficiency, unspecified; Translations: [VITAMIN D DEFICIENCY UNSPECIFIED]Onset: 61-52-7943KkgvulfPttmj aftercare (1 source)Other care home (current) drug therapy; Translations: [OTH SENIOR LIVING CURRENT DRUG THERAPY]Onset: 86-74-2868SweuauaxPdwds aftercare (1 source)Patient encounter status; Translations: [Encounter for therapeutic drug level monitoring]34-06-2054PftkkfetVcikp aftercare (1 source)Encounter for therapeutic drug level monitoring; Translations: [Medication monitoring encounter]Onset: 07-75-6191ExnkkrmoHmedd and unspecified benign neoplasm (1 source)Neoplasm of meninges; Translations: [Benign neoplasm of meninges, unspecified]55-34-4693FwoderkRytgf nervous system disorders (1 source)NumbnessOnset: 09-78-4804ElcydhkdSsmgq screening for suspected conditions (not mental disorders or infectious disease) (1 source)Encounter for screening mammogram for malignant neoplasm of breast; Translations: [ENC SCR MAMMO MALIG NEOPLASM BREAST]Onset: 08-09-8600Hbjbqmat Paralysis (6 sources)Monoplegia of left nondominant upper limb; 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]Onset: hronic Residual codes; unclassified (1 source)Family history of malignant neoplasm of breast; Translations: [FAMILY HX MALIG NEOPLASM OF BREAST]Onset: 53-56-2826EqqrwxshGitxbrnu codes; unclassified (1 source)Procedure and treatment not carried out due to patient leaving prior to being seen by health care provider; Translations: [Procedure and treatment not carried out due to patient leaving prior to being seen by health care provider]Onset: 04-99-8234ZrukjwwhIwvejfu disorders (2 sources)Hypothyroidism; Translations: [Hypothyroidism, unspecified]Onset: 500610-64-8367VrmiktePnigrmqqvcaq (1 source)Medical ScreeningOnset: 10-22-2024 Past or Other Problems Problem ClassificationProblemDateDocumented DateEpisodic/ChronicConditions associated with dizziness or vertigo (8 sources)Dizziness; Translations: [Dizziness and giddiness]Onset: 03-24-2023 94-16-9007HkyyyquvTlxolgy and fatigue (11 sources)Other fatigue; Translations: [Asthenia]Onset: 11-71-0126Uzcsbdqc Other connective tissue disease (7 sources)Spasm of cervical paraspinous muscle; Translations: [Other muscle spasm]Onset: 452076-42-8899YdfqtdpySxwfz nervous system disorders (8 sources)Abnormal gait; Translations: [Unspecified abnormalities of gait and mobility]Onset: 882533-05-2002UkhyqctbGuaff nervous system disorders (6 sources)Paresthesia; Translations: [Paresthesia of skin]Onset: 03-01-2024 48-22-1197OloilncdBgtosooi codes; unclassified (6 sources)Edema; Translations: [Edema, unspecified]Onset: EpisodicResidual codes; unclassified (6 sources)Insomnia; Translations: [Insomnia, unspecified]Onset: 03-01-2024 84-64-4661HxuvmagsLbsuu infection (6 sources)Disease caused by 2019-nCoV; Translations: [COVID-19]Onset: 186143-72-6371Yrpbwzhf Results Test NameValueInterpretationReference RangeFacilityXR Chest Single Viewon [id number] Chest Single ViewExam Date/Time: 03/08/2025 16:28 EDT Reason for Exam: Chest pain Report IMPRESSION: No acute findings by portable radiography. EXAMINATION/TECHNIQUE: XR Chest Single View HISTORY: Chest pain. Shortness of breath. Smoking history. COMPARISON: None RESULT: No consolidation. No pleural effusion. No pneumothorax. Hyperinflated lungs. Normal cardiomediastinal silhouette. No acute osseous findings. Ordering Provider: Marcio Navarro FINAL REPORT Dictated: 03/09/2025 10:08 am Mateo Marks MD Signed (Electronic Signature): 03/09/2025 10:08 am Signed by: Mateo Marks MD Transcribed by: GRICELDA Technologist: [facility] HospitalBMPon 84-58-6764Pasyk gap [Moles/Vol]9 mmol/LNormal16[facility] Comment on above:Performed By: #### [id number] #### [facility] [address] [place] [address] 36966MHU/Creat Ratio10 No SrshxDyhuto60-60IdwnzbChillicothe Va Medical CenterComment on above:Performed By: #### [id number] #### [facility] [address], [place] [address]Adiqeiq [Mass/Vol]9.2 mg/dLNormal8.9-11.1FMemorial Health System Selby General HospitalComment on above:Performed By: #### [id number] #### [facility] [address], [place] [address]Yaljxttd [Moles/Vol]105 mmol/TIdwomn458-124ZczalwChillicothe Va Medical CenterComment on above:Performed By: #### [id number] #### [facility] [address], [place] [address]YB6 [Moles/Vol]25 mmol/UJofxwi15-55NkubgrChillicothe Va Medical Center Comment on above:Performed By: #### [id number] #### [facility] [address], [place] [address]Hpgpbvcnxx [Mass/Vol]1.0 mg/dLNormal0.5-1.3FMemorial Health System Selby General HospitalComment on above:Performed By: #### [id number] #### [facility] [address], [place] [address]Xdnhnmb [Mass/Vol]95 mg/aDFielxa39-825RlbjdrChillicothe Va Medical CenterComment on above:Performed By: #### [id number] #### [facility] [address], [place] [address]Ocnbdjklc [Moles/Vol]3.7 mmol/LNormal3.5-5.3FMemorial Health System Selby General HospitalComment on above:Performed By: #### [id number] #### [facility] [address], [place] [address]Cehnql [Moles/Vol]135 mmol/AUtumip731-672ZgqyfoChillicothe Va Medical CenterComment on above:Performed By: #### [id number] #### [facility] [address], [place] [address]Saza nitrogen [Mass/Vol]10 mg/dLNormal5-21[facility] CenterComment on above:Performed By: #### [id number] #### [facility] [address], [place] [address]QXN w/ Auto Diffon 29-81-4425Hmkepxug Absolute0.1 E9/LNormal 0.0-0.2FMemorial Health System Selby General HospitalComment on above:Performed By: #### [id number] #### [facility] [address] [place] [address] 860[address]Gxssqjmmp/100 WBC (Bld)1.6 %Normal0.0-2.0[facility] CenterComment on above:Performed By: #### [id number] #### [facility] [address] [place] [address] 13608Wkf Absolute0.2 E9/LNormal0.0-0.5FMemorial Health System Selby General Hospital Comment on above:Performed By: #### [id number] #### [facility] [address] [place] [address] 676[address]Opfwehafnyv/100 WBC (Bld)2.2 %Normal0.0-8.0[facility] CenterComment on above:Performed By: #### [id number] #### [facility] [address] [place] [address] 646[address]Qpiwbojmbok distribution width (RBC) [Ratio]13.8 %Normal 10.9-14.2FMemorial Health System Selby General HospitalComment on above:Performed By: #### [id number] #### [facility] [address] [place] [address]05[address]Sfeezghshe (Bld) [Volume fraction]42.0 %Asbnxs35.0-46.0[facility] CenterComment on above:Performed By: #### [id number] #### [facility] [address] [place] [address]Zwchideoxu (Bld) [Mass/Vol]14.7 g/xZJiyyrc82.0-16.0[facility] CenterComment on above:Performed By: #### [id number] #### [facility] [address] [place] [address] 17[address]Pezps Absolute2.1 E9/LNormal1.0-4.0[facility] Comment on above:Performed By: #### [id number] #### [facility] [address] [place] [address] 14287Czfkvnfzwjp/100 WBC (Bld)23.2 %Ogzzhb76.0-50.0[facility] CenterComment on above:Performed By: #### [id number] #### [facility] [address] [place] [address] 34540ILY (RBC) [Entitic mass]29.9 teGqlnox36.0-34.0[facility] CenterComment on above:Performed By: #### [id number] #### [facility] [address] [place] [address] 15566YLDB (RBC) [Mass/Vol]34.9 g/hFPygtlk15.4-36.0[facility] CenterComment on above:Performed By: #### [id number] #### [facility] [address] [place] [address] 03721LNT (RBC) [Entitic vol]85.8 cOSgmrug47.0-100.0[facility] CenterComment on above:Performed By: #### [id number] #### [facility] [address] [place] [address] 48[address]Eojk Absolute0.9 E9/LNormal0.2-1.0[facility] Comment on above:Performed By: #### [id number] #### [facility] [address] [place] [address] 15130Zecwhktxb/100 WBC (Bld)9.9 %Normal4.0-14.0[facility] CenterComment on above:Performed By: #### [id number] #### [facility] [address] [place] [address] 068[address]Vpmoqq Absolute5.7 E9/LNormal2.0-7.5FMemorial Health System [facility]by General Hospital Comment on above:Performed By: #### [id number] #### [facility] [address] [place] [address] 546[address]Jcpxur Auto63.1 %Xfbszo30.0-75.0[facility] Comment on above:Performed By: #### [id number] #### [facility] [address] [place] [address] 20941Ncqimeuh090.0 E9/SGleqak777.0-500.0[facility] Comment on above:Performed By: #### [id number] #### [facility] [address] [place] [address] 84752Kpgjunoi mean volume (Bld) [Entitic vol]8.3 fLNormal6.4-10.8 [facility] CenterComment on above:Performed By: #### [id number] #### [facility] [address] [place] [address] 80079FIL4.9 E12/LNormal4.3-5.9[facility] CenterComment on above:Performed By: #### [id number] #### [facility] [address] [place] [address] 28665HAQ3.1 E9/LNormal4.0-11.0[facility] CenterComment on above:Performed By: #### [id number] #### [facility] [address] [place] [address] 568[address]EI Clinical Summaryon [id number] Clinical SummaryED Clinical Summary [address] [address] ED Clinical Summary Person Information Name: MARTHA MARQUEZ Kathi/[facility] Age: 39 Years : 1985 Sex: Female Language: Burkinan PCP: Francesca Sands MD Marital Status: Phone: [phone] Visit Id: Visit Reason: Paresthesia; Shortness of [...] 03/08/2025 19:28:37 03/08/2025 19:28:37 03/08/2025 19:28:37 ADDRESS: [address] [place] [address] [facility] [id number] PHYS DOC NOTES: MEDICAL INFORMATION: Prescriptions Given: New Medications [id number], [address], [place] [id number], [phone] predniSONE (predniSONE 20 mg Tab) 3 By Mouth every day. Refills: 0. Medications to Continue with No Changes Other Medications acetaminophen-hydrocodone (Prichard 325 mg-5 mg oral tablet) 1 Tablets [...] Instructions: Follow up: With: Address: When: Francesca Sands [address] [facility], [place] [address] Business (1) In 3 days DIAGNOSIS: Chest pain; ParesthesiasNormalFisher Elroy Medical CenterED Note-Physicianon [id number] Note-PhysicianED Note-Physician Basic Information Time Seen: Marcio Navarro DO 03/08/2025 16:03 Chief Complaint patient presents with chest pain and SOB that started 1 hour ago when she woke up from nap. also c/o left sided numbness that started 1 month. hx MS History of Present Illness MsKory Marquez is a 39 year old female with a PMHx of multiple sclerosis who presents to the d/t chest pain and SOB that began after waking from a nap about 1 hr ago. She states heart conditions run in her family which prompted her to come here. She does note L sided numbness which has been ongoing for the last month. Patient states she has not taken any medications and is not on any ant icoagulants but reports smoking hx. patient states that [...] <1% risk of major adverse cardiac event in30 days. Medical Decision Making Workup in the ER has been reviewed and noted. Initial cardiac workup including EKG chest x-ray 2 negative cardiac enzymes reviewed and noted. Ultimately patient is discharged home will be provided with some prednisone as this may help with the MS flareup and also may help with any bronchospasm thatmiguele is having could be playing a role in her chest discomfort. She is to follow-up in the outpatient setting return to ER symptoms change or worsen. We did offer CT scan she declined stating she justhad MRI I think this is reasonable given [...] Daily, # 15 tab(s), Refills(s) 0, Pharmacy: [id number], 165.1, cm, 03/08/25 16:05:00 EDT, Height/Length Dosing, 64.2, kg, 03/08/25 16:05:00 EDT, Weight Dosing Basic Metabolic Panel CB (more content not included)...[facility] CenterComment on above:Result Comment: Electronically Signed By: Marcio Navarro DO\.br\Date and Time Signed: 03/08/25 19:13EDTED Patient Education Noteon [id number] Patient Education NoteED Patient Education NoteNoFort Hamilton Hospital CenterED Patient Summaryon [id number] Patient SummaryED Patient Summary [place] [id number] Patient Discharge Instructions Person Information Name: MARTHA MARQUEZ Age: 39 Years Arrival Date: 03/08/2025 15:58:45 Discharge Diagnosis: Chest pain; Paresthesias Primary Care Physician: Francesca Sands MD Provider Information Primary Provider: Marcio Navarro DO Advanced Washer Assembler:None The exam and treatment you received in the Emergency Department were for an urgent problem and are not intended as complete care. It is important that you follow up with a doctor, nurse practitioner,or physician???s marketing administrative assistant for ongoing care. If your symptoms become worse or you do not improve asexpected and you are unable to reach your usual health care provider, you should return to the Emergency Department. We are available 24 hours a day. MARTHA MARQUEZ has been given the following list of patient education materials, prescriptions and follow-up instructions: Follow-up Instructions: With: Address: When: Francesca Sands [address] [facility], [address] [place] [address] Business (1) In 3 days In the event that this physician does not participate in your insurance network, please consult with your insurance company to find a nearby participating provider. Patient Education Materials: A MESSAGE TO ALL PATIENTS REGARDING OPIOIDS PRESCRIPTION OPIOIDS: WHAT YOU NEED TO KNOW Prescription opioids can be used to help relieve nnjaifre-mh-eshcyj pain and are often prescribed following a [...] guidance from the Food and Drug Administration (www.fda.gov/Drugs/ResourcesForYou). ??? Visit www.cdc.gov/drugoverdose to learn about the risks of opioids abuse and overdose. ??? If you believe you may be struggling with addiction, tell your health resident care manager and askfor guidance or call [facility]??? (more content not included)...[facility] CenterPT & PTTon 37-48-6918GMZ Coag (PPP) [Relative time]0.96 {INR}Invalid Interpretation [facility] Comment on above:Result Comment: INR results are specifically intended to assess patients stabilized on long-term Anticoagulation therapy suggested INR???s ???Less Intensive Anticoagulation??? 2.0 ??? 3.0 Conventional Range 3.0 ??? 4.5Performed By: #### [id number] #### [facility] [address], [place] [address]BP04.7 second(s)Normal9.4-12.5[facility] Comment on above:Result Comment: 15 days - 4 weeks 1 - 5 months 6 -11 months 1 ??? 5 years 6 ??? 10 years 11 -17 years Mean: 11.2 (9.5 ??? 12.6) Mean: 11.0 (9.7 ??? 12.8) Mean: 11.0 (9.8 ??? 13.0) Mean: 11.3 (9.9 ??? 13.4) Mean: 11.7 (10.0 ??? 14.6) Mean: 11.8 (10.0 - 14.1) Pediatric Reference ranges were obtained from a study by helena Dickens. prepared from 1437 samples obtained at 7 different centers using the same coagulation reagent and instrumentation as [facility]. Currently there are no coagulation studies available worldwide for children to 14 days, andno normal ranges.Performed By: #### [id number] #### [facility] [address], [place] [address]DHE79.2 second(s)Zwuhho55.1-36.5[facility] Comment on above:Result Comment: Parameter 15 days - 4 weeks 1 - 5 months 6 - 11 months 1 - 5 years 6 - 10 years 11 - 17 years PTT Mean: 35.4 (27.6-45.6) Mean: 33.5 (24.8-40.7) Mean: 32.4 (25.1-40.7) Mean: 31.6 (24.0-39.2) Mean: 31.6 (26.9-38.7) Mean: 31.0 (24.6-38.4) Pediatric Reference ranges were obtained from a study by stephanie Dickens prepared from 1437 samples obtained at 7 different centers using the same coagulation reagent and instrumentation as [facility]. Currently there are no coagulation studies available worldwide for children to 14 days, andno normal ranges. Heparin therapeutic range (represented by Anti-Factor Xa activity of 0.2 - 0.4 U/mL) corresponds to PTT of 56.6 - 109.0 sec.Performed By: #### [id number] #### [facility] [address], [place] [address]Nibagfts 0 Hr.on 31-98-8087Yxbvkjaw HS4.90 pg/mLLow10.10-27.10 [facility] CenterComment on above:Result Comment: The 95% CI (Confidence Interval) PPV (Positive Predictive Value) for myocardial infarction in females is 38 pg/mL, in males 51 pg/mL. The results should be used in conjunction with clinical conditions of myocardial infarction. (Access High Sensitivity Troponin I Instructions For Use, SureDone, January 2018)Performed By: #### [id number] #### [facility] [address], [place] [address]Etsyqkvy 1 Hr.on 73-67-5374Utnybplv HS<2.12Jco75.10-27.10[facility] CenterComment on above:Order Comment: 1 hour due at 1744Result Comment: The 95% CI (Confidence Interval) PPV (Positive Predictive Value) for myocardial infarction in females is 38 pg/mL, in males 51 pg/mL. The results should be used in conjunction with clinical conditions of myocardial infarction. (Access High Sensitivity Troponin I Instructions For Use, SureDone, January 2018)Performed By: #### [id number] #### [facility] [address], [place] [address]yDIAgt 28-56-2160hPXR31 mL/min/1.73 y1Zrdiju>=59[facility] CenterComment on above:Performed By: #### [id number] #### [facility] [address], [place] [address]CJ BRAIN W AND WO CONTRAST (ROUTINE)on 08-08-7250RB BRAIN W AND WO CONTRAST (ROUTINE)EXAM: MR BRAIN W AND WO CONTRAST (ROUTINE) [...] significant interval change. ELECTRONICALLY SIGNED BY: Jim Stockton, JesikamalNot PitojfaadEV60 ABSOLUTE COUNTon 40-99-7540QZ9-CD19+ cells (Bld) [#/Vol]278 cells/oNNtuglq16-404AkaahksbjAdams County Regional Medical Center on above:Order Comment: Specimen Type: BLOOD SPECIMEN Ordering Facility: [facility] Address: ATTN: [place], [place] [address]Performed By: #### [id number] #### [facility] CLIA [id number] [address] [address] [place] OF AMERICACD3-CD19+ cells/100 cells (Bld)15 %Normal5-22[facility] on above:Order Comment: Specimen Type: BLOOD SPECIMEN Ordering Facility: [facility] Address: ATTN: [place], [place] [address]Performed By: #### [id number] #### [facility] CLIA [id number] [address] [address] [place] OF AMERICALymphocytes/100 WBC FC (Bld) NormalAdams County Regional Medical Center on above:Order Comment: Specimen Type: BLOOD SPECIMEN Ordering Facility: [facility] Address: ATTN: JASON, [place], [place] [address]Nlnsytfwu By: #### [id number] #### [facility] BELLAIA [id number] [address] [place], [place] [address] [place] [facility] HOSPITALCNOVon 05-84-0479ZENXLgftoa Visit ([facility]ENTERChiqui) MARTHA MARQUEZ ([id number]) 1985 F Date Time Provider Department 01/11/25 2:30 PM GAL [facility]UEIRA [facility] During your visit today, we recorded the following information about you: Blood pressure Weight 124/84 65 kg 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 Switched from Ocrevus to Kesimpta given perceived lack of benefit. Switched Adderall to Vyvanse for cognitive symptoms. Last office visit 11/2023. Reports wanted to continue following with Dr Hernandez but her kids felt she should follow up at [facility] since she was historically seen here. Admits she has difficulty driving to [place] and [place] would be easier. Lost on way to appt today and arrived at 3:09 for 2:30 appt. Has been without all medications for the past 6 months or so. Reports medical records got messed up . Liked Kesimpta and was tolerating well. [place] she was able to manage injections. Had [...] or illnesses. Neuro-QoL Functions (higher=better functioning) Flowsheet [facility] from 02/21/[address] [facility] Office Visit from 08/14/[address] [facility] Appointment from 07/03/[address] [facility] Upper Extremity Domain T Score 30 35.13 45.23 Lower Extremity Domain T Score 36 44.4 44.4 Cognitive Function Domain T Score 38 -- -- Positive Affect Well Being T Score -- -- -- Ability To Participate In Social Roles T Score 42 -- -- Satisfaction With Social Roles T Score 46 -- -- Neuro-QoL Symptoms (higher=worse symptoms) Flowsheet [facility] Distance Health from 02/21/[address] [facility] Office Visit from 08/14/[address] [facility] Appointment from 07/03/[address] [facility] Sleep Domain T Score 65 65.92 74.44 Fatigue Domain T Score 65 58.38 65.37 Anxiety Domain T Score 63 -- -- Depression Domain T Score 58 -- -- Stigma Domain T Score 60 -- -- Emotional Behavior Dyscontrol T Score -- -- -- has a past medical history of Migraine and MS (multiple sclerosis) (HCC). currently has no medications in their medication list. EXAM: BP 124/84 Wt 65 kg (143 lb 3.2 oz) BMI 23.83 kg/m? MSPT Results Flowsheet [facility] Office Visit from 12/23/[address] [facility] Office Visit from 08/14/[address] [facility] Appointment from 07/03/[address] [facility] Processing Speed Total Number Correct 47 -- [...] examination showed normal l (more content not included)...NormalUniversity Hospitals [facility] WITH AUTO DIFFERENTIALon 45-37-8252FGCVPGHEA ABSOLUTE COUNT (10*3/UL) BY AUTOMATED COUNT 0.1 10*3/uLNormal0.0-0.2ProMedica Corcoran District HospitalComment on above:Performed By: #### CBCA #### [facility]GLENNYehuda [facility] ([facility]) [address] [place] [address] [place] [address] VIRBASOPHILS RELATIVE PERCENT BY AUTOMATED COUNT1.4 %Normal [facility] CenterComment on above:Performed By: #### CBCA #### [facility]NYeh[facility] ([facility]) [address] [place] [address] [place] [address] VIRCELLAVISION DIFFERENTIAL TYPEAUTOMATED DIFFERENTIALNormal [facility] Medical CenterComment on above:Performed By: #### CBCA #### [facility] ([address] [place] [address] VIREosinophils (Bld) [#/Vol]0.2 10*3/uLNormal0.0-0.4[facility] Medical CenterComment on above:Performed By: #### CBCA #### [facility] ([address] [place] [address] VIREOSINOPHILS RELATIVE PERCENT BY AUTOMATED COUNT2.9 %Normal [facility] Medical CenterComment on above:Performed By: #### CBCA #### [facility] ([address] [place] [address] VIRErythrocyte distribution width (RBC) [Ratio]13.6 %Normal 11.5-15ProBaylor Scott And White Medical Center – FriscoComment on above:Performed By: #### CBCA #### [facility] ([address] [place] [address] VIRHematocrit (Bld) [Volume fraction]40.3 %Pftkkp53-19 [facility] CenterComment on above:Performed By: #### CBCA #### [facility] ([address] [place] [address] VIRHemoglobin (Bld) [Mass/Vol]13.9 g/aFIrrwdf60.7-15.5 [facility] CenterComment on above:Performed By: #### CBCA #### [facility] ([address] [place] [address] VIRLYMPHOCYTES ABSOLUTE COUNT (10*3/UL) BY AUTOMATED COUNT1.7 10*3/uLNormal1.0-3.5PCleveland Clinic Lutheran HospitalComment on above:Performed By: #### CBCA #### [facility] ([address] [place] [address] VIRLYMPHOCYTES RELATIVE PERCENT BY AUTOMATED COUNT28.4 %Normal [facility] Medical CenterComment on above:Performed By: #### CBCA #### [facility] ([address] [place] [address] VIRMCH (RBC) [Entitic mass]29.6 nvDqheip96-58LjbDtevocBaylor Scott And White Medical Center – FriscoComment on above:Performed By: #### CBCA #### [facility] ([address] [place] [address] VIRMCHC (RBC) [Mass/Vol]34.4 g/dQXqzmhy67-29UgoUxareyBaylor Scott And White Medical Center – FriscoComment on above:Performed By: #### CBCA #### [facility] ([address] [place] [address] VIRMCV (RBC) [Entitic vol]86 gLMtktxq14-285DymBdktuj [place] HospitalComment on above:Performed By: #### CBCA #### [facility] ([address] [place] [address] VIRMONOCYTES ABSOLUTE COUNT (10*3/UL) BY AUTOMATED COUNT0.5 10*3/uLNormal0.0-0.9ProBaylor Scott And White Medical Center – FriscoComment on above:Performed By: #### CBCA #### [facility] ([address] [place] [address] VIRMONOCYTES RELATIVE PERCENT BY AUTOMATED COUNT8.4 %Normal [facility] Medical CenterComment on above:Performed By: #### CBCA #### [facility] ([address] [place] [address] VIRNEUTROPHILS ABSOLUTE COUNT BY AUTOMATED COUNT3.6 10*3/uL Normal1.5-6.6[facility] Medical CenterComment on above:Performed By: #### CBCA #### [facility] ([address] [place] [address] VIRNEUTROPHILS RELATIVE PERCENT BY AUTOMATED COUNT58.9 %Normal [facility] Medical CenterComment on above:Performed By: #### CBCA #### [facility] ([facility]) [address] [place] [address] [place] [address] VIRPlatelet mean volume (Bld) [Entitic vol]8.3 fLNormal7-12 [facility] Medical CenterComment on above:Performed By: #### CBCA #### [facility] ([facility]) [address] [place] [address] [place] [address] VIRPlatelets (Bld) [#/Vol]272 10*3/uOXlybyz166-503HsiWedjux [facility] HospitalComment on above:Performed By: #### CBCA #### [facility] ([address] [place] [address] VIRRBC COUNT4.69 X10E12/LNormal3.8-5.2PCleveland Clinic Lutheran HospitalComment on above:Performed By: #### CBCA #### [facility] ([address] [place] [address] VIRWBC (Bld) [#/Vol]6.1 10*3/uLNormal4-11[facility] Medical CenterComment on above:Performed By: #### CBCA #### [facility] ([address] [place] [address] VIRCOMPREHENSIVE METABOLIC PANELon 96-51-5334Ftzgezf [Mass/Vol]4.3 g/dLNormal3.2-5.3PCleveland Clinic Lutheran HospitalComment on above: Performed By: #### CMP #### [facility] ([facility]) [address] [place] [address] [place] [address] VIRALP [Catalytic activity/Vol]43 U/RQdnynm62-334VgdHcfabbBaylor Scott And White Medical Center – FriscoComment on above:Performed By: #### CMP #### [facility] [address] [place] [address] VIRALT [Catalytic activity/Vol]10 U/LNormal<=31PCleveland Clinic Lutheran HospitalComment on above:Performed By: #### CMP #### [facility] ([place] [address] [place] [address] VIRAnion gap [Moles/Vol]6 mmol/LNormal5-15ProCenterville HospitalComment on above:Performed By: #### CMP #### [facility] ([place] [address] [place] [address] VIRAST [Catalytic activity/Vol]16 U/LNormal<=41ProBaylor Scott And White Medical Center – FriscoComment on above:Performed By: #### CMP #### [facility] ([place] [address] [place] [address] VIRBilirubin [Mass/Vol]0.9 mg/dLNormal0.3-1.2PCleveland Clinic Lutheran HospitalComment on above:Performed By: #### CMP #### [facility] ([place] [address] [place] [address] VIRCalcium [Mass/Vol]9.4 mg/dLNormal8.5-10.5PCleveland Clinic Lutheran HospitalComment on above:Performed By: #### CMP #### [facility] ([place] [address] [place] [address] VIRChloride [Moles/Vol]105 mmol/JQxxoij89-780LkeCmlfxjBaylor Scott And White Medical Center – FriscoComment on above:Performed By: #### CMP #### [facility] ([place] [address] [place] [address] VIRCO2 [Moles/Vol]25 mmol/YXovrmw18-07YflErdymzCleveland Clinic Lutheran HospitalComment on above:Performed By: #### CMP #### [facility] ([place] [address] [place] [address] VIRCreatinine [Mass/Vol]0.96 mg/dLNormal0.40-1.00ProBaylor Scott And White Medical Center – FriscoComment on above:Result Comment: METHOD TRACEABLE TO IDMS STANDARDPerformed By: #### CMP #### [facility] ([address] [address] VIRGFR/1.73 sq M.predicted among non-blacks MDRD (S/P/Bld) [Vol rate/Area]78 mL/min/{1.73_m2}Normal>=60ProBaylor Scott And White Medical Center – FriscoComment on above:Result Comment: eGFR not reported due to non-numeric value for Creatinine. Reported eGFR is based on the CKD-EPI 2020 equation that does not use a race coefficient.Performed By: #### CMP #### [facility] ([address] [address] VIRGlucose [Mass/Vol]96 mg/fKEsnzto69-69RgvEaossuBaylor Scott And White Medical Center – FriscoComment on above:Performed By: #### CMP #### [facility] ([address] [address] VIRPotassium [Moles/Vol]4.1 mmol/LNormal3.5-5.0ProBaylor Scott And White Medical Center – FriscoComment on above:Performed By: #### CMP #### [address] [place] [address] VIRProtein [Mass/Vol]7.2 g/dLNormal6.0-8.0ProBaylor Scott And White Medical Center – FriscoComment on above:Performed By: #### CMP #### [facility] ([address] [address] VIRSodium [Moles/Vol]136 mmol/VTxuhpk697-854ElfLbijeb [place] HospitalComment on above:Performed By: #### CMP #### [facility] ([address] [place] [address] VIRUrea nitrogen [Mass/Vol]11 mg/dLNormal5-23ProBaylor Scott And White Medical Center – FriscoComment on above:Performed By: #### CMP #### [facility] ([facility]) [address] [place] [address]. [place] [address] VIRCT BRAIN WO CONTon 52-97-1602WD BRAIN WO CONTCT BRAIN WO CONT STUDY: CT HEAD WITHOUT [...] by Mendoza Aguirre MD on 10/22/2024 11:46 AMNormalProBaylor Scott And White Medical Center – FriscoMAGNESIUMon 29-83-1194Ewfcgoxbc [Mass/Vol]1.9 mg/dLNormal1.8-2.6 [facility] CenterComment on above:Performed By: #### MG #### [facility] ([facility]) [address] [place] [address]. [place] [address] VIRPOCT NURSING URINE MACROSCOPIC UAon 75-19-4048ARMAFLSIL BRAD NegativeNormalNegativeProBaylor Scott And White Medical Center – FriscoComment on above:Performed By: #### NUM #### [facility] ([facility]) [address] [place] [address] [place] [address] VIRBLOOD/HGB NURNegativeNoalNegativeBarney Children's Medical CenterComment on above:Performed By: #### NUM #### [facility] ([facility]) [address] [place], [place] [address]T [facility] [place] [address] VIRGLUCOSE NURNegativeFentressNegSouthview Medical Center Comment on above:Performed By: #### NUM #### [facility] ([address] [address] VIRKETONES NURNegativeFentressNegSouthview Medical Center Comment on above:Performed By: #### NUM #### [facility] ([address] [address] VIRLEUKOCYTE ESTERASE NURNegativeNoformerly heritage hospital, vidant edgecombe hospitalNegSouthview Medical CenterComment on above:Performed By: #### NUM #### [facility] ([address] [address] VIRNITRITE NURNegativeDayton VA Medical Center Comment on above:Performed By: #### NUM #### [facility] ([address] [place] [address] VIRPH NUR7.6Vbkwpl3.0, 6.0, 6.5, 7.0, 7.5, 8.0, 8.5, 5.5 [facility] CenterComment on above:Performed By: #### NUM #### [facility] ([address] [address] VIRPROTEIN NURNegativeFentressNegSouthview Medical Center Comment on above:Performed By: #### NUM #### [facility] ([address] [address] VIRSPECIFIC GRAVITY NUR1.515Jjzend5.010, 1.015, 1.020, 1.025 [facility] Medical CenterComment on above:Performed By: #### NUM #### [facility] ([address] [address] VIRUROBILINOGEN NUR0.2 E.U./dLNormalBarney Children's Medical Center Comment on above:Performed By: #### NUM #### [facility] ([address] [address] VIRPOCT , URINE (NUCG)on 32-48-5171Afrc HCG ( test) Ql (U)NegativeNormalNegativeBarney Children's Medical CenterComment on above:Performed By: #### NUCG #### [facility] ([address] [address] VIRTROP I, HIGH SENSITIVITY 1 HOURon 79-15-8900VVDYQMKM I, HIGH SENSITIVITY<^2Normal<16ProBaylor Scott And White Medical Center – FriscoComment on above:Performed By: #### TNIHS1 #### [facility] ([address] [address] VIRTROPONIN I, HIGH SENSITIVITY 0 HOURon 09-45-2953NVMIXONC I, HIGH SENSITIVITY2 ng/LNormal<16ProBaylor Scott And White Medical Center – FriscoComment on above: Performed By: #### TNIHS0 #### [facility] ([address] [address] VIRMR cervical spine wo/w conon 37-28-3923EP cervical spine wo/w [facility] [address] MRI Report Signed Patient: Martha Marquez MR#: [id number] : 1985 Acct:[id number] Age/Sex: 37 / F ADM Date: 02/07/23 Loc: MR Room: Type: [facility] Attending Dr: Marty Jade DO Copies to: [...] Daniel Mcgee M.D.02/07/2023 3:10 PM Dictation Location: [place] [address] Transcribed By: [facility] 02/07/23 1510 Dictated By: Daniel Mcgee II, MD 02/07/23 1457 Signed By: 02/07/23 1510[facility] head/brain wo/w conon 69-43-5250QX head/brain wo/w [facility] [address] MRI Report Signed Patient: Martha Marquez MR#: [id number] : 1985 Acct:[id number] Age/Sex: 37 / F ADM Date: 02/07/23 Loc: Room: Type: [facility] Attending Dr: Marty Jade DO Copies to: [...] Daniel Mcgee M.D.02/07/2023 3:21 PM Dictation Location: [place] [address] Transcribed By: [facility] 02/07/23 1521 Dictated By: Daniel Mcgee II, MD 02/07/23 1512 Signed By: 02/07/23 1521[facility]oples HospitalCBC AUTO DIFFon 07-04-2022 BASO #0.0 103/ulNormal0.0-0.1The [facility] OhioComment on above:Performed By: #### TSH, T7, LIPID, CMP #### [facility] [place] [facility] [address] [place], [place] [address] Dr. Shari Rojasphils/100 WBC (Bld)0.6 %Normal0.2-2.0The [facility] [place] Comment on above:Performed By: #### TSH, T7, LIPID, CMP #### [facility] [place] [facility] [address] [place], [place] [address] Dr. Mccarthy ChangEMarnie #0.1 103/ulNormal0.0-0.7The [facility] County Hospitalment on above: Performed By: #### TSH, T7, LIPID, CMP #### [facility] [place] [facility] [address] [place] [address] Dr. Shari Sheltonosinophils/100 WBC (Bld)2.1 %Normal0.9-7.0The [facility] [place] Comment on above:Performed By: #### TSH, T7, LIPID, CMP #### [facility] [place] [facility] [address] [place] [address] Dr. Shari Sheltonrythrocyte distribution width (RBC) [Ratio]13.1 %Bgdajh24.0-15.0 The [facility] Hospitalment on above:Performed By: #### TSH, T7, LIPID, CMP #### [facility] [place] [facility] [address] [place] [address] Dr. Shari MobleyHematocrit (Bld) [Volume fraction]40.0 %Vsakif59.0-48.0The [facility] Hospitalment on above:Performed By: #### TSH, T7, LIPID, CMP #### [facility] [place] [facility] [address] [place] [address] Dr. Shari MobleyHemoglobin (Bld) [Mass/Vol]13.3 g/mKScbnva83.0-16.0The [facility] Hospitalment on above:Performed By: #### TSH, T7, LIPID, CMP #### [facility] [place] [facility] [address] [place] [address] Dr. Shari Murphy #0.02 10e3/ulNormal0.00-0.03The [facility] Hospitalment on above:Performed By: #### TSH, T7, LIPID, CMP #### [facility] [place] [facility] [address] [place] [address] Dr. Shari Murphy %0.3 %Normal0.0-0.5The [facility] Hospitalment on above: Performed By: #### TSH, T7, LIPID, CMP #### [facility] [place] [facility] [address] [place] [address] Dr. Shari Patino #1.3 103/ulNormal1.2-3.8The [facility] HospitalComment on above:Performed By: #### TSH, T7, LIPID, CMP #### [facility] [place] [facility] [address] [place] [address] Dr. Shari Sanchezmphocytes/100 WBC (Bld)20.6 %Rxbvlh65.5-60.0The [facility] OhioComment on above:Performed By: #### TSH, T7, LIPID, CMP #### [facility] [place] [facility] [address] [place] [address] Dr. Shari Pollard DIFF REQNONormalThe [facility] OhioComment on above: Performed By: #### TSH, T7, LIPID, CMP #### [facility] [place] [facility] [address] [place] [address] Dr. Shari George (RBC) [Entitic mass]28.7 eyUjrolo13.7-34.0The [facility] OhioComment on above:Performed By: #### TSH, T7, LIPID, CMP #### [facility] [place] [facility] [address] [place] [address] Dr. Shari George (RBC) [Mass/Vol]33.3 g/mNJupzrt54.9-35.2The [facility] OhioComment on above:Performed By: #### TSH, T7, LIPID, CMP #### [facility] [address] [place] [address] Dr. Shari Dan (RBC) [Entitic vol]86.2 pTXouabl23.0-99.0The [facility] on above:Performed By: #### TSH, T7, LIPID, CMP #### [facility] [address] [place] [address] Dr. Shari Mitchell #0.7 103/ulNormal0.3-0.8The [facility] on above:Performed By: #### TSH, T7, LIPID, CMP #### [facility] [address] [place] [address] Dr. Shari Lealocytes/100 WBC (Bld)10.6 %Normal1.7-12.0The [facility] Comment on above:Performed By: #### TSH, T7, LIPID, CMP #### [facility] [address] [place] [address] Dr. Shari Oconnor #4.2 103/ulNormal1.4-6.5The [facility] OhioComment on above:Performed By: #### TSH, T7, LIPID, CMP #### [facility] [address] [place] [address] Dr. Shari Zamorautrophils/100 WBC (Bld)65.8 %Rbiwkr63.0-75.0The [facility] OhioComment on above:Performed By: #### TSH, T7, LIPID, CMP #### [facility] [address] [place] [address] Dr. Shari Ray mean volume (Bld) [Entitic vol]9.6 fLNormal9.5-13.5The [facility] OhioComment on above:Performed By: #### TSH, T7, LIPID, CMP #### [facility] [address] [place] [address] Dr. Shari MobleyPLT304 103/gdTrsged079-000Kic [facility] on above: Performed By: #### TSH, T7, LIPID, CMP #### [facility] [address] [place] [address] Dr. Shari MobleyRBC4.64 106/ulNormal4.20-5.40The [facility] on above:Performed By: #### TSH, T7, LIPID, CMP #### [facility] [address] [place] [address] Dr. Shari MobleyWBC6.3 103/ulNormal4.0-11.0The [facility] on above: Performed By: #### TSH, T7, LIPID, CMP #### [facility] [address] [place] [address] Dr. Shari Larson THYROXINE INDEX T7on 03-33-0457TVB5.74Pvgyge5.30-4.50The [facility] on above:Performed By: #### TSH, T7, LIPID, CMP #### [facility] [address] [place] [address] Dr. Shari MobleyT3U34.0 %Vejnjd24.0-39.0The [facility] OhioComment on above: Performed By: #### TSH, T7, LIPID, CMP #### [facility] [address] [place] [address] Dr. Shari MobleyT4 [Mass/Vol]7.30 ug/dLNormal4.80-13.90The [facility] [place] Comment on above:Performed By: #### TSH, T7, LIPID, CMP #### [facility] [address] [place] [address] Dr. Shari MobleyGLYCOHEMOGLOBIN A1Con [id number] RECOMMENDATIONSEE BELOWNorwalk Memorial HospitalComment on above:Result Comment: ADA RECOMMENDED LIMIT 4.0 - 6.0 ADA THERAPEUTIC TARGET < 7.0 ACTION SUGGESTED > 7.0Performed By: #### TSH, T7, LIPID, CMP #### [facility] [address] [place] [address] Dr. Shari MobleyGlucose [Mass/Vol]111 mg/dLNoMcKitrick HospitalComment on above:Performed By: #### TSH, T7, LIPID, CMP #### [facility] [address] [place] [address] Dr. Shari MobleyHbA1c (Bld) [Mass fraction]5.5 %Normal4.5-6.2The [facility] OhioComment on above:Performed By: #### TSH, T7, LIPID, CMP #### [facility] [address] [place] [address] Dr. Shari Au [id number] [Mass/Vol]61.0 ug/xHCqqzoy77.0-170.0The [facility] OhioComment on above:Performed By: #### IRON, VITAD #### [facility] [address] [place] [address] Dr. Shari MobleyLIPID PROFILEon [id number]-HDL RATIO NORMSEE [facility] HospitalComcovenant medical center on above:Result Comment: 3.3 - 4.4 LOW RISK 4.4 - 7.1 AVERAGE RISK 7.1 - 11.0 MODERATE RISK >11.0 HIGH RISKPerformed By: #### TSH, T7, LIPID, CMP #### [facility] [address] [address] [address] Shari Lyonsesterol [Mass/Vol]145 mg/dLNormal<=200[facility] Comment on above:Performed By: #### TSH, T7, LIPID, CMP #### [facility] [address] [place] [address] Dr. Shari Lyonsesterol in HDL [Mass/Vol]64 mg/dLCritically dgtg41-14Yyi [facility] OhioComment on above:Performed By: #### TSH, T7, LIPID, CMP #### [facility] [address] [place] [address] Dr. Shari Lyonsesterol in LDL [Mass/Vol]65.0 mg/dLNoMcKitrick HospitalComment on above:Performed By: #### TSH, T7, LIPID, CMP #### [facility] [address] [place] [address] Dr. Shari Vasquez.total/Cholesterol in HDL [Mass ratio]2.3 {ratio} NormalThe [facility] OhioComment on above:Performed By: #### TSH, T7, LIPID, CMP #### [facility] [address] [place] [address] Dr. Shari Perdue NORMAL> or = 60 mg/dl - LOW CARDIOVASCULAR RISK <40 mg/dl - HIGH CARDIOVASCULAR RISKSt. Elizabeth HospitalComment on above:Performed By: #### TSH, T7, LIPID, CMP #### [facility] [address] [place] [address] Dr. Shari MobleyLDL CALC NORMALSEE BELOWSt. Elizabeth HospitalComment on above:Result Comment: <100 mg/dl OPTIMAL 100 - 129 mg/dl NEAR OR ABOVE OPTIMAL 130 - 159 mg/dl BORDERLINE HIGH 160 - 189 mg/dl HIGH >190 mg/dl VERY HIGH Performed By: #### TSH, T7, LIPID, CMP #### [facility] [address] [place] [address] Dr. Yilan ChangTriglyceride [Mass/Vol]80 mg/dLNormal<=150The [facility] Comment on above:Performed By: #### TSH, T7, LIPID, CMP #### [facility] [address] [address] [address] Shari MobleyVLDL CALC16.0 mg/dLNoMcKitrick HospitalComment on above: Performed By: #### TSH, T7, LIPID, CMP #### [facility] [address] [address] [address] Shari MobleyMG MAMM SCREEN 3D ANNY CADon [id number] MAMM SCREEN 3D ANNY CAD Patient: MARTHA MARQUEZ Exam Date: 07/04/2022 : 1985 Gender:F Ordering : DR FRANCESCA SANDS . Admission #: [id number] Family : Order #: [id number] CLICK HERE TO VIEW EXAM RADIOLOGY REPORT [...] breast cancer at age 55. LOCATION: [facility] BREAST COMPOSITION: Scattered areas fibroglandular density. FINDINGS: DIAGNOSTIC CATEGORY 1--NEGATIVE. RIGHT BREAST: No significant suspicious finding. LEFT BREAST: No significant suspicious finding. RECOMMENDATIONS: CLINICAL EVALUATION. PLEASE NOTE: A NORMAL MAMMOGRAM DOES NOT EXCLUDE THE POSSIBILITY OF BREAST CANCER. A CLINICALLY SUSPICIOUS PALPABLE LUMP SHOULD BE BIOPSIED. Dictated by: Tyler Trejo MD on 07/04/2022 at 10:56 Approved by: Tyler Trejo MD on 07/04/2022 at 10:58NoMcKitrick HospitalPROF 14(COMP METB)on [id number] [Mass/Vol]4.1 g/dLNormal3.4-5.0The [facility] OhioComment on above:Performed By: #### TSH, T7, LIPID, CMP #### [facility] [address] [address] [address] Shari MobleyAlbumin/Globulin [Mass ratio]1.3 {ratio}NormalThe [facility] OhioComment on above:Performed By: #### TSH, T7, LIPID, CMP #### [facility] [address] [place] [address] Dr. Shari Horvath [Catalytic activity/Vol]49 U/LRnadme47-868Oxk [facility] OhioComment on above:Performed By: #### TSH, T7, LIPID, CMP #### [facility] [address] [place] [address] Dr. Shari BauerT [Catalytic activity/Vol]16 U/DVhqnau27-17Zgx [facility] OhioComment on above:Performed By: #### TSH, T7, LIPID, CMP #### [facility] [address] [place] [address] Dr. Shari MobleyAnion gap [Moles/Vol]10.5 mmol/LNormalThe [facility] Comment on above:Performed By: #### TSH, T7, LIPID, CMP #### [facility] [address] [place] [address] Dr. Shari MobleyAST [Catalytic activity/Vol]15 U/ICozzyz65-49Vea [facility] OhioComment on above:Performed By: #### TSH, T7, LIPID, CMP #### [facility] [address] [place] [address] Dr. Shari MobleyBilirubin [Mass/Vol]0.4 mg/dLNormal0.2-1.0[facility] Comment on above:Performed By: #### TSH, T7, LIPID, CMP #### [facility] [address] [place] [address] Dr. Shari MobleyCalcium [Mass/Vol]9.5 mg/dLNormal8.5-10.1[facility] Comment on above:Performed By: #### TSH, T7, LIPID, CMP #### [facility] [address] [place] [address] Dr. Shari MobleyChloride [Moles/Vol]100 mmol/BZuueds02-386RwdWestern Reserve Hospital Comment on above:Performed By: #### TSH, T7, LIPID, CMP #### [facility] [address] [address] [address] Shari MobleyCO2 [Moles/Vol]30.9 mmol/LVvxrjy55.0-32.0The [facility] Comment on above:Performed By: #### TSH, T7, LIPID, CMP #### [facility] [address] [place] [address] Dr. Shari MobleyCreatinine [Mass/Vol]0.84 mg/dLNormal0.55-1.02[facility] HospitalComment on above:Performed By: #### TSH, T7, LIPID, CMP #### [facility] [address] [place] [address] Dr. Shari SheltonGFR-AF MONGOLIAN>60Normal>=60The [facility] OhioComment on above:Performed By: #### TSH, T7, LIPID, CMP #### [facility] [address] [place] [address] Dr. Shari Layton-NON AF MONGOLIAN>60Normal>=60The [facility] OhioComment on above:Performed By: #### TSH, T7, LIPID, CMP #### [facility] [address] [place] [address] Dr. Shari MobleyGlobulin (S) [Mass/Vol]3.1 g/dLNormalThe [facility] OhioComment on above:Performed By: #### TSH, T7, LIPID, CMP #### [facility] [address] [place] [address] Dr. Shari MobleyGlucose [Mass/Vol]78 mg/nMUpaskp11-198PtzWestern Reserve Hospital Comment on above:Performed By: #### TSH, T7, LIPID, CMP #### [facility] [address] [place] [address] Dr. Shari MobleyPotassium [Moles/Vol]4.4 mmol/LNormal3.5-5.1The [facility] Comment on above:Performed By: #### TSH, T7, LIPID, CMP #### [facility] [address] [place] [address] Dr. Shari MobleyProtein [Mass/Vol]7.2 g/dLNormal6.4-8.2The [facility] Comment on above:Performed By: #### TSH, T7, LIPID, CMP #### [facility] [address] [address] [address] Shari MobleySodium [Moles/Vol]137 mmol/TDwzlea390-464BwfWestern Reserve Hospital Comment on above:Performed By: #### TSH, T7, LIPID, CMP #### [facility] [address] [address] [address] Shari MobleyUrea nitrogen [Mass/Vol]10.0 mg/dLNormal7.0-18.0The [facility] OhioComment on above:Performed By: #### TSH, T7, LIPID, CMP #### [facility] [address] [place] [address] Dr. Shari Rivera nitrogen/Creatinine [Mass ratio]11.9 mg/mgNoMcKitrick HospitalComment on above:Performed By: #### TSH, T7, LIPID, CMP #### [facility] [address] [place] [address] Dr. Shari KimbleHochiqui 05-93-6466XTP7.258 uIU/mLNormal0.358-3.740The [facility] OhioComment on above:Performed By: #### TSH, T7, LIPID, CMP #### [facility] [address] [place] [address] Dr. Shari MobleyVITAMIN D 25 OHon 43-94-5067UOQ D 25-OH47.2 ng/mLNormalThe [facility] OhioComment on above:Performed By: #### IRON, VITAD #### [facility] [address] [place] [address] Dr. Shari Katz RANGESSEE BELOWSt. Elizabeth HospitalComment on above: Result Comment: <20 ng/mL Vit D deficient 20 - <30 ng/mL Vit D insufficient 30 - 100 ng/mL Vit D sufficient >100 ng/mL Potential ToxicityPerformed By: #### IRON, VITAD #### [facility] [address] [place] [address] Dr. Shari Mobley thoracic spine wo/w conon 76-17-9176TY thoracic spine wo/w con [facility] [address] [place] [address] MRI Report Signed Patient: Martha Marquez MR#: [id number] : 1985 Acct:[id number] Age/Sex: 36 / F ADM Date: 03/22/22 Loc: MR Room: Type: [facility] CLI Attending Dr: Clayton Blancas PA-C Copies to: Clayton Blancas PA-C Ordering Provider: Clayton Blancas PA-C Date of Service: 03/22/22 MR/MR thoracic [...] Daniel Mcgee M.D.03/22/2022 3:56 PM Dictation Location: [place] [address] Transcribed By: [facility] 03/22/22 155 Dictated By: Daniel Mcgee II, MD 03/22/22 1545 Signed By: 03/22/22 1556[facility] HospitalCB AUTO DIFFon 12-03-2021 BASO #0.1 103/ulNormal0.0-0.1The [facility] OhioComment on above:Performed By: #### TSH, T7, LIPID, CMP #### [facility] [address] [address] [address] Shari Vaughnsophils/100 WBC (Bld)0.8 %Normal0.2-2.0The [facility] Comment on above:Performed By: #### TSH, T7, LIPID, CMP #### [facility] [address] [address] [address] Mccarthy ChangEMarnie #0.1 103/ulNormal0.0-0.7The [facility] on above: Performed By: #### TSH, T7, LIPID, CMP #### [facility] [address] [place] [address] Dr. Shari Sheltonosinophils/100 WBC (Bld)1.0 %Normal0.9-7.0The [facility] Comment on above:Performed By: #### TSH, T7, LIPID, CMP #### [facility] [address] [place] [address] Dr. Shari Sheltonrythrocyte distribution width (RBC) [Ratio]12.3 %Meqxwp20.0-15.0 The [facility]ment on above:Performed By: #### TSH, T7, LIPID, CMP #### [facility] [address] [place] [address] Dr. Shari MobleyHematocrit (Bld) [Volume fraction]42.6 %Ufvmel85.0-48.0The [facility] Hospitalment on above:Performed By: #### TSH, T7, LIPID, CMP #### [facility] [address] [place] [address] Dr. Shari MobleyHemoglobin (Bld) [Mass/Vol]14.5 g/dSHuyibt64.0-16.0The [facility] Hospitalment on above:Performed By: #### TSH, T7, LIPID, CMP #### [facility] [address] [place] [address] Dr. Shari Murphy #0.02 10e3/ulNormal0.00-0.03The [facility]ment on above:Performed By: #### TSH, T7, LIPID, CMP #### [facility] [address] [place] [address] Dr. Shari Murphy %0.3 %Normal0.0-0.5The [facility] on above: Performed By: #### TSH, T7, LIPID, CMP #### [facility] [address] [place] [address] Dr. Shari Patino #1.4 103/ulNormal1.2-3.8The [facility]ment on above:Performed By: #### TSH, T7, LIPID, CMP #### [facility] [address] [place] [address] Dr. Shari Sanchezmphocytes/100 WBC (Bld)23.1 %Tnqgmy63.5-60.0The [facility] OhioComment on above:Performed By: #### TSH, T7, LIPID, CMP #### [facility] [address] [place] [address] Dr. Shari GonzalezUAL DIFF REQNONormalThe [facility] OhioComment on above: Performed By: #### TSH, T7, LIPID, CMP #### [facility] [address] [place] [address] Dr. Shari George (RBC) [Entitic mass]30.3 cwCrgtmw63.7-34.0The [facility] OhioComment on above:Performed By: #### TSH, T7, LIPID, CMP #### [facility] [address] [place] [address] Dr. Shari George (RBC) [Mass/Vol]34.0 g/gQUgivzw10.9-35.2The [facility] OhioComment on above:Performed By: #### TSH, T7, LIPID, CMP #### [facility] [address] [place] [address] Dr. Shari Dan (RBC) [Entitic vol]88.9 hKSmfzsp32.0-99.0The [facility] Hospitalment on above:Performed By: #### TSH, T7, LIPID, CMP #### [facility] [address] [place] [address] Dr. Shari Mitchell #0.5 103/ulNormal0.3-0.8The [facility] on above:Performed By: #### TSH, T7, LIPID, CMP #### [facility] [address] [place] [address] Dr. Shari Lealocytes/100 WBC (Bld)9.0 %Normal1.7-12.0The [facility] Comment on above:Performed By: #### TSH, T7, LIPID, CMP #### [facility] [address] [place] [address] Dr. Shari Oconnor #4.0 103/ulNormal1.4-6.5The [facility] OhioComment on above:Performed By: #### TSH, T7, LIPID, CMP #### [facility] [address] [place] [address] Dr. Shari Zamorautrophils/100 WBC (Bld)65.8 %Lscvqu59.0-75.0The [facility] OhioComc[facility]ant medical center on above:Performed By: #### TSH, T7, LIPID, CMP #### [facility] [address] [place] [address] Dr. Shari Araizalet mean volume (Bld) [Entitic vol]9.9 fLNormal9.5-13.5The [facility] on above:Performed By: #### TSH, T7, LIPID, CMP #### [facility] [address] [place] [address] Dr. Shari QuezadaT251 103/qnWybztw855-222Ovw [facility] on above: Performed By: #### TSH, T7, LIPID, CMP #### [facility] [address] [place] [address] Dr. Shari MobleyRBC4.79 106/ulNormal4.20-5.40The [facility] on above:Performed By: #### TSH, T7, LIPID, CMP #### [facility] [address] [place] [address] Dr. Shari MobleyWBC6.0 103/ulNormal4.0-11.0The [facility] on above: Performed By: #### TSH, T7, LIPID, CMP #### [facility] [address] [place] [address] Dr. Shari ARCHERon 58-74-1381Ykzacfk [Mass/Vol]4.3 g/dLNormal3.4-5.0 The [facility] OhioComment on above:Performed By: #### LIVER, BMP #### [facility] [address] [place] [address] Dr. Shari MobleyAlbumin/Globulin [Mass ratio]1.4 {ratio}NormalWexner Medical Centerment on above:Performed By: #### LIVER, BMP #### [facility] [address] [address] [address] Shari Horvath [Catalytic activity/Vol]48 U/ECkimwp53-082Aca [facility] on above:Performed By: #### LIVER, BMP #### [facility] [address] [address] [address] Shari Mascorro [Catalytic activity/Vol]24 U/BPtbats29-42Ord [facility] Hospitalment on above:Performed By: #### LIVER, BMP #### [facility] [address] [address] [address] Shari MobleyAST [Catalytic activity/Vol]15 U/RRojmpl36-75Epq [facility] on above:Performed By: #### LIVER, BMP #### [facility] [address] [address] [address] Shari RamirezI, CONJUGATED0.1 mg/dLNormal0.0-0.2[facility] Comment on above:Performed By: #### LIVER, BMP #### [facility] [address] [place] [address] Dr. Shari Ramirezirubin [Mass/Vol]0.6 mg/dLNormal0.2-1.0[facility] Comment on above:Performed By: #### LIVER, BMP #### [facility] [address] [place] [address] Dr. Shari MobleyGlobulin (S) [Mass/Vol]3.1 g/dLNormalThe [facility] OhioComcovenant medical center on above:Performed By: #### LIVER, BMP #### [facility] [address] [address] [address] Shari MobleyProtein [Mass/Vol]7.4 g/dLNormal6.4-8.2[facility] Comment on above:Performed By: #### LIVER, BMP #### [facility] [address] [place] [address] Dr. Shari LealF CHEM 8 (BAS METB)on 54-04-6067Ygsdi gap [Moles/Vol]12.3 mmol/LNormalThe [facility] OhioComment on above:Performed By: #### LIVER, BMP #### [facility] [address] [address] [address] Shari MobleyCalcium [Mass/Vol]9.2 mg/dLNormal8.5-10.1The [facility] Comment on above:Performed By: #### LIVER, BMP #### [facility] [address] [address] [address] Shari MobleyChloride [Moles/Vol]102 mmol/FNseunr25-355NobWestern Reserve Hospital Comment on above:Performed By: #### LIVER, BMP #### [facility] [address] [address] [address] Shari MobleyCO2 [Moles/Vol]26.7 mmol/RFkxati54.0-32.0[facility] Comment on above:Performed By: #### LIVER, BMP #### [facility] [address] [address] [address] Shari MobleyCreatinine [Mass/Vol]0.89 mg/dLNormal0.55-1.02The [facility] OhioComment on above:Performed By: #### LIVER, BMP #### [facility] [address] [address] [address] Shari SheltonGFR-AF MONGOLIAN>60Normal>=60The [facility] OhioComment on above:Performed By: #### LIVER, BMP #### [facility] [address] [address] [address] Shari SheltonGFR-NON AF MONGOLIAN>60Normal>=60The [facility] OhioComment on above:Performed By: #### LIVER, BMP #### [facility] [address] [address] [address] Shari MobleyGlucose [Mass/Vol]98 mg/hXBmwqkd30-743Mmo [facility] Comment on above:Performed By: #### LIVER, BMP #### [facility] [address] [address] [address] Shari MobleyPotassium [Moles/Vol]4.0 mmol/LNormal3.5-5.1The [facility] Comment on above:Performed By: #### LIVER, BMP #### [facility] [address] [address] [address] Shari Lozanodium [Moles/Vol]137 mmol/QDefxhi940-094Guz [facility] Comment on above:Performed By: #### LIVER, BMP #### [facility] [address] [place] [address] Dr. Shari MobleyUrea nitrogen [Mass/Vol]8.0 mg/dLNormal7.0-18.0The [facility] OhioComment on above:Performed By: #### LIVER, BMP #### [facility] [address] [place] [address] Dr. Shari MobleyUrea nitrogen/Creatinine [Mass ratio]9.0 mg/mgNormalThe [facility] OhioComment on above:Performed By: #### LIVER, BMP #### [facility] [address] [place] [address] Dr. Shari Medel AUTO DIFFon 45-68-5577DQZQ #0.1 103/ulNormal0.0-0.1The [facility] OhioComment on above:Performed By: #### CBC #### [facility] [address] [place] [address] Dr. Shari MobleyBasophils/100 WBC (Bld)1.0 %Normal0.2-2.0The [facility] Comment on above:Performed By: #### CBC #### [facility] [address] [place] [address] Dr. Shari Harrison #0.0 103/ulNormal0.0-0.7The [facility] OhioComment on above: Performed By: #### CBC #### [facility] [address] [place] [address] Dr. Shari Sheltonosinophils/100 WBC (Bld)0.3 %Critically low0.9-7.0The [facility] OhioComment on above:Performed By: #### CBC #### [facility] [address] [place] [address] Dr. Shari Sheltonrythrocyte distribution width (RBC) [Ratio]13.2 %Ojcsvz93.0-15.0 The [facility] OhioComment on above:Performed By: #### CBC #### [facility] [address] [place] [address] Dr. Shari MobleyHematocrit (Bld) [Volume fraction]39.9 %Gzmevp42.0-48.0The [facility] OhioComment on above:Performed By: #### CBC #### [facility] [address] [place] [address] Dr. Shari MobleyHemoglobin (Bld) [Mass/Vol]13.4 g/hVDxbyut52.0-16.0The [facility] OhioComment on above:Performed By: #### CBC #### [facility] [address] [place] [address] Dr. Shari Murphy #0.01 10e3/ulNormal0.00-0.03The [facility] OhioComment on above:Performed By: #### CBC #### [facility] [address] [place] [address] Dr. Shari Murphy %0.2 %Normal0.0-0.5The [facility] OhioComment on above: Performed By: #### CBC #### [facility] [address] [place] [address] Dr. Shari RingH #2.0 103/ulNormal1.2-3.8The [facility] OhioComment on above:Performed By: #### CBC #### [facility] [address] [place] [address] Dr. Shari Ringhocytes/100 WBC (Bld)31.6 %Rsoqzz88.5-60.0The [facility] OhioComment on above:Performed By: #### CBC #### [facility] [address] [place] [address] Dr. Shari GonzalezUAL DIFF REQNONormalThe [facility] OhioComment on above: Performed By: #### CBC #### [facility] [address] [place] [address] Dr. Shari George (RBC) [Entitic mass]30.2 mwMihdya06.7-34.0The [facility] OhioComment on above:Performed By: #### CBC #### [facility] [address] [place] [address] Dr. Shari George (RBC) [Mass/Vol]33.6 g/uQPfkric65.9-35.2The [facility] HospitalComment on above:Performed By: #### CBC #### [facility] [address] [place] [address] Dr. Shari Dan (RBC) [Entitic vol]90.1 mYExuzpt96.0-99.0The [facility] OhioComment on above:Performed By: #### CBC #### [facility] [address] [place] [address] Dr. Shari Mitchell #0.7 103/ulNormal0.3-0.8The [facility] OhioComment on above:Performed By: #### CBC #### [facility] [address] [place] [address] Dr. Shari Lealocytes/100 WBC (Bld)10.7 %Normal1.7-12.0The [facility] [place] Comment on above:Performed By: #### CBC #### [facility] [address] [place] [address] Dr. Shari Oconnor #3.5 103/ulNormal1.4-6.5The [facility] OhioComment on above:Performed By: #### CBC #### [facility] [address] [place] [address] Dr. Shari Zamorautrophils/100 WBC (Bld)56.2 %Dyjrcy14.0-75.0The [facility] OhioComment on above:Performed By: #### CBC #### [facility] [address] [place] [address] Dr. Yilan ChangPlatelet mean volume (Bld) [Entitic vol]9.7 fLNormal9.5-13.5The [facility] OhioComment on above:Performed By: #### CBC #### [facility] [address] [place] [address] Dr. Shari MobleyPLT256 103/znLdsurk825-163Nxj [facility] OhioComment on above: Performed By: #### CBC #### [facility] [address] [place] [address] Dr. Shari MobleyRBC4.43 106/ulNormal4.20-5.40The [facility] OhioComment on above:Performed By: #### CBC #### [facility] [address] [place] [address] Dr. Shari MobleyWBC6.2 103/ulNormal4.0-11.0The [facility] OhioComment on above: Performed By: #### CBC #### [facility] [address] [place] [address] Dr. Shari MobleyPROF 14(COMP METB)on 56-44-7268Eccblsa [Mass/Vol]3.9 g/dLNormal 3.5-5.0The [facility] OhioComment on above:Performed By: #### TSH, T7, LIPID, CMP #### [facility] [address] [place] [address] Dr. Shari MobleyAlbumin/Globulin [Mass ratio]1.4 {ratio}NormalThe [facility] OhioComment on above:Performed By: #### TSH, T7, LIPID, CMP #### [facility] [address] [place] [address] Dr. Shari Horvath [Catalytic activity/Vol]50 U/PGncsdo49-809Xyc [facility] OhioComment on above:Performed By: #### TSH, T7, LIPID, CMP #### [facility] [address] [place] [address] Dr. Shari Mascorro [Catalytic activity/Vol]12 U/LNormal9-52The [facility] Comment on above:Performed By: #### TSH, T7, LIPID, CMP #### [facility] [address] [address] [address] Shari Hudsonon gap [Moles/Vol]9.6 mmol/LNormalThe [facility] OhioComment on above:Performed By: #### TSH, T7, LIPID, CMP #### [facility] [address] [address] [address] Shari MobleyAST [Catalytic activity/Vol]12 U/LCritically olo30-47Snw [facility] OhioComment on above:Performed By: #### TSH, T7, LIPID, CMP #### [facility] [address] [place] [address] Dr. Shari MobleyBilirubin [Mass/Vol]0.6 mg/dLNormal0.2-1.3The [facility] Comment on above:Performed By: #### TSH, T7, LIPID, CMP #### [facility] [address] [place] [address] Dr. Shari MobleyCalcium [Mass/Vol]8.8 mg/dLNormal8.4-10.2The [facility] Comment on above:Performed By: #### TSH, T7, LIPID, CMP #### [facility] [address] [place] [address] Dr. Shari MobleyChloride [Moles/Vol]103 mmol/SRobtth11-602Mfj [facility] [place] Comment on above:Performed By: #### TSH, T7, LIPID, CMP #### [facility] [address] [place] [address] Dr. Shari MobleyCO2 [Moles/Vol]28.6 mmol/WApdxkz05.0-30.0The [facility] Comment on above:Performed By: #### TSH, T7, LIPID, CMP #### [facility] [address] [place] [address] Dr. Shari MobleyCreatinine [Mass/Vol]0.98 mg/dLNormal0.52-1.04The [facility] OhioComment on above:Performed By: #### TSH, T7, LIPID, CMP #### [facility] [address] [place] [address] Dr. Shari SheltonGFR-AF MONGOLIAN>60Normal>=60The [facility] OhioComment on above:Performed By: #### TSH, T7, LIPID, CMP #### [facility] [address] [address] [address] Shari SheltonGFR-NON AF MONGOLIAN>60Normal>=60The [facility] OhioComment on above:Performed By: #### TSH, T7, LIPID, CMP #### [facility] [address] [address] [address] Shari MobleyGlobulin (S) [Mass/Vol]2.8 g/dLNormalThe [facility] OhioComment on above:Performed By: #### TSH, T7, LIPID, CMP #### [facility] [address] [place] [address] Dr. Shari MobleyGlucose [Mass/Vol]103 mg/aSHlwlzn41-927YdcWestern Reserve Hospital Comment on above:Performed By: #### TSH, T7, LIPID, CMP #### [facility] [address] [place] [address] Dr. Shari MobleyPotassium [Moles/Vol]4.2 mmol/LNormal3.4-5.0[facility] Comment on above:Performed By: #### TSH, T7, LIPID, CMP #### [facility] [address] [place] [address] Dr. Shari MobleyProtein [Mass/Vol]6.7 g/dLNormal6.1-8.2[facility] Comment on above:Performed By: #### TSH, T7, LIPID, CMP #### [facility] [address] [place] [address] Dr. Shari MoblyeSodium [Moles/Vol]137 mmol/CTahpbo482-106FoxWestern Reserve Hospital Comment on above:Performed By: #### TSH, T7, LIPID, CMP #### [facility] [address] [place] [address] Dr. Shari MobleyUrea nitrogen [Mass/Vol]10.0 mg/dLNormal7.0-17.0The [facility] OhioComment on above:Performed By: #### TSH, T7, LIPID, CMP #### [facility] [address] [address] [address] Shari Rivera nitrogen/Creatinine [Mass ratio]10.2 mg/mgSt. Elizabeth HospitalComment on above:Performed By: #### TSH, T7, LIPID, CMP #### [facility] [address] [address] [address] Shari Vargas 70-32-2722TVQ7.756 uIU/mLNormal0.470-4.680The [facility] OhioComcoven[facility] on above:Performed By: #### TSH, T7, LIPID, CMP #### [facility] [address] [address] [address] Shari HIGUERA BELOWSt. Elizabeth HospitalComment on above: Result Comment: <0.34 UIU/ml HYPERTHYROID 0.34-5.60 UIU/ml EUTHYROID >5.60 UIU/ml HYPOTHYROIDPerformed By: #### TSH, T7, LIPID, CMP #### [facility] [address] [address] [address] Shari MobleyProvider Letteron [phone] Letter January 10, 2020 MARTHA MARQUEZ [address] [place] [phone] MARTHA MARQUEZ 1985 Dear Martha Marquez, This letter is to inform you that you have missed at least two appointments in our office within a twelve-month period which you did not cancel. According to our records those missed appointments were on: 08-25-2019 and 01-10-2020. We make every effort to accommodate patients as quickly as possible. If we know you are not able tomake an appointment, we can schedule another patient who needs to see one of our providers. As our previous letter stated, there is a $30.00 charge for a second missed *no show* appointment. This is in accordance with our office policy. If you are unable to keep future appointments, please let us know 24 hours in advance. Sincerely, [facility] [address], [place] [address] HxemklNjrahcMetroHealth Cleveland Heights Medical CenterCoding Summary.on 02-10-2019 Coding Summary.CODING DATE: 02/10/2019 FINAL [facility] STATUS: Home (Routine DC) PAYOR: Laurie APC [...] By: Luciana Mcfadden Date Saved: 02/10/2019 12:02 [facility] Intraoperative Recordon [id number] OR Intraoperative RecordIntraOp Document Type FTURO Summary Primary Physician: Eric SANCHEZ MD Finalized Date/Time: 02/09/19 15:13:08 Pt. Name: MARTHA MARQUEZ/Sex: 1985 Female Med Rec #: [id number] Physician: Eric SANCHEZ MD Financial #: [id number] Pt. Type: O Room/Bed: / Admit/Disch: 02/09/19 13:50:37 - Institution: Case Times FTURO Entry 1 Patient Times In Room 02/09/19 15:01:00 Out Room 02/09/19 15:12:00 Procedure Times Start 02/09/19 15:08:00 Stop 02/09/19 15:10:00 Anesthesia Times Last Modified By: Polly RN, ARTORCatherine 02/09/19 15:11:11 Case Attendance FTURO Entry 1 Entry 2 Entry 3 Case Attendee Eric SANCHEZ MD RN, ARTOR, Catherine Copeland CST, Miquel Webb Role Performed Surgeon - Primary Naprapath - Primary Scrub - Primary Time In 02/09/19 15:06:00 02/09/19 15:01:00 02/09/19 15:01:00 Time Out 02/09/19 15:12:00 02/09/19 15:12:00 02/09/19 15:12:00 Procedure CYSTOSCOPY LOCAL WITH CYSTOSCOPY LOCAL WITH CYSTOSCOPY LOCAL WITH STENT REMOVAL(Left) STENT REMOVAL(Left) STENT REMOVAL(Left) Comments Last Modified By: ART Matias RNORCatherine RN, CNOR, Lou Ann Blank RN, CNOR, Lou Ann 02/09/19 15:11:12 02/09/19 15:11:12 02/09/19 15:11:12 Surgical [...] Out Eric SANCHEZ MD, Verified (If Participants Polly MEHTA, ARTOR, Catherine Applicable) Dinorah Treviño CST, Foster M Time Out Complete 02/09/19 15:06:00 Allergies Reviewed? Yes Allergies Reviewed Self/Patient With Body Position Frog Legged Prep Area perenium Prep Agents Betadine Solution Skin. Condition Intact, [place], Warm, and Dry Additional Other (See Comment) [...] By: CHRISTIN Matias RN, Lou Ann 02/09/19 15:13NormF[facility] HospitalMain OR Preoperative Recordon [id number] OR Preoperative RecordHolding Area Document Type FTURO Summary Primary Physician: Eric SANCHEZ MD Finalized Date/Time: 02/09/19 15:03:32 Pt. Name: MARQUEZMARTHA D.O.B./Sex: 1985 Female Med Rec #: [id number] Physician: Eric SANCHEZ MD Financial #: [id number] Pt. Type: O Room/Bed: / Admit/Disch: 02/09/19 [...] or her perioperative plan of care The patient'sright to privacy is maintained Surgery Checklist FTURO Entry 1 Patient Birthday, ID Band Procedure History and Physical, Identification: Check, Patient Verification: Surgical Consent, With Participation Patient NPO after Midnight: n/a Personal Items: Jewelry Personal Items nose ring Complaints of Pain: No Comment: Skin Integrity Intact, [place], Warm, & Dry Vitals - EU Blood Pressure 111/69 Pulse 55 bpm Respirations 18 br/min SPO2 Additional None RN Reviewed Yes Specimens Collected Last Modified By: CHRISTIN Matias RN, Lou Ann 02/09/19 15:03:30 Finalized By: CHRISTIN Matias RN, Lou Ann Document Signatures Signed By: Krystal ARAIZAMarcie 02/09/19 14:16 CHRISTIN Matias RN, Lou Ann 02/09/19 15:03NoProtestant HospitalOperative Reporton [id number] ReportPatient: MARTHA MARQUEZ Age: 33 years Sex: Female : 1985 [...] discharged home. metabolic w/u and 3 month f/u..[facility] Medical CenterComment on above:Result Comment: Electronically Signed By: Eric SANCHEZ MD\.br\Date and Time Signed: 02/09/19 15:11 EDT Vital Signs Date TimeVital SignValuePerforming NinaxauzoRkwcrtrb96-16-5172 09:35-0400Body iatfdp761.1 cmBrejarvis Hernandez MD Work Phone: [facility]linZzmrplrurs60-61-7369 09:35-0400Body mass index (BMI) [Ratio]24.4 kg/c3XzsunvaSurinder Hernandez MD Work Phone: [phone] JoplinGkrguqrnli51-32-3689 09:35-0400Body mzudgn77.5 kg Surinder Hernandez MD Work Phone: [phone] [place], [place] [address]Eqjpqxzmla63-73-2505 09:35-0400Diastolic blood mm[Hg]Surinder Hernandez MD Work Phone: [address] [place], [place] [address]Uicqjupzia97-41-7175 09:35-0400Respiratory rate18 /minSurinder Hernandez MD Work Phone: [phone] [place], [place] [address]Ssbmwidpsl33-74-1978 09:35-0400Systolic blood iiwjbltc254 mm[Hg]Surinder Hernandez MD Work Phone: [phone] [place], [place] [address]Fqdnojjkhv00-47-1932 15:13-0400Body mass index (BMI) [Ratio]23.83 kg/p3Qcadyli Cebull SALES SERVICE TECHNICIAN.[employer]OULTRY [employer]ER Work Phone: [facility]07-29-2025 15:13-0400Body olgtdc53.95 kgRebecca Cebull SALES SERVICE TECHNICIAN.POULTRY SEXER Work Phone: [phone]07-29-2025 15:13-0400Diastolic blood ahxikxvw82 mm[Hg]Gal Cebull SALES SERVICE TECHNICIAN.POULTRY S[employer]ER Work Phone: [phone]07-29-2025 15:13-0400Systolic blood udwcaxnj616 mm[Hg]Gal Cebull SALES SERVICE TECHNICIAN.POULTRY S[employer]ER Work Phone: [phone]08-25-2023 10:38-0400Diastolic blood xsfsyycc136 mm[Hg]MD Francesca Sands Work Phone: [facility]08-25-2023 10:38-0400 Heart rate86 /minMD Francesca Sands Work Phone: [facility]08-25-2023 10:38-0400 Respiratory rate16 /minMD Francesca Hoy Work Phone: [phone]08-25-2023 10:38-0400 SaO2% (BldA) [Mass fraction]100 %MD Francesca Sands Work Phone: [phone] [place], [place] 3361008-25-2023 10:38-0400 Systolic blood zzewfnoi218 mm[Hg]MD Francesca Sands Work Phone: [phone] [place], [place] 3361008-25-2023 10:27-0400 Body gynely455.1 cmMD Francesca Hoy Work Phone: [phone] [place], [place] 3361008-25-2023 10:27-0400 Body .23 kgMD Francesca Hoy Work Phone: [phone] [place], [place] 3361007-21-2023 10:10-0400 Diastolic blood htbqmzyh88 mm[Hg]MD Francesca Sands Work Phone: [phone] [place], [place] 3361007-21-2023 10:10-0400 Heart khyn926 /minMD Sheppardapoorva Sands Work Phone: [phone] [place], [place] 3361007-21-2023 10:10-0400 Systolic blood cvtnjcos684 mm[Hg]MD Francesca Sands Work Phone: [phone] [place], [place] 3361001-20-2023 09:05-0500 Body ifulaqenzir98.5 [degF]MD Francesca Sands Work Phone: [phone] [place], [place] 3361001-20-2023 09:05-0500 Respiratory rate18 /min Francesca Hoy Work Phone: [phone] [place], [place] 3361001-20-2023 09:05-0500 SaO2% (BldA) [Mass fraction]96 %MD Francesca Sands Work Phone: [phone] [place], [place] 3361010-07-2022 10:57-0400 Diastolic blood wvyspdiz41 mm[Hg]MD Francesca Sands Work Phone: [phone] [place], [place] 3361010-07-2022 10:57-0400 Heart rate79 /minMD Ma Hoy Work Phone: [phone] [place], [place] 3361010-07-2022 10:57-0400 Respiratory rate14 /minMD Ma Hoy Work Phone: [phone] [place], [place] 3361010-07-2022 10:57-0400 SaO2% (BldA) [Mass fraction]100 %MD Francesca Sands Work Phone: [phone] [place], [place] 3361010-07-2022 10:57-0400 Systolic blood ixnassif924 mm[Hg]MD Francesca Sands Work Phone: [phone] [place], [place] 3361010-07-2022 07:24-0400 Body wwurrx671.1 cmMD Francesca Hoy Work Phone: [phone] [place], [place] 3361010-07-2022 07:24-0400 Body yvswli27.96 kgMD Francesca Hoy Work Phone: [phone] [place], [place] 3361011-16-2021 12:52-0500 Body .1 cmMD Francesca Hoy Work Phone: [phone] [place], [place] 3361011-16-2021 12:52-0500 Body mass index (BMI) [Ratio]24.4 kg/m2MD Francesca Hoy Work Phone: [phone] [place], [place] 3361011-16-2021 12:52-0500 Body pkkiqi86.68 kgMD Francesca Hoy Work Phone: [phone] [place] [address] Encounters Encounter DateEncounter TypeCare ProviderFacilityStart: 03-08-2025 End: 83-23-4226Zfmrbursl department patient visitJohn ParenteFacility:FTMCStart: 01-26-2025 End: 17-14-6184rcancxdsroJPXYKPO W BAUERNot AvailableStart: 01-13-2025 End: 85-84-4248Aqrxympaul Hernandez MD Work Phone: [facility]UR[facility]YStart: 01-13-2025 End: 72-97-1897Wqsegrjackie Hernandez MD Work Phone: [facility] NEUROLOGYStart: 01-13-2025 End: 69-13-0794yjjmdffxeqBZESGPZ W BAUERNot AvailableStart: 01-13-2025 End: 27-22-5091Qfsljf outpatient visit 25 minutesSurinder Hernandez MD Work Phone: noms [facility] NeurologyComment on above:Claustrophobia (Primary Dx); Multiple sclerosis (HCC)Start: 01-11-2025 End: 18-77-0812fvhwjstgpsWWPPQGW M ALEXANDERYFacility:[facility] HospitalStart: 01-11-2025 End: 50-12-5828Kwgrgyu encounter procedureRebecca Chiqui Nogueira APRN.POULTRY SEXER Work Phone: mellen CenterComment on above:Multiple sclerosis (HCC) (Primary Dx); Medication monitoring encounter; Hypothyroidism, unspecified type; Blurry visionStart: 10-22-2024 End: 58-25-4959Khucltxcu encounterSurinder Hernandez MD Work Phone: noms [facility] NEURO 210Comment on above:Other (director call) Start: 10-22-2024 End: 42-93-4852Sitphlrsu department patient visitNO PCP NO PCPProMedica Twisp HospitalStart: 04-13-2024 End: 86-77-8975MzqgviBwiwchy W Bauer MD Work Phone: noms [facility] NEURO 210Comment on above:Multiple sclerosis (CMS/HCC); ADD (attention deficit disorder) without hyperactivityStart: 03-05-2024 End: 23-82-7578YatnwpHcwohxp W Bauer MD Work Phone: noms [facility] NEURO 210Comment on above:Multiple sclerosis (CMS/HCC); ADD (attention deficit disorder) without hyperactivityStart: 02-19-2024 End: 51-07-8092WczfwvDyqgpff W Bauer MD Work Phone: noms [facility] NEURO 210Comment on above:Multiple sclerosis (CMS/HCC); ADD (attention deficit disorder) without hyperactivityStart: 80-76-0195Kkwqp abstractingSurinder Hernandez MD Work Phone: noms [facility] NEURO 210Start: 72-14-3302vaynpyheyoVeodvk Bermel MD Work Phone: [facility] Centergzl CenterComment on above:Martha MedinadStart: 02-21-2023 End: 04-51-2506ruexjapertDzkrcw Bermel MD Work Phone: [facility] Centernks CenterComment on above:Meningioma (HCC) (Primary Dx)Start: 02-21-2023 End: 04-62-5927Wvgxdxowsota consultation with Dannie Gonsalez MD Work Phone: [facility] MAINStart: 02-07-2023 End: 35-65-3753ymytbfgocbIxlpaenarrm M BlairettFacility:[facility] Shawtart: 02-07-2023 End: 84-78-7355rjfrgtsfnoUV Douglas M Hoy Work Phone: [facility] Work Phone: Start: 02-07-2023 End: 09-64-2308Wjmqybq encounter procedureMD Francesca Sands Work Phone: [facility]-MRI Main [place] Work Phone: Start: 44-78-7423gesoqegsbmUcqwbvnaimp M Hassett Facility:[facility] Shawtart: 72-87-7710Jfstkpkrsk Recurring MD Francesca Sands Work Phone: [facility]-Infusion Therapy - O/P Work Phone: Start: 43-77-1373Ukkvfryep for general adult medical examination without abnormal findingsDR FRANCESCA Davila [facility] Hospitaltart: 07-04-2022 End: 29-47-6928Gdgnihrxq for general adult medical examination without abnormal findingsDR FRANCESCA SANDSFacility:X3Lbzan: 07-04-2022 End: 22-52-5363yqivymevnqNM FRANCESCA SANDSFacility:B6Wjhqf: 03-22-2022 End: 94-36-7082ceapqjkyheXtpsokq M HoyFacility:[facility] Start: 03-22-2022 End: 99-50-0464pkqbbmorljSP Francesca M Hoy Work Phone: [facility] Work Phone: Start: 03-22-2022 End: 10-51-0808Qhpikuj encounter procedureMD Francesca Hoy Work Phone: [facility]-MRI Main CampusStart: 12-03-2021 End: 49-95-5105nhwhbnapawFQMNOPAIJ MCCARTHYFacility:E8Dttik: 08-18-2021 End: 37-40-3465sxgsbsvidbYITLMVCQD MCCARTHYFacility:H1 Procedures DateProcedureProcedure DetailPerforming ClinicianStart: 30-69-0956KDL of headMD Francesca Hoy Work Phone: Start: 92-34-4769TPD of cervical spine with contrastMD Francesca Hoy Work Phone: Start: 87-88-9056QZB of thoracic spine with contrastMD Francesca Hoy Work Phone: Plan of Treatment DateCare ActivityDetailAuthorStart: 04-21-2025 End: 37-63-9997Urfwagb encounter dglxiqicj74/06/2025 10:00 AM EST [facility] [address] [place] [address] Surinder Hernandez MD [address] Gal[address] [place] [address] [phone] [facility]rologyStart: 49-63-2467Jipjxyrdl vaccinationInfluenza Vaccine (#1)[facility]ertart: 01-13-2025 End: 92-39-7527BO Brain WO and W contrast IVMR brain w and wo contrast routine Imaging Routine Multiple sclerosis (HCC) Expected: 01/13/2025, Expires: 01/13/2026[facility] Work Phone: Comment on above:Expected: 01/13/2025, Expires: 01/13/2026Start: 01-11-2025 End: 53-67-5460KQUCC TB SCREENBLOOD TB SCREEN Lab Routine Multiple sclerosis (HCC) Medication monitoring encounter Expected: 01/11/2025, Expires: 04/12/2025 [facility] Work Phone: Comment on above:Expected: 01/11/2025, Expires: 04/12/2025Start: 01-11-2025 End: 97-78-8777CC14 ABSOLUTE UOAERYJ61 ABSOLUTE COUNT Lab Routine Multiple sclerosis (HCC) Medication monitoring encounter Expected: 01/11/2025, Expires: 04/12/2025leveland ClinicComment on above:Expected: 01/11/2025, Expires: 04/12/2025Start: 01-11-2025 End: 40-77-6614Kgwhppa hepatitis differentiation between hepatitis B and C virus panel - Serum or PlasmaHEP REMOTE PANEL BL Lab Routine Multiple sclerosis (HCC) Medication monitoring encounter Expected: 01/11/2025, Expires: 04/12/2025 [facility]onComment on above:Expected: 01/11/2025, Expires: 04/12/2025Start: 01-11-2025 End: 43-92-4430NSLGZUAXEVQBFXC,IGG,IGA,IGMIMMUNOGLOBULINS,IGG,IGA,IGM Lab Routine Multiple sclerosis (HCC) Medication monitoring encounter Expected: 01/11/2025, Expires: 04/12/2025leveland ClinicComment on above:Expected: 01/11/2025, Expires: 04/12/2025Start: 01-11-2025 End: 99-43-1205Unlqpzpnfph [Units/volume] in Serum or PlasmaTHYROID STIMULATING HORMONE Lab Routine Multiple sclerosis (HCC) Medication monitoring encounter Hyp othyroidism, unspecified type Expected: 01/11/2025, Expires: 04/12/2025[place] ClinicComment on above:Expected: 01/11/2025, Expires: 04/12/2025Start: 01-01-2025Medicare Advantage Annual Wellness VisitMedicare [facility] Annual Wellness VisitCleveland ClinicStart: 03-01-2024 End: 88-27-6627Edzaixd encounter xagtlbxki51/16/2024 11:00 AM EDT Office Visit [facility] [address] [facility] [address] [place] [phone] Surinder Hernandez MD [address] [facility] [address] Gal[address] [place] [address], [place] [id number] [facility] NEURStart: 07-18-2023 End: 97-32-7704Zpeheoy encounter vhbeseqrt96/02/2024 9:50 AM EST Office Visit [facility] [address] [facility] [address] [place] [address] Surinder Hernandez MD [address] [facility] [address] Gallegos [address] [place] [address], [place] [id number] [facility] NEURStart: 64-04-0203Esbptbdsw vaccinationUpper Valley Medical Centertart: 40-77-4379TYRSHFHUHV ASSESSMENTDEPRESSION ASSESSMENTUpper Valley Medical Centertart: 30-73-4502YZO TESTINGHPV TESTINGUpper Valley Medical Centertart: 69-93-0336VCC TESTINGPAP TESTINGUpper Valley Medical Centertart: 2006 Screening for malignant neoplasm of cervixCervical Cancer ScreeningUpper Valley Medical Centertart: 98-70-1656Rpthqhlzs B Vaccine (1 of 3 - 19+ 3-dose series)Hepatitis B Vaccine (1 of 3 - 19+ 3-dose series)[facility] Cent[facility]art: 2004 Pneumococcal vaccinationPneumococcal Vaccine (1 of 2 - PCV)[facility] Start: 73-02-7957Vxhuv microalbumin profileUpper Valley Medical Centertart: 12-17-2003 Anxiety ScreeningAnxiety ScreeningUpper Valley Medical Centertart: 08-31-0006Ffzpzzoybr ScreeningDepression ScreeningUpper Valley Medical Centertart: 51-73-6199TOGCAIWPP C SCREENINGHEPATITIS C SCREENINGUpper Valley Medical Centertart: 50-88-0587Bqjedkdco C screeningHepatitis C ScreeningUpper Valley Medical Centertart: 66-44-4355IRX SCREENINGHIV SCREENINGUpper Valley Medical Centertart: 18-80-6994TYO screeningHIV ScreeningUpper Valley Medical Centertart: 08-77-7775GUEQZALITDQX (1 - PCV)PNEUMOCOCCAL (1 - PCV)[facility] Centertart: 98-55-0844Nyuuakiycvmn vaccinationPneumococcal Vaccine (1 - PCV) [facility]art: 96-83-4659SYPYA-19 VACCINE (#1)COVID-19 VACCINE (#1) [facility]: 92-76-7621PIGLVOEDI B (1 of 3 - 3-dose series)HEPATITIS B (1 of 3 - 3-dose series)[facility] Centertart: 51-33-9801Uvfruktjb B Vaccine (1 of 3 - 3-dose series)Hepatitis B Vaccine (1 of 3 - 3-dose series)[facility] End: 43-54-7551EB Brain WO and W contrast IVMRI BRAIN WO/W IVCON Radiology Routine Multiple sclerosis (HCC) 1 Occurrences starting 01/11/2025 until 02/10/2026leveland ClinicComment on above:1 Occurrences starting 01/11/2025 until 02/10/2026 End: 61-60-1036XC Cervical spine WO and W contrast IVMRI CERVICAL SPINE WO/W IVCON Radiology Routine Multiple sclerosis (HCC) 1 Occurrences starting 12/15 until 02/10/2026leveland ClinicComment on above:1 Occurrences starting 01/11/2025 until 02/10/2026 Immunizations Immunization DateImmunizationNotesCare WpnytobbMqvfqhax33-84-0643slvwxdfmm virus vaccine, unspecified formulationJim Gonsalez MD Work Phone: [facility] Payers DatePayer CategoryPayerPolicy [id number] 2023Medicare (Managed Care)[id number] [employer] [facility] 2022-Present [address] [place] [id number] 2021MedicareDFKCCF [id number] 2021Medicare [id number] 2013Medicaid [id number] 2.160.1.740033.3.57[id number] 2.0.1.438866.3.57[id number] 2.0.1.577462.3.57[id number] 2.0.1.474828.3.57[id number] 2.0.1.886616.3.57[id number] 2.0.1.662905.3.57[id number] 2.0.1.512190.3.57[id number] 2.0.1.625650.3.579.2.727 [id number] MediBlue Dual [id number] 2.16.840.1.5[id number] 2.16.840.1.195429.3.579.2.531 [id number] 2.16.840.1.110208.3.579.2.531 Social History DateTypeDetailFacilityTobacco smoking status NHISUnknown if ever smokedOur Lady Of Mercy Hospital Work Phone: Start: 01-87-1982Wjd Assigned At [facility] HealthFeParkview Healthtart: 08-14-2015 End: 29-36-1576Nueqrzh smoking status NHISSmokes tobacco dailySelect Medical [facility]ty [facility] Start: 06-17-2008 End: 26-02-8836Zsiwgfu of tobacco useCigarette SmokerUpper Valley Medical Centertart: 08-14-2015 End: 58-63-2105Pmmsiodcqx smoked current (pack per day) - Vpdfjrpc1Yudvxtrto ClinicStart: 08-14-2015 End: 92-44-7910Dbizjzq use and exposureSmokeless tobacco non-userUpper Valley Medical Centertart: 12-23-2016 End: 46-53-6396Sdomdjl intakeCurrent drinker of alcohol (finding)[facility] Centertart: 12-15-2017 End: 02-03-9698Nanqqqq use panelCenterville Depression Screening Akelgkshzp7Prketisry ClinicStart: 08-14-2015 End: 89-86-0676Losmjbk CommentPatient states she is currently trying to quit [facility] Centertart: 29-11-9440Rkl Assigned At BirthNot on fileUpper Valley Medical Centertart: 19-83-0202Awhudx identityIdentifies as female gender (finding) [facility] Centertart: 07-70-0980Oszqywl Azxlitw51-74 cigarettes/dayNOAR HealthcareStart: 08-86-1777Dmjocck Comment1-2 drinks on a typical dayNOAR HealthcareStart: 33-08-4742Gupwyki smoking status NHISEx-smokerNOMS Healthcare Start: 06-17-2008 End: 66-95-1134Fzlxwqp of tobacco useCurrent smokerNOMS HealthcareStart: 38-05-9064Hzjmlcu CommentI switched to vapingNOMS Healthcare Functional Status RxepXctxtqiwclGqnhllXxjizebm82-83-3780End you deaf, or do you have serious difficulty hearingNo 04/25/2014 2:21 PM Eveline Kaur MA [facility] 27-84-0654Swx you blind, or do you have serious difficulty seeing, even when wearing glassesNo 04/25/2014 2:21 PM Eveline Kaur MA [facility] 12-76-4711Dg you have serious difficulty walking or climbing stairsNo 04/25/2014 2:21 PM Eveline Kaur MA [facility]11-10-2014Do you have difficulty dressing or bathingNo 04/25/2014 2:21 PM Eveline Kaur MA [facility] HospitalJteajx41-08-0625Zafnzfm of a physical, mental, or emotional condition, do you have difficulty doing errands alone such as visiting a physician's office or shoppingNo 04/25/2014 2:21 PM Eveline Kaur MA [facility] Mental Status LlfaNcezenkbwtLyxcmqAebnlrcs55-23-4339Gaqabaj of a physical, mental, or emotional condition, do you have serious difficulty concentrating, remembering, or making decisionsYes 04/25/2014 2:21 PM Eveline Kaur MA [facility] Clinical Notes 02-21-2023 to 01-13-2025 Note Date & KcdnMqmdIgynfbmy41-50-9342 History of Present illness Narrative* Surinder Hernandez MD - 01/13/2025 9:30 AM EDT CHIEF COMPLAINT REASON FOR VISIT : a follow up to her multiple sclerosis. She was on ocrevus. But she wants to go back on kesimpta Subjective Martha Marquez is a 39 y.o. female who presents for multiple sclerosis. History of Present Illness The patient presents for evaluation of multiple sclerosis. She has been managing her condition with Kesimpta, which she prefers due to its home administration. She consulted with Dr. Gal Isaac at [facility], who recommended resuming Keytruda, a medication that had previously improved her symptoms. She reports no issues with the dosing of Kesimpta at home. She recently underwent blood work at [facility] on 01/12/2025. She also mentions that Ocrevus [...] been completed and signed today. Blood work hasbeen conducted at [facility]. 2. Fatigue. An MRI has been ordered [...] including This clinical note was created utilizing [employer] documentation system. All information has beenthoroughly reviewed, corrected as necessary, and authenticated by the provider to ensure accuracy and completeness. On occasion, [employer] documentation system erroneously drops words or replaces aspoken word with a similar sounding word. Please notify with any questions or concerns regarding this clinical note. documented in this encounterMercy Hospital JoplinXqjvtxvypn94-60-7955 Instructions* Patient Instructions* Gal Nogueira APRN.CNP - 01/11/2025 3:51 PM EDT Schedule MRIs and repeat screening labs for Kesimpta. Let us know if you would like our office or Dr Hernandez to prescribe Kesimpta. If you want to go to a closer [facility] location, Dr Carmen Bobo and Natalya Logan, her nurse practitioner, see patients at [facility]. Recommend eye exam locally. documented in this encounterSelect Medical Specialty Hospital - [facility]on07-29-2025 History of Present illness Narrative* Gal Nogueira APRN.CNP - 01/11/2025 2:30 PM EDT Images from the original note were not included. [facility] FOLLOWUP/ESTABLISHED PATIENT VISIT PRINCIPAL NEUROLOGIC DIAGNOSIS: [...] interim, following with Dr Surinder Hernandez in [place] for MS care. Switched from Ocrevus to Kesimpta given perceived lack of benefit. Switched Adderall to Vyvanse for cognitive symptoms. Last office visit 11/2023. Reports wanted to continue following with Dr Hernandez but her kids felt she should follow up at [facility] since she was historically seen here. Admits she has difficulty driving to [place] and [place] would be easier. Lost on way to appt today and arrived at 3:09 for 2:30 appt. Has been without all medications for the past 6 months or so. Reports medical records got messed up . Liked Kesimpta and was tolerating well. [place] she was able to manage injections. Had [...] for several months. PCP was managing previously. Hasnot reached out. 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 No notable recent infections or illnesses. Neuro-QoL Functions (higher=better functioning) Flowsheet [facility] from 02/21/[address] [facility] Office Visit from 08/14/[address] [facility] Appointment from 07/03/[address] [facility] Upper Extremity Domain T Score 30 35.13 45.23 Lower Extremity Domain T Score 36 44.4 44.4 Cognitive Function Domain T Score 38 -- -- Positive Affect Well Being T Score -- -- -- Ability To Participate In Social Roles T Score 42 -- -- Satisfaction With Social Roles T Score 46 -- -- Neuro-QoL Symptoms (higher=worse symptoms) Flowsheet [facility] from 02/21/[address] [facility] Office Visit from 08/14/[address] [facility] Appointment from 07/03/[address] [facility] Sleep Domain T Score 65 65.92 74.44 Fatigue Domain T Score 65 58.38 65.37 Anxiety Domain T Score 63 -- -- Depression Domain T Score 58 -- -- Stigma Domain T Score 60 -- -- Emotional Behavior Dyscontrol T Score -- -- -- has a past medical history of Migraine and MS (multiple sclerosis) ([facility]). currently has no medications in their medication list. EXAM: BP 124/84 Wt 65 kg (143 lb 3.2 oz) BMI 23.83 kg/m MSPT Results Flowsheet [facility] Office Visit from 12/23/[address] [facility] Office Visit from 08/14/[address] [facility] Appointment from 07/03/[address] [facility] Processing Speed Total Number Correct 47 -- [...] interview and examination showed normal level of consciousness,orientation, language, memory, praxis, and higher intellectual function Affect: Normal Speech: normal Muscle strength (#/5): Right Left Upper Extremity: Deltoids 5 5 Biceps 5 5 Triceps 5 5 Document Management Analyst 5 5 Dorsal interossei 5 5 Lower [...] spine enhancing lesions None 08/02/2015 ASSESSMENT/PLAN: Martha Marquez is a 39 year old female with [...] continue following with Dr Hernandez, but discussed [place] providers at [facility] may be additional resource moving forward. [...] Follow-up: In 6 months or PRN at [place] with [facility] APC I spent a total of 40 minutes on the date of the service which included preparing to see the patient, ptfg-tx-ffnq patient care, completing clinical documentation, obtaining and/or reviewing separately obtained history, performing a medically appropriate examination, counseling and educating the pat ient/family/caregiver, ordering medications, tests, or procedures, communicating with other HCPs (not separately reported), independently interpreting results (not separately reported), and communicating results to the patient/family/caregiver. Gal Nogueira APRN.CNP [facility] for Multiple Sclerosis documented in this encounterSelect Medical Specialty [facility]07-29-2025 NoteHNO ID: [id number] Author: GAL NOGUEIRA APRN.TALITA Service: ? Author Type: Nurse Practitioner Type: Progress Notes Filed: 01/13/2025 16:33 Note Text: [facility] FOLLOWUP/ESTABLISHED PATIENT VISIT PRINCIPAL NEUROLOGIC DIAGNOSIS: [...] interim, following with Dr Surinder Hernandez in [place] for MS care. Switched from Ocrevus to Kesimpta given perceived lack of benefit. Switched Adderall to Vyvanse for cognitive symptoms. Last office visit 11/2023. Reports wanted to continue following with Dr Hernandez but her kids felt she should follow up at [facility] since she was historically seen here. Admits she has difficulty driving to [place] and [place] would be easier. Lost on way to appt today and arrived at 3:09 for 2:30 appt. Has been without all medications for the past 6 months or so. Reports medical records got messed up . Liked Kesimpta and was tolerating well. [place] she was able to manage injections. Had [...] or illnesses. Neuro-QoL Functions (higher=better functioning) Flowsheet [facility] from 02/21/[address] [facility] Office Visit from 08/14/[address] [facility] Appointment from 07/03/[address] [facility] Upper Extremity Domain T Score 30 35.13 45.23 Lower Extremity Domain T Score 36 44.4 44.4 Cognitive Function Domain T Score 38 -- -- Positive Affect Well Being T Score -- -- -- Ability To Participate In Social Roles T Score 42 -- -- Satisfaction With Social Roles T Score 46 -- -- Neuro-QoL Symptoms (higher=worse symptoms) Flowsheet [facility] from 02/21/[address] [facility] Office Visit from 08/14/[address] [facility] Appointment from 07/03/[address] [facility] Sleep Domain T Score 65 65.92 74.44 Fatigue Domain T Score 65 58.38 65.37 Anxiety Domain T Score 63 -- -- Depression Domain T Score 58 -- -- Stigma Domain T Score 60 -- -- Emotional Behavior Dyscontrol T Score -- -- -- has a past medical history of Migraine and MS (multiple sclerosis) (HCC). currently has no medications in their medication list. EXAM: BP 124/84 Wt 65 kg (143 lb 3.2 oz) BMI 23.83 kg/m? MSPT Results Flowsheet [facility] Office Visit from 12/23/[address] [facility] Office Visit from 08/14/[address] [facility] Appointment from 07/03/[address] [facility] Processing Speed Total Number Correct 47 -- [...] Triceps 5 5 G (more content not included)...[facility]05-09-2025 Telephone encounter Note* Telephone Encounter - Caitie Muñoz NP - 10/22/2024 3:42 PM EDT I called ER and they told me patient eloped no longer needed to speak with us. [facility] Work Phone: [phone] Miscellaneous Notes* Telephone Encounter - Caitie Muñoz NP - 10/22/2024 3:42 PM EDT I called ER and they told me patient eloped no longer needed to speak with us. * Telephone Encounter - Haley Kaur - 10/22/2024 2:34 PM EDT Per Caitie Muñoz NP i'll just call she hasn't been seen since last november * Telephone Encounter - Haley Kaur - 10/22/2024 1:39 PM EDT Martha Marquez is a [address] Demarco called from [facility] requesting consult from Dr Hernandez for this pt . Call back number [phone] . (Secure chat sent to periodontal assistant provider) documented in this encounterMercy Hospital JoplinPbbdnovmdf87-98-8643 Telephone encounter Note* Telephone Encounter - Haley Kaur - 10/22/2024 2:34 PM EDT Per Caitie Muñoz NP i'll just call she hasn't been seen since last november [facility] JoplinOzoowghazc34-72-3049 Telephone encounter Note* Telephone Encounter - Haley Kaur - 10/22/2024 1:39 PM EDT Martha Marquez is a [address] Demarco called from [facility] requesting consult from Dr Hernandez for this pt . Call back number [phone] . (Secure chat sent to periodontal assistant provider) [facility] JoplinEhbavtwmzt88-97-9810 Telephone encounter Note* Telephone Encounter - Caitie Muñoz NP - 02/19/2024 10:28 AM EDT Lixdexamfetamine was already sent on 02/16 per [facility]. [facility] Work Phone: [phone]) 211-927509-05-2024 Miscellaneous Notes* Telephone Encounter - Caitie Muñoz NP - 02/19/2024 10:28 AM EDT Lixdexamfetamine was already sent on 02/16 per [place]. documented in this encounterMercy Hospital JoplinRorirwohhj69-91-5852 History of Present illness Narrative* Jim Gonsalez MD - 02/21/2023 11:07 AM EDT [facility] FOR MULTIPLE SCLEROSIS VIRTUAL VISIT FOR NEW PATIENT EVALUATION Referral source: No referring provider defined for this encounter. Also followed by: Francesca Sands [address] [place] [address] PRINCIPAL NEUROLOGIC DIAGNOSIS: Multiple sclerosis, meningioma incidentally [...] 2016. Marty Jade from [facility] in [place] She has been dropping things with the left side of her body, and slurred speech, and severe headache, for about 6 months. Currently on Ocrevus for MS, since 2021 approximately. On a scan a few weeks ago they told her she had a brain tumor. Scan was at [facility] in [place]. She reads the report to me: mild diffuse volume loss. right anterior cranial fossa extraxial dural based enhancing 78o8s23vl. Likely meningioma. Neuro-Qol Functions (higher = better [...] have on file from 2017. -refer to [facility] neurosurgery/[facility] for management plan for meningioma -call to [facility] imaging who will send MRIs to [facility] PACS -for MS follow-up, a good option would be Dr. Carmen Bobo at [facility] I have communicated my name and active licensure. The patient's identity and physical location wereverified at the time of this visit. Either the patient or their legal circulation sales representative has been informed of the risks and benefits of -- and alternatives to -- treatment through a remote evaluation andconsents to proceed with the evaluation remotely. Jim Gonsalez MD Staff Neurologist [facility] for Multiple Sclerosis documented in this encounterToledo Hospitalalubeebe healthcare noteNo assessment information availableMercy Health Anderson Hospital Ctr Work Phone: Evaluation note* Diagnosis Meningioma (HCC)- Primary Benign neoplasm of cerebral meninges documented in this encounter [facility]Eval[facility]eebe healthcare note* Diagnosis Multiple sclerosis (CMS/HCC) Multiple sclerosis ADD (attention deficit disorder) without hyperactivity Attention deficit disorder without mention of hyperactivity documented in this encounter [facility] HealthcareEvaluation note* Diagnosis Multiple sclerosis (CMS/HCC) Multiple sclerosis ADD (attention deficit disorder) without hyperactivity Attention deficit disorder without mention of hyperactivity documented in this encounter [facility] HealthcareEvaluation note* Diagnosis Multiple sclerosis (HCC)- Primary Multiple sclerosis Medication monitoring encounter Encounter for therapeutic drug monitoring Hypothyroidism, unspecified type Blurry vision Other specified visual disturbances documented in this encounter [facility]* Diagnosis Claustrophobia- Primary Other isolated or specific phobias Multiple sclerosis (HCC) Multiple sclerosis documented in this encounter [facility] Healthcare Summary Purpose Family History No Family [...] Chief Complaint MS g35 Reason for Referral SpecialtyDiagnoses / ProceduresReferred By ContactReferred To Contact Neurosurgery Diagnoses Meningioma (HCC) Procedures CONSULT TO NEUROSURGERY OFFICE/OUTPATIENT [facility] 60-74 MINUTES Jim Gonsalez MD [address] [place] [address] Referral IDStatusReasonStart DateExpiration DateVisits RequestedVisits [id number] Review PCP Requested Referral / Additional Source Comments INFORMATION SOURCE (unrecogn ized section and content) DATE CREATED AUTHOR 01/10/2020 [facility] DATE CREATED AUTHOR AUTHOR'S ORGANIZ ATION 07/10/2022 [facility] DATE CREATED AUTHOR AUTHOR'S ORGANIZ ATION 02/16/2023 [facility] DATE CREATED AUTHOR AUTHOR'S ORGANIZ ATION 11/14/2024 [facility] DATE CREATED AUTHOR AUTHOR'S ORGANIZ ATION 01/15/2025 [facility] DATE CREATED AUTHOR AUTHOR'S ORGANIZ ATION 01/31/2025 [facility] DATE CREATED AUTHOR AUTHOR'S ORGANIZ ATION 03/10/2025 [facility] DATE CREATED AUTHOR AUTHOR'S ORGANIZ ATION 03/18/2025 [facility] Care Teams (unrecognized sec tion and content) Team Status: Inactive Member Role Status Dates Francesca Sands MD Primary Care Provider Active Rose Martinez ProviderActive Team Status: Active Member Role Status Dates Francesca Sands MD Primary Care Provider Active Team Status: Inactive Member Role Status Dates Francesca Sands MD Primary Care Provider Active Radha Corea ProviderActive Team Status: Active Member Role Status Dates Francesca Sands MD Primary Care Provider Active Marty Jade DOAttending ProviderActiveTeam MemberRelationship SpecialtyStart DateEnd Date Francesca Sands MD PCP - Generalmily Qmbwlsac33/13/12Team MemberRelationshipSpecialtyStart Date End Date Francesca Sands MD PCP - GeneralMercyone Waterloo Medical Centerly Usncrgft50/13/12Team MemberRelationshipSpecialtyStart Date End Date Francesca Sands MD [address] [place] [address] PCP - [facility] Mrytludt98/11/23Team MemberRelationshipSpecialtyStart Date End Date Francesca Sands MD [address] [place] [address] [facility] Eqvetvkp03/11/23Team MemberRelationshipSpecialtyStart Date End Date Francesca Sands MD [address] [place] [address] PCP - Generalmily Bohmaoky03/11/23Team MemberRelationshipSpecialtyStart Date End Date Francesca Sands MD PCP - GeneralFamily Xikpqlqa97/11/23Team MemberRelationshipSpecialtyStart Date End Date Francesca Sands MD PCP - GeneralFamily Yzxbywil22/11/23Team MemberRelationshipSpecialtyStart Date End Date Francesca Sands MD PCP - GeneralFamily Rqqacvrc73/13/12Team MemberRelationshipSpecialtyStart Date End Date Francesca Sands MD PCP - GeneralFamily Hgdiayjm84/11/23 Goals (unrecognized section and content) Goals may [...] or prosecute any alcohol or drug abuse patient.[facility]onIn the event this information is protected by the Federal Confidentiality of Alcohol and Drug Abuse Patient Records regulations: The Federal rules restrict any use of the information to criminally investigate or prosecute any alcohol or drug abuse patient.[facility]on[facility] the event this information is protected by the Federal Confidentiality of Alcohol and Drug Abuse Patient Records regulations: The Federal rules restrict any use of the information to criminally investigate or prosecute any alcohol or drug abuse patient.[facility] Reason for Visit (unrecogniz ed section and content) ReasonCommentsNew Patient EvaluationReasonCommentsMed RefillReasonOnset Date SdqjrohaFgouk01/09/2025On callReasonCommentsEstablished PatientFollow Up FOR RECORDS PERTAINING TO PATIENTS WHO [...] BE BASED ON THE PRIMARY CLINICAL RECORDS. [facility] [employer] [facility]. provides no warranty or guarantee of the accuracy or completeness of information in this document.
--- NOTE | 2025-04-05 16:28 | MM_ITS ---
Patient Name: THEODORA MARQUEZ MR#: [id number] : 1985 Exam Date: 04/05/2025 Ordering Doctor: DR FRANCESCA SANDS . RADIOLOGY REPORT PROCEDURE: MM TOMOSYNTHESIS SCREENING BI COMPARISON: MG MAMM SCREEN 3D ANNY CAD, 07/04/2022. INDICATIONS: SCREENING Calculator Name NCI Breast Cancer Risk Assessment Tool 5 Year Breast Cancer Risk 0.30% Lifetime Breast Cancer Risk 6.70% Personal Breast Cancer No Personal Ovarian Cancer No Treatments None Family Cancers Aunt-paternal with breast cancer at age 32; Grandmother-paternal with breast cancer at age ~55. LOCATION: [facility] BREAST COMPOSITION: There are scattered areas of fibroglandular density. FINDINGS: RIGHT BREAST: No significant suspicious finding. There is a similar focal asymmetry on the right. LEFT BREAST: No significant suspicious finding. DIAGNOSTIC CATEGORY 2--BENIGN FINDING. NO CHANGE FROM COMPARISON. RECOMMENDATIONS: ROUTINE MAMMOGRAM AND CLINICAL EVALUATION IN 12 MONTHS. Dictated by: Daniel Mcgee MD on 04/05/2025 at 16:48 Approved by: Daniel Mcgee MD on 04/05/2025 at 16:50
== END 2025-04-05 15:50 | disposition home or self-care (01) ==
LOC: MAMMO 15:50
PROVIDERS: PCP Family Medicine; Visit Provider Family Medicine
DX: Z12.31 Encounter for screening mammogram for malignant neoplasm of breast (principal); Z80.3 Family history of malignant neoplasm of breast
CPT/HCPCS: 77063; 77067

== ENCOUNTER 2025-04-12 13:02 | Outpatient (OUT) | payer MEDICARE, SELFPAY ==
--- OUTSIDE RECORDS SUMMARY | 2025-04-12 13:06 | XMS_ITS | Clinical Summary ---
Author Organization [facility] Address [address] 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
--- OUTSIDE RECORDS SUMMARY | 2025-04-12 13:08 | XMS_ITS | CCD ---
Author Organization [facility] Providers Care Deli Clerk Name Role Phone MD Francesca Sands Primary Care Provider [phone] CHANTEL Blancas Attending Provider CLAYTON BLANCAS Admitting [...] Unavailable MD Francesca Sands Primary Care Provider [phone] DO Marty Jade Attending Provider [phone] Marty Jade Admitting Unavailab Marty Rider Attending Unavailab Francesca Marie Primary Care Unavailable Francesca Sands Primary Care Unavailable Clayton Blancas Admitting Unavailable Clayton Blancas Attending Unavailable Marty Jade Admitting Unavailab Marty Rider Attending Unavailab Francesca Marie Primary Care Unavailable Francesca Sands MD Primary Care Provider [phone] Francesca Sands MD Primary Care Provider [phone] Francesca Sands MD Primary Care Provider [phone] PCP, NO PCP Primary Care Unavailable MILLY DEMARCO Attending Unavailable Francesca Sands MD Primary Care Provider [phone] FRANCESCA SANDS Primary Care Unavailable SELF Referring Unavailable GAL NOGUEIRA Attending Unavailable SURINDER HERNANDEZ Attending Unavailable SURINDER HERNANDEZ Referring Unavailable Marcio Navarro Attending Unavailable Allergies Allergy ClassificationReported Allergen(s)Allergy TypeDate of OnsetReaction(s) Facility (2 sources)diphenhydrAMINE; Translations: [Benadryl]Drug AllergyThe [facility] (5 sources)OtherPropensity to adverse lwljejovq58-01-1208[facility] Medications Current Medications MedicationDrug Class(es)DatesSig (Normalized)Sig (Original)cyclobenzaprine hydrochloride 5 mg oral tablet (2 sources)Muscle RelaxantStart: 12-05-2023 End: 02-92-0022ogfb 1 tablet by mouth at bedtimecyclobenzaprine (Flexeril) 5 MG tablet Indications: Cervical paraspinal muscle spasm Take 1 tablet (5 mg) by mouth at bedtime 90 tablet 2 12/05/2023 03/04/2024 Activetake 1 tablet by mouth once daily at bedtimecyclobenzaprine (Flexeril) 5 MG tablet TAKE ONE TABLET BY MOUTH DAILY AT 9PM AT BEDTIME 0 ActiveLORazepam 0.5 mg oral tablet (2 sources)BenzodiazepineStart: 05-56-4754kfda 1 tablet by mouth onceLORazepam (Ativan) 0.5 MG tablet Indications: Claustrophobia Take 1 tablet (0.5 mg) by mouth every 12 (twelve) hours if needed for anxiety for up to 1 day 2 tablet 01/13/2025 ActivemetroNIDAZOLE 500 mg oral tablet (1 source)Nitroimidazole AntimicrobialStart: 07-16-2023 End: 51-93-3674wago 1 tablet by mouth in the morningmetroNIDAZOLE (Flagyl) 500 MG tablet Indications: BV (bacterial vaginosis) Take 1 tablet (500 mg) by mouth in the morning and 1 tablet (500 mg) before bedtime. Do all this for 7 days. Do not drink alcohol while taking this medication. 14 tablet 0 07/16/2023 07/23/2023 Gdteee58 hr oxybutynin chloride 5 mg extended release oral tablet (1 source)Cholinergic Muscarinic Antagonisttake 1 tablet by mouth once daily oxybutynin XL (Ditropan-XL) 5 MG 24 hr tablet TAKE ONE TABLET BY MOUTH DAILY AT 9AM 0 Active Completed/Discontinued Medications MedicationDrug Class(es)DatesSig (Normalized)Sig (Original)amitriptyline hydrochloride 100 mg oral tablet (3 sources)Tricyclic Antidepressant End: 61-44-9496ythf 1 tablet by mouth once daily at bedtimeamitriptyline (ELAVIL) 100 mg tablet Take 100 mg by mouth daily at bedtime. 01/11/2025 DiscontinuedComment on above:Take 100 mg by mouth daily at bedtime.24 hr desvenlafaxine succinate 50 mg extended release oral tablet (8 sources)Serotonin and Norepinephrine Reuptake Inhibitor End: 85-79-1930gsmw 1 tablet by mouth once dailydesvenlafaxine (Pristiq) 50 MG 24 hr tablet TAKE ONE TABLET BY MOUTH DAILY AT 9AM 01/13/2025 Discontinued (Therapy completed)fingolimod 0.5 mg oral capsule (3 sources)Sphingosine 1-phosphate Receptor ModulatorStart: 12-23-2016 End: 54-60-0039nseh 1 capsule by mouth once dailyfingolimod (GILENYA) 0.5 mg cap Indications: Multiple sclerosis (HCC) Take 1 capsule by mouth once daily. 90 capsule 3 12/23/2016 01/11/2025 DiscontinuedComment on above:Take 1 capsule by mouth once daily.gabapentin 300 mg oral capsule (10 sources)Anti-epileptic AgentStart: 11-04-2017 End: 96-82-7035opxk 1 capsule by mouth three times dailygabapentin (NEURONTIN) 300 mg capsule TAKE ONE CAPSULE BY MOUTH 3 TIMES A DAY 90 capsule 11 11/04/2017 01/11/2025 DiscontinuedComment on above:TAKE ONE CAPSULE BY MOUTH 3 TIMES A DAY iv contrast (will be provided with radiology test) (2 sources)Start: 01-11-2025 End: 22-57-4268dckiwo 1 dose intravenously onceiv contrast (will be [...] 1 each 01/11/2025 01/12/2025 ExpiredStart: 01-11-2025 End: 81-11-3237yg contrast (will be provided with radiology test) [...] 0.125 mg oral tablet (3 sources)l-Thyroxine End: 97-60-0910jbze 1 tablet by mouth once dailylevothyroxine (SYNTHROID) 125 mcg tablet Take 125 mcg by mouth once daily. 01/11/2025 DiscontinuedComment on above:Take 125 mcg by mouth once daily.lisdexamfetamine dimesylate 50 mg oral capsule (10 sources)Central Nervous System StimulantStart: 04-13-2024 End: 31-72-7594wsku 1 capsule by mouth in the morninglisdexamfetamine (Vyvanse) 50 MG capsule Indications: Multiple sclerosis (HCC) , ADD (attention deficit disorder) without hyperactivity TAKE ONE CAPSULE (50 MG) BY MOUTH IN THE MORNING 30 capsule 04/13/2024 01/13/2025 Discontinued (Therapy completed)Start: 85-27-5313ocdp 1 capsule by mouth in the morninglisdexamfetamine (Vyvanse) 50 MG capsule Indications: Multiple sclerosis (CMS/HCC) , ADD (attentiondeficit disorder) without hyperactivity TAKE ONE CAPSULE (50 MG) BY MOUTH IN THE MORNING 30 smlykzi1603/05/2024 ActiveStart: 2023 End: 75-91-0453srlb 1 capsule by mouth in the morninglisdexamfetamine (Vyvanse) 50 MG capsule Indications: Multiple sclerosis (CMS/HCC) , ADD (attentiondeficit disorder) without hyperactivity TAKE ONE CAPSULE (50 MG) BY MOUTH IN THE MORNING 30 dzzffxc4603/05/2024 04/13/2024 Discontinuedtake 1 capsule by mouth in the morninglisdexamfetamine (Vyvanse) 40 MG capsule Take 40 mg by mouth in the morning. 0 ActivemedroxyPROGESTERone (3 sources)Progestin End: 65-19-5844HMTXHCCDZLFLIRRFAQM ACETATE (DEPO-PROVERA INTRAMUSC.) Inject intramuscularly every 3 months. 01/11/2025 DiscontinuedMEDROXYPROGESTERONE ACETATE (DEPO-PROVERA INTRAMUSC.) Inject intramuscularly every 3 months. 0 Activ eComment on above:Inject intramuscularly every 3 months.0.4 ml ofatumumab 50 mg/ml pen injector (8 sources)LE49-btphwqjl Cytolytic AntibodyStart: 12-08-2023 End: 44-43-8204verutbylub (Kesimpta) 20 MG/0.4ML injection Indications: Multiple sclerosis (HCC) Inject subcutaneously once every 30 days 0.4 mL 11 12/08/2023 01/13/2025 Discontinued (Therapy completed)Start: 20-05-2443ryjvyhijif (Kesimpta) 20 MG/0.4ML injection Indications: Multiple sclerosis (CMS/HCC) Inject subcutaneously once every 30 days 0.4 mL 11 05/12/2023 Uunoci90 hr propranolol hydrochloride 60 mg extended release oral capsule (7 sources)beta-Adrenergic BlockerStart: 11-03-2023 End: 42-40-1826qnep 1 capsule by mouth once dailypropranolol LA [...] Virus Nucleoside Analog DNA Polymerase Inhibitor End: 45-70-5521hsho 1 tablet by mouth once dailyvalACYclovir (Valtrex) 500 MG tablet TAKE ONE TABLET BY MOUTH DAILY AT 9AM 01/13/2025 Discontinued (Therapy completed) Problems Active Problems Problem ClassificationProblemDateDocumented DateEpisodic/ChronicAnxiety disorders (2 sources)Claustrophobia; Translations: [Claustrophobia]39-45-7392Pgdpvln Blindness and vision defects (1 source)Blurring of visual image; Translations: [Other visual disturbances] 08-66-6878TaaobkogIbyosizsmt and other anemia (1 source)Anemia, unspecified; Translations: [ANEMIA UNSPECIFIED]Onset: 28-39-0341SkvjizicXphnwtcp mellitus without complication (1 source)Type 2 diabetes mellitus without complications; Translations: [TYPE 2 DM WITHOUT COMPLICATIONS]Onset: 71-42-1860UkekodzGqqvyylwf of lipid metabolism (1 source)Hyperlipidemia, unspecified; Translations: [HYPERLIPIDEMIA UNSPECIFIED]Onset: 42-34-8477IwjbqcxUpxweyiyh usually diagnosed in infancy, childhood, or adolescence (10 sources)Attention deficit hyperactivity disorder, predominantly inattentive type; Translations: [Other specified behavioral and emotional disorders with onset usually occurring in childhood and adolescence]Onset: ChronicHeadache; including migraine (8 sources)Migraine; Translations: [Migraine, unspecified, not intractable, without status migrainosus]Onset: 993975-99-6262CgprxtuFpju disorders (6 sources)Major depression, single episode; Translations: [Major depressive disorder, single episode, unspecified]Onset: 466990-07-8056QjodoksRcojutwl sclerosis (20 sources)Multiple sclerosis; Translations: [Multiple sclerosis]Onset: 07-28-4008XzghacxSgvjforglab chest pain (1 source)Chest pain, unspecified; Translations: [Chest pain, unspecified]Onset: 25-63-2298OnrdiuqeVorofumzlkv deficiencies (1 source)Vitamin D deficiency, unspecified; Translations: [VITAMIN D DEFICIENCY UNSPECIFIED]Onset: 15-21-7489UbbsdqrEgjxu aftercare (1 source)Other assisted (current) drug therapy; Translations: [OTH SNF CURRENT DRUG THERAPY]Onset: 92-68-4077JdmmlemeHjzun aftercare (1 source)Patient encounter status; Translations: [Encounter for therapeutic drug level monitoring]61-24-8052JvpejbjjOnodj aftercare (1 source)Encounter for therapeutic drug level monitoring; Translations: [Medication monitoring encounter]Onset: 31-42-9369LjptewdxPsdud and unspecified benign neoplasm (1 source)Neoplasm of meninges; Translations: [Benign neoplasm of meninges, unspecified]65-35-4726IaaphtmHtcnv nervous system disorders (1 source)NumbnessOnset: 26-54-7179KihbtwwlIndfq screening for suspected conditions (not mental disorders or infectious disease) (1 source)Encounter for screening mammogram for malignant neoplasm of breast; Translations: [ENC SCR MAMMO MALIG NEOPLASM BREAST]Onset: 44-41-7235Idjhgksj Paralysis (6 sources)Monoplegia of left nondominant upper limb; 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]Onset: hronic Residual codes; unclassified (1 source)Family history of malignant neoplasm of breast; Translations: [FAMILY HX MALIG NEOPLASM OF BREAST]Onset: 63-44-3840MmwjbtewKnoastfq codes; unclassified (1 source)Procedure and treatment not carried out due to patient leaving prior to being seen by health care provider; Translations: [Procedure and treatment not carried out due to patient leaving prior to being seen by health care provider]Onset: 20-93-2340HuuvfbxfUyftcxd disorders (2 sources)Hypothyroidism; Translations: [Hypothyroidism, unspecified]Onset: 617688-64-7141SmfbjgzCkjjlmumgcau (1 source)Medical ScreeningOnset: 10-22-2024 Past or Other Problems Problem ClassificationProblemDateDocumented DateEpisodic/ChronicConditions associated with dizziness or vertigo (8 sources)Dizziness; Translations: [Dizziness and giddiness]Onset: 03-24-2023 03-01-2153YcygesiuYctocep and fatigue (11 sources)Other fatigue; Translations: [Asthenia]Onset: 29-58-1277Rubqbgma Other connective tissue disease (7 sources)Spasm of cervical paraspinous muscle; Translations: [Other muscle spasm]Onset: 063153-87-3084UqhkuuyrBjyor nervous system disorders (8 sources)Abnormal gait; Translations: [Unspecified abnormalities of gait and mobility]Onset: 085651-77-0257StwhzpkjQaerh nervous system disorders (6 sources)Paresthesia; Translations: [Paresthesia of skin]Onset: 03-01-2024 47-86-6349KkywfaiaBzqkhjnu codes; unclassified (6 sources)Edema; Translations: [Edema, unspecified]Onset: EpisodicResidual codes; unclassified (6 sources)Insomnia; Translations: [Insomnia, unspecified]Onset: 03-01-2024 46-42-5008DncedpomWoyjx infection (6 sources)Disease caused by 2019-nCoV; Translations: [COVID-19]Onset: 809263-48-8250Ubvouoem Results Test NameValueInterpretationReference RangeFacilityXR Chest Single Viewon [id number] Chest Single ViewExam Date/Time: 03/08/2025 16:28 EDT [...] Mateo Marks MD Transcribed by: GRICELDA Technologist: [facility] Medical CenterBMPon 29-44-1730Jhdmb gap [Moles/Vol]9 mmol/LNormal16[facility] Comment on above:Performed By: #### [id number] #### [facility] [address] [place] [address]31KOD/Creat Ratio10 No FzasnBgpfgq24-73RlvqfnBarney Children'S Medical CenterComment on above:Performed By: #### [id number] #### [facility] [address], [place] [address]Yavzjun [Mass/Vol]9.2 mg/dLNormal8.9-11.1FOhioHealth Arthur G.H. Bing, MD, Cancer CenterComment on above:Performed By: #### [id number] #### [facility] [address], [place] [address]Detfyecl [Moles/Vol]105 mmol/MGtswpx786-741YjjgayBarney Children'S Medical CenterComment on above:Performed By: #### [id number] #### [facility] [address], [place] [address]IR1 [Moles/Vol]25 mmol/VXhrkvc91-23PbwtbwBarney Children'S Medical Center Comment on above:Performed By: #### [id number] #### [facility] [address], [place] [address]Cyzovcdwhj [Mass/Vol]1.0 mg/dLNormal0.5-1.3FOhioHealth Arthur G.H. Bing, MD, Cancer CenterComment on above:Performed By: #### [id number] #### [facility] [address], [place] [address]Nxwigcx [Mass/Vol]95 mg/mGRkzgbm55-077KalfklBarney Children'S Medical CenterComment on above:Performed By: #### [id number] #### [facility] [address], [place] [address]Jqrsbgvlk [Moles/Vol]3.7 mmol/LNormal3.5-5.3FOhioHealth Arthur G.H. Bing, MD, Cancer CenterComment on above:Performed By: #### [id number] #### [facility] [address], [place] [address]Qqiglv [Moles/Vol]135 mmol/XEjvpka001-431ErdrefBarney Children'S Medical CenterComment on above:Performed By: #### [id number] #### [facility] [address], [place] [address]Dylh nitrogen [Mass/Vol]10 mg/dLNormal5-21[facility] Medical CenterComment on above:Performed By: #### [id number] #### [facility] [address], [place] [address]MWZ w/ Auto Diffon 85-12-9332Yphdghji Absolute0.1 E9/LNormal 0.0-0.2FOhioHealth Arthur G.H. Bing, MD, Cancer CenterComment on above:Performed By: #### [id number] #### [facility] [address] [place] [address]83[address]Bvaevthir/100 WBC (Bld)1.6 %Normal0.0-2.0[facility] Medical CenterComment on above:Performed By: #### [id number] #### [facility] [address] [place] [address]29[address]Eax Absolute0.2 E9/LNormal0.0-0.5FOhioHealth Arthur G.[facility] Comment on above:Performed By: #### [id number] #### [facility] [address] [place] [address]90[address]Fdymfxywwiv/100 WBC (Bld)2.2 %Normal0.0-8.0[facility] Medical CenterComment on above:Performed By: #### [id number] #### [facility] [address] [place] [address]Tssohwcqlxs distribution width (RBC) [Ratio]13.8 %Normal 10.9-14.2FOhioHealth Arthur G.H. Bing, MD, Cancer CenterComment on above:Performed By: #### [id number] #### [facility] [address] [place] [address] 45361Ljtpzgrszo (Bld) [Volume fraction]42.0 %Bzuaya82.0-46.0[facility] Medical CenterComment on above:Performed By: #### [id number] #### [facility] [address] [place] [address]Qyskovbjug (Bld) [Mass/Vol]14.7 g/vEYqzmee97.0-16.0[facility] CenterComment on above:Performed By: #### [id number] #### [facility] [address] [place] [address] 34[address]Sejqe Absolute2.1 E9/LNormal1.0-4.0[facility] Comment on above:Performed By: #### [id number] #### [facility] [address] [place] [address] 647[address]Bdzrmtlpuau/100 WBC (Bld)23.2 %Ngjkte57.0-50.0[facility] Medical CenterComment on above:Performed By: #### [id number] #### [facility] [address] [place] [address] 795[address]WUC (RBC) [Entitic mass]29.9 sqMnthpo11.0-34.0[facility] Medical CenterComment on above:Performed By: #### [id number] #### [facility] [address] [place] [address] 18842WRFS (RBC) [Mass/Vol]34.9 g/lFHfhnlt28.4-36.0[facility] CenterComment on above:Performed By: #### [id number] #### [facility] [address] [place] [address] 19209JLM (RBC) [Entitic vol]85.8 jJCnelsd53.0-100.0[facility] Medical CenterComment on above:Performed By: #### [id number] #### [facility] [address] [place] [address]Vpjd Absolute0.9 E9/LNormal0.2-1.0[facility] Comment on above:Performed By: #### [id number] #### [facility] [address] [place] [address] 03840Ezzweqtrh/100 WBC (Bld)9.9 %Normal4.0-14.0[facility] Medical CenterComment on above:Performed By: #### [id number] #### [facility] [address] [place] [address]75[address]Cuuefa Absolute5.7 E9/LNormal2.0-7.5FOhioHealth Arthur [facility] Comment on above:Performed By: #### [id number] #### [facility] [address] [place] [address] 39276Dbsqtm Auto63.1 %Voidao57.0-75.0[facility] Comment on above:Performed By: #### [id number] #### [facility] [address] [place] [address] 16[address]Jqyxfqos699.0 E9/VJntpuq022.0-500.0[facility] Comment on above:Performed By: #### [id number] #### [facility] [address] [place] [address] 19293Zcskcfyf mean volume (Bld) [Entitic vol]8.3 fLNormal6.4-10.8 [facility] CenterComment on above:Performed By: #### [id number] #### [facility] [address] [place] [address] 79616RFR3.9 E12/LNormal4.3-5.9[facility] CenterComment on above:Performed By: #### [id number] #### [facility] [address] [place] [address] 53536ZRH8.1 E9/LNormal4.0-11.0[facility] CenterComment on above:Performed By: #### [id number] #### [facility] [address] [place] [address] 57[address]PE Clinical Summaryon [id number] Clinical SummaryED Clinical Summary [address] [address] ED Clinical Summary Person Information Name: MARTHA MARQUEZ Kathi/[facility] Age: 39 Years : 1985 Sex: Female Language: Uzbek PCP: Francesca Sands MD Marital Status: Phone: [phone] Visit Id: Visit Reason: Paresthesia; Shortness of [...] 03/08/2025 19:28:37 03/08/2025 19:28:37 03/08/2025 19:28:37 ADDRESS: [address] [place] [address] [facility] [id number] PHYS DOC NOTES: MEDICAL INFORMATION: Prescriptions Given: New Medications [id number], [address], [place] [id number], [phone] predniSONE (predniSONE 20 mg Tab) 3 By Mouth every day. Refills: 0. Medications to Continue with No Changes Other Medications acetaminophen-hydrocodone ([place] 325 mg-5 mg oral tablet) 1 Tablets [...] up: With: Address: When: Francesca Sands [address] [facility], [place] [address] Business (1) In 3 days DIAGNOSIS: Chest pain; ParesthesiasNormalFisher Elroy Medical CenterED Note-Physicianon 59-38-6826PF Note-PhysicianED Note-Physician Basic Information Time Seen: Marcio [...] Daily, # 15 tab(s), Refills(s) 0, Pharmacy: [id number], 165.1, cm, 03/08/25 16:05:00 EDT, Height/Length Dosing, 64.2, kg, 03/08/25 16:05:00 EDT, Weight Dosing Basic Metabolic Panel CB (more content not included)...[facility] HospitalComment on above:Result Comment: Electronically Signed By: Marcio Navarro DO\.br\Date and Time Signed: 03/08/25 19:13EDTED Patient Education Noteon 72-75-8206ZX Patient Education NoteED Patient Education NoteNoKeenan Private Hospital CenterED Patient Summaryon 51-70-8281JQ Patient SummaryED Patient Summary [place] [id number] Patient Discharge Instructions Person Information Name: MARTHA MARQUEZ Age: 39 Years Arrival Date: 03/08/2025 15:58:45 Discharge Diagnosis: Chest pain; Paresthesias Primary Care Physician: Francesca Sands MD Provider Information Primary Provider: Marcio Navarro DO Advanced Director Chemistry:None The exam and treatment you received in the Emergency Department were for an urgent problem and are not intended as complete care. It is important that you follow up with a doctor, nurse practitioner,or physician???s nurses medical assistants phlebotomists for ongoing care. If your symptoms become worse or you do not improve asexpected and you are unable to reach your usual health care provider, you should return to the Emergency Department. We are available 24 hours a day. MARTHA MARQUEZ has been given the following list of patient education materials, prescriptions and follow-up instructions: Follow-up Instructions: With: Address: When: Francesca Sands [address] [facility], [address] [place] [phone] Business (1) In 3 days In the event that this physician does not participate in your insurance network, please consult with your insurance company to find a nearby participating provider. Patient Education Materials: A MESSAGE TO ALL PATIENTS REGARDING OPIOIDS PRESCRIPTION OPIOIDS: WHAT YOU NEED TO KNOW Prescription opioids can be used to help relieve xzmhyuek-gp-xnqnyv pain and are often prescribed following a [...] be struggling with addiction, tell your health healthcare social worker and askfor guidance or call [facility]??? (more content not included)...[facility] HospitalPT & PTTon 36-51-0726EKP Coag (PPP) [Relative time]0.96 {INR}Invalid Interpretation [facility] Comment on above:Result Comment: INR results are specifically intended to assess patients stabilized on long-term Anticoagulation therapy suggested INR???s ???Less Intensive Anticoagulation??? 2.0 ??? 3.0 Conventional Range 3.0 ??? 4.5Performed By: #### [id number] #### [facility] [address], [place] [address]NK94.7 second(s)Normal9.4-12.5[facility] Comment on above:Result Comment: 15 [...] the same coagulation reagent and instrumentation as [facility]. Currently there are no coagulation studies available worldwide for children to 14 days, andno normal ranges.Performed By: #### [id number] #### [facility] [address], [place] [address]RJY06.2 second(s)Rxtzaq77.1-36.5[facility] Comment on above:Result Comment: Parameter [...] the same coagulation reagent and instrumentation as [facility]. Currently there are no coagulation studies available worldwide for children to 14 days, andno normal ranges. Heparin therapeutic range (represented by Anti-Factor Xa activity of 0.2 - 0.4 U/mL) corresponds to PTT of 56.6 - 109.0 sec.Performed By: #### [id number] #### [facility] [address], [place] [address]Aiepmwuv 0 Hr.on 27-11-4952Njzcskgh HS4.90 pg/mLLow10.10-27.10 [facility] CenterComment on above:Result Comment: The 95% CI (Confidence Interval) PPV (Positive Predictive Value) for myocardial infarction in females is 38 pg/mL, in males 51 pg/mL. The results should be used in conjunction with clinical conditions of myocardial infarction. (Access High Sensitivity Troponin I Instructions For Use, [employer], January 2018)Performed By: #### [id number] #### [facility] [address], [place] [address]Guwphhby 1 Hr.on 37-60-0088Yvkdrcxt HS<2.13Hvz35.10-27.10[facility] Medical CenterComment on above:Order Comment: 1 hour due at 1744Result Comment: The 95% CI (Confidence Interval) PPV (Positive Predictive Value) for myocardial infarction in females is 38 pg/mL, in males 51 pg/mL. The results should be used in conjunction with clinical conditions of myocardial infarction. (Access High Sensitivity Troponin I Instructions For Use, [employer], January 2018)Performed By: #### [id number] #### [facility] [address], [place] [address]tNEOig 72-58-3187iQTA77 mL/min/1.73 v7Asxfqf>=59Barney Children'S Medical CenterComment on above:Performed By: #### [id number] #### [facility] [address], [place] [address]UR BRAIN W AND WO CONTRAST (ROUTINE)on [id number] BRAIN W AND WO CONTRAST (ROUTINE)EXAM: MR [...] change. ELECTRONICALLY SIGNED BY: Jim Stockton, JesikamalNot TjqwcvdrmEL83 ABSOLUTE COUNTon [id number]-CD19+ cells (Bld) [#/Vol]278 cells/sOBtvkyi70-932FzeowjjmaSelect Medical Specialty Hospital [facility] [place] on above:Order Comment: Specimen Type: BLOOD SPECIMEN Ordering Facility: [facility] Address: ATTN: [place] [address]Performed By: #### [id number] #### [facility] CLIA [id number] [address] [address] [place] OF AMERICACD3-CD19+ cells/100 cells (Bld)15 %Normal5-22[facility] [place] on above:Order Comment: Specimen Type: BLOOD SPECIMEN Ordering Facility: [facility] Address: ATTN: [place], [place] [address]Performed By: #### [id number] #### [facility] CLIA [id number] [address] [address] [place] OF AMERICALymphocytes/100 WBC FC (Bld) NormalSelect Medical Specialty Hospital - [place] on above:Order Comment: Specimen Type: BLOOD SPECIMEN Ordering Facility: [facility] Address: ATTN: JASON, [place], [place] [address]Xtjxtdpru By: #### [id number] #### [facility] BELLAIA [id number] [address] [place], [place] [id number] [place] [facility] MEDICAL CENTERCNOVon [id number] Visit ([facility]ITALChiqui) MARTHA MARQUEZ ([id number]) 1985 F Date Time Provider Department 01/11/25 2:30 PM GAL NOGUEIRA [facility] EMERGENCY DEPART[facility] During your visit today, we recorded the following information about you: Blood pressure Weight 124/84 65 kg Gal Nogueira, MONITOR TECHNICIAN.CERTIFIED OPHTHALMIC TECHNOLOGIST 01/13/2025 4:33 PM [facility] FOLLOWUP/ESTABLISHED PATIENT VISIT PRINCIPAL NEUROLOGIC DIAGNOSIS: Multiple [...] interim, following with Dr Surinder Hernandez in [place] for MS care. Switched from Ocrevus to Kesimpta given perceived lack of benefit. Switched Adderall to Vyvanse for cognitive symptoms. Last office visit 11/2023. Reports wanted to continue following with Dr Hernandez but her kids felt she should follow up at [facility] since she was historically seen here. Admits she has difficulty driving to [place] and [place] would be easier. Lost on way to appt today and arrived at 3:09 for 2:30 appt. Has been without all medications for the past 6 months or so. Reports medical records got messed up . Liked Kesimpta and was tolerating well. Metcalf she was able to manage injections. Had [...] Flowsheet Row Distance Health from 02/21/2023 in [facility] Office Visit from 08/14/2015 in [facility] Appointment from 07/03/2015 in [facility] Upper Extremity Domain T Score 30 35.13 45.23 Lower Extremity Domain T Score 36 44.4 44.4 Cognitive Function Domain T Score 38 -- -- Positive Affect Well Being T Score -- -- -- Ability To Participate In Social Roles T Score 42 -- -- Satisfaction With Social Roles T Score 46 -- -- Neuro-QoL Symptoms (higher=worse symptoms) Flowsheet [facility] Distance Health from 02/21/2023 in [facility] Office Visit from 08/14/2015 in [facility] Appointment from 07/03/2015 in [facility] Sleep Domain T Score 65 65.92 [...] oz) BMI 23.83 kg/m? MSPT Results Flowsheet [facility] Office Visit from 12/23/2016 in [facility] Office Visit from 08/14/2015 in [facility] Appointment from 07/03/2015 in [facility] Processing Speed Total Number Correct 47 [...] examination showed normal l (more content not included)...NormalL[facility] WITH AUTO DIFFERENTIALon [id number] ABSOLUTE COUNT (10*3/UL) BY AUTOMATED COUNT 0.1 10*3/uLNormal0.0-0.2ProMedica Vencor HospitalComment on above:Performed By: #### CBCA #### [facility] HOSPITALYehuda [facility]) [address] [place] [address] [place] [address] VIRBASOPHILS RELATIVE PERCENT BY AUTOMATED COUNT1.4 %Normal [facility] HospitalComment on above:Performed By: #### CBCA #### [facility] HOSPITALYehuda [facility]) [address] [place] [address] [place] [address] VIRCELLAVISION DIFFERENTIAL TYPEAUTOMATED DIFFERENTIALNormal [facility] HospitalComment on above:Performed By: #### CBCA #### [facility] ([address] [place] [address] VIREosinophils (Bld) [#/Vol]0.2 10*3/uLNormal0.0-0.4[facility] HospitalComment on above:Performed By: #### CBCA #### [facility] ([address] [place] [address] VIREOSINOPHILS RELATIVE PERCENT BY AUTOMATED COUNT2.9 %Normal [facility] HospitalComment on above:Performed By: #### CBCA #### [facility] ([address] [place] [address] VIRErythrocyte distribution width (RBC) [Ratio]13.6 %Normal 11.5-15ProTexas Health Harris Methodist Hospital CleburneComment on above:Performed By: #### CBCA #### [facility] ([address] [place] [address] VIRHematocrit (Bld) [Volume fraction]40.3 %Jpokje23-93 [facility] HospitalComment on above:Performed By: #### CBCA #### [facility] ([address] [place] [address] VIRHemoglobin (Bld) [Mass/Vol]13.9 g/vWCvwhhb87.7-15.5 [facility] HospitalComment on above:Performed By: #### CBCA #### [facility] ([address] [place] [address] VIRLYMPHOCYTES ABSOLUTE COUNT (10*3/UL) BY AUTOMATED COUNT1.7 10*3/uLNormal1.0-3.5PKettering HealthComment on above:Performed By: #### CBCA #### [facility] ([address] [place] [address] VIRLYMPHOCYTES RELATIVE PERCENT BY AUTOMATED COUNT28.4 %Normal [facility] HospitalComment on above:Performed By: #### CBCA #### [facility] ([address] [place] [address] VIRMCH (RBC) [Entitic mass]29.6 yeNamsfb53-65CeiVbtqljTexas Health Harris Methodist Hospital CleburneComment on above:Performed By: #### CBCA #### [facility] ([address] [place] [address] VIRMCHC (RBC) [Mass/Vol]34.4 g/bCGjpjxt77-64NgiVtpynkTexas Health Harris Methodist Hospital CleburneComment on above:Performed By: #### CBCA #### [facility] ([address] [place] [address] VIRMCV (RBC) [Entitic vol]86 tDEawvcj19-767JfkFouikd [place] HospitalComment on above:Performed By: #### CBCA #### [facility] ([address] [place] [address] VIRMONOCYTES ABSOLUTE COUNT (10*3/UL) BY AUTOMATED COUNT0.5 10*3/uLNormal0.0-0.9ProTexas Health Harris Methodist Hospital CleburneComment on above:Performed By: #### CBCA #### [facility] ([address] [place] [address] VIRMONOCYTES RELATIVE PERCENT BY AUTOMATED COUNT8.4 %Normal [facility] HospitalComment on above:Performed By: #### CBCA #### [facility] ([address] [place] [address] VIRNEUTROPHILS ABSOLUTE COUNT BY AUTOMATED COUNT3.6 10*3/uL Normal1.5-6.6[facility] Community HospitalComment on above:Performed By: #### CBCA #### [facility] ([address] [place] [address] VIRNEUTROPHILS RELATIVE PERCENT BY AUTOMATED COUNT58.9 %Normal [facility] HospitalComment on above:Performed By: #### CBCA #### [facility] ([facility]) [address] [place] [address] [place] [address] VIRPlatelet mean volume (Bld) [Entitic vol]8.3 fLNormal7-12 [facility] HospitalComment on above:Performed By: #### CBCA #### [facility] ([facility]) [address] [place] [address] [place] [address] VIRPlatelets (Bld) [#/Vol]272 10*3/tNWvrzbw223-762IpsGbyuox [facility]remont HospitalComment on above:Performed By: #### CBCA #### [facility] ([address] [place] [address] VIRRBC COUNT4.69 X10E12/LNormal3.8-5.2PKettering HealthComment on above:Performed By: #### CBCA #### [facility] ([address] [place] [address] VIRWBC (Bld) [#/Vol]6.1 10*3/uLNormal4-11[facility] HospitalComment on above:Performed By: #### CBCA #### [facility] ([address] [place] [address] VIRCOMPREHENSIVE METABOLIC PANELon 72-47-3895Sazvltz [Mass/Vol]4.3 g/dLNormal3.2-5.3PKettering HealthComment on above: Performed By: #### CMP #### [facility] ([facility]) [address] [place] [address] [place] [address] VIRALP [Catalytic activity/Vol]43 U/WSnzunz26-077VpaBugzsnTexas Health Harris Methodist Hospital CleburneComment on above:Performed By: #### CMP #### [facility] [address] [place] [address] VIRALT [Catalytic activity/Vol]10 U/LNormal<=31PKettering HealthComment on above:Performed By: #### CMP #### [facility] ([place] [address] [place] [address] VIRAnion gap [Moles/Vol]6 mmol/LNormal5-15ProCleveland Clinic Marymount Hospital HospitalComment on above:Performed By: #### CMP #### [facility] ([place] [address] [place] [address] VIRAST [Catalytic activity/Vol]16 U/LNormal<=41ProTexas Health Harris Methodist Hospital CleburneComment on above:Performed By: #### CMP #### [facility] ([place] [address] [place] [address] VIRBilirubin [Mass/Vol]0.9 mg/dLNormal0.3-1.2PKettering HealthComment on above:Performed By: #### CMP #### [facility] ([place] [address] [place] [address] VIRCalcium [Mass/Vol]9.4 mg/dLNormal8.5-10.5PKettering HealthComment on above:Performed By: #### CMP #### [facility] ([place] [address] [place] [address] VIRChloride [Moles/Vol]105 mmol/LXpjydt82-011SdiRjhpmbTexas Health Harris Methodist Hospital CleburneComment on above:Performed By: #### CMP #### [facility] ([place] [address] [place] [address] VIRCO2 [Moles/Vol]25 mmol/KBtzeev58-83OqrHlshqwKettering HealthComment on above:Performed By: #### CMP #### [facility] ([place] [address] [place] [address] VIRCreatinine [Mass/Vol]0.96 mg/dLNormal0.40-1.00ProTexas Health Harris Methodist Hospital CleburneComment on above:Result Comment: METHOD TRACEABLE TO IDMS STANDARDPerformed By: #### CMP #### [facility] ([address] [address] VIRGFR/1.73 sq M.predicted among non-blacks MDRD (S/P/Bld) [Vol rate/Area]78 mL/min/{1.73_m2}Normal>=60ProTexas Health Harris Methodist Hospital CleburneComment on above:Result Comment: eGFR not reported due to non-numeric value for Creatinine. Reported eGFR is based on the CKD-EPI 2020 equation that does not use a race coefficient.Performed By: #### CMP #### [facility] ([address] [address] VIRGlucose [Mass/Vol]96 mg/fFJeeuuv09-88LqyRbbpjvTexas Health Harris Methodist Hospital CleburneComment on above:Performed By: #### CMP #### [facility] ([address] [address] VIRPotassium [Moles/Vol]4.1 mmol/LNormal3.5-5.0ProTexas Health Harris Methodist Hospital CleburneComment on above:Performed By: #### CMP #### [address] [place] [address] VIRProtein [Mass/Vol]7.2 g/dLNormal6.0-8.0ProTexas Health Harris Methodist Hospital CleburneComment on above:Performed By: #### CMP #### [facility] ([address] [address] VIRSodium [Moles/Vol]136 mmol/IQkedsg354-406AjvPclojx [place] HospitalComment on above:Performed By: #### CMP #### [facility] ([address] [place] [address] VIRUrea nitrogen [Mass/Vol]11 mg/dLNormal5-23ProTexas Health Harris Methodist Hospital CleburneComment on above:Performed By: #### CMP #### KRISHANA [facility]) [address] [place] [address]. [place] [address] VIRCT BRAIN WO CONTon [id number] BRAIN WO CONTCT BRAIN WO CONT STUDY: [...] extra-axial fluid collection, mass effect, or hydrocephalus. Farnco-white matter differentiation is appropriate. Infarcts and masses [...] by Mendoza Aguirre MD on 10/22/2024 11:46 AMNormalProTexas Health Harris Methodist Hospital CleburneMAGNESIUMon 86-18-1341Utvxuskct [Mass/Vol]1.9 mg/dLNormal1.8-2.6 [facility] HospitalComment on above:Performed By: #### MG #### MAHIN [facility]) [address] [place] [address]. [place] [address] VIRPOCT NURSING URINE MACROSCOPIC UAon 42-43-8956UOGGENDJU BRAD NegativeNormalNegativeProTexas Health Harris Methodist Hospital CleburneComment on above:Performed By: #### NUM #### [facility] ([facility]) [address] [place] [address] [address]VE[address] [facility] [place] [address] VIRBLOOD/HGB NURNegativeNoalNegativeKnox Community HospitalComment on above:Performed By: #### NUM #### [facility] ([facility]) [address] [place], [place] [address]T [facility]. [facility] [place] [address] VIRGLUCOSE NURNegativeMcalisterNegSelect Medical Specialty Hospital [facility] [place] Comment on above:Performed By: #### NUM #### [facility] ([address] [address] VIRKETONES NURNegativeMcalisterNegSelect Medical Specialty Hospital - [facility] [place] Comment on above:Performed By: #### NUM #### [facility] ([address] [address] VIRLEUKOCYTE ESTERASE NURNegativeNoatrium health kannapolisNegSelect Medical Specialty Hospital - Southeast OhioComment on above:Performed By: #### NUM #### [facility] ([address] [address] VIRNITRITE NURNegativeLakeHealth TriPoint Medical Center Comment on above:Performed By: #### NUM #### [facility] ([address] [place] [address] VIRPH NUR7.8Iepvpn1.0, 6.0, 6.5, 7.0, 7.5, 8.0, 8.5, 5.5 [facility] HospitalComment on above:Performed By: #### NUM #### [facility] ([address] [address] VIRPROTEIN NURNegativeMcalisterNegSelect Medical Specialty [facility] [place] Comment on above:Performed By: #### NUM #### [facility] ([address] [facility] [place] [address] VIRSPECIFIC GRAVITY NUR1.091Rarekt6.010, 1.015, 1.020, 1.025 [facility] HospitalComment on above:Performed By: #### NUM #### [facility] ([address] [address] VIRUROBILINOGEN NUR0.2 E.U./dLNormalKnox Community Hospital Comment on above:Performed By: #### NUM #### [facility] ([address] [address] VIRPOCT , URINE (NUCG)on 81-99-7242Tvbh HCG ( test) Ql (U)NegativeNormalNegativeKnox Community HospitalComment on above:Performed By: #### NUCG #### [facility] ([address] [address] VIRTROP I, HIGH SENSITIVITY 1 HOURon 99-67-1471VVARZEJL I, HIGH SENSITIVITY<^2Normal<16ProTexas Health Harris Methodist Hospital CleburneComment on above:Performed By: #### TNIHS1 #### [facility] ([address] [address] VIRTROPONIN I, HIGH SENSITIVITY 0 HOURon 05-54-8504AOAPQZRM I, HIGH SENSITIVITY2 ng/LNormal<16ProTexas Health Harris Methodist Hospital CleburneComment on above: Performed By: #### TNIHS0 #### [facility] ([address] [address] VIRMR cervical spine wo/w conon 86-82-8849GD cervical spine wo/w [facility] [place] [address] MRI Report Signed Patient: Martha Marquez MR#: [id number] : 1985 Acct:[id number] Age/Sex: 37 / F ADM Date: 02/07/23 Loc: MR [facility]: [facility] Att[facility] Dr: Marty Jade DO Copies [...] Daniel Mcgee M.D.02/07/2023 3:10 PM Dictation Location: [place] [address] Transcribed By: [facility] 02/07/23 1510 Dictated By: Daniel Mcgee II, MD 02/07/23 1457 Signed By: 02/07/23 1510[facility] head/brain wo/w conon 77-83-8112LU head/brain wo/w [facility] [place] [address] MRI Report Signed Patient: Martha Marquez MR#: [id number] : 1985 Acct:[id number] Age/Sex: 37 / F ADM Date: 02/07/23 Loc: Room: [facility] Attending Dr: Marty Jade DO Copies [...] Daniel Mcgee M.D.02/07/2023 3:21 PM Dictation Location: [place] [address] Transcribed By: [facility] 02/07/23 1521 Dictated By: Daniel Mcgee II, MD 02/07/23 1512 Signed By: 02/07/23 1521[facility] AUTO DIFFon 07-04-2022 BASO #0.0 103/ulNormal0.0-0.1The [facility] Health DaytonComment on above:Performed By: #### TSH, T7, LIPID, CMP #### [facility] [address] [place], [place] [address] Dr. Shari Rojasphils/100 WBC (Bld)0.6 %Normal0.2-2.0The [facility] Comment on above:Performed By: #### TSH, T7, LIPID, CMP #### [facility] [address] [place], [place] [address] Dr[address] Mccarthy ChangEMarnie #0.1 103/ulNormal0.0-0.7The [facility] Hospitalment on above: Performed By: #### TSH, T7, LIPID, CMP #### [facility] [address] [place] [address] Dr. Shari Sheltonosinophils/100 WBC (Bld)2.1 %Normal0.9-7.0The [facility] Comment on above:Performed By: #### TSH, T7, LIPID, CMP #### [facility] [address] [place] [address] Dr. Shari Sheltonrythrocyte distribution width (RBC) [Ratio]13.1 %Pofxre81.0-15.0 The [facility] Hospitalment on above:Performed By: #### TSH, T7, LIPID, CMP #### [facility] [address] [place] [address] Dr. Shari MobleyHematocrit (Bld) [Volume fraction]40.0 %Vagjfa63.0-48.0The [facility] Hospitalment on above:Performed By: #### TSH, T7, LIPID, CMP #### [facility] [address] [place] [address] Dr. Shari MobleyHemoglobin (Bld) [Mass/Vol]13.3 g/qTBdumph53.0-16.0The [facility] Hospitalment on above:Performed By: #### TSH, T7, LIPID, CMP #### [facility] [address] [place] [address] Dr. Shari Murphy #0.02 10e3/ulNormal0.00-0.03The German Hospitalment on above:Performed By: #### TSH, T7, LIPID, CMP #### [facility] [address] [place] [address] Dr. Shari Murphy %0.3 %Normal0.0-0.5The [facility] Hospitalment on above: Performed By: #### TSH, T7, LIPID, CMP #### [facility] [address] [place] [address] Dr. Shari Patino #1.3 103/ulNormal1.2-3.8The [facility] Hills HospitalComment on above:Performed By: #### TSH, T7, LIPID, CMP #### [facility] [address] [place] [address] Dr. Shari Sanchezmphocytes/100 WBC (Bld)20.6 %Pdlxtd35.5-60.0The [facility] DaytonComment on above:Performed By: #### TSH, T7, LIPID, CMP #### [facility] [address] [place] [address] Dr. Shari Pollard DIFF REQNONormalThe [facility] Health DaytonComment on above: Performed By: #### TSH, T7, LIPID, CMP #### [facility] [address] [place] [address] Dr. Shari George (RBC) [Entitic mass]28.7 ieSxdtuz36.7-34.0The [facility] DaytonComment on above:Performed By: #### TSH, T7, LIPID, CMP #### [facility] [address] [place] [address] Dr. Shari George (RBC) [Mass/Vol]33.3 g/cEQjnaju43.9-35.2The [facility] DaytonComment on above:Performed By: #### TSH, T7, LIPID, CMP #### [facility] [address] [place] [address] Dr. Shari Dan (RBC) [Entitic vol]86.2 sXNxxfao06.0-99.0The [facility] on above:Performed By: #### TSH, T7, LIPID, CMP #### [facility] [address] [place] [address] Dr. Shari Mitchell #0.7 103/ulNormal0.3-0.8The [facility] Hospitalment on above:Performed By: #### TSH, T7, LIPID, CMP #### [facility] [address] [place] [address] Dr. Shari Lealocytes/100 WBC (Bld)10.6 %Normal1.7-12.0The [facility] Comment on above:Performed By: #### TSH, T7, LIPID, CMP #### [facility] [address] [place] [address] Dr. Shari Oconnor #4.2 103/ulNormal1.4-6.5The [facility] DaytonComment on above:Performed By: #### TSH, T7, LIPID, CMP #### [facility] [address] [place] [address] Dr. Shari Zamorautrophils/100 WBC (Bld)65.8 %Ccjrkp06.0-75.0The [facility] DaytonComment on above:Performed By: #### TSH, T7, LIPID, CMP #### [facility] [address] [place] [address] Dr. Shari Ray mean volume (Bld) [Entitic vol]9.6 fLNormal9.5-13.5The [facility] DaytonComment on above:Performed By: #### TSH, T7, LIPID, CMP #### [facility] [address] [place] [address] Dr. Shari MobleyPLT304 103/dkVosdll396-869Kwx [facility] on above: Performed By: #### TSH, T7, LIPID, CMP #### [facility] [address] [place] [address] Dr. Shari MobleyRBC4.64 106/ulNormal4.20-5.40The [facility] on above:Performed By: #### TSH, T7, LIPID, CMP #### [facility] [address] [place] [address] Dr. Shari MobleyWBC6.3 103/ulNormal4.0-11.0The [facility] on above: Performed By: #### TSH, T7, LIPID, CMP #### [facility] [address] [place] [address] Dr. Shari Larson THYROXINE INDEX T7on 69-58-9490AOT9.43Lsasbe7.30-4.50The [facility] on above:Performed By: #### TSH, T7, LIPID, CMP #### [facility] [address] [place] [address] Dr. Shari MobleyT3U34.0 %Jqxise09.0-39.0The [facility] DaytonComment on above: Performed By: #### TSH, T7, LIPID, CMP #### [facility] [address] [place] [address] Dr. Shari MobleyT4 [Mass/Vol]7.30 ug/dLNormal4.80-13.90The [facility] Comment on above:Performed By: #### TSH, T7, LIPID, CMP #### [facility] [address] [place] [address] Dr. Shari MobleyGLYCOHEMOGLOBIN A1Con 32-29-1249JDS RECOMMENDATIONSEE BELOWVan Wert County HospitalComment on above:Result Comment: ADA RECOMMENDED LIMIT 4.0 - 6.0 ADA THERAPEUTIC TARGET < 7.0 ACTION SUGGESTED > 7.0Performed By: #### TSH, T7, LIPID, CMP #### [facility] [address] [place] [address] Dr. Shari MobleyGlucose [Mass/Vol]111 mg/dLNoUC West Chester HospitalComment on above:Performed By: #### TSH, T7, LIPID, CMP #### [facility] [address] [place] [address] Dr. Shari MobleyHbA1c (Bld) [Mass fraction]5.5 %Normal4.5-6.2The [facility] Health DaytonComment on above:Performed By: #### TSH, T7, LIPID, CMP #### [facility] [address] [place] [address] Dr. Shari Au 13-68-0741Vagj [Mass/Vol]61.0 ug/fPOncfvl43.0-170.0The [facility] DaytonComment on above:Performed By: #### IRON, VITAD #### [facility] [address] [place] [address] Dr. Shari MobleyLIPID PROFILEon 13-06-9272QYXH-HDL RATIO NORMSEE [facility] CenterComascension st[facility] on above:Result Comment: 3.3 - 4.4 LOW RISK 4.4 - 7.1 AVERAGE RISK 7.1 - 11.0 MODERATE RISK >11.0 HIGH RISKPerformed By: #### TSH, T7, LIPID, CMP #### [facility] [address] [place] [address] [address] Shari Lyonsesterol [Mass/Vol]145 mg/dLNormal<=200[facility] Comment on above:Performed By: #### TSH, T7, LIPID, CMP #### [facility] [address] [place] [address] Dr. Shari Lyonsesterol in HDL [Mass/Vol]64 mg/dLCritically yiyp44-04Cwo [facility] DaytonComment on above:Performed By: #### TSH, T7, LIPID, CMP #### [facility] [address] [place] [address] Dr. Shari Lyonsesterol in LDL [Mass/Vol]65.0 mg/dLNoUC West Chester HospitalComment on above:Performed By: #### TSH, T7, LIPID, CMP #### [facility] [address] [place] [address] Dr. Shari Vasquez.total/Cholesterol in HDL [Mass ratio]2.3 {ratio} NormalThe [facility] DaytonComment on above:Performed By: #### TSH, T7, LIPID, CMP #### [facility] [address] [place] [address] Dr. Shari Perdue NORMAL> or = 60 mg/dl - LOW CARDIOVASCULAR RISK <40 mg/dl - HIGH CARDIOVASCULAR RISKSuburban Community Hospital & Brentwood HospitalComment on above:Performed By: #### TSH, T7, LIPID, CMP #### [facility] [address] [place] [address] Dr. Shari MobleyLDL CALC NORMALSEE BELOWSuburban Community Hospital & Brentwood HospitalComment on above:Result Comment: <100 mg/dl OPTIMAL 100 - 129 mg/dl NEAR OR ABOVE OPTIMAL 130 - 159 mg/dl BORDERLINE HIGH 160 - 189 mg/dl HIGH >190 mg/dl VERY HIGH Performed By: #### TSH, T7, LIPID, CMP #### [facility] [address] [place] [address] Dr. Yilan ChangTriglyceride [Mass/Vol]80 mg/dLNormal<=150The [facility] Comment on above:Performed By: #### TSH, T7, LIPID, CMP #### [facility] [address] [address] [address] Shari MobleyVLDL CALC16.0 mg/dLNoUC West Chester HospitalComment on above: Performed By: #### TSH, T7, LIPID, CMP #### [facility] [address] [address] [address] Shari MobleyMG MAMM SCREEN 3D ANNY CADon 35-91-2281MU MAMM SCREEN 3D ANNY CAD Patient: MARTHA MARQUEZ Exam Date: 07/04/2022 : 1985 Gender:F Ordering : DR FRANCESCA SANDS . Admission #: [id number] Family : Order #: [id number] CLICK HERE TO VIEW EXAM RADIOLOGY REPORT [...] breast cancer at age 55. LOCATION: [facility] BREAST COMPOSITION: Scattered areas fibroglandular density. FINDINGS: DIAGNOSTIC CATEGORY 1--NEGATIVE. RIGHT BREAST: No significant suspicious finding. LEFT BREAST: No significant suspicious finding. RECOMMENDATIONS: CLINICAL EVALUATION. PLEASE NOTE: A NORMAL MAMMOGRAM DOES NOT EXCLUDE THE POSSIBILITY OF BREAST CANCER. A CLINICALLY SUSPICIOUS PALPABLE LUMP SHOULD BE BIOPSIED. Dictated by: Tyler Trejo MD on 07/04/2022 at 10:56 Approved by: Tyler Trejo MD on 07/04/2022 at 10:58NoUC West Chester HospitalPROF 14(COMP METB)on 12-59-2482Zoxsisy [Mass/Vol]4.1 g/dLNormal3.4-5.0The [facility] DaytonComment on above:Performed By: #### TSH, T7, LIPID, CMP #### [facility] [address] [address] [address] Shari MobleyAlbumin/Globulin [Mass ratio]1.3 {ratio}NormalThe [facility] DaytonComment on above:Performed By: #### TSH, T7, LIPID, CMP #### [facility] [address] [place] [address] Dr. Shari Horvath [Catalytic activity/Vol]49 U/QStusyz87-014Dun [facility] DaytonComment on above:Performed By: #### TSH, T7, LIPID, CMP #### [facility] [address] [place] [address] Dr. Shari BauerT [Catalytic activity/Vol]16 U/WTtborl74-96Wld [facility] DaytonComment on above:Performed By: #### TSH, T7, LIPID, CMP #### [facility] [address] [place] [address] Dr. Shari MobleyAnion gap [Moles/Vol]10.5 mmol/LNormalThe [facility] Comment on above:Performed By: #### TSH, T7, LIPID, CMP #### [facility] [address] [place] [address] Dr. Shari MobleyAST [Catalytic activity/Vol]15 U/AJblwbh07-39Xsf [facility] DaytonComment on above:Performed By: #### TSH, T7, LIPID, CMP #### [facility] [address] [place] [address] Dr. Shari MobleyBilirubin [Mass/Vol]0.4 mg/dLNormal0.2-1.0[facility] Comment on above:Performed By: #### TSH, T7, LIPID, CMP #### [facility] [address] [place] [address] Dr. Shari MobleyCalcium [Mass/Vol]9.5 mg/dLNormal8.5-10.1[facility] Comment on above:Performed By: #### TSH, T7, LIPID, CMP #### [facility] [address] [place] [address] Dr. Shari MobleyChloride [Moles/Vol]100 mmol/RXdsyqx20-640VccMetrohealth Main Campus Medical Center Comment on above:Performed By: #### TSH, T7, LIPID, CMP #### [facility] [address] [address] [address] Shari MobleyCO2 [Moles/Vol]30.9 mmol/BYuscbb43.0-32.0The [facility] Comment on above:Performed By: #### TSH, T7, LIPID, CMP #### [facility] [address] [place] [address] Dr. Shari MobleyCreatinine [Mass/Vol]0.84 mg/dLNormal0.55-1.02[facility] Medical CenterComment on above:Performed By: #### TSH, T7, LIPID, CMP #### [facility] [address] [place] [address] Dr. Shari SheltonGFR-AF NEPALESE>60Normal>=60The [facility] DaytonComment on above:Performed By: #### TSH, T7, LIPID, CMP #### [facility] [address] [place] [address] Dr. Shari Layton-NON AF NEPALESE>60Normal>=60The [facility] DaytonComment on above:Performed By: #### TSH, T7, LIPID, CMP #### [facility] [address] [place] [address] Dr. Shari MobleyGlobulin (S) [Mass/Vol]3.1 g/dLNormalThe [facility] DaytonComment on above:Performed By: #### TSH, T7, LIPID, CMP #### [facility] [address] [place] [address] Dr. Shari MobleyGlucose [Mass/Vol]78 mg/iTIeeijw48-371OrlMetrohealth Main Campus Medical Center Comment on above:Performed By: #### TSH, T7, LIPID, CMP #### [facility] [address] [place] [address] Dr. Shari MobleyPotassium [Moles/Vol]4.4 mmol/LNormal3.5-5.1The [facility] Comment on above:Performed By: #### TSH, T7, LIPID, CMP #### [facility] [address] [place] [address] Dr. Shari MobleyProtein [Mass/Vol]7.2 g/dLNormal6.4-8.2The [facility] Comment on above:Performed By: #### TSH, T7, LIPID, CMP #### [facility] [address] [address] [address] Shari MobleySodium [Moles/Vol]137 mmol/XIvngac368-535AnvMetrohealth Main Campus Medical Center Comment on above:Performed By: #### TSH, T7, LIPID, CMP #### [facility] [address] [address] [address] Shari MobleyUrea nitrogen [Mass/Vol]10.0 mg/dLNormal7.0-18.0The [facility] DaytonComment on above:Performed By: #### TSH, T7, LIPID, CMP #### [facility] [address] [place] [address] Dr. Shari Rivera nitrogen/Creatinine [Mass ratio]11.9 mg/mgNoUC West Chester HospitalComment on above:Performed By: #### TSH, T7, LIPID, CMP #### [facility] [address] [place] [address] Dr. Shari KimbleHochiqui 43-61-1067XOP4.258 uIU/mLNormal0.358-3.740The [facility] DaytonComment on above:Performed By: #### TSH, T7, LIPID, CMP #### [facility] [address] [place] [address] Dr. Shari MobleyVITAMIN D 25 OHon 54-41-5870PFE D 25-OH47.2 ng/mLNormalThe [facility] DaytonComment on above:Performed By: #### IRON, VITAD #### [facility] [address] [place] [address] Dr. Shari Katz [place]ANGES[place] BELOWSuburban Community Hospital & Brentwood HospitalComment on above: Result Comment: <20 ng/mL Vit D deficient 20 - <30 ng/mL Vit D insufficient 30 - 100 ng/mL Vit D sufficient >100 ng/mL Potential ToxicityPerformed By: #### IRON, VITAD #### [facility] [address] [place] [address] Dr. Shari Mobley thoracic spine wo/w conon [id number] thoracic spine wo/w con [facility] [place] [address] [place] [address] MRI Report Signed Patient: Martha Marquez MR#: [id number] : 1985 Acct:[id number] Age/Sex: 36 / F ADM Date: 03/22/22 Loc: MR Room: Type: [facility] CLI Attending Dr: Clayton Blancas PA-C [...] Daniel Mcgee M.D.03/22/2022 3:56 PM Dictation Location: [place] [address] Transcribed By: [facility] 03/22/22 155 Dictated By: Daniel Mcgee II, MD 03/22/22 1545 Signed By: 03/22/22 1556Ohio[facility]CB AUTO DIFFon 12-03-2021 BASO #0.1 103/ulNormal0.0-0.1The [facility] DaytonComment on above:Performed By: #### TSH, T7, LIPID, CMP #### [facility] [address] [address] [address] Shari Vaughnsophils/100 WBC (Bld)0.8 %Normal0.2-2.0The [facility] Comment on above:Performed By: #### TSH, T7, LIPID, CMP #### [facility] [address] [address] [address] Mccarthy ChangEMarnie #0.1 103/ulNormal0.0-0.7The [facility] Hospitalment on above: Performed By: #### TSH, T7, LIPID, CMP #### [facility] [address] [place] [address] Dr. Shari Sheltonosinophils/100 WBC (Bld)1.0 %Normal0.9-7.0The [facility] Comment on above:Performed By: #### TSH, T7, LIPID, CMP #### [facility] [address] [place] [address] Dr. Shari Sheltonrythrocyte distribution width (RBC) [Ratio]12.3 %Kebkrb89.0-15.0 The [facility] Hospitalment on above:Performed By: #### TSH, T7, LIPID, CMP #### [facility] [address] [place] [address] Dr. Shari MobleyHematocrit (Bld) [Volume fraction]42.6 %Lbnbzd42.0-48.0The [facility] Hospitalment on above:Performed By: #### TSH, T7, LIPID, CMP #### [facility] [address] [place] [address] Dr. Shari MobleyHemoglobin (Bld) [Mass/Vol]14.5 g/fYIqfkhr30.0-16.0The [facility] Hospitalment on above:Performed By: #### TSH, T7, LIPID, CMP #### [facility] [address] [place] [address] Dr. Shari Murphy #0.02 10e3/ulNormal0.00-0.03The [facility] Hospitalment on above:Performed By: #### TSH, T7, LIPID, CMP #### [facility] [address] [place] [address] Dr. Shari Murphy %0.3 %Normal0.0-0.5The [facility] on above: Performed By: #### TSH, T7, LIPID, CMP #### [facility] [address] [place] [address] Dr. Shari Patino #1.4 103/ulNormal1.2-3.8The [facility] Hospitalment on above:Performed By: #### TSH, T7, LIPID, CMP #### [facility] [address] [place] [address] Dr. Shari Sanchezmphocytes/100 WBC (Bld)23.1 %Nsbvrr89.5-60.0The [facility] DaytonComment on above:Performed By: #### TSH, T7, LIPID, CMP #### [facility] [address] [place] [address] Dr. Shari GonzalezUAL DIFF REQNONormalThe [facility] DaytonComment on above: Performed By: #### TSH, T7, LIPID, CMP #### [facility] [address] [place] [address] Dr. Shari George (RBC) [Entitic mass]30.3 olFfvyap20.7-34.0The [facility] DaytonComment on above:Performed By: #### TSH, T7, LIPID, CMP #### [facility] [address] [place] [address] Dr. Shari George (RBC) [Mass/Vol]34.0 g/eZZerhss34.9-35.2The [facility] DaytonComment on above:Performed By: #### TSH, T7, LIPID, CMP #### [facility] [address] [place] [address] Dr. Shari Dan (RBC) [Entitic vol]88.9 yCBgxaqk94.0-99.0The [facility] Hospitalment on above:Performed By: #### TSH, T7, LIPID, CMP #### [facility] [address] [place] [address] Dr. Shari Mitchell #0.5 103/ulNormal0.3-0.8The [facility] on above:Performed By: #### TSH, T7, LIPID, CMP #### [facility] [address] [place] [address] Dr. Shari Lealocytes/100 WBC (Bld)9.0 %Normal1.7-12.0The [facility] Comment on above:Performed By: #### TSH, T7, LIPID, CMP #### [facility] [address] [place] [address] Dr. Shari Oconnor #4.0 103/ulNormal1.4-6.5The [facility] DaytonComment on above:Performed By: #### TSH, T7, LIPID, CMP #### [facility] [address] [place] [address] Dr. Shari Zamorautrophils/100 WBC (Bld)65.8 %Lspllg15.0-75.0The [facility]Comasc[facility] on above:Performed By: #### TSH, T7, LIPID, CMP #### [facility] [address] [place] [address] Dr. Shari Araizalet mean volume (Bld) [Entitic vol]9.9 fLNormal9.5-13.5The [facility] on above:Performed By: #### TSH, T7, LIPID, CMP #### [facility] [address] [place] [address] Dr. Shari QuezadaT251 103/yqCgpxbm359-911Xfo [facility] on above: Performed By: #### TSH, T7, LIPID, CMP #### [facility] [address] [place] [address] Dr. Shari MobleyRBC4.79 106/ulNormal4.20-5.40The [facility] on above:Performed By: #### TSH, T7, LIPID, CMP #### [facility] [address] [place] [address] Dr. Shari MobleyWBC6.0 103/ulNormal4.0-11.0The [facility] on above: Performed By: #### TSH, T7, LIPID, CMP #### [facility] [address] [place] [address] Dr. Shari ARCHERon 43-83-8500Fnladtr [Mass/Vol]4.3 g/dLNormal3.4-5.0 The [facility] DaytonComment on above:Performed By: #### LIVER, BMP #### [facility] [address] [place] [address] Dr. Shari MobleyAlbumin/Globulin [Mass ratio]1.4 {ratio}NormalProtestant Hospitalment on above:Performed By: #### LIVER, BMP #### [facility] [address] [address] [address] Shari Horvath [Catalytic activity/Vol]48 U/RWedspq33-461Ilw [facility] on above:Performed By: #### LIVER, BMP #### [facility] [address] [address] [address] Shari Mascorro [Catalytic activity/Vol]24 U/FMdwnsx05-16Lrc [facility] Hospitalment on above:Performed By: #### LIVER, BMP #### [facility] [address] [address] [address] Shari MobleyAST [Catalytic activity/Vol]15 U/JXikjwz56-72Zti [facility] on above:Performed By: #### LIVER, BMP #### [facility] [address] [address] [address] Shari RamirezI, CONJUGATED0.1 mg/dLNormal0.0-0.2[facility] Comment on above:Performed By: #### LIVER, BMP #### [facility] [address] [place] [address] Dr. Shari Ramirezirubin [Mass/Vol]0.6 mg/dLNormal0.2-1.0[facility] Comment on above:Performed By: #### LIVER, BMP #### [facility] [address] [place] [address] Dr. Shari MobleyGlobulin (S) [Mass/Vol]3.1 g/dLNormalThe [facility]Com[facility] on above:Performed By: #### LIVER, BMP #### [facility] [address] [address] [address] Shari MobleyProtein [Mass/Vol]7.4 g/dLNormal6.4-8.2[facility] Comment on above:Performed By: #### LIVER, BMP #### [facility] [address] [place] [address] Dr. Shari LealF CHEM 8 (BAS METB)on 28-48-1326Kbcgl gap [Moles/Vol]12.3 mmol/LNormalThe [facility] DaytonComment on above:Performed By: #### LIVER, BMP #### [facility] [address] [address] [address] Shari MobleyCalcium [Mass/Vol]9.2 mg/dLNormal8.5-10.1The [facility] Comment on above:Performed By: #### LIVER, BMP #### [facility] [address] [address] [address] Shari MobleyChloride [Moles/Vol]102 mmol/UEsyeky74-467KziMetrohealth [facility] Campus [facility] Center Comment on above:Performed By: #### LIVER, BMP #### [facility] [address] [address] [address] Shari MobleyCO2 [Moles/Vol]26.7 mmol/NWlsjps61.0-32.0[facility] Comment on above:Performed By: #### LIVER, BMP #### [facility] [address] [address] [address] Shari MobleyCreatinine [Mass/Vol]0.89 mg/dLNormal0.55-1.02The [facility] DaytonComment on above:Performed By: #### LIVER, BMP #### [facility] [address] [address] [address] Shari SheltonGFR-AF NEPALESE>60Normal>=60The [facility] DaytonComment on above:Performed By: #### LIVER, BMP #### [facility] [address] [address] [address] Shari SheltonGFR-NON AF NEPALESE>60Normal>=60The [facility] DaytonComment on above:Performed By: #### LIVER, BMP #### [facility] [address] [address] [address] Shari MobleyGlucose [Mass/Vol]98 mg/lNNptqmd01-103Clk [facility] Comment on above:Performed By: #### LIVER, BMP #### [facility] [address] [address] [address] Shari MobleyPotassium [Moles/Vol]4.0 mmol/LNormal3.5-5.1The [facility] Comment on above:Performed By: #### LIVER, BMP #### [facility] [address] [address] [address] Shari Lozanodium [Moles/Vol]137 mmol/IQrfdzc089-605Rdb [facility] Comment on above:Performed By: #### LIVER, BMP #### [facility] [address] [place] [address] Dr. Shari MobleyUrea nitrogen [Mass/Vol]8.0 mg/dLNormal7.0-18.0The [facility] DaytonComment on above:Performed By: #### LIVER, BMP #### [facility] [address] [place] [address] Dr. Shari MobleyUrea nitrogen/Creatinine [Mass ratio]9.0 mg/mgNormalThe [facility] DaytonComment on above:Performed By: #### LIVER, BMP #### [facility] [address] [place] [address] Dr. Shari Medel AUTO DIFFon 72-47-1674TTFK #0.1 103/ulNormal0.0-0.1The [facility] DaytonComment on above:Performed By: #### CBC #### [facility] [address] [place] [address] Dr. Shari MobleyBasophils/100 WBC (Bld)1.0 %Normal0.2-2.0The [facility] Comment on above:Performed By: #### CBC #### [facility] [address] [place] [address] Dr. Shari Harrison #0.0 103/ulNormal0.0-0.7The [facility] DaytonComment on above: Performed By: #### CBC #### [facility] [address] [place] [address] Dr. Shari Sheltonosinophils/100 WBC (Bld)0.3 %Critically low0.9-7.0The [facility] DaytonComment on above:Performed By: #### CBC #### [facility] [address] [place] [address] Dr. Shari Sheltonrythrocyte distribution width (RBC) [Ratio]13.2 %Xmgxcg32.0-15.0 The [facility] DaytonComment on above:Performed By: #### CBC #### [facility] [address] [place] [address] Dr. Shari MobleyHematocrit (Bld) [Volume fraction]39.9 %Oamvsg65.0-48.0The [facility] DaytonComment on above:Performed By: #### CBC #### [facility] [address] [place] [address] Dr. Shari MobleyHemoglobin (Bld) [Mass/Vol]13.4 g/zJYnmmgt85.0-16.0The [facility] DaytonComment on above:Performed By: #### CBC #### [facility] [address] [place] [address] Dr. Shari Murphy #0.01 10e3/ulNormal0.00-0.03The [facility] DaytonComment on above:Performed By: #### CBC #### [facility] [address] [place] [address] Dr. Shari Murhpy %0.2 %Normal0.0-0.5The [facility] DaytonComment on above: Performed By: #### CBC #### [facility] [address] [place] [address] Dr. Shari RingH #2.0 103/ulNormal1.2-3.8The [facility] DaytonComment on above:Performed By: #### CBC #### [facility] [address] [place] [address] Dr. Shari Ringhocytes/100 WBC (Bld)31.6 %Osfabz19.5-60.0The [facility] DaytonComment on above:Performed By: #### CBC #### [facility] [address] [place] [address] Dr. Shari GonzalezUAL DIFF REQNONormalThe [facility] DaytonComment on above: Performed By: #### CBC #### [facility] [address] [place] [address] Dr. Shari George (RBC) [Entitic mass]30.2 dgMbscux70.7-34.0The [facility] DaytonComment on above:Performed By: #### CBC #### [facility] [address] [place] [address] Dr. Shari George (RBC) [Mass/Vol]33.6 g/pYMffxtq02.9-35.2The [facility] HospitalComment on above:Performed By: #### CBC #### [facility] [address] [place] [address] Dr. Shari Dan (RBC) [Entitic vol]90.1 sARseuri55.0-99.0The [facility] DaytonComment on above:Performed By: #### CBC #### [facility] [address] [place] [address] Dr. Shari Mitchell #0.7 103/ulNormal0.3-0.8The [facility] DaytonComment on above:Performed By: #### CBC #### [facility] [address] [place] [address] Dr. Shari Lealocytes/100 WBC (Bld)10.7 %Normal1.7-12.0The [facility] Comment on above:Performed By: #### CBC #### [facility] [address] [place] [address] Dr. Shari Oconnor #3.5 103/ulNormal1.4-6.5The [facility] DaytonComment on above:Performed By: #### CBC #### [facility] [address] [place] [address] Dr. Shari Zamorautrophils/100 WBC (Bld)56.2 %Qocpiw75.0-75.0The [facility] DaytonComment on above:Performed By: #### CBC #### [facility] [address] [place] [address] Dr. Yilan ChangPlatelet mean volume (Bld) [Entitic vol]9.7 fLNormal9.5-13.5The [facility] DaytonComment on above:Performed By: #### CBC #### [facility] [address] [place] [address] Dr. Shari MobleyPLT256 103/dnSwixan006-822Lva [facility] DaytonComment on above: Performed By: #### CBC #### [facility] [address] [place] [address] Dr. Shari MobleyRBC4.43 106/ulNormal4.20-5.40The [facility] DaytonComment on above:Performed By: #### CBC #### [facility] [address] [place] [address] Dr. Shari MobleyWBC6.2 103/ulNormal4.0-11.0The [facility] DaytonComment on above: Performed By: #### CBC #### [facility] [address] [place] [address] Dr. Shari MobleyPROF 14(COMP METB)on 34-33-1377Pnkkczb [Mass/Vol]3.9 g/dLNormal 3.5-5.0The [facility] DaytonComment on above:Performed By: #### TSH, T7, LIPID, CMP #### [facility] [address] [place] [address] Dr. Shari MobleyAlbumin/Globulin [Mass ratio]1.4 {ratio}NormalThe [facility] DaytonComment on above:Performed By: #### TSH, T7, LIPID, CMP #### [facility] [address] [place] [address] Dr. Shari Horvath [Catalytic activity/Vol]50 U/LBxsgrk88-992Ivx [facility] DaytonComment on above:Performed By: #### TSH, T7, LIPID, CMP #### [facility] [address] [place] [address] Dr. Shari Mascorro [Catalytic activity/Vol]12 U/LNormal9-52The [facility] Comment on above:Performed By: #### TSH, T7, LIPID, CMP #### [facility] [address] [address] [address] Shari Hudsonon gap [Moles/Vol]9.6 mmol/LNormalThe [facility] DaytonComment on above:Performed By: #### TSH, T7, LIPID, CMP #### [facility] [address] [address] [address] Shari MobleyAST [Catalytic activity/Vol]12 U/LCritically rzg32-03Lcm [facility] DaytonComment on above:Performed By: #### TSH, T7, LIPID, CMP #### [facility] [address] [place] [address] Dr. Shari MobleyBilirubin [Mass/Vol]0.6 mg/dLNormal0.2-1.3The [facility] Comment on above:Performed By: #### TSH, T7, LIPID, CMP #### [facility] [address] [place] [address] Dr. Shari MobleyCalcium [Mass/Vol]8.8 mg/dLNormal8.4-10.2The [facility] Comment on above:Performed By: #### TSH, T7, LIPID, CMP #### [facility] [address] [place] [address] Dr. Shari MobleyChloride [Moles/Vol]103 mmol/ZDfiqbo88-349Xav [facility] Comment on above:Performed By: #### TSH, T7, LIPID, CMP #### [facility] [address] [place] [address] Dr. Shari MobleyCO2 [Moles/Vol]28.6 mmol/WZaoavj15.0-30.0The [facility] Comment on above:Performed By: #### TSH, T7, LIPID, CMP #### [facility] [address] [place] [address] Dr. Shari MobleyCreatinine [Mass/Vol]0.98 mg/dLNormal0.52-1.04The [facility] DaytonComment on above:Performed By: #### TSH, T7, LIPID, CMP #### [facility] [address] [place] [address] Dr. Shari SheltonGFR-AF NEPALESE>60Normal>=60The [facility] DaytonComment on above:Performed By: #### TSH, T7, LIPID, CMP #### [facility] [address] [address] [address] Shari SheltonGFR-NON AF NEPALESE>60Normal>=60The [facility] DaytonComment on above:Performed By: #### TSH, T7, LIPID, CMP #### [facility] [address] [address] [address] Shari MobleyGlobulin (S) [Mass/Vol]2.8 g/dLNormalThe [facility] DaytonComment on above:Performed By: #### TSH, T7, LIPID, CMP #### [facility] [address] [place] [address] Dr. Shari MobleyGlucose [Mass/Vol]103 mg/hIGypcpc65-256MwiMetrohealth Main Campus [facility] Comment on above:Performed By: #### TSH, T7, LIPID, CMP #### [facility] [address] [place] [address] Dr. Shari MobleyPotassium [Moles/Vol]4.2 mmol/LNormal3.4-5.0[facility] Comment on above:Performed By: #### TSH, T7, LIPID, CMP #### [facility] [address] [place] [address] Dr. Shari MobleyProtein [Mass/Vol]6.7 g/dLNormal6.1-8.2[facility] Comment on above:Performed By: #### TSH, T7, LIPID, CMP #### [facility] [address] [place] [address] Dr. Shari MobleySodium [Moles/Vol]137 mmol/BWwhqtx491-630HusMetrohealth Main Campus Medical Center Comment on above:Performed By: #### TSH, T7, LIPID, CMP #### [facility] [address] [place] [address] Dr. Shari MobleyUrea nitrogen [Mass/Vol]10.0 mg/dLNormal7.0-17.0The [facility] DaytonComment on above:Performed By: #### TSH, T7, LIPID, CMP #### [facility] [address] [address] [address] Shari Rivera nitrogen/Creatinine [Mass ratio]10.2 mg/mgSuburban Community Hospital & Brentwood HospitalComment on above:Performed By: #### TSH, T7, LIPID, CMP #### [facility] [address] [address] [address] Shari Vargas 39-59-3387IGA4.756 uIU/mLNormal0.470-4.680The [facility]Com[facility] on above:Performed By: #### TSH, T7, LIPID, CMP #### [facility] [address] [address] [address] Shari HIGUERA BELOWSuburban Community Hospital & Brentwood HospitalComment on above: Result Comment: <0.34 UIU/ml HYPERTHYROID 0.34-5.60 UIU/ml EUTHYROID >5.60 UIU/ml HYPOTHYROIDPerformed By: #### TSH, T7, LIPID, CMP #### [facility] [address] [address] [address] Shari MobleyProvider Letteron [phone] Letter January 10, 2020 MARTHA MARQUEZ [address] [place] [phone] MARTHA MARQUEZ 1985 Dear Martha Marquez, This [...] us know 24 hours in advance. Sincerely, [employer] [facility] [address], [place] [address] HospitalCoding Summary.on 02-10-2019 Coding Summary.CODING DATE: 02/10/2019 FINAL [facility] STATUS: Home (Routine DC) PAYOR: Laurie APC [...] By: Luciana Mcfadden Date Saved: 02/10/2019 12:02 [facility] Intraoperative Recordon [id number] OR Intraoperative RecordIntraOp Document Type FTURO Summary Primary Physician: Eric SANCHEZ MD Finalized Date/Time: 02/09/19 15:13:08 Pt. Name: MARTHA MARQUEZ/Sex: 1985 Female Med Rec #: [id number] Physician: Eric SANCHEZ MD Financial #: [id number] Pt. Type: O Room/Bed: / Admit/Disch: 02/09/19 [...] Miquel Webb Role Performed Surgeon - Primary Diabetes Education Coordinator - Primary Scrub - Primary Time In [...] Prep Agents Betadine Solution Skin. Condition Intact, Fallon, Warm, and Dry Additional Other (See Comment) [...] By: CHRISTIN Matias RN, Lou Ann 02/09/19 15:13NormSumma Health Barberton CampusMain OR Preoperative Recordon [id number] OR Preoperative RecordHolding Area Document Type FTURO Summary Primary Physician: Eric SANCHEZ MD Finalized Date/Time: 02/09/19 15:03:32 Pt. Name: MARQUEZMARTHA D.O.B./Sex: 1985 Female Med Rec #: [id number] Physician: Eric SANCHEZ MD Financial #: [id number] Pt. Type: O Room/Bed: / Admit/Disch: 02/09/19 [...] of Pain: No Comment: Skin Integrity Intact, Fallon, Warm, & Dry Vitals - EU Blood Pressure 111/69 Pulse 55 bpm Respirations 18 br/min SPO2 Additional None RN Reviewed Yes Specimens Collected Last Modified By: CHRISTIN Matias RN, Lou Ann 02/09/19 15:03:30 Finalized By: CHRISTIN Matias RN, Lou Ann Document Signatures Signed By: Krystal ARAIZAMarcie 02/09/19 14:16 CHRISTIN Matias RN, Lou Ann 02/09/19 15:03NoUniversity Hospitals Parma Medical CenterOperative Reporton [id number] ReportPatient: MARTHA MARQUEZ Age: 33 years Sex: [...] discharged home. metabolic w/u and 3 month f/u..[address] [facility] HospitalComment on above:Result Comment: Electronically Signed By: Eric SANCHEZ MD\.br\Date and Time Signed: 02/09/19 15:11 EDT Vital Signs Date TimeVital SignValuePerforming XoxrdyiiaQwpfcgrc70-31-1657 09:35-0400Body pcigof114.1 cmBrejarvis Hernandez MD Work Phone: [facility] HealthHyuqlebjqz64-52-3099 09:35-0400Body mass index (BMI) [Ratio]24.4 kg/j7MokqxkjSurinder Hernandez MD Work Phone: [phone] HealthNwdaqtvvwe93-37-9727 09:35-0400Body zdjruo02.5 kg Surinder Hernandez MD Work Phone: [phone] [place], [place] [address]Ufngrodbud83-66-3065 09:35-0400Diastolic blood abhgbczf88 mm[Hg]Surinder Hernandez MD Work Phone: [address] [place], [place] [address]Zjtegnhmbw87-27-4803 09:35-0400Respiratory rate18 /minSurinder Hernandez MD Work Phone: [phone] [place], [place] [address]Uokduxlzdx58-16-4730 09:35-0400Systolic blood ibtouopg279 mm[Hg]Surinder Hernandez MD Work Phone: [phone] [place], [place] [address]Qndjmfgeiv04-42-6650 15:13-0400Body mass index (BMI) [Ratio]23.83 kg/v5Hyronwe Cebull MONITOR TECHNICIAN.CERTIFIED OPHTHALMIC TECHNOLOGIST Work Phone: [facility]07-29-2025 15:13-0400Body znelzr54.95 kgRebecca Cebull MONITOR TECHNICIAN.CERTIFIED OPHTHALMIC TECHNOLOGIST Work Phone: [phone]07-29-2025 15:13-0400Diastolic blood bxgyugpi67 mm[Hg]Gal Cebull MONITOR TECHNICIAN.CERTIFIED OPHTHALMIC TECHNOLOGIST Work Phone: [phone]07-29-2025 15:13-0400Systolic blood otxqaldu658 mm[Hg]Gal Cebull MONITOR TECHNICIAN.CERTIFIED OPHTHALMIC TECHNOLOGIST Work Phone: [phone]08-25-2023 10:38-0400Diastolic blood ihodkzba839 mm[Hg]MD Francesca Sands Work Phone: [facility]08-25-2023 10:38-0400 Heart rate86 /minMD Francesca Sands Work Phone: [facility]08-25-2023 10:38-0400 Respiratory rate16 /minMD Francesca Hoy Work Phone: [phone]08-25-2023 10:38-0400 SaO2% (BldA) [Mass fraction]100 %MD Francesca Sands Work Phone: [phone] [place], [place] 3290708-25-2023 10:38-0400 Systolic blood eigwkrrl420 mm[Hg]MD Francesca Sands Work Phone: [phone] [place], [place] 3290708-25-2023 10:27-0400 Body .1 cmMD Francesca Hoy Work Phone: [phone] [place], [place] 3290708-25-2023 10:27-0400 Body ogecba34.23 kgMD Francesca Hoy Work Phone: [phone] [place], [place] 3290707-21-2023 10:10-0400 Diastolic blood edqzyiyi55 mm[Hg]MD Francesca Sands Work Phone: [phone] [place], [place] 3290707-21-2023 10:10-0400 Heart cakm051 /minMD Sheppardapoorva Sands Work Phone: [phone] [place], [place] 3290707-21-2023 10:10-0400 Systolic blood rebhripm476 mm[Hg]MD Francesca Sands Work Phone: [phone] [place], [place] 3290701-20-2023 09:05-0500 Body .5 [degF]MD Francesca Sands Work Phone: [phone] [place], [place] 3290701-20-2023 09:05-0500 Respiratory rate18 /min Francesca Hoy Work Phone: [phone] [place], [place] 3290701-20-2023 09:05-0500 SaO2% (BldA) [Mass fraction]96 %MD Francesca Sands Work Phone: [phone] [place], [place] 3290710-07-2022 10:57-0400 Diastolic blood mm[Hg]MD Francesca Sands Work Phone: [phone] [place], [place] 3290710-07-2022 10:57-0400 Heart rate79 /minMD Ma Hoy Work Phone: [phone] [place], [place] 3290710-07-2022 10:57-0400 Respiratory rate14 /minMD Ma Hoy Work Phone: [phone] [place], [place] 3290710-07-2022 10:57-0400 SaO2% (BldA) [Mass fraction]100 %MD Francesca Sands Work Phone: [phone] [place], [place] 3290710-07-2022 10:57-0400 Systolic blood fowbsoxz741 mm[Hg]MD Francesca Sands Work Phone: [phone] [place], [place] 3290710-07-2022 07:24-0400 Body yznkzm604.1 cmMD Francesca Hoy Work Phone: [phone] [place], [place] 3290710-07-2022 07:24-0400 Body deshtc50.96 kgMD Francesca Hoy Work Phone: [phone] [place], [place] 3290711-16-2021 12:52-0500 Body aewtsv144.1 cmMD Francesca Hoy Work Phone: [phone] [place], [place] 3290711-16-2021 12:52-0500 Body mass index (BMI) [Ratio]24.4 kg/m2MD Francesca Hoy Work Phone: [phone] [place], [place] 3290711-16-2021 12:52-0500 Body frifyq73.68 kgMD Francesca Hoy Work Phone: [phone] [place] [address] Encounters Encounter DateEncounter TypeCare ProviderFacilityStart: 03-08-2025 End: 33-04-7097Mfesridla department patient visitJohn ParenteFacility:FTMCStart: 01-26-2025 End: 30-94-5120cuqcbimanfKSXEXAS W BAUERNot AvailableStart: 01-13-2025 End: 42-20-5779Ftxuxspaul Hernandez MD Work Phone: [facility] NEUROLOGYStart: 01-13-2025 End: 55-23-8149Hudvumjackie Hernandez MD Work Phone: noms NEUROLOGYStart: 01-13-2025 End: 73-66-9826gsvtplihhaJEIEKHZ W BAUERNot AvailableStart: 01-13-2025 End: 86-21-6840Awbmkh outpatient visit 25 minutesSurinder Hernandez MD Work Phone: noms [facility] NeurologyComment on above:Claustrophobia (Primary Dx); Multiple sclerosis (HCC)Start: 01-11-2025 End: 61-56-9940iaakvbbbgiSVKIEMO M ALEXANDERYFacility:[facility] HospitalStart: 01-11-2025 End: 01-65-4836Hlmrbkk encounter procedureRebecca Chiqui Nogueira APRN.CERTIFIED OPHTHALMIC TECHNOLOGIST Work Phone: mellen CenterComment on above:Multiple sclerosis (HCC) (Primary Dx); Medication monitoring encounter; Hypothyroidism, unspecified type; Blurry visionStart: 10-22-2024 End: 12-07-1289Fbjdyrivx encounterSurinder Hernandez MD Work Phone: noms [facility] NEURO 210Comment on above: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) Start: 10-22-2024 End: 65-39-4585Lcsnyznew department patient visitNO PCP NO PCPProMedica Blachly HospitalStart: 04-13-2024 End: 09-47-7720ZazdzsSnoehvm W Bauer MD Work Phone: noms [facility] NEURO 210Comment on above:Multiple sclerosis (CMS/HCC); ADD (attention deficit disorder) without hyperactivityStart: 03-05-2024 End: 80-24-1116NdoymyLuvpmfz W Bauer MD Work Phone: noms [facility] NEURO 210Comment on above:Multiple sclerosis (CMS/HCC); ADD (attention deficit disorder) without hyperactivityStart: 02-19-2024 End: 72-70-9285ZkyjojNjxnuvi W Bauer MD Work Phone: noms [facility] NEURO 210Comment on above:Multiple sclerosis (CMS/HCC); ADD (attention deficit disorder) without hyperactivityStart: 35-86-0329Hdhcx abstractingSurinder Hernandez MD Work Phone: noms [facility] NEURO 210Start: 60-40-2072exdraowvawBumasu Bermel MD Work Phone: [facility] Hospitaltso CenterComment on above:Martha MedinadStart: 02-21-2023 End: 59-35-6944mozcqsilrtMzecwn Bermel MD Work Phone: [facility] Hospitalmtp CenterComment on above:Meningioma (HCC) (Primary Dx)Start: 02-21-2023 End: 58-05-4443Dcujegxofzmq consultation with Dannie Gonsalez MD Work Phone: [facility] MAINStart: 02-07-2023 End: 60-75-2101rolwpvcxgmAhzzyyhtqtx M BlairettFacility:[facility] Hospitaltart: 02-07-2023 End: 22-47-6110zsvpvkznrrHI Douglas M Hoy Work Phone: [facility] Work Phone: Start: 02-07-2023 End: 43-48-6886Nmrzcsx encounter procedureMD Francesca Sands Work Phone: [facility]-MRI Main [place] Work Phone: Start: 30-40-8594yiqpnrevboBxjdxyqcwjc M Hassett Facility:[facility] Hospitaltart: 88-31-5204Bsvhgotaps Recurring MD Francesca Sands Work Phone: [facility]-Infusion Therapy - O/P Work Phone: Start: 68-86-8626Asclexqzm for general adult medical examination without abnormal findingsDR FRANCESCA Davila [facility] Hospitaltart: 07-04-2022 End: 30-22-1309Oaeomiiak for general adult medical examination without abnormal findingsDR FRANCESCA SANDSFacility:D0Ravix: 07-04-2022 End: 56-88-6636pkvnemovejOE FRANCESCA SANDSFacility:E9Mdrdx: 03-22-2022 End: 39-15-8704edjgyaqkmjIruilyq M HoyFacility:[facility] Start: 03-22-2022 End: 04-20-4617fxvtxpyfrsVX Francesca M Hoy Work Phone: [facility] Work Phone: Start: 03-22-2022 End: 97-00-0906Fwzxvbz encounter procedureMD Francesca Hoy Work Phone: [facility]-MRI Main CampusStart: 12-03-2021 End: 71-39-0658hwtndmkdbdZXTPTBUMH MCCARTHYFacility:M5Wlzdk: 08-18-2021 End: 89-63-4374xkrqqtrxmsTHIJHXPEV MCCARTHYFacility:H1 Procedures DateProcedureProcedure DetailPerforming ClinicianStart: 32-62-2002BHL of headMD Francesca Hoy Work Phone: Start: 50-73-9866YKI of cervical spine with contrastMD Francesca Hoy Work Phone: Start: 97-12-3167TIR of thoracic spine with contrastMD Francesca Hoy Work Phone: Plan of Treatment DateCare ActivityDetailAuthorStart: 04-21-2025 End: 87-18-8253Wmxsytn encounter /06/2025 10:00 AM EST [facility] [address] [place] [address] Surinder Hernandez MD [address] [facility] [address] Gal[address] [place] [phone] [facility] NeurologyStart: 42-88-7512Yfeftvdye vaccinationInfluenza Vaccine (#1)[facility] Hospitaltart: 01-13-2025 End: 71-62-5908CY Brain WO and W contrast IVMR brain w and wo contrast routine Imaging Routine Multiple sclerosis (HCC) Expected: 01/13/2025, Expires: 01/13/2026[facility] Work Phone: Comment on above:Expected: 01/13/2025, Expires: 01/13/2026Start: 01-11-2025 End: 39-12-3871HCSGV TB SCREENBLOOD TB SCREEN Lab Routine Multiple sclerosis (HCC) Medication monitoring encounter Expected: 01/11/2025, Expires: 04/12/2025 [facility] Work Phone: Comment on above:Expected: 01/11/2025, Expires: 04/12/2025Start: 01-11-2025 End: 26-77-9171SE50 ABSOLUTE SXEAFZN97 ABSOLUTE COUNT Lab Routine Multiple sclerosis (HCC) Medication monitoring encounter Expected: 01/11/2025, Expires: 04/12/2025leveland ClinicComment on above:Expected: 01/11/2025, Expires: 04/12/2025Start: 01-11-2025 End: 89-54-1997Jdtuxvn hepatitis differentiation between hepatitis B and C virus panel - Serum or PlasmaHEP REMOTE PANEL BL Lab Routine Multiple sclerosis (HCC) Medication monitoring encounter Expected: 01/11/2025, Expires: 04/12/2025 [facility] HospitalComment on above:Expected: 01/11/2025, Expires: 04/12/2025Start: 01-11-2025 End: 68-55-0472VVENUOHKLTKWJJQ,IGG,IGA,IGMIMMUNOGLOBULINS,IGG,IGA,IGM Lab Routine Multiple sclerosis (HCC) Medication monitoring encounter Expected: 01/11/2025, Expires: 04/12/2025leveland ClinicComment on above:Expected: 01/11/2025, Expires: 04/12/2025Start: 01-11-2025 End: 87-76-4436Vqnqainkvdd [Units/volume] in Serum or PlasmaTHYROID STIMULATING HORMONE Lab Routine Multiple sclerosis (HCC) Medication monitoring encounter Hyp othyroidism, unspecified type Expected: 01/11/2025, Expires: 04/12/2025[facility] ClinicComment on above:Expected: 01/11/2025, Expires: 04/12/2025Start: 01-01-2025Medicare Advantage Annual Wellness VisitMedicare [facility] Annual Wellness VisitCleveland ClinicStart: 03-01-2024 End: 29-44-5030Vxhdyyr encounter tirhvjqvh21/16/2024 11:00 AM EDT Office Visit [facility] [address] [facility] [address] [place] [phone] Surinder Hernandez MD [address] [facility] [address] [place] [address], [place] [phone] [facility] NEURStart: 07-18-2023 End: 83-46-0056Gdfxmoa encounter qdsxbnizk57/02/2024 9:50 AM EST Office Visit [facility] [address] [facility] [address] [place] [address] Surinder Hernandez MD [address] [facility] [address] [place] [address], [place] [phone] [facility] NEURStart: 51-87-3960Nmadjiaux vaccinationMercy Health St. Anne Hospitaltart: 06-42-5144PSASYIEDXM ASSESSMENTDEPRESSION ASSESSMENTMercy Health St. Anne Hospitaltart: 98-98-9511OKN TESTINGHPV TESTINGMercy Health St. Anne Hospitaltart: 78-48-9533PET TESTINGPAP TESTINGMercy Health St. Anne Hospitaltart: 2006 Screening for malignant neoplasm of cervixCervical Cancer ScreeningMercy Health St. Anne Hospitaltart: 43-45-5069Ylilxdbvd B Vaccine (1 of 3 - 19+ 3-dose series)Hepatitis B Vaccine (1 of 3 - 19+ 3-dose series)[facility] Hospitaltart: 2004 Pneumococcal vaccinationPneumococcal Vaccine (1 of 2 - PCV)[facility] Start: 04-51-1044Kzcdl microalbumin profileMercy Health St. Anne Hospitaltart: 12-17-2003 Anxiety ScreeningAnxiety ScreeningMercy Health St. Anne Hospitaltart: 04-25-1895Frrvtyszmg ScreeningDepression ScreeningMercy Health St. Anne Hospitaltart: 53-86-6584BMUGGOINU C SCREENINGHEPATITIS C SCREENINGMercy Health St. Anne Hospitaltart: 11-56-0967Shsksbjdi C screeningHepatitis C ScreeningMercy Health St. Anne Hospitaltart: 52-02-2605NLS SCREENINGHIV SCREENINGMercy Health St. Anne Hospitaltart: 09-59-9237QEJ screeningHIV ScreeningMercy Health St. Anne Hospitaltart: 08-72-1869VLPRGICGVLMK (1 - PCV)PNEUMOCOCCAL (1 - PCV)[facility] Hospitaltart: 29-48-4190Jnljhjrsxrvn vaccinationPneumococcal Vaccine (1 - PCV) [facility] Hospitaltart: 77-29-6151NVSIN-19 VACCINE (#1)COVID-19 VACCINE (#1) [facility] Hospitaltart: 00-66-0555EUUFIMWCO B (1 of 3 - 3-dose series)HEPATITIS B (1 of 3 - 3-dose series)[facility] Hospitaltart: 18-87-8179Kfulflsre B Vaccine (1 of 3 - 3-dose series)Hepatitis B Vaccine (1 of 3 - 3-dose series)[facility] End: 06-78-1022CX Brain WO and W contrast IVMRI BRAIN WO/W IVCON Radiology Routine Multiple sclerosis (HCC) 1 Occurrences starting 01/11/2025 until 02/10/2026leveland ClinicComment on above:1 Occurrences starting 01/11/2025 until 02/10/2026 End: 50-35-7888AN Cervical spine WO and W contrast IVMRI CERVICAL SPINE WO/W IVCON Radiology Routine Multiple sclerosis (HCC) 1 Occurrences starting 12/15 until 02/10/2026leveland ClinicComment on above:1 Occurrences starting 01/11/2025 until 02/10/2026 Immunizations Immunization DateImmunizationNotesCare UkvajuauUdsogtsr54-06-1073zxscvzlpk virus vaccine, unspecified formulationJim Gonsalez MD Work Phone: [facility] Payers DatePayer CategoryPayerPolicy [id number] 2023Medicare (Managed Care)[id number] [employer] [facility] 2022-Present [address] [place] REN [id number] 2021MedicareDFKCCF [id number] 2021Medicare [id number] 2013Medicaid [id number] 2.160.1.680837.3.57[id number] 2.0.1.510396.3.57[id number] 2.0.1.865545.3.579.2.81249-73-9963Jlysdul8021175 2.0.1.153101.3.57[id number] 2.0.1.841130.3.57[id number] 2.0.1.705072.3.57[id number] 2.0.1.847821.3.57[id number] 2.0.1.679243.3.579.2.727 [id number] MediBlue Dual [id number] 2.16.840.1.1[id number] 2.16.840.1.357494.3.579.2.531 [id number] 2.16.840.1.825078.3.579.2.531 Social History DateTypeDetailFacilityTobacco smoking status NHISUnknown if ever smokedUniversity Hospitals Geneva [facility] Center Work Phone: Start: 48-36-3246Kvc Assigned At [facility]healthFeSelect [facility] Special[facility] Hospital - Youngstowntart: 08-14-2015 End: 83-67-7467Qjfgomt smoking status NHISSmokes tobacco dailyBrecksville Va / [facility] Hospital Start: 06-17-2008 End: 66-10-1700Huywvha of tobacco useCigarette SmokerMercy Health St. Anne Hospitaltart: 08-14-2015 End: 96-73-6870Mvhgwwqftl smoked current (pack per day) - Zdsyrylu0Bvrogaldd ClinicStart: 08-14-2015 End: 53-46-5524Dtauknd use and exposureSmokeless tobacco non-userMercy Health St. Anne Hospitaltart: 12-23-2016 End: 95-51-6378Elqsxas intakeCurrent drinker of alcohol (finding)[facility] Hospitaltart: 12-15-2017 End: 18-14-3540Mcziaqg use panelOhioHealth [facility] General Hospital Depression Screening Qpokscabev1Uwswjkqwu ClinicStart: 08-14-2015 End: 42-09-4369Tgyojua CommentPatient states she is currently trying to quit [facility] Hospitaltart: 65-51-3673Zhx Assigned At BirthNot on fileMercy Health St. Anne Hospitaltart: 46-32-3442Nrrlxi identityIdentifies as female gender (finding) [facility] Hospitaltart: 19-95-2786Mikjomt Czgxxby60-46 cigarettes/dayNORI HealthcareStart: 38-99-5993Fixuxtz Comment1-2 drinks on a typical dayNORI HealthcareStart: 11-42-4997Xcuinil smoking status NHISEx-smokerNOMS Healthcare Start: 06-17-2008 End: 00-74-9825Lrniukj of tobacco useCurrent smokerNOMS HealthcareStart: 98-14-5673Jhqusyq CommentI switched to vapingNOMS Healthcare Functional Status DzazIcsdqzqzbmItzsfgAisqanra55-02-3223Aqz you deaf, or do you have serious difficulty hearingNo 04/25/2014 2:21 PM Eveline Kaur MA [facility] 20-39-9167Hry you blind, or do you have serious difficulty seeing, even when wearing glassesNo 04/25/2014 2:21 PM Eveline Kaur MA [facility] 16-92-1642Cw you have serious difficulty walking or climbing stairsNo 04/25/2014 2:21 PM Eveline Kaur MA [facility]11-10-2014Do you have difficulty dressing or bathingNo 04/25/2014 2:21 PM Eveline Kaur MA [facility] HamiltonCdjoiw20-89-5333Ttdspyb of a physical, mental, or emotional condition, do you have difficulty doing errands alone such as visiting a physician's office or shoppingNo 04/25/2014 2:21 PM Eveline Kaur MA [facility] Mental Status CwqzQthkzxrudqVuwnesKpfnkeun23-53-5241Spberqq of a physical, mental, or emotional condition, do you have serious difficulty concentrating, remembering, or making decisionsYes 04/25/2014 2:21 PM Eveline Kaur MA [facility] Clinical Notes 02-21-2023 to 01-13-2025 Note Date & AjifVcihNbkvpzlr43-15-3794 History of Present illness Narrative* Surinder Hernandez [...] She consulted with [facility]. Gal Isaac at [facility], who recommended resuming Keytruda, a medication that had previously improved her symptoms. She reports no issues with the dosing of Kesimpta at home. She recently underwent blood work at [facility] on 01/12/2025. She also mentions that Ocrevus [...] signed today. Blood work hasbeen conducted at [facility]. 2. Fatigue. An MRI has been ordered [...] including This clinical note was created utilizing [employer] documentation system. All information has beenthoroughly reviewed, corrected as necessary, and authenticated by the provider to ensure accuracy and completeness. On occasion, [employer] documentation system erroneously drops words or replaces aspoken word with a similar sounding word. Please notify with any questions or concerns regarding this clinical note. documented in this encounterCarondelet HealthKwfqohdfos20-66-9933 Instructions* Patient Instructions* Gal Nogueira APRN.CNP - 01/11/2025 3:51 PM EDT Schedule MRIs and repeat screening labs for Kesimpta. Let us know if you would like our office or Dr Hernandez to prescribe Kesimpta. If you want to go to a closer [facility] location, Dr Carmen Bobo and Natalya Logan, her nurse practitioner, see patients at the [facility]. Recommend eye exam locally. documented in this encounterBrec[facility]ville [facility]07[facility] History of Present illness Narrative* Gal Nogueira APRN.CNP - 01/11/2025 2:30 PM EDT Images from the original note were not included. [facility] FOLLOWUP/ESTABLISHED PATIENT VISIT PRINCIPAL NEUROLOGIC DIAGNOSIS: [...] interim, following with Dr Surinder Hernandez in [place] for MS care. Switched from Ocrevus to Kesimpta given perceived lack of benefit. Switched Adderall to Vyvanse for cognitive symptoms. Last office visit 11/2023. Reports wanted to continue following with Dr Hernandez but her kids felt she should follow up at [facility] since she was historically seen here. Admits she has difficulty driving to [place] and [place] would be easier. Lost on way to appt today and arrived at 3:09 for 2:30 appt. Has been without all medications for the past 6 months or so. Reports medical records got messed up . Liked Kesimpta and was tolerating well. Metcalf she was able to manage injections. Had [...] or illnesses. Neuro-QoL Functions (higher=better functioning) Flowsheet [facility] from 02/21/2023 in [facility] Office Visit from 08/14/2015 in [facility] Appointment from 07/03/2015 in [facility] Upper Extremity Domain T Score 30 35.13 45.23 Lower Extremity Domain T Score 36 44.4 44.4 Cognitive Function Domain T Score 38 -- -- Positive Affect Well Being T Score -- -- -- Ability To Participate In Social Roles T Score 42 -- -- Satisfaction With Social Roles T Score 46 -- -- Neuro-QoL Symptoms (higher=worse symptoms) Flowsheet [facility] from 02/21/2023 in [facility] Office Visit from 08/14/2015 in [facility] Appointment from 07/03/2015 in [facility] Sleep Domain T Score 65 65.92 74.44 Fatigue Domain T Score 65 58.38 65.37 Anxiety Domain T Score 63 -- -- Depression Domain T Score 58 -- -- Stigma Domain T Score 60 -- -- Emotional Behavior Dyscontrol T Score -- -- -- has a past medical history of Migraine and MS (multiple sclerosis) ([facility]). currently has no medications in their medication list. EXAM: BP 124/84 Wt 65 kg (143 lb 3.2 oz) BMI 23.83 kg/m MSPT Results Flowsheet [facility] Office Visit from 12/23/2016 in [facility] Office Visit from 08/14/2015 in [facility] Appointment from 07/03/2015 in [facility] Processing Speed Total Number Correct 47 [...] 5 Biceps 5 5 Triceps 5 5 Cyber Operator 5 5 Dorsal interossei 5 5 [...] continue following with Dr Hernandez, but discussed [place] providers at [facility] may be additional resource moving forward. [...] Follow-up: In 6 months or PRN at [place] with [facility] APC I spent a total of 40 minutes on the date of the service which included preparing to see the patient, vhqd-rn-aiim patient care, completing clinical documentation, obtaining and/or reviewing separately obtained history, performing a medically appropriate examination, counseling and educating the pat ient/family/caregiver, ordering medications, tests, or procedures, communicating with other HCPs (not separately reported), independently interpreting results (not separately reported), and communicating results to the patient/family/caregiver. Gal Nogueira APRN.CNP [facility] for Multiple Sclerosis documented in this encounterBrecksville Va [facility]07-29-2025 NoteHNO ID: [id number] Author: GAL NOGUEIRA APRN.TALITA Service: ? Author Type: Nurse Practitioner Type: Progress Notes Filed: 01/13/2025 16:33 Note Text: [facility] FOLLOWUP/ESTABLISHED PATIENT VISIT PRINCIPAL NEUROLOGIC DIAGNOSIS: [...] interim, following with Dr Surinder Hernandez in [place] for MS care. Switched from Ocrevus to Kesimpta given perceived lack of benefit. Switched Adderall to Vyvanse for cognitive symptoms. Last office visit 11/2023. Reports wanted to continue following with Dr Hernandez but her kids felt she should follow up at [facility] since she was historically seen here. Admits she has difficulty driving to [place] and [place] would be easier. Lost on way to appt today and arrived at 3:09 for 2:30 appt. Has been without all medications for the past 6 months or so. Reports medical records got messed up . Liked Kesimpta and was tolerating well. Metcalf she was able to manage injections. Had [...] or illnesses. Neuro-QoL Functions (higher=better functioning) Flowsheet [facility] from 02/21/2023 in [facility] Office Visit from 08/14/2015 in [facility] Appointment from 07/03/2015 in [facility] Upper Extremity Domain T Score 30 35.13 45.23 Lower Extremity Domain T Score 36 44.4 44.4 Cognitive Function Domain T Score 38 -- -- Positive Affect Well Being T Score -- -- -- Ability To Participate In Social Roles T Score 42 -- -- Satisfaction With Social Roles T Score 46 -- -- Neuro-QoL Symptoms (higher=worse symptoms) Flowsheet [facility] from 02/21/2023 in [facility] Office Visit from 08/14/2015 in [facility] Appointment from 07/03/2015 in [facility] Sleep Domain T Score 65 65.92 [...] oz) BMI 23.83 kg/m? MSPT Results Flowsheet [facility] Office Visit from 12/23/2016 in [facility] Office Visit from 08/14/2015 in [facility] Appointment from 07/03/2015 in [facility] Processing Speed Total Number Correct 47 [...] Triceps 5 5 G (more content not included)...[facility]05-09-2025 Telephone encounter Note* Telephone Encounter - Caitie Muñoz NP - 10/22/2024 3:42 PM EDT I called ER and they told me patient eloped no longer needed to speak with us. [facility] Work Phone: [phone] Miscellaneous Notes* Telephone Encounter - Caitie Muñoz [...] [address] Demarco called from [facility] requesting consult from Dr Hernandez for this pt . Call back number [phone] . (Secure chat sent to an employee sponsor or advocate and provider) documented in this encounterCarondelet [id number] Telephone encounter Note* Telephone Encounter - Haley Kaur - 10/22/2024 2:34 PM EDT Per Caitie Muñoz NP i'll just call she hasn't been seen since last november [facility] [id number] Telephone encounter Note* Telephone Encounter - Haley Kaur - 10/22/2024 1:39 PM EDT Martha Marquez is a [address] Demarco called from [facility] requesting consult from Dr Hernandez for this pt . Call back number [phone] . (Secure chat sent to an employee sponsor or advocate and provider) [facility] [id number] Telephone encounter Note* Telephone Encounter - Caitie Muñoz NP - 02/19/2024 10:28 AM EDT Lixdexamfetamine was already sent on 02/16 per [facility]. [facility] Work Phone: [phone]) 450-758009-05-2024 Miscellaneous Notes* Telephone Encounter - Caitie Muñoz NP - 02/19/2024 10:28 AM EDT Lixdexamfetamine was already sent on 02/16 per [facility]RS. documented in this encounterCarondelet [id number] History of Present illness Narrative* Jim Gonsalez MD - 02/21/2023 11:07 AM EDT [facility] FOR [facility]LE [facility]CL[facility]OSIS VIRTUAL VISIT FOR NEW PATIENT EVALUATION Referral source: No referring provider defined for this encounter. Also followed by: Francesca Sands [address] [place] [address] PRINCIPAL NEUROLOGIC DIAGNOSIS: Multiple sclerosis, meningioma incidentally [...] 2016. Marty Jade from [facility] in [place] She has been dropping things with the left side of her body, and slurred speech, and severe headache, for about 6 months. Currently on Ocrevus for MS, since 2021 approximately. On a scan a few weeks ago they told her she had a brain tumor. Scan was at [facility] in [place]. She reads the report to me: mild diffuse volume loss. right anterior cranial fossa extraxial dural based enhancing [id number]. Likely meningioma. Neuro-Qol Functions (higher = better [...] have on file from 2017. -refer to [facility] neurosurgery/[facility] for management plan for meningioma -call to [facility] imaging who will send MRIs to [facility] PACS -for MS follow-up, a good option would be Dr. Carmen Bobo at [facility] I have communicated my name and active licensure. The patient's identity and physical location wereverified at the time of this visit. Either the patient or their legal loss control representative has been informed of the risks and benefits of -- and alternatives to -- treatment through a remote evaluation andconsents to proceed with the evaluation remotely. Jim Gonsalez MD Staff Neurologist [facility]clerosis documented in this encounterMcCullough-Hyde Memorial Hospitalaluchristiana hospital noteNo assessment information availableThe [facility] Work Phone: Evaluation note* Diagnosis Meningioma (HCC)- Primary Benign neoplasm of cerebral meninges documented in this encounter [facility] HospitalEvaluchristiana hospital note* Diagnosis Multiple sclerosis (CMS/HCC) Multiple sclerosis ADD (attention deficit disorder) without hyperactivity Attention deficit disorder without mention of hyperactivity documented in this encounter [facility] HealthcareEvaluation note* Diagnosis Multiple sclerosis (CMS/HCC) Multiple sclerosis ADD (attention deficit disorder) without hyperactivity Attention deficit disorder without mention of hyperactivity documented in this encounter [facility] HealthcareEvaluation note* Diagnosis Multiple sclerosis (HCC)- Primary Multiple sclerosis Medication monitoring encounter Encounter for therapeutic drug monitoring Hypothyroidism, unspecified type Blurry vision Other specified visual disturbances documented in this encounter [facility] note* Diagnosis Claustrophobia- Primary Other isolated or specific phobias Multiple sclerosis (HCC) Multiple sclerosis documented in this encounter [facility] Healthcare Summary Purpose Family History No [...] Meningioma (HCC) Procedures CONSULT TO NEUROSURGERY OFFICE/OUTPATIENT [facility] 60-74 MINUTES Jim Gonsalez MD [address] [place] [address] Referral IDStatusReasonStart DateExpiration DateVisits RequestedVisits [id number] Review PCP Requested Referral / Additional Source Comments INFORMATION SOURCE (unrecogn ized section and content) DATE CREATED AUTHOR 01/10/2020 [facility] DATE CREATED AUTHOR AUTHOR'S ORGANIZ ATION 07/10/2022 [facility] DATE CREATED AUTHOR AUTHOR'S ORGANIZ ATION 02/16/2023 [facility] DATE CREATED AUTHOR AUTHOR'S ORGANIZ ATION 11/14/2024 [facility] DATE CREATED AUTHOR AUTHOR'S ORGANIZ ATION 01/15/2025 [facility] DATE CREATED AUTHOR AUTHOR'S ORGANIZ ATION 01/31/2025 [facility] DATE CREATED AUTHOR AUTHOR'S ORGANIZ ATION 03/10/2025 [facility] DATE CREATED AUTHOR AUTHOR'S ORGANIZ ATION 03/18/2025 [facility] Care Teams (unrecognized sec tion [...] Date Francesca Sands MD PCP - Generalmily Ksetqjaz91/13/12Team MemberRelationshipSpecialtyStart Date End Date Francesca Sands MD PCP - [facility]Che[facility] Centerly Qqzfqvzr07/13/12Team MemberRelationshipSpecialtyStart Date End Date Francesca Sands MD [address] [place] [address] PCP - [facility] Jjbzyjwl76/11/23Team MemberRelationshipSpecialtyStart Date End Date Francesca Sands MD [address] [place] [address] [facility]CP - [facility] Djkjybao82/11/23Team MemberRelationshipSpecialtyStart Date End Date Francesca Sands MD [address] [place] [address] PCP - Generalmily Cwiabgkp33/11/23Team MemberRelationshipSpecialtyStart Date End Date Francesca Sands MD PCP - GeneralFamily Zbroudhj65/11/23Team MemberRelationshipSpecialtyStart Date End Date Francesca Sands MD PCP - GeneralFamily Obaplojc52/11/23Team MemberRelationshipSpecialtyStart Date End Date Francesca Sands MD PCP - GeneralFamily Vddomeuu95/13/12Team MemberRelationshipSpecialtyStart Date End Date Francesca Sands MD PCP - GeneralFamily Orntmhtr73/11/23 Goals (unrecognized section and content) Goals may [...] or prosecute any alcohol or drug abuse patient.[facility] HospitalIn the event this information is protected by the Federal Confidentiality of Alcohol and Drug Abuse Patient Records regulations: The Federal rules restrict any use of the information to criminally investigate or prosecute any alcohol or drug abuse patient.[facility] HospitalIn the event this information is protected by the Federal Confidentiality of Alcohol and Drug Abuse Patient Records regulations: The Federal rules restrict any use of the information to criminally investigate or prosecute any alcohol or drug abuse patient.[facility] Reason for Visit (unrecogniz ed section and content) ReasonCommentsNew Patient EvaluationReasonCommentsMed RefillReasonOnset Date RyjmjejmSepss95/09/2025On callReasonCommentsEstablished PatientFollow Up FOR RECORDS PERTAINING TO [...] BE BASED ON THE PRIMARY CLINICAL RECORDS. [facility] [employer] [facility]. provides no warranty or guarantee of the accuracy or completeness of information in this document.
--- NOTE | 2025-04-12 13:09 | US_ITS ---
The [place] [id number] Patient Name: THEODORA MARQUEZ MRN: [id number] date: 1985 Sex: F Assigned Patient Location: [place] Current Patient Location: Accession/Order Number: [id number] Exam Date: 04/12/2025 13:10 Report Date: 04/13/2025 07:23 At the request of: FRANCESCA SANDS MD Procedure: US thyroid THYROID ULTRASOUND CLINICAL DATA: Hypothyroidism. Difficulty swallowing. COMPARISON: None The right thyroid lobe measures 5.2 x 0.9 x 1.1 cm . The left lobe measures 3.9 x 1.1 x 1.1 cm. The isthmus measures 3 mm. There is normal echogenicity. There is a small suspected colloid cyst at the inferior pole on the right measuring 3 mm . No other nodularity is seen. US/US thyroid IMPRESSION: TINY RIGHT COLLOID CYST. NO OTHER NODULARITY. Impression dictated by: Michelle Velasco M.D. 04/13/2025 7:23 AM Dictation Location: [place] [address] Electronically authenticated by: [id number] Y Date: 04/13/2025 07:23
== END 2025-04-12 13:03 | disposition home or self-care (01) ==
LOC: US 13:04
PROVIDERS: PCP Family Medicine; Visit Provider Family Medicine
DX: E03.9 Hypothyroidism, unspecified (principal); E04.1 Nontoxic single thyroid nodule
CPT/HCPCS: 76536

== ENCOUNTER 2025-04-27 07:50 | Outpatient (OUT) | payer MEDICARE, SELFPAY ==
--- OUTSIDE RECORDS SUMMARY | 2023-12-09 06:30 | XMS_ITS ---
Author Organization The [facility] in [place] Address [address] [place] [address] Care Team Providers Care Road Worker Name Role Phone Silver Sands Primary Care Provider [place] SANDS Unavailable [phone] REASON FOR VISIT wants to discuss meds Encounters Encounter Location Date Provider Diagnosis [facility] [address] [place] [address] 12/09/2023 [place] SANDS Plan Of Treatment Next Appt Details Provider Name:Myra Gamez , 07/20/2025 10:30:00 AM, [address], [address] [facility], [place], [address], Progress Notes * Martha MARQUEZ LDOB:08/1985 (39 yo F)Acc No.[id number]:12/09/2023 UNLOCKED PROGRESS NOTE Progress Note Patient: Key MOYASterling Martha Barfield :?Oh Sands M.D.:1985???Age:37 Y ???Sex:FemaleDate:12/09/2023hone:[phone]:[address], [place], [place]Qvf:Silver Sands Subjective: * Chief Complaints: * 1 . Wants to discuss meds. * Medical History: Objective: * Vitals: Assessment: Plan: * Treatment: * * Electronic signature of [place] SANDS MD on 04/27/2025 at 07:54 AM ESTSign off status: PendingVisit Status:?OFF CANC (OFFICE CANCEL) * Provider: Sterling Sands M.D. Date: 0 12/09/2023 Generated for Printing/Faxing/eTransmitting on:?04/27/2025 07:54 AM EST
--- OUTSIDE RECORDS SUMMARY | 2023-12-10 06:15 | XMS_ITS ---
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9)Activeconfirmed Encounters Encounter Location Date Provider Diagnosis [facility] [address] [place] [address] 12/10/2023 FRANCESCA SANDS Plan Of Treatment Next Appt Details Provider Name:Myra Gamez , 07/20/2025 10:30:00 AM, [address], [address], [place], [address], Progress Notes * JIMMYMartha LDOB:08/1985 (39 yo F)Acc No.[id number]:12/10/2023 UNLOCKED PROGRESS NOTE Progress Note Patient: Martha PEARSON :?Francesca Sands M.D.:1985???Age:37 Y ???Sex:FemaleDate:12/10/2023hone:[phone]:[address], [place], [place]Pcp:Silver Sands Subjective: * Chief Complaints: * * Medical History: Objective: * Vitals: Assessment: Plan: * Treatment: * * Electronic signature of FRANCESCA SANDS MD on 04/27/2025 at 07:54 AM ESTSign off status: PendingVisit Status:?CANCPHONE (Cancelled Phone) * Provider: Sterling Sands M.D. Date: 12/10/2023 Generated for Printing/Faxing/eTransmitting on:?04/27/2025 07:54 AM EST
--- OUTSIDE RECORDS SUMMARY | 2025-04-13 09:07 | XMS_ITS ---
Author Organization [facility] in [place] Address [address] [place] [address] Care Team Providers Care Tube Depatcher Name Role Phone Silver White Primary Care Provider [phone] Reason For Referral Diagnosis 1 Hypothyroidism (E03. 9) Referral Organization [facility] Referring Provider First Name Silver Referring Provider Last Name Christopher Referring Provider [facility] lashawn Referred Provider PHONG SARAVIA Referred Provider Specialty Endocrinolog y Referral Priority Routine Diagnosis 1 Hypothyroidism (E03. 9) Referral Organization [facility] Referring Provider First Name Silver Referring Provider Last Name Calitremaine Referring Provider [facility] lashawn Referred Provider Martha Ojeda Referred Provider Specialty Endocrinolog y Referral Priority Routine REASON FOR VISIT request referral to Endo Encounters Encounter Location Date Provider Diagnosis [facility] [address] [place] [address] 04/13/2025 Silver White Hypothyroidism E03.9 Assessments Encounter Date Diagnosis (ICD Code) Assessment Notes Treatment Notes Treatment Clinical Notes Section Notes 04/13/2025 Hypothyroidism (ICD-10 - E03.9) Plan Of Treatment Pending Test Test Name Order Date NM THY SCAN W UPT 04/13/2025 Referrals Referral Date Details 04/13/2025 04/13/2025, PHONG MAJANO OT 04/14/2025 04/14/2025, Martha Ojeda Next Appt Details Provider Name:Nupurarlyn Franco , 07/20/2025 10:30:00 AM, [address], [address], [place], [address], Progress Notes * MARQUEZMartha EPPS LDOB:08/1985 (39 yo F)Acc No.[id number]:04/13/2025 Patient:?Martha MARQUEZ :1985???Age:39 Y???Sex:FemalePhone:[phone] Address:[address] [place] [address] , [facility], [place], [address] Subjective: * Chief Complaints: * r equest referral to Endo * Medical History: * Surgical History: * Hospitalization/Major Diagno stic Procedure: * Medications: Objective: * Vitals: * Physical Examination: ??? Assessment: * Assessment: 1.?Hypothyroidism - E03.9 (Primary)??? Plan: * Treatment: ?Imaging: NM THY SCAN W UPT? Referral To:PHONG SRAAVIA??Endocrinology ?Reason: ? Referral To:Martha Ojeda??Endocrinology ?Reason: * Procedure Codes: * true * Date:?Generated for Printing/Faxing/eTransmitting on:?04/27/2025 07:54 AM EST Consultation Request Notes Referral Date Referring Provider Referred Provider Not chuck 04/13/2025 Silver White IAN 04/14/2025Santosh White Jennifer
--- NOTE | 2025-04-27 07:00 | NM_ITS ---
The [address] [address] Patient Name: THEODORA MARQUEZ MRN: [id number] date: 1985 Sex: F Assigned Patient Location: [place] Current Patient Location: Accession/Order Number: [id number] Exam Date: 04/27/2025 07:00 Report Date: 04/28/2025 08:02 At the request of: FRANCESCA SANDS MD Procedure: NM thyroid w uptake THYROID UPTAKE AND SCINTIGRAM CLINICAL DATA: Hypothyroidism COMPARISON: Ultrasound 04/12/2025 Following the oral ingestion of 202.6 microcuries I-123, thyroid uptakes were measured at 6 hours and 24 hours. The thyroid uptake values are 21% and 34% respectively. Normal ranges are from 6 - 14% and 10 - 30%. These values are slightly elevated. Camera camera imaging was also performed in multiple projections. The thyroid lobes are not significantly enlarged and there is uniform uptake. No discrete hotter cold nodules are seen. NM/NM thyroid w uptake IMPRESSION: MILD INCREASED THYROID UPTAKE. UNREMARKABLE SCINTIGRAM. Impression dictated by: Michelle Velasco M.D. 04/28/2025 8:02 AM Dictation Location: [place] [address] Electronically authenticated by: [id number] Y Date: 04/28/2025 08:02
--- OUTSIDE RECORDS SUMMARY | 2025-04-27 07:55 | XMS_ITS | Clinical Summary ---
Author Organization [facility] Address [address] [facility] [place] [address] Care Team Providers Care Food Service Driver Name Role Phone Oh White MD Primary Care Provider [phone] Allergies No known active allergies Medications MedicationSigDispense QuantityRefillsLast FilledStart DateEnd DateStatus LORazepam (Ativan) 0.5 MG tablet Indications:ClaustrophobiaTake 1 tablet (0.5 mg) by mouth every 12 (twelve) hours if needed for anxiety for up to 1 day 2 tablet 5Active Active Problems ProblemNoted DateDiagnosed DateCOVID-19003/01/20248564Kmfrt52/16/2024Insomnia 03/01/2024Major depressive disorder, single episode, idiyehllafd50/16/2024 Monoplegia of upper limb affecting left nondominant side03/01/2024aresthesia 03/01/20249003Xizmrllo22/16/2024ervical paraspinal muscle spasm12/10/2023DD (attention deficit disorder) without fapmvxmihhnfn55/28/3813Itfmxzid30/09/2023 Clofivysq68/09/2023bnormal gait03/24/2023Multiple nvicllyut09/12/2013 Encounters DateTypeDepartmentCare MjmdOdqmaejgbdk83/03/2025Telephone [facility] [address] [facility] [address] [place] [address] Osmar Hernandez MD 03/14/2025Telephone [facility] [address] [facility] [address] [place] [address] Patti Pryor MA 02/24/2025Telephone [facility] [address] [place] [address] Patti Pryor MA Kesempti01/26/2025 9:45 AM EDTAncillary Procedure [facility] [address] [place] [id number] Multiple sclerosis (HCC)01/26/2025Results Follow-Up [facility] [address] [place] [address] Osmar Hernandez MD MR brain w and wo contrast tsalkxk1201/26/2025Travelfrom Last 3 Months Family History Medical HistoryRelationNameCommentsADD / ADHDBrother 1Andrew LinkeyADD / ADHD Brother 2Christopher LinkeyAnxiety disorderBrother 2Christopher LinkeyDepression Brother 2Christopher LinkeySeizuresBrother 2Christopher LinkeyBreast cancer FatherColon cancerFatherHyperlipidemiaFatherHypertensionFatherDiabetesMother HypothyroidismMotherDepressionOtherFamily historyHeart diseaseOtherFamily historyHyperlipidemiaOtherFamily historyHypertensionOtherFamily historyRelation NameStatusCommentsBrother 1Andrew LinkeyBrother 2Christopher LinkeyFatherMother OtherFamily history Social History Tobacco UseTypesPacks/DayYears UsedDateSmoking Tobacco: MggsncTqjicxuuem823 06/17/2008 - 06/17/2023Smokeless Tobacco: Never Tobacco Cessation:Counseling Given: Not Answered Comments:I switched to vaping Alcohol UseStandard Drinks/WeekCommentsYes2 (1 standard drink = 0.6 oz pure alcohol)1-2 drinks on a typical dayCommentsUnknownSex and Gender InformationValueDate RecordedSex Assigned at BirthNot on fileLegal SexFemale 08/28/2022 6:36 PM EDTGender IdentityNot on fileSexual OrientationNot on file Last Filed Vital Signs Vital SignReadingTime TakenCommentsBlood Nytserfi113/8007/ 9:35 AM EDT Casqb58642/03/2023 8:59 AM ESTTemperature--Respiratory Qagx3002 9:35 AM EDTOxygen Saturation--Inhaled Oxygen Concentration--Btcoij79.5 kg (146 lb 9.6 oz)01/13/2025 9:35 AM LAKObjxux014.1 cm (5' 5 )01/13/2025 9:35 AM EDTBody Mass Index24.407 9:35 AM EDT Plan of Treatment DateTypeDepartmentCare Team (Latest Contact Info)Qxopozujyal04/19/2025 10:00 AM ESTProcedure Visit [facility] [address] [place] [address] oDt [place] [address] [address] Procedures Procedure NamePriorityDate/TimeAssociated DiagnosisCommentsMR BRAIN W AND WO CONTRAST (ROUTINE)Yriudmx8801/26/2025 11:51 AM EDT Multiple sclerosis (HCC) from [...] cells are clear. Procedure Note Jim Stockton, DO - 01/26/2025 EXAM: MR BRAIN W AND [...] Stockton DO Authorizing ProviderResult TypeResult StatusBrejarvis Hernandez MDIMMelvi MRI PROCEDURES Final Result from Last 3 Months Insurance Care Teams Team MemberRelationshipSpecialtyStart DateEnd Date Oh White MD [address] [place] [address] PCP - GeneralFamily Jchewmmm44/11/23
--- OUTSIDE RECORDS SUMMARY | 2025-04-27 07:55 | XMS_ITS | Clinical Summary ---
Author Organization [facility] Address [address] [place] [address] Phone Care Team Providers Care Passport Application Examiner Name Role Phone Unavailable Primary Care Provider Unavailabl e Social History Tobacco UseTypesPacks/DayYears UsedDateSmoking Tobacco: Never Assessed CommentsUnknownSex and Gender InformationValueDate RecordedSex Assigned at Not on fileLegal TdxWyjpfd46/26/2022 8:15 AM ESTGender IdentityNot on fileSexual OrientationNot on file Plan of Treatment Not on file
--- OUTSIDE RECORDS SUMMARY | 2025-04-27 07:55 | XMS_ITS | Patient Health Record ---
Author Organization The [facility] [place] Address [address] [place] [address] Care Team Providers Care Principal Account Clerk Name Role Phone Silver White Primary Care Provider Allergies No Known Allergies Results Component Value Reference Range Notes Box Test Reviewed date:01/16/2025 08:27:20 PM Interpretation: Performing Lab: Notes/Report: ABS19 CD19 COUNT [facility] , BOX Test Sent Out CD19 COUNT BOX Test Reference [facility]ALTHBOX Test Date Sent01/12/25BOX Test Result 01/13/25SEE SCANNED REPORTPerforming Lab:see noteML - [facility] LBCBC AUTO DIFF Reviewed date:03/29/2025 02:11:28 PM Interpretation: Performing Lab: Notes/Report: [facility] ,White Blood Count8.44.0-11.0 10 3/uLRed Blood Count4.774.20-5.40 10 6/uL Xocdjlflur48.812.0-16.0 g/jYDyvtqmsshm39.636.0-48.0 %Mean Corpuscular Tvzsdv29.2 81.0-99.0 fLMean Corpuscular Xeagcttooo00.926.7-34.0 pgMean Corpuscular HGB Conc 33.229.9-35.2 g/dLRed Cell Distribution Width13.811.0-15.0 %Platelet Vfxfq585 150-450 10 3/uLMean Platelet Volume9.59.5-13.5 fLNeutrophils Percent Auto71.7 43.0-75.0 %Lymphocytes Percent Auto15.020.5-60.0 %Monocytes Percent Auto9.31.7- 12.0 %Eosinophils Percent Auto3.00.9-7.0 %Basophils Percent Auto0.60.2-2.0 % Immature Granulocytes Pct Auto0.40.0-0.5 %Neutrophils Absolute Auto6.11.4-6.5 10 3/uLLymphocytes Absolute Auto1.31.2-3.8 10 3/uLMonocytes Absolute Auto0.80.3-0.8 10 3/uLEosinophils Absolute Auto0.30.0-0.7 10 3/uLBasophils Absolute Auto0.10.0- 0.1 10 3/uLImmature Granulocytes Abs Auto0.030.00-0.03 10 3/uLPerforming Lab:see noteML - [facility] LBFOLATE Reviewed date:03/29/2025 02:11:28 PM Interpretation: Performing Lab: Notes/Report: [facility] ,Folate6.908.60-58.90 ng/mLPerforming Lab:see noteML - [facility] FREE T3 Reviewed date:03/29/2025 02:11:28 PM Interpretation: Performing Lab: Notes/Report: [facility] ,Free T32.402.18-3.98 pg/mLPerforming Lab:see note - [facility] GLYCOHEMOGLOBIN A1C Reviewed date:03/29/2025 02:11:28 PM Interpretation: Performing Lab: Notes/Report: [facility] ,Glycohemoglobin A1C5.74.5-6.2 % > 7.0 ACTION SUGGESTED ADA THERAPEUTIC TARGET < 7.0 ADA RECOMMENDED LIMIT 4.0 - 6.0 Estimated Average Hlyshqg645Bjppavjkmy Lab:see noteML - [facility] LB IRON Reviewed date:03/29/2025 02:11:28 PM Interpretation: Performing Lab: Notes/Report: [facility] ,Lutw533.050.0-170.0 ug/dLPerforming Lab:see noteML - [facility] LB LIPID PROFILE Reviewed date:03/29/2025 02:11:28 PM Interpretation: Performing Lab: Notes/Report: [facility] ,Dogdtpgnvthbd09<=150 mg/pEGqvpjhqakqz180<=200 mg/dLHDL Prguqpfahfl9489-51 mg/dL > or =60 mg/dl - LOW CARDIOVASCULAR RISK <40 mg/dl - HIGH CARDIOVASCULAR RISK LDL Cholesterol Qheafwckja74.0 100-129 mg/dl NEAR OR ABOVE OPTIMAL >190 mg/dl VERY HIGH 130-159 mg/dl BORDERLINE HIGH 160-189 mg/dl HIGH <100 mg/dl OPTIMAL VLDL KBZUFETEMXZ22.6Chol HDL Ratio2.5 7.1 - 11.0 MODERATE RISK 3.3 - 4.4 LOW RISK >11.0 HIGH RISK 4.4 - 7.1 AVERAGE RISK Performing Lab:see noteML - [facility] LBPROF 14(COMP METB) Reviewed date:03/29/2025 02:11:28 PM Interpretation: Performing Lab: Notes/Report: [facility] ,Cfcxoh271497-499 mmol/LPotassium4.23.5-5.1 mmol/VAcypjnmq20130-848 mmol/LCarbon Mjtymod11.421.0-32.0 mmol/LAnion Gap12.8Fjjmnkz1097-032 mg/dLBlood Urea Nitrogen 12.07.0-18.0 mg/dLCreatinine0.790.55-1.02 mg/dLEstimated GFR ( Kathi>60 >=60 mL/min/1.73m 2Estimated GFR (Non- Honey>60>=60 mL/min/1.73m 2BUN Creatinine Ratio15.8Evwktbb1.08.5-10.1 mg/dLBilirubin Total0.90.2-1.0 mg/dL Aspartate Amino Eybctgoxpyk7223-04 U/LAlanine Yyzlmpwgnswojwmm3952-23 U/L Alkaline Sjhwusralfb0724-342 U/LTotal Protein6.96.4-8.2 g/dLAlbumin Level3.73.4- 5.0 g/dLGlobulin3.2Albumin Globulin Ratio1.2Performing Lab:see noteML - [facility] LBT4 Reviewed date:03/29/2025 02:11:28 PM Interpretation: Performing Lab: Notes/Report: [facility] ,T4 Thyroxine6.904.80-13.90 ug/dLPerforming Lab:see noteML - [facility] LBTSH Reviewed date:03/29/2025 02:11:28 PM Interpretation: Performing Lab: Notes/Report: [facility] ,Thyroid Stimulating Hormone1.2470.358-3.740 uIU/mLPerforming Lab:see noteML - [facility] LBVitamin B12 Reviewed date:03/30/2025 07:43:40 PM Interpretation: Performing Lab: Notes/Report: [facility] ,Vitamin N16146285-3121 pg/mL Follow Up Specialist: Mark Ugalde PhD, Phone: [phone] Performed at: [facility] Lab[address] [phone] Performing Lab:see noteLC - [facility] LBMM tomosynthesis screening BI Reviewed date:04/05/2025 05:58:36 PM Interpretation: Performing Lab: Notes/Report: Source Facility: [place] [address] Mammography Report Signed Patient: MARTHA VALENCIA MR#: [id number] : 1985 Acct:[id number] Age/Sex: 39 / F ADM Date: 04/05/25 Loc: MAMMO Attending Dr: Francesca White M.D. Ordering Physician: Francesca White M.D. Results: Date of Service: 04/05/25 Follow Up: Procedure(s): MM tomosynthesis screening BI Accession Number(s): [id number] cc: Francesca White M.D. Patient Name: MARTHA VALENCIA MR#: [id number] : 1985 Exam Date: 04/05/2025 Ordering Doctor: DR FRANCESCA WHITE . RADIOLOGY REPORT PROCEDURE: MM TOMOSYNTHESIS SCREENING BI COMPARISON: MG MAMM SCREEN 3D ANNY CAD, 07/04/2022. INDICATIONS: SCREENING Calculator Name NCI Breast Cancer Risk Assessment Tool 5 Year Breast Cancer Risk 0.30% Lifetime Breast Cancer Risk 6.70% Personal Breast Cancer No Personal Ovarian Cancer No Treatments None Family Cancers Aunt-paternal with breast cancer at age 32; Grandmother-paternal with breast cancer at age 55. LOCATION: [facility] BREAST COMPOSITION: There are scattered areas of fibroglandular density. FINDINGS: RIGHT BREAST: No significant suspicious finding. There is a similar focal asymmetry on the right. LEFT BREAST: No significant suspicious finding. DIAGNOSTIC CATEGORY 2--BENIGN FINDING. NO CHANGE FROM COMPARISON. RECOMMENDATIONS: ROUTINE MAMMOGRAM AND CLINICAL EVALUATION IN 12 MONTHS. Dictated by: Daniel Mcgee MD on 04/05/2025 at 16:48 Approved by: Daniel Mcgee MD on 04/05/2025 at 16:50 Dictated By: Daniel Mcgee M.D. Signed By: 04/05/251650 DD/ 50 TD/TT: Human Resources Office Assistant:US THYROID Reviewed date:04/13/2025 12:37:37 PM Interpretation: Performing Lab: Notes/Report: Source Facility: [place] [address] Ultrasound Report Signed Patient: MARTHA VALENCIA MR#: [id number] : 1985 Acct:[id number] Age/Sex: 39 / F ADM Date: 04/12/25 Loc: US Attending Dr: Francesca White M.D. Ordering Physician: Francesca White M.D. Date of Service: 04/12/25 Procedure(s): US thyroid Accession Number(s): [id number] cc: Francesca White M.D. The [place] [address] Patient Name: MARTHA VALENCIA MRN: [id number] date: 1985 Sex: F Assigned Patient Location: US Current Patient Location: Accession/Order Number: [id number] Exam Date: 04/12/2025 13:10 Report Date: 04/13/2025 07:23 At the request of: FRANCESCA WHITE MD Procedure: US thyroid THYROID ULTRASOUND CLINICAL DATA: Hypothyroidism. Difficulty swallowing. COMPARISON: None The right thyroid lobe measures 5.2 x 0.9 x 1.1 cm . The left lobe measures 3.9 x 1.1 x 1.1 cm. The isthmus measures 3 mm. There is normal echogenicity. There is a small suspected colloid cyst at the inferior pole on the right measuring 3 mm . No other nodularity is seen. US/US thyroid IMPRESSION: TINY RIGHT COLLOID CYST. NO OTHER NODULARITY. Impression dictated by: Michelle Velasco M.D. 04/13/2025 7:23 AM Dictation Location: [place] [address] Electronically authenticated by: [id number] Y Date: 04/13/2025 07:23 Dictated By: Michelle Velasco M.D. Signed By: 04/13/25725 DD/ 2 TD/TT: Human Resources Office Assistant:Erythrocyte Sedimentation Rate Reviewed date:03/29/2025 02:11:28 PM Interpretation: Performing Lab: Notes/Report: [facility] ,Erythrocyte Sedimentation Rate2<=20 mm/hrPerforming Lab:see note - [facility] LBImmunoglobulins A/G/M, Qn, Ser Reviewed date:01/13/2025 12:58:14 PM Interpretation: Performing Lab: Notes/Report: [facility] ,Immunoglobulin G, Qn, Jzxxu807273-6519 mg/dLImmunoglobulin A, Qn, Ohdsm86087- 352 mg/dLImmunoglobulin M, Qn, Fweyr0181-536 mg/dL [address] [place], [place] [id number] Performed at: [facility] Follow Up Specialist: Mark Ugalde PhD, Phone: [phone] Performing Lab:see note - [facility] LBHep B Surface Ab Reviewed date:01/13/2025 12:58:14 PM Interpretation: Performing Lab: Notes/Report: [facility] ,Hep B Surface AbNon Reactive. Non Reactive: Not immune to HBV infection. at greater than 10 mIU/mL. immune to infection with HBV. with immunity. Reactive: Anti-HBs concentration detected Individual is considered to be Equivocal: Unable to determine if anti-HBs is present at levels consistent Performing Lab:see note - [facility] LBHep B Core Ab, Tot Reviewed date:01/13/2025 12:58:14 PM Interpretation: Performing Lab: Notes/Report: [facility] ,Hep B Core Ab, TotNegativeNegative Performed at: [facility] Follow Up Specialist: Mark Ugalde PhD, Phone: [phone] [address] [place], [place] [phone] Performing Lab[facility] LBHCV Antibody Reviewed date:01/13/2025 12:58:14 PM Interpretation: Performing Lab: Notes/Report: [facility] ,HCV AntibodyNon ReactiveNon Reactive previously resolved infection and active infection. of active HCV infection. HCV antibody alone does not differentiate between Equivocal and Reactive HCV antibody results should be followed up with an HCV RNA test to support the diagnosis Performing Lab:[facility] LBQuantiFERON-TB Gold Plus Reviewed date:01/16/2025 08:27:20 PM Interpretation: Performing Lab: Notes/Report: [facility] ,QuantiFERON Incubation. Reference Range: . Incubation performed. QuantiFERON-TB Gold PlusNegativeNegative No response to M tuberculosis antigens detected. Performed at: [facility] IU/mL. individuals should be considered for additional testing Follow Up Specialist: Mark Ugalde PhD, Phone: [phone] Chemiluminescence immunoassay methodology reference range is an Antigen minus Nil result of <0.35 Infection with M tuberculosis is unlikely, but high risk [address] [place] [phone] (ATS/IDSA/CDC Clinical Practice Guidelines, 2017). The QuantiFERON CriteriaComment. radiography, and other medical and diagnostic evaluations. The QuantiFERON-TB Gold Plus result is determined by QuantiFERON-TB Gold Plus is a qualitative indirect test for intended for use in conjunction with risk assessment, value. The Mitogen tube serves as a control for the test. subtracting the Nil value from either TB antigen (Ag) M tuberculosis infection (including disease) and is QuantiFERON TB1 Ag Value0.03. IU/mLQuantiFERON TB2 Ag Value0.03. IU/mL QuantiFERON Nil Value0.02. IU/mLQuantiFERON Mitogen Value>10.00. IU/mLPerforming Lab:see [facility]eepHar[facility] LBHBsAg Screen Reviewed date:01/13/2025 12:58:13 PM Interpretation: Performing Lab: Notes/Report: [facility] ,HBsAg ScreenNegativeNegativePerforming Lab:see noteLC - [facility] LBTSH Reviewed date:01/12/2025 04:01:48 PM Interpretation: Performing Lab: Notes/Report: [facility] ,Thyroid Stimulating Hormone2.2400.358-3.740 uIU/mLPerforming Lab:see noteML - [facility] LBCRP Reviewed date:03/29/2025 02:11:28 PM Interpretation: Performing Lab: Notes/Report: [facility] ,C Reactive Protein<0.50<=0.50 mg/dLPerforming Lab:see noteML - [facility] LBXR chest 2V Reviewed date:12/20/2024 09:32:14 PM Interpretation: Performing Lab: Notes/Report: Source Facility: [place] [address] XRay Report Signed Patient: MARTHA VALENCIA MR#: [id number] : 1985 Acct:[id number] Age/Sex: 39 / F ADM Date: 12/20/24 Loc: ER Attending Dr: Ordering Physician: Jaja Ames D.O. Date of Service: 12/20/24 Procedure(s): XR chest 2V Accession Number(s): [id number] cc: Francesca White M.D.; Jaja Ames D.O. [place] [address] Patient Name: MARTHA VALENCIA MRN: [id number] date: 1985 Sex: F Assigned Patient Location: ER Current Patient Location: ED.MAIN Accession/Order Number: [id number] Exam Date: 12/20/2024 21:13 Report Date: 12/20/2024 21:14 At the request of: JAJA AMES DO Procedure: XR chest 2V PA AND LATERAL CHEST: CLINICAL HISTORY: CP COMPARISON: None FINDINGS: Unremarkable cardiomediastinal. Lungs clear. No effusion or pneumothorax. XR/XR chest 2V IMPRESSION: NO ACUTE CARDIOPULMONARY ABNORMALITY. Impression dictated by: Hector Mo M.D. 12/20/2024 9:14 PM Dictation Location: [place] [address] Electronically authenticated by: [id number] Y Date: 12/20/2024 21:14 Dictated By: Hector Mo M.D. Signed By: 12/20/242116 DD/ 13 TD/TT: Human Resources Office Assistant:ECG 12 lead Reviewed date:12/21/2024 07:27:21 PM Interpretation: Performing Lab: Notes/Report: Source Facility: [place] [address] Electrocardiograph Report Signed Patient: MARTHA VALENCIA MR#: [id number] : 1985 Acct:[id number] Age/Sex: 39 / F ADM Date: 12/20/24 Loc: ER Attending Dr: Ordering Physician: Jaja Ames D.O. Date of Service: 12/20/24 Procedure(s): ECG 12 lead Accession Number(s): [id number] cc: [facility] Test Date: 2024-12-20 Pat Name: MARTHA VALENCIA Department: Room: - Gender: Female Business Director: : 1985 Requested By: 2381 Order Number: [id number] Reading MD: SATYA IBARRA M.D. Measurements Intervals [place] Rate: 86 P: 58 PA: 108 QRS: 77 QRSD: 70 T: 69 QT: 352 QTc: 395 Interpretive Statements 1100 Sinus rhythm 2210 Short PA interval 9150 abnormal ECG Compared to ECG 12/30/2020 18:55:53 Short PA interval now present T-wave abnormality no longer present Electronically Signed On 12-21-2024 17:49:49 EDT by SATYA IBARRA M.D. Dictated By: SATYA IBARRA Signed By: 12/21/241749 DD/ 37 TD/TT: Human Resources Office Assistant:Troponin I High Sensitivity Reviewed date:12/20/2024 09:32:14 PM Interpretation: Performing Lab: Notes/Report: [facility] ,Troponin I High Sensitivity4.54.0-51.3 pg/mL NOTE: HIGH-SENSITIVITY TROPONIN ASSAY IS NOT INTENDED TO BE 99TH PERCENTILE = 51.4 PG/ML HAS BEEN CONFIRMED THE DECISION THRESHOLD FOR MT DIAGNOSIS. PERCENTILE OF cTnI DISTRIBUTION IN A REFERENCE POPULATION, REFERENCE LIMIT (URL) OF TROPONIN, DEFINED THE 99TH UNIVERSAL DEFINITION OF MYOCARDIAL INFARCTION. THE UPPER CUT-OFF POINTS HAVE BEEN ESTABLISHED BASED ON THE FOURTH WITH OTHER DIAGNOSTIC AND CLINICAL INFORMATION. USED IN ISOLATION BUT SHOULD BE INTERPRETED IN CONJUNCTION Performing Lab:see noteML - [facility] LBPROF 14(COMP METB) Reviewed date:12/20/2024 09:32:14 PM Interpretation: Performing Lab: Notes/Report: [facility] ,Tdvlvw993288-603 mmol/LPotassium4.03.5-5.1 mmol/DAculdapw57775-480 mmol/LCarbon Lwexyvo71.421.0-32.0 mmol/LAnion Gap12.9Aptwvby81911-662 mg/dLBlood Urea Mfzatnld94.07.0-18.0 mg/dLCreatinine0.800.55-1.02 mg/dLEstimated GFR ( Kathi>60>=60 mL/min/1.73m 2Estimated GFR (Non- Honey>60>=60 mL/min/1.73m 2BUN Creatinine Ratio13.9Owcxjxv1.78.5-10.1 mg/dLBilirubin Total0.40.2-1.0 mg/dL Aspartate Amino Yzmsopvibpn8399-61 U/LAlanine Pntdrwnkhfualfkw9017-53 U/L Alkaline Ujfkjtpmxyj6602-731 U/LTotal Protein7.06.4-8.2 g/dLAlbumin Level3.83.4- 5.0 g/dLGlobulin3.2Albumin Globulin Ratio1.2Performing Lab:see noteML - [facility] LBD-DIMER Reviewed date:12/20/2024 09:32:14 PM Interpretation: Performing Lab: Notes/Report: [facility] ,D Dimer0.21<=0.59 mg/L FEU of disorders including advanced age, [...] can be variable due to localization, Performing Lab:see noteML - [facility] LBCBC AUTO DIFF Reviewed date:12/20/2024 09:32:14 PM Interpretation: Performing Lab: Notes/Report: [facility] ,White Blood Count9.54.0-11.0 10 3/uLRed Blood Count4.644.20-5.40 10 6/uL Wecjqdtiyv29.712.0-16.0 g/eZOtortzqdvp76.236.0-48.0 %Mean Corpuscular Jizopk75.6 81.0-99.0 fLMean Corpuscular Mnkbkdjgub69.526.7-34.0 pgMean Corpuscular HGB Conc 34.129.9-35.2 g/dLRed Cell Distribution Width13.211.0-15.0 %Platelet Kddtq133 150-450 10 3/uLMean Platelet Uzxdsp12.19.5-13.5 fLNeutrophils Percent Auto62.4 43.0-75.0 %Lymphocytes Percent Auto26.920.5-60.0 %Monocytes Percent Auto7.91.7- 12.0 %Eosinophils Percent Auto2.10.9-7.0 %Basophils Percent Auto0.50.2-2.0 % Immature Granulocytes Pct Auto0.20.0-0.5 %Neutrophils Absolute Auto5.91.4-6.5 10 3/uLLymphocytes Absolute Auto2.61.2-3.8 10 3/uLMonocytes Absolute Auto0.80.3-0.8 10 3/uLEosinophils Absolute Auto0.20.0-0.7 10 3/uLBasophils Absolute Auto0.10.0- 0.1 10 3/uLImmature Granulocytes Abs Auto0.020.00-0.03 10 3/uLPerforming Lab:see noteML - [facility] LB Reason For Referral Diagnosis 1 Primary progressive multiple sclerosis, unspecified (G35.B0) Referral Organization [facility] Referring Provider First Name Silver Referring Provider Last Name Cali [facility] Marty Jade Referred Provider Specialty Neurology Referral Priority Routine Reason Hypothyroidism lab s in chart Diagnosis 1 Hypothyroidism (E03. 9) Referring Provider First Name Silver Referring Provider Last Name [facility]erring Provider [facility] Referred Organization Endocrinology Referred Provider Myra Gamez Referred Address [address] [facility],[place], [place],[address], Referred Provider Specialty Endocrinolog y General Notes Lindy Guerra 09:38:06 AM >appt made 07/20/25 Referral Priority Routine Diagnosis 1 Hypothyroidism (E03. 9) Referral Organization [facility] Referring Provider First Name Silver Referring Provider Last Name [facility]erring [facility] Referred Provider PHONG SARAVIA Referred Provider Specialty Endocrinolog y Referral Priority Routine Diagnosis 1 Hypothyroidism (E03. 9) Referral Organization [facility] Referring Provider First Name Silver Referring Provider Last Name [facility]erring Provider [facility] Referred Provider Martha Ojeda Referred Provider Specialty Endocrinolog y Referral Priority Routine Medications Medication SIG (Take, Route, Frequency, Duration) Notes Start Date End Date Status Nicotine 21 MG/24HR 1 patch to skin Transdermal Once a day 5ActiveCyanocobalamin 1000 MCG/ML1 mL Injection; Duration: 30 day(s) 5ActivebuPROPion HCl ER (XL) 150 MGTAKE 1 TABLET BY MOUTH EVERY DAY IN THE MORNING; Duration: 90 daysActive Social History Tobacco Use: Social History Observation Description Date Details (start date - stop date) Current Smoker 03/18/2012 - NA Tobacco Control (Standard) Question Answer Notes Tobacco use: Current smoker When did you start smoking?03/18/2012UDIT-C (Standard) Question Answer Notes Did you have a drink containing alcohol in the p ast year? No Cfdusi8RgsapwiohvtjnxLqajnryc Problems Problem Type SNOMED Code ICD Code Onset Dates Problem Status W/U Status Risk Notes Problem Multiple sclerosis (22116969) Multiple sc lerosis (G35) ActiveconfirmedProblemWeakness (88326850)Weakness (R53.1)ActiveconfirmedProblem Hypothyroidism (65440648)Hypothyroidism (E03.9)ActiveconfirmedProblemNeck pain (39668142)Neck pain (M54.2)ActiveconfirmedProblemEdema (32625988)Edema (R60.9) ActiveconfirmedProblemDepression (517759233)Depression (F32.9)Activeconfirmed ProblemVertigo (721615840)Vertigo (R42)ActiveconfirmedProblemInsomnia (553089150)Insomnia (G47.00)ActiveconfirmedProblemMigraine (50409025)Migraine (G43.909)ActiveconfirmedProblemGait abnormality (08084069)Gait abnormality (R26.9)ActiveconfirmedProblemParesthesia (53896202)Paresthesia (R20.2)Active confirmedProblemCyst of thyroid (48682145)Thyroid cyst (E04.1)Activeconfirmed ProblemCOVID-19 (941833067)COVID-19 (U07.1)ActiveconfirmedProblem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 (152677860)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, 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)Active confirmedProblemPrimary progressive multiple sclerosis, unspecified (G35.B0) Activeconfirmed Vital Signs Blood pressure diastolic 72 mm Hg 03/28/2025 Rqgfyy31 in03/28/2025lood pressure xxxdcimr793 mm Hg03/28/20254168Eymkmk487.6 lbs 03/28/2025BMI23.89 kg/m203/28/2025 Encounters Encounter Location Date Provider Diagnosis [facility] [address] [place] [address] 01/16/2025 Silver White [facility] [place] [address] 03/29/2025[facility] [place] [address]/15/2025[facility] [place] [address]/[facility] [place] [address]/Doug HoyHypothyroidism E03.9B[facility] [facility] [place] [address]/ Silver [facility]oyB[facility] [facility] [place] [address]/Doug HoyHypothyroidism E03.9B[facility] [address] [place] [address]/Doug HoyInsomnia G47.00 ; Primary progressive multiple sclerosis, unspecified G35.B0 ; Edema R60.9 ; Migraine G43.909 and Well adult Z00.00[facility] [place] [address]/Doug HoyB12 deficiency E53.8 Assessments Encounter Date Diagnosis (ICD Code) Assessment Notes Treatment Notes Treatment Clinical Notes Section Notes 03/28/2025 Insomnia (ICD-10 - G47.00) 03/28/2025Primary progressive multiple sclerosis, unspecified (ICD-10 - G35.B0) 03/28/2025Edema (ICD-10 - R60.9)03/28/2025Migraine (ICD-10 - G43.909)04/01/2025 B12 deficiency (ICD-10 - E53.8)04/08/2025Hypothyroidism (ICD-10 - E03.9) 04/13/2025Hypothyroidism (ICD-10 - E03.9)03/28/2025Well adult (ICD-10 - Z00.00) Plan Of Treatment Pending Test Test Name Order Date HEMOGLOBIN A1C (GLYCO) 03/28/2025 IRON, TOTAL 03/28/2025 LIPID PANEL (CHOL/TRIG/HDL/LDL) 03/28/20 25 US Thyroid 04/08/2025 NM Thyroid Imaging w/ Uptake 04/08/2025 SED RATE WESTERGREN 03/28/2025 VIT B12 AND FOLATE 03/28/2025 VITAMIN D 25 [place] 03/28/2025 NM THY SCAN W UPT 04/13/2025 THYROID PANEL (T4/TSH/FREE T3) 5 MM screening mammo BI 03/28/2025 CMP (COMP MET GUTIÉRREZ) w/eGFR CKD-EPI 2024 CBC WITH DIFF 03/28/2025 Next Appt Details Provider Name:Myra Gamez , 07/20/2025 10:30:00 AM, [address], [address] [facility], [place], [address], Insurance Providers Payer Name Payer Address Payer Phone Subscriber Number Group Number Insured Name Patient Relationship to Insured Coverage Start Date Coverage End Date [place] [address] [place] [address] [id number] Shalini Valencia - patient is the insured Medications Administered Medication Instructions Date of Administration Dosage Notes Cyanocobalamin mL Medical (General) History Medical History History ICD Code Multiple sclerosis G35 Surgical History Surgery Date(Month/Year) gallbladderLithotripsyWisdom teeth
--- OUTSIDE RECORDS SUMMARY | 2025-04-27 07:55 | XMS_ITS | Encounter Summary ---
Author Organization [facility] Address [address] [facility] [place] [address] Care Team Providers Care Rotary Kiln Operator Name Role Phone Oh White MD Primary Care Provider [phone] Encounter Details DateTypeDepartmentCare Team (Latest Contact Info)Bbyobhrljwm95/03/2025Telephone [facility] [address] [facility] [facility] [place] [address] Osmar Hernandez MD [address] [place] [address] [place] [id number] Social History Tobacco UseTypesPacks/DayYears UsedDateSmoking Tobacco: [id number] 06/17/2008 - 06/17/2023Smokeless Tobacco: Never Comments:I switched to vapin g Alcohol UseStandard Drinks/WeekCommentsYes2 (1 standard drink = 0.6 oz pure alcohol)1-2 drinks on a typical dayCommentsUnknownSex and Gender InformationValueDate RecordedSex Assigned at BirthNot on fileLegal SexFemale 08/28/2022 6:36 PM EDTGender IdentityNot on fileSexual OrientationNot on file documented as of this encounter Plan of Treatment DateTypeDepartmentCare Team (Latest Contact Info)Gqgrvtrvjaf65/19/2025 10:00 AM ESTProcedure Visit [facility] [address] [place] [address] Dot Calvo PA [address] [place] [address] documented as of this encounter Visit Diagnoses Not on filedocumented in this encounter Care Teams Team MemberRelationshipSpecialtyStart DateEnd Date Oh White MD [address] [place] [id number] PCP - GeneralFamily Smopcqnv84/11/23documented as of this encounter
--- OUTSIDE RECORDS SUMMARY | 2025-04-27 07:58 | XMS_ITS | CCD ---
Author Organization [facility] Care Team Providers Care Assembler Bicycle Name Role Phone MD Francesca Sands Primary Care Provider [phone] CHANTEL Blancas Attending Provider CLAYTON BLANCAS Admitting Unavailable CLAYTON BLANCAS Attending Unavailable CLAYTON BLANCAS Consulting Unavailable CLAYTON BLANCAS Primary Care Unavailable SHAVON, DR MA Primary Care Unavailable FABIO ECHOLS Attending Unavailable FABIO ECHOLS Admitting Unavailable SHAVON, DR MA Primary Care Unavailable SHAVON, DR MA Admitting Unavailable SHAVON, DR MA Attending Unavailable SHAVON, DR MA Consulting Unavailable WEST, DR TYLER Méndez Consulting Unavailable CLAYTON BLANCAS Attending Unavailable CLAYTON BLANCAS Consulting Unavailable CLAYTON BLANCAS Primary Care Unavailable CLAYTON BLANCAS Admitting Unavailable MD Francesca Sands Primary Care Provider [phone] Marty Jade Attending Provider Marty Jade Admitting Unavailab Marty Rider Attending Unavailab Francesca Marie Primary Care Unavailable Francesca Sands Primary Care Unavailable Clayton Blancas Admitting Unavailable Clayton Blancas Attending Unavailable Marty Jade Admitting Unavailab Marty Rider Attending Unavailab Francesca Marie Primary Care Unavailable Francesca Sands MD Primary Care Provider [phone] Francesca Sands MD Primary Care Provider [phone] Francesca Sands MD Primary Care Provider [phone] PCP, NO PCP Primary Care Unavailable MILLY DEMARCO Attending Unavailable Francesca Sands MD Primary Care Provider [phone] FRANCESCA SANDS Primary Care Unavailable SELF Referring Unavailable GAL NOGUEIRA Attending Unavailable SURINDER HERNANDEZ Attending Unavailable SURINDER HERNANDEZ Referring Unavailable RamonMarcio Attending Unavailable Francesca Sands MD Primary Care Provider [phone] Allergies Allergy ClassificationReported Allergen(s)Allergy TypeDate of OnsetReaction(s) Facility (2 sources)diphenhydrAMINE; Translations: [Benadryl]Drug AllergyThe [facility] (5 sources)OtherPropensity to adverse qzgrxlbdu45-93-9767NS[facility] Medications Current Medications MedicationDrug Class(es)DatesSig (Normalized)Sig (Original)cyclobenzaprine hydrochloride 5 mg oral tablet (2 sources)Muscle RelaxantStart: 12-05-2023 End: 95-13-2739mvie 1 tablet by mouth at bedtimecyclobenzaprine (Flexeril) 5 MG tablet Indications: Cervical paraspinal muscle spasm Take 1 tablet (5 mg) by mouth at bedtime 90 tablet 2 12/05/2023 03/04/2024 Activetake 1 tablet by mouth once daily at bedtimecyclobenzaprine (Flexeril) 5 MG tablet TAKE ONE TABLET BY MOUTH DAILY AT 9PM AT BEDTIME 0 ActiveLORazepam 0.5 mg oral tablet (3 sources)BenzodiazepineStart: 41-97-1616zawp 1 tablet by mouth onceLORazepam (Ativan) 0.5 MG tablet Indications: Claustrophobia Take 1 tablet (0.5 mg) by mouth every 12 (twelve) hours if needed for anxiety for up to 1 day 2 tablet 01/13/2025 ActivemetroNIDAZOLE 500 mg oral tablet (1 source)Nitroimidazole AntimicrobialStart: 07-16-2023 End: 46-80-2932igwy 1 tablet by mouth in the morningmetroNIDAZOLE (Flagyl) 500 MG tablet Indications: BV (bacterial vaginosis) Take 1 tablet (500 mg) by mouth in the morning and 1 tablet (500 mg) before bedtime. Do all this for 7 days. Do not drink alcohol while taking this medication. 14 tablet 0 07/16/2023 07/23/2023 Mmejsg27 hr oxybutynin chloride 5 mg extended release oral tablet (1 source)Cholinergic Muscarinic Antagonisttake 1 tablet by mouth once daily oxybutynin XL (Ditropan-XL) 5 MG 24 hr tablet TAKE ONE TABLET BY MOUTH DAILY AT 9AM 0 Active Completed/Discontinued Medications MedicationDrug Class(es)DatesSig (Normalized)Sig (Original)amitriptyline hydrochloride 100 mg oral tablet (3 sources)Tricyclic Antidepressant End: 43-86-7177vfkv 1 tablet by mouth once daily at bedtimeamitriptyline (ELAVIL) 100 mg tablet Take 100 mg by mouth daily at bedtime. 01/11/2025 DiscontinuedComment on above:Take 100 mg by mouth daily at bedtime.24 hr desvenlafaxine succinate 50 mg extended release oral tablet (8 sources)Serotonin and Norepinephrine Reuptake Inhibitor End: 95-18-6925otsc 1 tablet by mouth once dailydesvenlafaxine (Pristiq) 50 MG 24 hr tablet TAKE ONE TABLET BY MOUTH DAILY AT 9AM 01/13/2025 Discontinued (Therapy completed)fingolimod 0.5 mg oral capsule (3 sources)Sphingosine 1-phosphate Receptor ModulatorStart: 12-23-2016 End: 62-39-6704wgky 1 capsule by mouth once dailyfingolimod (GILENYA) 0.5 mg cap Indications: Multiple sclerosis (HCC) Take 1 capsule by mouth once daily. 90 capsule 3 12/23/2016 01/11/2025 DiscontinuedComment on above:Take 1 capsule by mouth once daily.gabapentin 300 mg oral capsule (10 sources)Anti-epileptic AgentStart: 11-04-2017 End: 85-20-0444bqxw 1 capsule by mouth three times dailygabapentin (NEURONTIN) 300 mg capsule TAKE ONE CAPSULE BY MOUTH 3 TIMES A DAY 90 capsule 11 11/04/2017 01/11/2025 DiscontinuedComment on above:TAKE ONE CAPSULE BY MOUTH 3 TIMES A DAY iv contrast (will be provided with radiology test) (2 sources)Start: 01-11-2025 End: 28-98-0003zjdhir 1 dose intravenously onceiv contrast (will be [...] 1 each 01/11/2025 01/12/2025 ExpiredStart: 01-11-2025 End: 48-76-6142gn contrast (will be provided with radiology test) [...] 0.125 mg oral tablet (3 sources)l-Thyroxine End: 68-82-9116nptv 1 tablet by mouth once dailylevothyroxine (SYNTHROID) 125 mcg tablet Take 125 mcg by mouth once daily. 01/11/2025 DiscontinuedComment on above:Take 125 mcg by mouth once daily.lisdexamfetamine dimesylate 50 mg oral capsule (10 sources)Central Nervous System StimulantStart: 04-13-2024 End: 66-70-7270oeoo 1 capsule by mouth in the morninglisdexamfetamine (Vyvanse) 50 MG capsule Indications: Multiple sclerosis (HCC) , ADD (attention deficit disorder) without hyperactivity TAKE ONE CAPSULE (50 MG) BY MOUTH IN THE MORNING 30 capsule 04/13/2024 01/13/2025 Discontinued (Therapy completed)Start: 77-13-6729kgwc 1 capsule by mouth in the morninglisdexamfetamine (Vyvanse) 50 MG capsule Indications: Multiple sclerosis (CMS/HCC) , ADD (attentiondeficit disorder) without hyperactivity TAKE ONE CAPSULE (50 MG) BY MOUTH IN THE MORNING 30 bnaqilf3903/05/2024 ActiveStart: 2023 End: 21-19-5430uefj 1 capsule by mouth in the morninglisdexamfetamine (Vyvanse) 50 MG capsule Indications: Multiple sclerosis (CMS/HCC) , ADD (attentiondeficit disorder) without hyperactivity TAKE ONE CAPSULE (50 MG) BY MOUTH IN THE MORNING 30 lqaiimr7903/05/2024 04/13/2024 Discontinuedtake 1 capsule by mouth in the morninglisdexamfetamine (Vyvanse) 40 MG capsule Take 40 mg by mouth in the morning. 0 ActivemedroxyPROGESTERone (3 sources)Progestin End: 11-29-0512IVEHOATRFXJNLWGJCLW ACETATE (DEPO-PROVERA INTRAMUSC.) Inject intramuscularly every 3 months. 01/11/2025 DiscontinuedMEDROXYPROGESTERONE ACETATE (DEPO-PROVERA INTRAMUSC.) Inject intramuscularly every 3 months. 0 Activ eComment on above:Inject intramuscularly every 3 months.0.4 ml ofatumumab 50 mg/ml pen injector (8 sources)BX75-vbgvrtch Cytolytic AntibodyStart: 12-08-2023 End: 11-95-5704vpnjjuybhp (Kesimpta) 20 MG/0.4ML injection Indications: Multiple sclerosis (HCC) Inject subcutaneously once every 30 days 0.4 mL 11 12/08/2023 01/13/2025 Discontinued (Therapy completed)Start: 62-96-9100rnxtndpqgz (Kesimpta) 20 MG/0.4ML injection Indications: Multiple sclerosis (CMS/HCC) Inject subcutaneously once every 30 days 0.4 mL 11 05/12/2023 Ojbfgs13 hr propranolol hydrochloride 60 mg extended release oral capsule (7 sources)beta-Adrenergic BlockerStart: 11-03-2023 End: 38-35-3485pimo 1 capsule by mouth once dailypropranolol LA [...] Virus Nucleoside Analog DNA Polymerase Inhibitor End: 81-02-5094zowj 1 tablet by mouth once dailyvalACYclovir (Valtrex) 500 MG tablet TAKE ONE TABLET BY MOUTH DAILY AT 9AM 01/13/2025 Discontinued (Therapy completed) Problems Active Problems Problem ClassificationProblemDateDocumented DateEpisodic/ChronicAnxiety disorders (2 sources)Claustrophobia; Translations: [Claustrophobia]57-08-0590Ltdgial Blindness and vision defects (1 source)Blurring of visual image; Translations: [Other visual disturbances] 91-93-7613AfkaxjfuImniiqxtck and other anemia (1 source)Anemia, unspecified; Translations: [ANEMIA UNSPECIFIED]Onset: 10-64-1570PvororiyLvpriphg mellitus without complication (1 source)Type 2 diabetes mellitus without complications; Translations: [TYPE 2 DM WITHOUT COMPLICATIONS]Onset: 18-05-3177TtyrlpjIxqwcpclv of lipid metabolism (1 source)Hyperlipidemia, unspecified; Translations: [HYPERLIPIDEMIA UNSPECIFIED]Onset: 73-33-1931CeailrkNkefcbksz usually diagnosed in infancy, childhood, or adolescence (11 sources)Attention deficit hyperactivity disorder, predominantly inattentive type; Translations: [Other specified behavioral and emotional disorders with onset usually occurring in childhood and adolescence]Onset: ChronicHeadache; including migraine (9 sources)Migraine; Translations: [Migraine, unspecified, not intractable, without status migrainosus]Onset: 193484-22-4916OvopomxCfnx disorders (7 sources)Major depression, single episode; Translations: [Major depressive disorder, single episode, unspecified]Onset: 478159-90-4880HjvmitdWhejxiep sclerosis (20 sources)Multiple sclerosis; Translations: [Multiple sclerosis]Onset: 72-24-0919MsvhvvlFiuviuaggys chest pain (1 source)Chest pain, unspecified; Translations: [Chest pain, unspecified]Onset: 56-46-1005RaugruwtBcblftgodgl deficiencies (1 source)Vitamin D deficiency, unspecified; Translations: [VITAMIN D DEFICIENCY UNSPECIFIED]Onset: 43-54-5426VmamzexKnnct aftercare (1 source)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; Translations: [OTH CUSTODIAL CURRENT DRUG THERAPY]Onset: 32-89-7883TrxjwyduWkzcx aftercare (1 source)Patient encounter status; Translations: [Encounter for therapeutic drug level monitoring]88-00-0682GalfwzalWlhsw aftercare (1 source)Encounter for therapeutic drug level monitoring; Translations: [Medication monitoring encounter]Onset: 67-44-3092AhwlnlvcOwncz and unspecified benign neoplasm (1 source)Neoplasm of meninges; Translations: [Benign neoplasm of meninges, unspecified]89-74-8447JtesbyhUciva nervous system disorders (1 source)NumbnessOnset: 33-02-6038GeusmekwAuxwk screening for suspected conditions (not mental disorders or infectious disease) (1 source)Encounter for screening mammogram for malignant neoplasm of breast; Translations: [ENC SCR MAMMO MALIG NEOPLASM BREAST]Onset: 24-14-0357Ksuazhnm Paralysis (7 sources)Monoplegia of left nondominant upper limb; 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]Onset: hronic Residual codes; unclassified (1 source)Family history of malignant neoplasm of breast; Translations: [FAMILY HX MALIG NEOPLASM OF BREAST]Onset: 39-05-3366SscaqkjbHbacpqvx codes; unclassified (1 source)Procedure and treatment not carried out due to patient leaving prior to being seen by health care provider; Translations: [Procedure and treatment not carried out due to patient leaving prior to being seen by health care provider]Onset: 07-79-9831TgtwtoiaBezqpje disorders (2 sources)Hypothyroidism; Translations: [Hypothyroidism, unspecified]Onset: 650083-74-7221RfykudeRrpuogtepfzq (1 source)Multiple sclerosis; Translations: [Multiple sclerosis]Onset: 300745-14-1089ShewyijWrhvgcxtvskh (1 source)Medical ScreeningOnset: 10-22-2024 Past or Other Problems Problem ClassificationProblemDateDocumented DateEpisodic/ChronicConditions associated with dizziness or vertigo (9 sources)Dizziness; Translations: [Dizziness and giddiness]Onset: 03-24-2023 15-89-1569KeuacvqyGeitogh and fatigue (12 sources)Other fatigue; Translations: [Asthenia]Onset: 31-43-6457Sfhzyaes Other connective tissue disease (8 sources)Spasm of cervical paraspinous muscle; Translations: [Other muscle spasm]Onset: 760759-50-4004OmrawdzxVnxgj nervous system disorders (9 sources)Abnormal gait; Translations: [Unspecified abnormalities of gait and mobility]Onset: 814443-93-3095TwlikmiqPzobu nervous system disorders (7 sources)Paresthesia; Translations: [Paresthesia of skin]Onset: 03-01-2024 03-89-5345CeiwtxvtXzcvwgku codes; unclassified (7 sources)Edema; Translations: [Edema, unspecified]Onset: EpisodicResidual codes; unclassified (7 sources)Insomnia; Translations: [Insomnia, unspecified]Onset: 03-01-2024 19-72-7338DrguubfnCthqn infection (7 sources)Disease caused by 2019-nCoV; Translations: [COVID-19]Onset: 413367-68-5638Oogownbq Results Test NameValueInterpretationReference RangeFacilityXR Chest Single Viewon [id number] Chest Single ViewExam Date/Time: 03/08/2025 16:28 EDT [...] Mateo Marks MD Transcribed by: GRICELDA Technologist: [facility] HospitalBMPon 83-68-7269Ymhqi gap [Moles/Vol]9 mmol/LNormal6-16[facility] Comment on above:Performed By: #### [id number] #### [facility] [address], [place] [address]NYV/Creat Ratio10 No BlnqyEysbvp58-13NjzpulMercy Health Fairfield HospitalComment on above:Performed By: #### [id number] #### [facility] [address], [place] [address]Amavzoh [Mass/Vol]9.2 mg/dLNormal8.9-11.1FFirelands Regional Medical CenterComment on above:Performed By: #### [id number] #### [facility] [address], [place] [address]Mnvhhsio [Moles/Vol]105 mmol/ALinxzp088-985KustxlMercy Health Fairfield HospitalComment on above:Performed By: #### [id number] #### [facility] [address], [place] [address]DO0 [Moles/Vol]25 mmol/DXdhpug98-26HiajffMercy Health Fairfield Hospital Comment on above:Performed By: #### [id number] #### [facility] [address], [place] [address]Isbeoxugru [Mass/Vol]1.0 mg/dLNormal0.5-1.3FFirelands Regional Medical CenterComment on above:Performed By: #### [id number] #### [facility] [address], [place] [address]Tkbotld [Mass/Vol]95 mg/vVAwojaa66-572DufegyMercy Health Fairfield HospitalComment on above:Performed By: #### [id number] #### [facility] [address], [place] [address]Brsuiczol [Moles/Vol]3.7 mmol/LNormal3.5-5.3FFirelands Regional Medical CenterComment on above:Performed By: #### [id number] #### [facility] [address], [place] [address]Guqsil [Moles/Vol]135 mmol/NHoonlb966-102RrsqggMercy Health Fairfield HospitalComment on above:Performed By: #### [id number] #### [facility] [address], [place] [address]Imcf nitrogen [Mass/Vol]10 mg/dLNormal5-21[facility] HospitalComment on above:Performed By: #### [id number] #### [facility] [address], [place] [address]RLY w/ Auto Diffon 96-75-0120Rorctqbj Absolute0.1 E9/LNormal 0.0-0.2FFirelands Regional Medical CenterComment on above:Performed By: #### [id number] #### [facility] [address], [place] [address]Rblukrkoa/100 WBC (Bld)1.6 %Normal0.0-2.0[facility] HospitalComment on above:Performed By: #### [id number] #### [facility] [address] [place] [address]Bnq Absolute0.2 E9/LNormal0.0-0.5FFirelands Regional Medical Center Comment on above:Performed By: #### [id number] #### [facility] [address] [place] [address]Gxieljcuojs/100 WBC (Bld)2.2 %Normal0.0-8.0[facility] HospitalComment on above:Performed By: #### [id number] #### [facility] [address] [place] [address]Xefagvystkm distribution width (RBC) [Ratio]13.8 %Normal 10.9-14.2FFirelands Regional Medical CenterComment on above:Performed By: #### [id number] #### [facility] [address] [place] [address]Uegbooegwo (Bld) [Volume fraction]42.0 %Wvwbue48.0-46.0[facility] HospitalComment on above:Performed By: #### [id number] #### [facility] [address], [place] [address]Syobriozdc (Bld) [Mass/Vol]14.7 g/eJVrliao15.0-16.0[facility] HospitalComment on above:Performed By: #### [id number] #### [facility] [address] [place] [address]Zrrpr Absolute2.1 E9/LNormal1.0-4.0[facility] Comment on above:Performed By: #### [id number] #### [facility] [address] [place] [address]Abllpxwlblr/100 WBC (Bld)23.2 %Cvbetu29.0-50.0[facility] HospitalComment on above:Performed By: #### [id number] #### [facility] [address] [place] [address]SJU (RBC) [Entitic mass]29.9 avQdphii85.0-34.0[facility] HospitalComment on above:Performed By: #### [id number] #### [facility] [address] [place] [address]BBBV (RBC) [Mass/Vol]34.9 g/tAJohesh70.4-36.0[facility] HospitalComment on above:Performed By: #### [id number] #### [facility] [address] [place] [address]CGU (RBC) [Entitic vol]85.8 fEBlqkul12.0-100.0[facility] HospitalComment on above:Performed By: #### [id number] #### [facility] [address] [place] [address]Focd Absolute0.9 E9/LNormal0.2-1.0[facility] Comment on above:Performed By: #### [id number] #### [facility] [address] [place] [address]Yxqrahwpe/100 WBC (Bld)9.9 %Normal4.0-14.0[facility] HospitalComment on above:Performed By: #### [id number] #### [facility] [address] [place] [address]Vipbsj Absolute5.7 E9/LNormal2.0-7.5FFirelands Regional Medical Center Comment on above:Performed By: #### [id number] #### [facility] [address] [place] [address]Ffrrzm Auto63.1 %Xkijcw15.0-75.0[facility] Comment on above:Performed By: #### [id number] #### [facility] [address] [place] [address]Pzlnufxh329.0 E9/VZfeusg677.0-500.0[facility] Comment on above:Performed By: #### [id number] #### [facility] [address] [place] [address]Xuyojdtp mean volume (Bld) [Entitic vol]8.3 fLNormal6.4-10.8 [facility] HospitalComment on above:Performed By: #### [id number] #### [facility] [address] [place] [address]SGQ2.9 E12/LNormal4.3-5.9[facility] HospitalComment on above:Performed By: #### [id number] #### [facility] [address] [place] [address]WIW2.1 E9/LNormal4.0-11.0[facility] HospitalComment on above:Performed By: #### [id number] #### [facility] [address] [place] [address]AH Clinical Summaryon 30-67-2791FY Clinical SummaryED Clinical Summary [address] [address] ED Clinical Summary Person Information Name: MARTHA MARQUEZ [facility] Age: 39 Years : 1985 Sex: Female Language: Welsh PCP: Francesca Sands MD Marital Status: Phone: [phone] Visit Id: Visit Reason: Paresthesia; Shortness of [...] 03/08/2025 19:28:37 03/08/2025 19:28:37 03/08/2025 19:28:37 ADDRESS: [address] [place] [address] [place] [id number] PHYS DOC NOTES: MEDICAL INFORMATION: Prescriptions Given: New Medications [id number], [address], [place] [id number], [phone] predniSONE (predniSONE 20 mg Tab) 3 By Mouth every day. Refills: 0. Medications to Continue with No Changes Other Medications acetaminophen-hydrocodone (Harleigh 325 mg-5 mg oral tablet) 1 Tablets [...] Follow up: With: Address: When: Francesca Sands [facility], [place] [address] Business (1) In 3 days DIAGNOSIS: Chest pain; ParesthesiasNormalFisher Sutton Medical CenterED Note-Physicianon [id number] Note-PhysicianED Note-Physician Basic Information Time Seen: Ramon DOMarcio 03/08/2025 16:03 Chief Complaint patient presents with chest pain and SOB that started 1 hour ago when she woke up from nap. also c/o left sided numbness that started 1 month. hx MS History of Present Illness Ms. Martha Marquez is a 39 year old [...] and also may help with any bronchospasm thatshe is having could be playing a role [...] Daily, # 15 tab(s), Refills(s) 0, Pharmacy: [id number], 165.1, cm, 03/08/25 16:05:00 EDT, Height/Length Dosing, 64.2, kg, 03/08/25 16:05:00 EDT, Weight Dosing Basic Metabolic Panel CB (more content not included)...[facility] HospitalComment on above:Result Comment: Electronically Signed By: Marcio Navarro DO\.br\Date and Time Signed: 03/08/25 19:13EDTED Patient Education Noteon [id number] Patient Education NoteED Patient Education NoteNoBluffton Hospital CenterED Patient Summaryon [id number] Patient SummaryED Patient Summary [place] [id number] Patient Discharge Instructions Person Information Name: MARTHA MARQUEZ Age: 39 Years Arrival Date: 03/08/2025 15:58:45 Discharge Diagnosis: Chest pain; Paresthesias Primary Care Physician: Francesca Sands MD Provider Information Primary Provider: Marcio Navarro DO Advanced Registry Np:None The exam and treatment you received in the Emergency Department were for an urgent problem and are not intended as complete care. It is important that you follow up with a doctor, nurse practitioner,or physician???s operator assistant i cementing for ongoing care. If your symptoms become worse or you do not improve asexpected and you are unable to reach your usual health care provider, you should return to the Emergency Department. We are available 24 hours a day. MARTHA MARQUEZ has been given the following list of patient education materials, prescriptions and follow-up instructions: Follow-up Instructions: With: Address: When: Francesca Sands [address] [place] [address], [address] [place] [phone] Business (1) In 3 days In the event that this physician does not participate in your insurance network, please consult with your insurance company to find a nearby participating provider. Patient Education Materials: A MESSAGE TO ALL PATIENTS REGARDING OPIOIDS PRESCRIPTION OPIOIDS: WHAT YOU NEED TO KNOW Prescription opioids can be used to help relieve rvddqswz-tn-sqqodk pain and are often prescribed following a [...] be struggling with addiction, tell your health child care group leader and askfor guidance or call [facility]??? (more content not included)...[facility] HospitalPT & PTTon 19-57-5532JFH Coag (PPP) [Relative time]0.96 {INR}Invalid Interpretation [facility] Comment on above:Result Comment: INR results are specifically intended to assess patients stabilized on long-term Anticoagulation therapy suggested INR???s ???Less Intensive Anticoagulation??? 2.0 ??? 3.0 Conventional Range 3.0 ??? 4.5Performed By: #### [id number] #### [facility] [address], [place] [address]EF54.7 second(s)Normal9.4-12.5[facility] Comment on above:Result Comment: 15 days - [...] the same coagulation reagent and instrumentation [place] [facility] Currently there are no coagulation studies available worldwide for children to 14 days, andno normal ranges.Performed By: #### [id number] #### [facility] [address], [place] [address]CPE68.2 second(s)Vzvcwq24.1-36.5[facility] Comment on above:Result Comment: Parameter 15 days [...] the same coagulation reagent and instrumentation [place] [facility] Currently there are no coagulation studies available worldwide for children to 14 days, andno normal ranges. Heparin therapeutic range (represented by Anti-Factor Xa activity of 0.2 - 0.4 U/mL) corresponds to PTT of 56.6 - 109.0 sec.Performed By: #### [id number] #### [facility] [address], [place] [address]Hzmsukqt 0 Hr.on 53-94-9936Xvyoaaso HS4.90 pg/mLLow10.10-27.10 [facility] HospitalComment on above:Result Comment: The 95% CI (Confidence Interval) PPV (Positive Predictive Value) for myocardial infarction in females is 38 pg/mL, in males 51 pg/mL. The results should be used in conjunction with clinical conditions of myocardial infarction. (Access High Sensitivity Troponin I Instructions For Use, [employer], January 2018)Performed By: #### [id number] #### [facility] [address], [place] [address]Hpogehbv 1 Hr.on 30-58-1914Dceblilg HS<2.40Kmw02.10-27.10[facility] HospitalComment on above:Order Comment: 1 hour due at 1744Result Comment: The 95% CI (Confidence Interval) PPV (Positive Predictive Value) for myocardial infarction in females is 38 pg/mL, in males 51 pg/mL. The results should be used in conjunction with clinical conditions of myocardial infarction. (Access High Sensitivity Troponin I Instructions For Use, [employer], January 2018)Performed By: #### [id number] #### [facility] [address], [place] [address]uAPWgo 95-42-9520eZJA23 mL/min/1.73 z4Phikaw>=59[facility] HospitalComment on above:Performed By: #### [id number] #### [facility] [address], [place] [address]QP BRAIN W AND WO CONTRAST (ROUTINE)on 40-41-8125SN BRAIN W AND WO CONTRAST (ROUTINE)EXAM: MR [...] change. ELECTRONICALLY SIGNED BY: Jim Stockton, JesikamalNot ChkslbxieZU94 ABSOLUTE COUNTon [id number]-CD19+ cells (Bld) [#/Vol]278 cells/aKWsangk31-926WpnjemmxyGeorgetown Behavioral Hospital on above:Order Comment: Specimen Type: BLOOD SPECIMEN Ordering Facility: [facility] Address: ATTN: LABORATORY, [place], [place] [address]Performed By: #### [id number] #### [facility] CLIA [id number] [address] [address] [place] OF AMERICACD3-CD19+ cells/100 cells (Bld)15 %Normal5-22[facility] on above:Order Comment: Specimen Type: BLOOD SPECIMEN Ordering Facility: [facility] Address: ATTN: [place], [place] [address]Performed By: #### [id number] #### [facility] CLIA [id number] [address] [address] [place] OF AMERICALymphocytes/100 WBC FC (Bld) NormalCleveland Clinic ClevelandComment on above:Order Comment: Specimen Type: BLOOD SPECIMEN Ordering Facility: [facility] Address: ATTN: LABORATORY, [place], [place] [address]Sfxreqqel By: #### [id number] #### [facility] CLIA [id number] [address] [place] [address] STATES OF [facility] HOSPITALCNOVon [id number] Visit ([facility]) MARTHA MARQUEZ ([id number]) 1985 F Date Time Provider Department 01/11/25 2:30 PM GAL NOGUEIRA [facility] During your visit today, we recorded the following information about you: Blood pressure Weight 124/84 65 kg Gal Nogueira, ADJUNCT FACULTY.ETHANOL OPERATOR 01/13/2025 4:33 PM [facility], [place], operated by [facility] FOLLOWUP/ESTABLISHED PATIENT VISIT PRINCIPAL NEUROLOGIC DIAGNOSIS: Multiple [...] interim, following with Dr Surinder Hernandez in [place] for MS care. Switched from Ocrevus to Kesimpta given perceived lack of benefit. Switched Adderall to Vyvanse for cognitive symptoms. Last office visit 11/2023. Reports wanted to continue following with Dr Hernandez but her kids felt she should follow up at [facility] since she was historically seen here. Admits she has difficulty driving to [place] and [place] would be easier. Lost on way to appt today and arrived at 3:09 for 2:30 appt. Has been without all medications for the past 6 months or so. Reports medical records got messed up . Liked Kesimpta and was tolerating well. [place] she was able to manage injections. Had [...] Flowsheet Row [facility] from 02/21/2023 in [facility] Office Visit from 08/14/2015 in [facility] Appointment from 07/03/2015 in [facility] Upper Extremity Domain T Score 30 35.13 45.23 Lower Extremity Domain T Score 36 44.4 44.4 Cognitive Function Domain T Score 38 -- -- Positive Affect Well Being T Score -- -- -- Ability To Participate In Social Roles T Score 42 -- -- Satisfaction With Social Roles T Score 46 -- -- Neuro-QoL Symptoms (higher=worse symptoms) Flowsheet [facility] Distance Health from 02/21/2023 in [facility] Office Visit from 08/14/2015 in [facility] Appointment from 07/03/2015 in [facility] Sleep Domain T Score 65 65.92 [...] oz) BMI 23.83 kg/m? MSPT Results Flowsheet [facility] Office Visit from 12/23/2016 in [facility] Office Visit from 08/14/2015 in [facility] Appointment from 07/03/2015 in [facility] Processing Speed Total Number Correct 47 [...] examination showed normal l (more content not included)...NormalSt. [facility] WITH AUTO DIFFERENTIALon [id number] ABSOLUTE COUNT (10*3/UL) BY AUTOMATED COUNT 0.1 10*3/uLNormal0.0-0.2ProMedica Shriners HospitalComment on above:Performed By: #### CBCA #### [facility] ([facility]) [address] [place] [address] [place] [address] VIRBASOPHILS RELATIVE PERCENT BY AUTOMATED COUNT1.4 %Normal [facility] CenterComment on above:Performed By: #### CBCA #### [facility] ([facility]) [address] [place] [address] [place] [address] VIRCELLAVISION DIFFERENTIAL TYPEAUTOMATED DIFFERENTIALNormal [facility] CenterComment on above:Performed By: #### CBCA #### [facility] ([address] [place] [address] VIREosinophils (Bld) [#/Vol]0.2 10*3/uLNormal0.0-0.4[facility] Medical CenterComment on above:Performed By: #### CBCA #### [facility] ([address] [place] [address] VIREOSINOPHILS RELATIVE PERCENT BY AUTOMATED COUNT2.9 %Normal [facility] CenterComment on above:Performed By: #### CBCA #### [facility] ([address] [place] [address] VIRErythrocyte distribution width (RBC) [Ratio]13.6 %Normal 11.5-15ProChi St. [facility] Land HospitalComment on above:Performed By: #### CBCA #### [facility] ([address] [address] VIRHematocrit (Bld) [Volume fraction]40.3 %Cdsscc24-95 [facility] CenterComment on above:Performed By: #### CBCA #### [facility] ([address] [place] [address] VIRHemoglobin (Bld) [Mass/Vol]13.9 g/rUTvlbxp55.7-15.5 [facility] CenterComment on above:Performed By: #### CBCA #### [facility] ([address] [address] VIRLYMPHOCYTES ABSOLUTE COUNT (10*3/UL) BY AUTOMATED COUNT1.7 10*3/uLNormal1.0-3.5PPremier Health Miami Valley Hospital SouthComment on above:Performed By: #### CBCA #### [facility] ([address] [place] [address] VIRLYMPHOCYTES RELATIVE PERCENT BY AUTOMATED COUNT28.4 %Normal [facility] CenterComment on above:Performed By: #### CBCA #### [facility] ([address] [place] [address] VIRMCH (RBC) [Entitic mass]29.6 poPeufwd62-24WnvTagyqdChi St. Luke'S Health – [facility] Land HospitalComment on above:Performed By: #### CBCA #### [facility] ([address] [place] [address] VIRMCHC (RBC) [Mass/Vol]34.4 g/wPUyfdqf36-46TlqHdcbzpChi St. Luke'S Health – Sugar Land HospitalComment on above:Performed By: #### CBCA #### [facility] ([address] [place] [address] VIRMCV (RBC) [Entitic vol]86 dPTinsjx56-412SgpAxizyj [place] HospitalComment on above:Performed By: #### CBCA #### [facility] ([address] [address] VIRMONOCYTES ABSOLUTE COUNT (10*3/UL) BY AUTOMATED COUNT0.5 10*3/uLNormal0.0-0.9ProChi St. Luke'S Health – [facility] Land HospitalComtrinity health [place] on above:Performed By: #### CBCA #### [facility] ([address] [place] [address] VIRMONOCYTES RELATIVE PERCENT BY AUTOMATED COUNT8.4 %Normal [facility] CenterComment on above:Performed By: #### CBCA #### [facility] ([address] [place] [address] VIRNEUTROPHILS ABSOLUTE COUNT BY AUTOMATED COUNT3.6 10*3/uL Normal1.5-6.6[facility] Medical CenterComment on above:Performed By: #### CBCA #### [facility] ([address] [place] [address] VIRNEUTROPHILS RELATIVE PERCENT BY AUTOMATED COUNT58.9 %Normal [facility] CenterComment on above:Performed By: #### CBCA #### [facility] ([facility]) [address] [place], [place] [address] [address] VIRPlatelet mean volume (Bld) [Entitic vol]8.3 fLNormal7-12 [facility] CenterComment on above:Performed By: #### CBCA #### [facility] ([facility]) [address] [place] [address] [place] [address] VIRPlatelets (Bld) [#/Vol]272 10*3/tLHpasqa692-076IfwZpgipm [facility] HospitalComment on above:Performed By: #### CBCA #### [facility] ([address] [place] [address] VIRRBC COUNT4.69 X10E12/LNormal3.8-5.2PPremier Health Miami Valley Hospital SouthComment on above:Performed By: #### CBCA #### [facility] ([address] [place] [address] VIRWBC (Bld) [#/Vol]6.1 10*3/uLNormal4-11[facility] Medical CenterComment on above:Performed By: #### CBCA #### [facility] ([address] [place] [address] VIRCOMPREHENSIVE METABOLIC PANELon 29-33-0865Kozndej [Mass/Vol]4.3 g/dLNormal3.2-5.3PPremier Health Miami Valley Hospital SouthComment on above: Performed By: #### CMP #### [facility] ([facility]) [address] [place] [address] [place] [address] VIRALP [Catalytic activity/Vol]43 U/UAbefgy06-976NdpPoeltwChi St. [facility] HospitalComment on above:Performed By: #### CMP #### [facility] ([place] [address] [place] [address] VIRALT [Catalytic activity/Vol]10 U/LNormal<=31PPremier Health Miami Valley Hospital SouthComment on above:Performed By: #### CMP #### [facility] ([place] [address] [place] [address] VIRAnion gap [Moles/Vol]6 mmol/LNormal5-15ProChi St. [facility] – [facility] Land HospitalComment on above:Performed By: #### CMP #### [facility] ([place] [address] [facility] [place] [address] VIRAST [Catalytic activity/Vol]16 U/LNormal<=41ProChi St. [facility] – [facility] Land HospitalComment on above:Performed By: #### CMP #### [facility] ([place] [address] [facility] [place] [address] VIRBilirubin [Mass/Vol]0.9 mg/dLNormal0.3-1.2PPremier Health Miami Valley Hospital SouthComment on above:Performed By: #### CMP #### [facility] ([place] [address] [place] [address] VIRCalcium [Mass/Vol]9.4 mg/dLNormal8.5-10.5PPremier Health Miami Valley Hospital SouthComment on above:Performed By: #### CMP #### [facility] ([place] [address] [place] [address] VIRChloride [Moles/Vol]105 mmol/MQunjfc57-458IhtFetpfgChi St. Luke'[facility] – [facility] Land HospitalComment on above:Performed By: #### CMP #### [facility] ([place] [address] [place] [address] VIRCO2 [Moles/Vol]25 mmol/EJeirzs32-52PhuGvggkcPremier Health Miami Valley Hospital SouthComment on above:Performed By: #### CMP #### [facility] ([place] [address] [place] [address] VIRCreatinine [Mass/Vol]0.96 mg/dLNormal0.40-1.00ProChi St. Luke'S Health – Sugar Land HospitalComment on above:Result Comment: METHOD TRACEABLE TO IDMS STANDARDPerformed By: #### CMP #### [facility] ([address] [address] VIRGFR/1.73 sq M.predicted among non-blacks MDRD (S/P/Bld) [Vol rate/Area]78 mL/min/{1.73_m2}Normal>=60ProChi St. Luke'S Health – Sugar Land HospitalComment on above:Result Comment: eGFR not reported due to non-numeric value for Creatinine. Reported eGFR is based on the CKD-EPI 2020 equation that does not use a race coefficient.Performed By: #### CMP #### [address] [address] VIRGlucose [Mass/Vol]96 mg/wCOfrqnk83-44ZtdGvibblChi St. Luke'[facility] – [facility] HospitalComment on above:Performed By: #### CMP #### [address] [address] VIRPotassium [Moles/Vol]4.1 mmol/LNormal3.5-5.0ProChi St. Luke'[facility] Health – Sugar Land HospitalComment on above:Performed By: #### CMP #### [address] [place] [address] VIRProtein [Mass/Vol]7.2 g/dLNormal6.0-8.0ProChi St. Luke'[facility] Health – [facility] Land HospitalComment on above:Performed By: #### CMP #### [facility] ([address] [address] VIRSodium [Moles/Vol]136 mmol/WJgezya867-940LnvMwvfqh [facility] HospitalComment on above:Performed By: #### CMP #### [facility] ([address] [place] [address] VIRUrea nitrogen [Mass/Vol]11 mg/dLNormal5-23ProChi St. Luke'[facility] Health – Sugar Land HospitalComment on above:Performed By: #### CMP #### [facility] ([facility]) [address] [place] [address]. [place] [address] VIRCT BRAIN WO CONTon 46-08-3319BP BRAIN WO CONTCT BRAIN WO CONT STUDY: [...] by Mendoza Aguirre MD on 10/22/2024 11:[address] Luke'S Health – [facility] Land HospitalMAGNESIUMon 90-33-1749Atzctmfwv [Mass/Vol]1.9 mg/dLNormal1.8-2.6 [facility] CenterComment on above:Performed By: #### MG #### [facility] ([facility]) [address] [place] [address]. [place] [address] VIRPOCT NURSING URINE MACROSCOPIC UAon 37-89-6094QJSTWYDFC BRAD NegativeNormalNegativeProChi St. [facility] Health – [facility] HospitalComment on above:Performed By: #### NUM #### [facility] ([place] [address] [place] [address] VIRBLOOD/HGB NURNegativeNormalNegativeAdena Regional Medical CenterComment on above:Performed By: #### NUM #### [facility] ([address] [place] [address] VIRGLUCOSE NURNegativeNofirsthealthNegLake County Memorial Hospital - West Comment on above:Performed By: #### NUM #### [facility] ([address] [place] [address] VIRKETONES NURNegativeNormalNegativeAdena Regional Medical Center Comment on above:Performed By: #### NUM #### [facility] ([address] [place] [address] VIRLEUKOCYTE ESTERASE NURNegativeNofirsthealthNegLake County Memorial Hospital - WestComment on above:Performed By: #### NUM #### [facility] ([address] [address] VIRNITRITE NURNegativeOhio State Health System Comment on above:Performed By: #### NUM #### [facility] ([address] [address] VIRPH NUR7.3Lcstlg2.0, 6.0, 6.5, 7.0, 7.5, 8.0, 8.5, 5.5 [facility] CenterComment on above:Performed By: #### NUM #### [facility] ([address] [place] [address] VIRPROTEIN NURNegativeBellvilleNegLake County Memorial Hospital - West Comment on above:Performed By: #### NUM #### [facility] ([address] [place] [place] [address] VIRSPECIFIC GRAVITY NUR1.588Ungndx0.010, 1.015, 1.020, 1.025 [facility] CenterComment on above:Performed By: #### NUM #### [facility] ([address] [address] VIRUROBILINOGEN NUR0.2 E.U./dLNormalAdena Regional Medical Center Comment on above:Performed By: #### NUM #### [facility] ([address] [address] VIRPOCT , URINE (NUCG)on 33-57-6290Uxux HCG ( test) Ql (U)NegativeNormalNegativeAdena Regional Medical CenterComment on above:Performed By: #### NUCG #### [facility] ([address] [address] VIRTROP I, HIGH SENSITIVITY 1 HOURon 41-19-6730CBPLUKZY I, HIGH SENSITIVITY<^2Normal<16ProChi St. [facility] Health – Sugar Land HospitalComment on above:Performed By: #### TNIHS1 #### [facility] ([address] [address] VIRTROPONIN I, HIGH SENSITIVITY 0 HOURon 09-17-4649JJKAWOZT I, HIGH SENSITIVITY2 ng/LNormal<16ProChi St. [facility] Health – [facility] Land HospitalComment on above: Performed By: #### TNIHS0 #### [facility] ([address] [address] VIRMR cervical spine wo/w conon 89-51-5185RB cervical spine wo/w [facility] [place] [address] MRI Report Signed Patient: Martha Marquez MR#: [id number] : 1985 Acct:[id number] Age/Sex: 37 / F ADM Date: 02/07/23 Loc: MR Room: Type: [facility] Attending Dr: Marty Jade DO Copies [...] Daniel Mcgee M.D.02/07/2023 3:10 PM Dictation Location: [place] [address] Transcribed By: [facility] 02/07/23 1510 Dictated By: Daniel Mcgee II, MD 02/07/23 1457 Signed By: 02/07/23 1510[facility] head/brain wo/w conon 54-76-7533NF head/brain wo/w [facility] [place] [address] MRI Report Signed Patient: Martha Marquez MR#: [id number] : 1985 Acct:[id number] Age/Sex: 37 / F ADM Date: 02/07/23 Loc: Room: Type: [facility] Attending Dr: Marty Jade DO Copies [...] Daniel Mcgee M.D.02/07/2023 3:21 PM Dictation Location: [place] [address] Transcribed By: MARCIA 02/07/23 1521 Dictated By: Daniel Mcgee II, MD 02/07/23 1512 Signed By: 02/07/23 1521[facility] HospitalCB AUTO DIFFon 07-04-2022 BASO #0.0 103/ulNormal0.0-0.1The [facility] Medical CenterComment on above:Performed By: #### TSH, T7, LIPID, CMP #### [facility] [address] [place] [address] [address] Shari Vaughnsophils/100 WBC (Bld)0.6 %Normal0.2-2.0[facility] Comment on above:Performed By: #### TSH, T7, LIPID, CMP #### [facility] [address] [place] [address] [address] Mccarthy ChangEMarnie #0.1 103/ulNormal0.0-0.7The [facility] Medical Centerment on above: Performed By: #### TSH, T7, LIPID, CMP #### [facility] [address] [place] [address] Dr. Shari Sheltonosinophils/100 WBC (Bld)2.1 %Normal0.9-7.0[facility] Comment on above:Performed By: #### TSH, T7, LIPID, CMP #### [facility] [address] [place] [address] Dr. Shari Sheltonrythrocyte distribution width (RBC) [Ratio]13.1 %Amlovv61.0-15.0 The [facility]itt[facility] Medical Centerment on above:Performed By: #### TSH, T7, LIPID, CMP #### [facility] [address] [place] [address] Dr. Shari MobleyHematocrit (Bld) [Volume fraction]40.0 %Cyxjqf84.0-48.0The [facility] Medical Centerment on above:Performed By: #### TSH, T7, LIPID, CMP #### [facility] [address] [place] [address] Dr. Shari MobleyHemoglobin (Bld) [Mass/Vol]13.3 g/cQTxlrcj02.0-16.0The [facility] Medical Centerment on above:Performed By: #### TSH, T7, LIPID, CMP #### [facility] [address] [place] [address] Dr. Shari Murphy #0.02 10e3/ulNormal0.00-0.03The [facility] Medical Centerment on above:Performed By: #### TSH, T7, LIPID, CMP #### [facility] [address] [place] [address] Dr. Shari Murphy %0.3 %Normal0.0-0.5The [facility] Medical Centerment on above: Performed By: #### TSH, T7, LIPID, CMP #### [facility] [address] [place] [address] Dr. Shari RingH #1.3 103/ulNormal1.2-3.8The [facility] Medical Centerment on above:Performed By: #### TSH, T7, LIPID, CMP #### [facility] [address] [place] [address] Dr. Shari Sanchezmphocytes/100 WBC (Bld)20.6 %Cvlciw43.5-60.0The [facility] Medical CenterComment on above:Performed By: #### TSH, T7, LIPID, CMP #### [facility] [address] [place] [address] Dr. Shari Pollard DIFF REQNONormalThe [facility] Hospital Medical CenterComment on above: Performed By: #### TSH, T7, LIPID, CMP #### [facility] [address] [place] [address] Dr. Shari George (RBC) [Entitic mass]28.7 mgLdtynv85.7-34.0The [facility] Medical CenterComment on above:Performed By: #### TSH, T7, LIPID, CMP #### [facility] [address] [place] [address] Dr. Shari George (RBC) [Mass/Vol]33.3 g/bKNrprgu01.9-35.2The [facility] Medical Centerment on above:Performed By: #### TSH, T7, LIPID, CMP #### [facility] [address] [place] [address] Dr. Shari Dna (RBC) [Entitic vol]86.2 bEDufpxs34.0-99.0The [facility] on above:Performed By: #### TSH, T7, LIPID, CMP #### [facility] [address] [place] [address] Dr. Shari Mitchell #0.7 103/ulNormal0.3-0.8The [facility] on above:Performed By: #### TSH, T7, LIPID, CMP #### [facility] [address] [place] [address] Dr. Shari Lealocytes/100 WBC (Bld)10.6 %Normal1.7-12.0The [facility] Comment on above:Performed By: #### TSH, T7, LIPID, CMP #### [facility] [address] [place] [address] Dr. Shari Oconnor #4.2 103/ulNormal1.4-6.5The [facility] Medical CenterComment on above:Performed By: #### TSH, T7, LIPID, CMP #### [facility] [address] [place] [address] Dr. Shari Zamorautrophils/100 WBC (Bld)65.8 %Joanlc13.0-75.0The [facility] Medical CenterComtrinity health [place] on above:Performed By: #### TSH, T7, LIPID, CMP #### [facility] [address] [place] [address] Dr. Shari Araizalet mean volume (Bld) [Entitic vol]9.6 fLNormal9.5-13.5The [facility] Medical CenterComment on above:Performed By: #### TSH, T7, LIPID, CMP #### [facility] [address] [place] [address] Dr. Shari MobleyPLT304 103/xoRqsxhf114-041Aqa [facility] on above: Performed By: #### TSH, T7, LIPID, CMP #### [facility] [address] [place] [address] Dr. Shari MobleyRBC4.64 106/ulNormal4.20-5.40The [facility] on above:Performed By: #### TSH, T7, LIPID, CMP #### [facility] [address] [place] [address] Dr. Shari MobleyWBC6.3 103/ulNormal4.0-11.0The [facility] on above: Performed By: #### TSH, T7, LIPID, CMP #### [facility] [address] [place] [address] Dr. Shari Larson THYROXINE INDEX T7on 73-96-2426OTX3.69Ffcfrt0.30-4.50The [facility] on above:Performed By: #### TSH, T7, LIPID, CMP #### [facility] [address] [place] [address] Dr. Shari MobleyT3U34.0 %Epjxon38.0-39.0The [facility] Medical CenterComment on above: Performed By: #### TSH, T7, LIPID, CMP #### [facility] [address] [place] [address] Dr. Shari MobleyT4 [Mass/Vol]7.30 ug/dLNormal4.80-13.90The [facility] Comment on above:Performed By: #### TSH, T7, LIPID, CMP #### [facility] [address] [place] [address] Dr. Shari MobleyGLYCOHEMOGLOBIN A1Con [id number] RECOMMENDATIONSEE BELOWSelect Medical Cleveland Clinic Rehabilitation Hospital, Edwin ShawComment on above:Result Comment: ADA RECOMMENDED LIMIT 4.0 - 6.0 ADA THERAPEUTIC TARGET < 7.0 ACTION SUGGESTED > 7.0Performed By: #### TSH, T7, LIPID, CMP #### [facility] [address] [place] [address] Dr. Shari MobleyGlucose [Mass/Vol]111 mg/dLNormClinton Memorial HospitalComment on above:Performed By: #### TSH, T7, LIPID, CMP #### [facility] [address] [place] [address] Dr. Shari MobleyHbA1c (Bld) [Mass fraction]5.5 %Normal4.5-6.2The [facility] Medical CenterComment on above:Performed By: #### TSH, T7, LIPID, CMP #### [facility] [address] [place] [address] Dr. Shari Au [id number] [Mass/Vol]61.0 ug/yTFqglkb28.0-170.0The [facility] CenterComment on above:Performed By: #### IRON, VITAD #### [facility] [address] [place] [address] Dr. Shari MobleyLIPID PROFILEon [id number]-HDL RATIO NORMSEE [facility]Com[facility] [place] on above:Result Comment: 3.3 - 4.4 LOW RISK 4.4 - 7.1 AVERAGE RISK 7.1 - 11.0 MODERATE RISK >11.0 HIGH RISKPerformed By: #### TSH, T7, LIPID, CMP #### [facility] [address] [place] [address] Dr. Shari oMbleyCholesterol [Mass/Vol]145 mg/dLNormal<=200The [facility] Comment on above:Performed By: #### TSH, T7, LIPID, CMP #### [facility] [address] [place] [address] Dr. Shari MobleyCholesterol in HDL [Mass/Vol]64 mg/dLCritically boah81-10Xel [facility] CenterComment on above:Performed By: #### TSH, T7, LIPID, CMP #### [facility] [address] [place] [address] Dr. Shari Lyonsesterol in LDL [Mass/Vol]65.0 mg/dLNoUniversity Hospitals Geauga Medical CenterComment on above:Performed By: #### TSH, T7, LIPID, CMP #### [facility] [address] [place] [address] Dr. Shari Vasquez.total/Cholesterol in HDL [Mass ratio]2.3 {ratio} NormalThe [facility] CenterComment on above:Performed By: #### TSH, T7, LIPID, CMP #### [facility] [address] [place] [address] Dr. Shari MobleyHDCarolyne NORMAL> or = 60 mg/dl - LOW CARDIOVASCULAR RISK <40 mg/dl - HIGH CARDIOVASCULAR RISKNoUniversity Hospitals Geauga Medical CenterComment on above:Performed By: #### TSH, T7, LIPID, CMP #### [facility] [address] [place] [address] Dr. Shari MobleyLDL CALC NORMALSEE BELOWBethesda North HospitalComment on above:Result Comment: <100 mg/dl OPTIMAL 100 - 129 mg/dl NEAR OR ABOVE OPTIMAL 130 - 159 mg/dl BORDERLINE HIGH 160 - 189 mg/dl HIGH >190 mg/dl VERY HIGH Performed By: #### TSH, T7, LIPID, CMP #### [facility] [address] [place] [address] Dr. Yilan ChangTriglyceride [Mass/Vol]80 mg/dLNormal<=150The [facility] Comment on above:Performed By: #### TSH, T7, LIPID, CMP #### [facility] [address] [address] [address] Shari MobleyVLDL CALC16.0 mg/dLNoUniversity Hospitals Geauga Medical CenterComment on above: Performed By: #### TSH, T7, LIPID, CMP #### [facility] [address] [address] [address] Shari MobleyMG MAMM SCREEN 3D ANNY CADon [id number] MAMM SCREEN 3D ANNY CAD Patient: MARTHA MARQUEZ Exam Date: 07/04/2022 : 1985 Gender:F Ordering : DR FRANCESCA SANDS . Admission #: [id number] Family : Order #: [id number] CLICK HERE TO VIEW EXAM RADIOLOGY REPORT [...] breast cancer at age 55. LOCATION: [facility] BREAST COMPOSITION: Scattered areas fibroglandular [...] by: Tyler Trejo MD on 07/04/2022 at 10:58NoUniversity Hospitals Geauga Medical CenterPROF 14(COMP METB)on [id number] [Mass/Vol]4.1 g/dLNormal3.4-5.0The [facility] CenterComment on above:Performed By: #### TSH, T7, LIPID, CMP #### [facility] [address] [address] [address] Shari MobleyAlbumin/Globulin [Mass ratio]1.3 {ratio}NormalThe [facility] Medical CenterComment on above:Performed By: #### TSH, T7, LIPID, CMP #### [facility] [address] [place] [address] Dr. Shari Horvath [Catalytic activity/Vol]49 U/YVitkcm49-167Vbj [facility] CenterComment on above:Performed By: #### TSH, T7, LIPID, CMP #### [facility] [address] [place] [address] Dr. Shari BauerT [Catalytic activity/Vol]16 U/KPcebis30-06Xtd [facility] CenterComment on above:Performed By: #### TSH, T7, LIPID, CMP #### [facility] [address] [place] [address] Dr. Shari MobleyAnion gap [Moles/Vol]10.5 mmol/LNormalThe [facility] Comment on above:Performed By: #### TSH, T7, LIPID, CMP #### [facility] [address] [place] [address] Dr. Shari MobleyAST [Catalytic activity/Vol]15 U/VYnpywe24-09Kij [facility] CenterComment on above:Performed By: #### TSH, T7, LIPID, CMP #### [facility] [address] [place] [address] Dr. Shari MobleyBilirubin [Mass/Vol]0.4 mg/dLNormal0.2-1.0The [facility] Comment on above:Performed By: #### TSH, T7, LIPID, CMP #### [facility] [address] [place] [address] Dr. Shari MobleyCalcium [Mass/Vol]9.5 mg/dLNormal8.5-10.1The [facility] Comment on above:Performed By: #### TSH, T7, LIPID, CMP #### [facility] [address] [place] [address] Dr. Shari MobleyChloride [Moles/Vol]100 mmol/IBaimng03-567Vlq [facility] Comment on above:Performed By: #### TSH, T7, LIPID, CMP #### [facility] [address] [address] [address] Shari MobleyCO2 [Moles/Vol]30.9 mmol/BXqxgob62.0-32.0The [facility] Comment on above:Performed By: #### TSH, T7, LIPID, CMP #### [facility] [address] [address] [address] Shari MobleyCreatinine [Mass/Vol]0.84 mg/dLNormal0.55-1.02The [facility] CenterComment on above:Performed By: #### TSH, T7, LIPID, CMP #### [facility] [address] [address] [address] Shari SheltonGFR-AF CONGOLESE>60Normal>=60The [facility] CenterComment on above:Performed By: #### TSH, T7, LIPID, CMP #### [facility] [address] [place] [address] Dr. Shari SheltonGFR-NON AF CONGOLESE>60Normal>=60The [facility] CenterComment on above:Performed By: #### TSH, T7, LIPID, CMP #### [facility] [address] [address] [address] Shrai MobleyGlobulin (S) [Mass/Vol]3.1 g/dLNormalThe [facility] CenterComment on above:Performed By: #### TSH, T7, LIPID, CMP #### [facility] [address] [address] [address] Shari MobleyGlucose [Mass/Vol]78 mg/eWMvojys53-955RjvEast [facility] Comment on above:Performed By: #### TSH, T7, LIPID, CMP #### [facility] [address] [address] [address] Shari MobleyPotassium [Moles/Vol]4.4 mmol/LNormal3.5-5.1The [facility] Comment on above:Performed By: #### TSH, T7, LIPID, CMP #### [facility] [address] [address] [address] Shari MobleyProtein [Mass/Vol]7.2 g/dLNormal6.4-8.2The [facility] Comment on above:Performed By: #### TSH, T7, LIPID, CMP #### [facility] [address] [place] [address] Dr. Shari Lozanodium [Moles/Vol]137 mmol/TDtrtkc712-899App [facility] Comment on above:Performed By: #### TSH, T7, LIPID, CMP #### [facility] [address] [place] [address] Dr. Shari MobleyUrea nitrogen [Mass/Vol]10.0 mg/dLNormal7.0-18.0The [facility] CenterComment on above:Performed By: #### TSH, T7, LIPID, CMP #### [facility] [address] [place] [address] Dr. Shari Rivera nitrogen/Creatinine [Mass ratio]11.9 mg/mgNoUniversity Hospitals Geauga Medical CenterComment on above:Performed By: #### TSH, T7, LIPID, CMP #### [facility] [address] [place] [address] Dr. Shari Vargas [id number] uIU/mLNormal0.358-3.740The [facility] CenterComment on above:Performed By: #### TSH, T7, LIPID, CMP #### [facility] [address] [place] [address] Dr. Shari MobleyVITAMIN D 25 OHon 72-74-2936TVQ D 25-OH47.2 ng/mLNormalThe [facility] CenterComment on above:Performed By: #### IRON, VITAD #### [facility] [address] [place] [address] Dr. Shari HIGUERARadha BELOWBethesda North HospitalComment on above: Result Comment: <20 ng/mL Vit D deficient 20 - <30 ng/mL Vit D insufficient 30 - 100 ng/mL Vit D sufficient >100 ng/mL Potential ToxicityPerformed By: #### IRON, VITAD #### [facility] [address] [place] [address] Dr. Shari Mobley thoracic spine wo/w amando [id number] thoracic spine wo/w con [facility] [place] [address] [place], [place] [id number] MRI Report Signed Patient: Martha Marquez MR#: [id number] : 1985 Acct:[id number] Age/Sex: 36 / F ADM Date: 03/22/22 Loc: MR Room: [facility] Attending Dr: Clayton Blancas PA-C Copies to: [...] Daniel Mcgee M.D.03/22/2022 3:56 PM Dictation Location: [place] [address] Transcribed By: [facility] 03/22/22 155 Dictated By: Daniel Mcgee II, MD 03/22/22 1545 Signed By: 03/22/22 1556[facility] HospitalCB AUTO DIFFon 12-03-2021 BASO #0.1 103/ulNormal0.0-0.1The [facility] CenterComment on above:Performed By: #### TSH, T7, LIPID, CMP #### [facility] [address] [address] [address] Shari Rojasphils/100 WBC (Bld)0.8 %Normal0.2-2.0The [facility] Comment on above:Performed By: #### TSH, T7, LIPID, CMP #### [facility] [address] [address] [address] Mccarthy ChangEMarnie #0.1 103/ulNormal0.0-0.7The [facility]enny HospitalComment on above: Performed By: #### TSH, T7, LIPID, CMP #### [facility] [address] [address] [address] Shari Sheltonosinophils/100 WBC (Bld)1.0 %Normal0.9-7.0The [facility] Comment on above:Performed By: #### TSH, T7, LIPID, CMP #### [facility] [address] [place] [address] Dr. Shari Sheltonrythrocyte distribution width (RBC) [Ratio]12.3 %Rywskw26.0-15.0 The [facility] Medical Centerment on above:Performed By: #### TSH, T7, LIPID, CMP #### [facility] [address] [place] [address] Dr. Shari MobleyHematocrit (Bld) [Volume fraction]42.6 %Clntsg54.0-48.0The [facility] Centerment on above:Performed By: #### TSH, T7, LIPID, CMP #### [facility] [address] [place] [address] Dr. Shari MobleyHemoglobin (Bld) [Mass/Vol]14.5 g/kKAgqhxk42.0-16.0The [facility] Centerment on above:Performed By: #### TSH, T7, LIPID, CMP #### [facility] [address] [place] [address] Dr. Shari Murphy #0.02 10e3/ulNormal0.00-0.03The [facility] Centerment on above:Performed By: #### TSH, T7, LIPID, CMP #### [facility] [address] [place] [address] Dr. Shari Murphy %0.3 %Normal0.0-0.5The [facility] on above: Performed By: #### TSH, T7, LIPID, CMP #### [facility] [address] [place] [address] Dr. Shari Patino #1.4 103/ulNormal1.2-3.8The [facility] Centerment on above:Performed By: #### TSH, T7, LIPID, CMP #### [facility] [address] [place] [address] Dr. Shari Sanchezmphocytes/100 WBC (Bld)23.1 %Oogroi51.5-60.0The [facility] CenterComment on above:Performed By: #### TSH, T7, LIPID, CMP #### [facility] [address] [place] [address] Dr. Shari GonzalezUAL DIFF REQNONormalThe [facility] CenterComment on above: Performed By: #### TSH, T7, LIPID, CMP #### [facility] [address] [place] [address] Dr. Shari George (RBC) [Entitic mass]30.3 gnKvxteg83.7-34.0The [facility] CenterComment on above:Performed By: #### TSH, T7, LIPID, CMP #### [facility] [address] [place] [address] Dr. Shari George (RBC) [Mass/Vol]34.0 g/hKMhzvlr90.9-35.2The [facility] CenterComment on above:Performed By: #### TSH, T7, LIPID, CMP #### [facility] [address] [place] [address] Dr. Shari Dan (RBC) [Entitic vol]88.9 lJDdlnqb19.0-99.0The [facility] Centerment on above:Performed By: #### TSH, T7, LIPID, CMP #### [facility] [address] [place] [address] Dr. hSari Mitchell #0.5 103/ulNormal0.3-0.8The [facility] on above:Performed By: #### TSH, T7, LIPID, CMP #### [facility] [address] [place] [address] Dr. Shari Lealocytes/100 WBC (Bld)9.0 %Normal1.7-12.0The [facility] Comment on above:Performed By: #### TSH, T7, LIPID, CMP #### [facility] [address] [place] [address] Dr. Shari Oconnor #4.0 103/ulNormal1.4-6.5The [facility] Centerment on above:Performed By: #### TSH, T7, LIPID, CMP #### [facility] [address] [place] [address] Dr. Shari Zamorautrophils/100 WBC (Bld)65.8 %Suqdxp61.0-75.0The [facility] on above:Performed By: #### TSH, T7, LIPID, CMP #### [facility] [address] [place] [address] Dr. Shari Araizalet mean volume (Bld) [Entitic vol]9.9 fLNormal9.5-13.5The [facility] on above:Performed By: #### TSH, T7, LIPID, CMP #### [facility] [address] [place] [address] Dr. Shari QuezadaT251 103/igUborlx192-944Xnv [facility] on above: Performed By: #### TSH, T7, LIPID, CMP #### [facility] [address] [place] [address] Dr. Shari MobleyRBC4.79 106/ulNormal4.20-5.40The [facility] on above:Performed By: #### TSH, T7, LIPID, CMP #### [facility] [address] [place] [address] Dr. Shari MobleyWBC6.0 103/ulNormal4.0-11.0The [facility] on above: Performed By: #### TSH, T7, LIPID, CMP #### [facility] [address] [place] [address] Dr. Shari Parrish PROFILEon [id number] [Mass/Vol]4.3 g/dLNormal3.4-5.0 The [facility] on above:Performed By: #### LIVER, BMP #### [facility] [address] [place] [address] Dr. Shari MobleyAlbumin/Globulin [Mass ratio]1.4 {ratio}NormalThe [facility] CenterComment on above:Performed By: #### LIVER, BMP #### [facility] [address] [address] [address] Shari Horvath [Catalytic activity/Vol]48 U/EBdpovk26-070Ppi [facility] CenterComment on above:Performed By: #### LIVER, BMP #### [facility] [address] [address] [address] Shari Mascorro [Catalytic activity/Vol]24 U/NCgmqdd92-77Rcd [facility] CenterComment on above:Performed By: #### LIVER, BMP #### [facility] [address] [place] [address] Dr. Shari Brown [Catalytic activity/Vol]15 U/KSyxrma50-37Rgk [facility] CenterComtrinity health [place] on above:Performed By: #### LIVER, BMP #### [facility] [address] [place] [address] Dr. Shari RamirezI, CONJUGATED0.1 mg/dLNormal0.0-0.2The [facility] Comment on above:Performed By: #### LIVER, BMP #### [facility] [address] [place] [address] Dr. Shari Ramirezirubin [Mass/Vol]0.6 mg/dLNormal0.2-1.0[facility] Comment on above:Performed By: #### LIVER, BMP #### [facility] [address] [place] [address] Dr. Shari MobleyGlobulin (S) [Mass/Vol]3.1 g/dLNormalThe [facility] CenterComment on above:Performed By: #### LIVER, BMP #### [facility] [address] [place] [address] Dr. Shari MobleyProtein [Mass/Vol]7.4 g/dLNormal6.4-8.2The [facility] Comment on above:Performed By: #### LIVER, BMP #### [facility] [address] [place] [address] Dr. Shari LealF CHEM 8 (BAS METB)on 97-75-4154Ffdxy gap [Moles/Vol]12.3 mmol/LNormalThe [facility] CenterComment on above:Performed By: #### LIVER, BMP #### [facility] [address] [address] [address] Shari MobelyCalcium [Mass/Vol]9.2 mg/dLNormal8.5-10.1The [facility] Comment on above:Performed By: #### LIVER, BMP #### [facility] [address] [address] [address] Shari MobleyChloride [Moles/Vol]102 mmol/GWdijby02-224Fje [facility] Comment on above:Performed By: #### LIVER, BMP #### [facility] [address] [address] [address] Shari MobleyCO2 [Moles/Vol]26.7 mmol/IFzmfyh88.0-32.0[facility] Comment on above:Performed By: #### LIVER, BMP #### [facility] [address] [address] [address] Shari MobleyCreatinine [Mass/Vol]0.89 mg/dLNormal0.55-1.02The [facility] CenterComment on above:Performed By: #### LIVER, BMP #### [facility] [address] [address] [address] Shari SheltonGFR-AF CONGOLESE>60Normal>=60The [facility] CenterComment on above:Performed By: #### LIVER, BMP #### [facility] [address] [address] [address] Shari SheltonGFR-NON AF CONGOLESE>60Normal>=60The [facility] CenterComment on above:Performed By: #### LIVER, BMP #### [facility] [address] [address] [address] Shari MobleyGlucose [Mass/Vol]98 mg/vVIkhujf91-295Wyb [facility] Comment on above:Performed By: #### LIVER, BMP #### [facility] [address] [address] [address] Shari MobleyPotassium [Moles/Vol]4.0 mmol/LNormal3.5-5.1The [facility] Comment on above:Performed By: #### LIVER, BMP #### [facility] [address] [address] [address] Shari MobleySodium [Moles/Vol]137 mmol/VPwredq568-395Voo [facility] Comment on above:Performed By: #### LIVER, BMP #### [facility] [address] [address] [address] Shari MobleyUrea nitrogen [Mass/Vol]8.0 mg/dLNormal7.0-18.0The [facility] CenterComment on above:Performed By: #### LIVER, BMP #### [facility] [address] [place] [address] Dr. Shari MobleyUrea nitrogen/Creatinine [Mass ratio]9.0 mg/mgNormalThe [facility] CenterComment on above:Performed By: #### LIVER, BMP #### [facility] [address] [place] [address] Dr. Shari Medel AUTO DIFFon [id number] #0.1 103/ulNormal0.0-0.1The [facility] CenterComment on above:Performed By: #### CBC #### [facility] [address] [place] [address] Dr. Shari MobleyBasophils/100 WBC (Bld)1.0 %Normal0.2-2.0[facility] Comment on above:Performed By: #### CBC #### [facility] [address] [place] [address] Dr. Shari Harrison #0.0 103/ulNormal0.0-0.7The [facility] CenterComment on above: Performed By: #### CBC #### [facility] [address] [place] [address] Dr. Shari Sheltonosinophils/100 WBC (Bld)0.3 %Critically low0.9-7.0The [facility] CenterComment on above:Performed By: #### CBC #### [facility] [address] [place] [address] Dr. Shari Sheltonrythrocyte distribution width (RBC) [Ratio]13.2 %Jdbwgh10.0-15.0 The [facility] CenterComment on above:Performed By: #### CBC #### [facility] [address] [place] [address] Dr. Shari MobleyHematocrit (Bld) [Volume fraction]39.9 %Mdpuod25.0-48.0The [facility] CenterComment on above:Performed By: #### CBC #### [facility] [address] [place] [address] Dr. Shari MobleyHemoglobin (Bld) [Mass/Vol]13.4 g/oTZigkxz93.0-16.0The [facility] CenterComment on above:Performed By: #### CBC #### [facility] [address] [place] [address] Dr. Shari Murphy #0.01 10e3/ulNormal0.00-0.03The [facility] CenterComment on above:Performed By: #### CBC #### [facility] [address] [place] [address] Dr. Shari Murphy %0.2 %Normal0.0-0.5The [facility] CenterComtrinity health [place] on above: Performed By: #### CBC #### [facility] [address] [place] [address] Dr. Shari RingH #2.0 103/ulNormal1.2-3.8The [facility] Hospital Medical CenterComment on above:Performed By: #### CBC #### [facility] [address] [place] [address] Dr. Shari Ringhocytes/100 WBC (Bld)31.6 %Cnogwj63.5-60.0The [facility] Medical CenterComment on above:Performed By: #### CBC #### [facility] [address] [place] [address] Dr. Yilan ChangMANUAL DIFF REQNONormalThe [facility] Hospital Medical CenterComment on above: Performed By: #### CBC #### [facility] [address] [place] [address] Dr. Shari George (RBC) [Entitic mass]30.2 zrOcckee54.7-34.0The [facility] Medical CenterComment on above:Performed By: #### CBC #### [facility] [address] [place] [address] Dr. Shari George (RBC) [Mass/Vol]33.6 g/xIVgzdgk19.9-35.2The Bronx HospitalComment on above:Performed By: #### CBC #### [facility] [address] [place] [address] Dr. Shari George (RBC) [Entitic vol]90.1 zDMloiop09.0-99.0The [facility] Medical CenterComment on above:Performed By: #### CBC #### [facility] [address] [place] [address] Dr. Shari Mitchell #0.7 103/ulNormal0.3-0.8The [facility] Medical CenterComment on above:Performed By: #### CBC #### [facility] [address] [place] [address] Dr. Shari Lealocytes/100 WBC (Bld)10.7 %Normal1.7-12.0The [facility] Comment on above:Performed By: #### CBC #### [facility] [address] [place] [address] Dr. Shari Oconnor #3.5 103/ulNormal1.4-6.5The [facility] Medical CenterComment on above:Performed By: #### CBC #### [facility] [address] [place] [address] Dr. Shari Zamorautrophils/100 WBC (Bld)56.2 %Jmmutb90.0-75.0The [facility] Medical CenterComment on above:Performed By: #### CBC #### [facility] [address] [place] [address] Dr. Yilan ChangPlatelet mean volume (Bld) [Entitic vol]9.7 fLNormal9.5-13.5The [facility] Medical CenterComment on above:Performed By: #### CBC #### [facility] [address] [place] [address] Dr. Shari MobleyPLT256 103/raTopghj779-356Ebp [facility] Medical CenterComment on above: Performed By: #### CBC #### [facility] [address] [place] [address] Dr. Shari MobleyRBC4.43 106/ulNormal4.20-5.40The [facility] Medical CenterComment on above:Performed By: #### CBC #### [facility] [address] [place] [address] Dr. Shari MobleyWBC6.2 103/ulNormal4.0-11.0The [facility] Medical CenterComment on above: Performed By: #### CBC #### [facility] [address] [place] [address] Dr. Shari MobleyPROF 14(COMP METB)on 24-67-6911Svlygbz [Mass/Vol]3.9 g/dLNormal 3.5-5.0The [facility] Medical CenterComment on above:Performed By: #### TSH, T7, LIPID, CMP #### [facility] [address] [place] [address] Dr. Shari MobleyAlbumin/Globulin [Mass ratio]1.4 {ratio}NormalThe [facility] Hospital Medical CenterComment on above:Performed By: #### TSH, T7, LIPID, CMP #### [facility] [address] [place] [address] Dr. Shari Horvath [Catalytic activity/Vol]50 U/PYdscgo91-382Dvf [facility] Medical CenterComment on above:Performed By: #### TSH, T7, LIPID, CMP #### [facility] [address] [place] [address] Dr. Shari Mascorro [Catalytic activity/Vol]12 U/LNormal9-52The [facility] Comment on above:Performed By: #### TSH, T7, LIPID, CMP #### [facility] [address] [address] [address] Shari Mendosa gap [Moles/Vol]9.6 mmol/LNormalThe [facility] Hospital Medical CenterComment on above:Performed By: #### TSH, T7, LIPID, CMP #### [facility] [address] [address] [address] Shari MobleyAST [Catalytic activity/Vol]12 U/LCritically oxl22-31Fkq [facility] Medical CenterComment on above:Performed By: #### TSH, T7, LIPID, CMP #### [facility] [address] [place] [address] Dr. Shari MobleyBilirubin [Mass/Vol]0.6 mg/dLNormal0.2-1.3The [facility] Comment on above:Performed By: #### TSH, T7, LIPID, CMP #### [facility] [address] [place] [address] Dr. Shari MobleyCalcium [Mass/Vol]8.8 mg/dLNormal8.4-10.2[facility] Comment on above:Performed By: #### TSH, T7, LIPID, CMP #### [facility] [address] [place] [address] Dr. Shari MobleyChloride [Moles/Vol]103 mmol/PFzsxib96-229DobEast [facility] Hospital Comment on above:Performed By: #### TSH, T7, LIPID, CMP #### [facility] [address] [place] [address] Dr. Shari MobleyCO2 [Moles/Vol]28.6 mmol/USnqmli07.0-30.0The [facility] Comment on above:Performed By: #### TSH, T7, LIPID, CMP #### [facility] [address] [place] [address] Dr. Shari MobleyCreatinine [Mass/Vol]0.98 mg/dLNormal0.52-1.04The [facility] Medical CenterComment on above:Performed By: #### TSH, T7, LIPID, CMP #### [facility] [address] [place] [address] Dr. Shari Layton-AF CONGOLESE>60Normal>=60The [facility] Hospital Medical CenterComment on above:Performed By: #### TSH, T7, LIPID, CMP #### [facility] [address] [address] [address] Shari SheltonGFR-NON AF CONGOLESE>60Normal>=60The [facility] Hospital Medical CenterComment on above:Performed By: #### TSH, T7, LIPID, CMP #### [facility] [address] [address] [address] Shari MobleyGlobulin (S) [Mass/Vol]2.8 g/dLNormalThe [facility] Medical CenterComment on above:Performed By: #### TSH, T7, LIPID, CMP #### [facility] [address] [place] [address] Dr. Shari MobleyGlucose [Mass/Vol]103 mg/iZSgdaea80-815HiaEast [facility] Hospital Comment on above:Performed By: #### TSH, T7, LIPID, CMP #### [facility] [address] [place] [address] Dr. Shari MobleyPotassium [Moles/Vol]4.2 mmol/LNormal3.4-5.0[facility] Comment on above:Performed By: #### TSH, T7, LIPID, CMP #### [facility] [address] [place] [address] Dr. Shari MobleyProtein [Mass/Vol]6.7 g/dLNormal6.1-8.2[facility] Comment on above:Performed By: #### TSH, T7, LIPID, CMP #### [facility] [address] [place] [address] Dr. Shari MobleySodium [Moles/Vol]137 mmol/WUqysti417-875VokEast [facility] Regional Hospital Comment on above:Performed By: #### TSH, T7, LIPID, CMP #### [facility] [address] [place] [address] Dr. Shari MobleyUrea nitrogen [Mass/Vol]10.0 mg/dLNormal7.0-17.0The [facility] Medical CenterComment on above:Performed By: #### TSH, T7, LIPID, CMP #### [facility] [address] [address] [address] Shari Rivera nitrogen/Creatinine [Mass ratio]10.2 mg/mgBethesda North HospitalComtrinity health [place] on above:Performed By: #### TSH, T7, LIPID, CMP #### [facility] [address] [address] [address] Shari Vargas 44-31-9736FAI7.756 uIU/mLNormal0.470-4.680The [facility] Medical CenterComtrinity health [place] on above:Performed By: #### TSH, T7, LIPID, CMP #### [facility] [address] [address] [address] Shari HIGUERA BELOWBethesda North HospitalComment on above: Result Comment: <0.34 UIU/ml HYPERTHYROID 0.34-5.60 UIU/ml EUTHYROID >5.60 UIU/ml HYPOTHYROIDPerformed By: #### TSH, T7, LIPID, CMP #### [facility] [address] [address] [address] Shari MobleyProvider Letteron [phone] Letter January 10, 2020 MARTHA MARQUEZ [address] [place] [phone] MARTHA MARQUEZ 1985 Dear Martha Marquez, This [...] us know 24 hours in advance. Sincerely, [employer] [facility] [address], [place] [address] VsqlezJfhzjySheltering Arms HospitalCoding Summary.on 02-10-2019 Coding Summary.CODING DATE: 02/10/2019 FINAL [facility] STATUS: Home (Routine DC) PAYOR: [...] By: Luciana Mcfadden Date Saved: 02/10/2019 12:02 [facility] Recordon [id number] OR Intraoperative RecordIntraOp Document Type FTURO Summary Primary Physician: Eric SANCHEZ MD Finalized Date/Time: 02/09/19 15:13:08 Pt. Name: MARTHA MARQUEZ/Sex: 1985 Female Med Rec #: [id number] Physician: Eric SANCHEZ MD Financial #: [id number] Pt. Type: O Room/Bed: / Admit/Disch: 02/09/19 [...] Miquel Webb Role Performed Surgeon - Primary Compilation Clerk - Primary Scrub - Primary Time In 02/09/19 15:06:00 02/09/19 15:01:00 02/09/19 15:01:00 Time Out 02/09/19 15:12:00 02/09/19 15:12:00 02/09/19 15:12:00 Procedure CYSTOSCOPY LOCAL WITH CYSTOSCOPY LOCAL WITH CYSTOSCOPY LOCAL WITH STENT REMOVAL(Left) STENT REMOVAL(Left) STENT REMOVAL(Left) Comments Last Modified By: Polly MEHTA, ARTOR, CHRISTIN Caballero RN, Lou Ann Blank RN, CNOR, Lou Ann [...] Prep Agents Betadine Solution Skin. Condition Intact, [place], Warm, and Dry Additional Other (See Comment) [...] By: CHRISTIN Matias RN, Lou Ann 02/09/19 15:13NormOhioHealth Pickerington Methodist HospitalMain OR Preoperative Recordon [id number] OR Preoperative RecordHolding Area Document Type FTURO Summary Primary Physician: Eric SANCHEZ MD Finalized Date/Time: 02/09/19 15:03:32 Pt. Name: JIMMYMARTHA D.O.B./Sex: 1985 Female Med Rec #: [id number] Physician: Eric SANCHEZ MD Financial #: [id number] Pt. Type: O Room/Bed: / Admit/Disch: 02/09/19 [...] of Pain: No Comment: Skin Integrity Intact, [place], Warm, & Dry Vitals - EU Blood Pressure 111/69 Pulse 55 bpm Respirations 18 br/min SPO2 Additional None RN Reviewed Yes Specimens Collected Last Modified By: CHRISTIN Matias RN, Lou Ann 02/09/19 15:03:30 Finalized By: CHRISTIN Matias RN, Lou Ann Document Signatures Signed By: Krystal ARAIZAMarcie 02/09/19 14:16 CHRISTIN Matias RN, Lou Ann 02/09/19 15:03NormOhioHealth Pickerington Methodist HospitalOperative Reporton [id number] ReportPatient: MARTHA MARQUEZ Age: 33 years Sex: [...] discharged home. metabolic w/u and 3 month f/u..[facility] HospitalComment on above:Result Comment: Electronically Signed By: Eric SANCHEZ MD\.br\Date and Time Signed: 02/09/19 15:11 EDT Vital Signs Date TimeVital SignValuePerforming MiuvmrlibIefrionz42-30-4766 09:35-0400Body shfold847.1 cmSurinder Hernandez MD Work Phone: [facility]fieldEkiquwsbow49-04-6883 09:35-0400Body mass index (BMI) [Ratio]24.4 kg/u1JhlkxhySurinder Hernandez MD Work Phone: [facility]fieldTuvggjubnt73-70-5517 09:35-0400Body aewffi72.5 kg Surinder Hernandez MD Work Phone: [facility]fieldPjghcnkuku77-34-2607 09:35-0400Diastolic blood qoocbaqz30 mm[Hg]Surinder Hernandez MD Work Phone: [facility]fieldZbfayxprov61-21-4474 09:35-0400Respiratory rate18 /minSurinder Hernandez MD Work Phone: [facility]fieldPjmygjwhlp05-77-0878 09:35-0400Systolic blood yqhurrhe198 mm[Hg]Surinder Hernandez MD Work Phone: [facility] springfieldDqagkueuuk67-70-1715 15:13-0400Body mass index (BMI) [Ratio]23.83 kg/q3Zatsitq Cebull ADJUNCT FACULTY.ETHANOL OPERATOR Work Phone: [facility]07-29-2025 15:13-0400Body okvzlh46.95 kgRebecca Cebull ADJUNCT FACULTY.ETHANOL OPERATOR Work Phone: [facility]07-29-2025 15:13-0400Diastolic blood ipfxmlon32 mm[Hg]Gal Cebull ADJUNCT FACULTY.ETHANOL OPERATOR Work Phone: [phone]07-29-2025 15:13-0400Systolic blood zdqwyvdf809 mm[Hg]Gal Cebull ADJUNCT FACULTY.ETHANOL OPERATOR Work Phone: [phone]08-25-2023 10:38-0400Diastolic blood qrxaiuea094 mm[Hg]MD Francesca Sands Work Phone: [facility]08-25-2023 10:38-0400 Heart rate86 /minMD Francesca Sands Work Phone: [facility]08-25-2023 10:38-0400 Respiratory rate16 /min Francesca Hoy Work Phone: [phone] [place], [place] 2333608-25-2023 10:38-0400 SaO2% (BldA) [Mass fraction]100 %MD Francesca Sands Work Phone: [phone] [place], [place] 2333608-25-2023 10:38-0400 Systolic blood fsutljls182 mm[Hg]MD Francesca Sands Work Phone: [phone] [place], [place] 2333608-25-2023 10:27-0400 Body uqcpxl703.1 cmMD Franecsca Hoy Work Phone: [phone] [place], [place] 2333608-25-2023 10:27-0400 Body atzrsr36.23 kgMD Francesca Hoy Work Phone: [phone] [place], [place] 2333607-21-2023 10:10-0400 Diastolic blood cgbpskce08 mm[Hg]MD Francesca Sands Work Phone: [phone] [place], [place] 2333607-21-2023 10:10-0400 Heart othq132 /minMD Francesca Sands Work Phone: [phone] [place], [place] 2333607-21-2023 10:10-0400 Systolic blood wbfwoahe317 mm[Hg]MD Francesca Sands Work Phone: [phone] [place], [place] 2333601-20-2023 09:05-0500 Body qnfreennrhf23.5 [degF]MD Francesca Sands Work Phone: [phone] [place], [place] 2333601-20-2023 09:05-0500 Respiratory rate18 /minMD Francesca Sands Work Phone: [phone] [place], [place] 2333601-20-2023 09:05-0500 SaO2% (BldA) [Mass fraction]96 %MD Francesca Sands Work Phone: [phone] [place], [place] 2333610-07-2022 10:57-0400 Diastolic blood obgxvwll41 mm[Hg]MD Francesca Sands Work Phone: [phone] [place], [place] 2333610-07-2022 10:57-0400 Heart rate79 /minMD Francesca Sands Work Phone: [phone]10-07-2022 10:57-0400 Respiratory rate14 /minMD Francesca Sands Work Phone: [phone] [place], [place] 2333610-07-2022 10:57-0400 SaO2% (BldA) [Mass fraction]100 %MD Francesca Sands Work Phone: [phone] [place], [place] 2333610-07-2022 10:57-0400 Systolic blood dsdehrmz520 mm[Hg]MD Francesca Sands Work Phone: [phone] [place], [place] 2333610-07-2022 07:24-0400 Body aafgim065.1 cmMD Francesca Hoy Work Phone: [phone] [place], [place] 2333610-07-2022 07:24-0400 Body kbvqis00.96 kgMD Francesca Hoy Work Phone: [phone] [place], [place] 2333611-16-2021 12:52-0500 Body ezfvam010.1 cmMD Francesca Hoy Work Phone: [phone] [place], [place] 2333611-16-2021 12:52-0500 Body mass index (BMI) [Ratio]24.4 kg/m2MD Francesca Leivay Work Phone: [phone] [place], [place] 2333611-16-2021 12:52-0500 Body gonekh59.68 kgMD Francesca Hoy Work Phone: [phone] [place] [address] Encounters Encounter DateEncounter TypeCare ProviderFacilityStart: 04-18-2025 End: 99-36-4334Kaanybtrq encounterBrejarvis Hernandez MD Work Phone: [facility] NeurologyStart: 03-08-2025 End: 58-20-0061Bolwaizgt department patient visitJohn ParenteFacility:FTMCStart: 01-26-2025 End: 17-37-2317bslxajsgzbXFZRAFD W BAUERNot AvailableStart: 01-13-2025 End: 86-18-2517Sachck flowsheetSurinder Hernandez MD Work Phone: noms NEUROLOGYStart: 01-13-2025 End: 64-67-1387Anjwgr flowsheetSurinder Hernandez MD Work Phone: noms NEUROLOGYStart: 01-13-2025 End: 79-73-9973lwxjmkcqtsBLHDUOH W BAUERNot AvailableStart: 01-13-2025 End: 27-12-2694Qtctdr outpatient visit 25 minutesBrejarvis Hernandez MD Work Phone: noms [facility] NeurologyComment on above:Claustrophobia (Primary Dx); Multiple sclerosis (HCC)Start: 01-11-2025 End: 07-81-5526ihmebdevdiWQWGHAI M HOYFacility:[facility] HospitalStart: 01-11-2025 End: 94-83-1625Jvwdfij encounter procedureRebecca Yasmeen Nogueira APRNRAZ Work Phone: melmethodist hospital northeast CenterComment on above:Multiple sclerosis (HCC) (Primary Dx); Medication monitoring encounter; Hypothyroidism, unspecified type; Blurry visionStart: 10-22-2024 End: 33-82-9901Zqelzhifh encounterSurinder Hernandez MD Work Phone: noms [facility] NEURO 210Comment on above:Other (member service representative) Start: 10-22-2024 End: 53-41-8711Gtsqtbdwf department patient visitNO PCP NO PCPProMedica Briggsville HospitalStart: 04-13-2024 End: 50-28-5277QkazkrWiplnob W Bauer MD Work Phone: noms [facility] NEURO 210Comment on above:Multiple sclerosis (CMS/HCC); ADD (attention deficit disorder) without hyperactivityStart: 03-05-2024 End: 44-60-7222QthsduZccqsaj W Bauer MD Work Phone: noms [facility] NEURO 210Comment on above:Multiple sclerosis (CMS/HCC); ADD (attention deficit disorder) without hyperactivityStart: 02-19-2024 End: 65-89-2966JbkrfwUfevibi W Bauer MD Work Phone: noms [facility] NEURO 210Comment on above:Multiple sclerosis (CMS/HCC); ADD (attention deficit disorder) without hyperactivityStart: 21-88-7163Pqnni abstractingSurinder Hernandez MD Work Phone: noms [facility] NEURO 210Start: 54-15-0125gaqzvjbeozJusjar Bermel MD Work Phone: mellen CenterComment on above:Martha RubioDariustart: 02-21-2023 End: 99-09-2916mcyqxpibfrGdxjbx Bermel MD Work Phone: [facility] Hospitaldcl CenterComment on above:Meningioma (HCC) (Primary Dx)Start: 02-21-2023 End: 22-60-8653Emktftecwlqy consultation with Dannie Gonsalez MD Work Phone: [facility] MAINStart: 02-07-2023 End: 89-21-2180gmqtlmlaaqEquwsfvsxht M HassettFacility:[facility] Ohiotart: 02-07-2023 End: 05-21-9210whgjqdttzmSE Douglas M Hoy Work Phone: [facility] Work Phone: Start: 02-07-2023 End: 42-74-9384Elivwat encounter procedureMD Francesca Sands Work Phone: [facility]-MRI Main [place] Work Phone: Start: 51-72-9633kxxjgacxcdYrvlexcnrxh M Hassett Facility:[facility] Ohiotart: 57-17-7436Gealicphrj Recurring MD Francesca Sands Work Phone: [facility]-Infusion Therapy - O/P Work Phone: Start: 98-67-9492Nkwgijfvt for general adult medical examination without abnormal findingsDR FRANCESCA Davila [facility] Hospitaltart: 07-04-2022 End: 15-63-7754Oggcunbyj for general adult medical examination without abnormal findingsDR FRANCESCA Rojascility:S8Kgosg: 07-04-2022 End: 45-38-6725kdlladiiowCJ FRANCESCA HOYFacility:Z2Zstlv: 03-22-2022 End: 46-29-0180mpfelocwfwUzxdfqu M HoyFacility:[facility] Start: 03-22-2022 End: 43-03-2673paojzlxbtgIK Francesca M Hoy Work Phone: [facility] Work Phone: Start: 03-22-2022 End: 38-36-3805Wjwnnco encounter procedureMD Francesca Hoy Work Phone: [facility]-MRI Main CampusStart: 12-03-2021 End: 73-92-0680wonvdvqnjoQQPHYZSZW MCCARTHYFacility:O9Ivinx: 08-18-2021 End: 83-76-7135mswxmgouwkRLXPIVWUH MCCARTHYFacility:H1 Procedures DateProcedureProcedure DetailPerforming ClinicianStart: 00-01-5587VLT of headMD Francesca Hoy Work Phone: Start: 14-65-4327MHB of cervical spine with contrastMD Francesca Hoy Work Phone: Start: 70-90-9452ZDX of thoracic spine with contrastMD Francesca Hoy Work Phone: Plan of Treatment DateCare ActivityDetailAuthorStart: 05-04-2025 End: 55-81-3439Cxwtprb encounter ogkwnhste22/19/2025 10:00 AM EST Procedure Visit [facility] [address] [place], [id number] Dot Calvo PA [address] [place] [address] [facility] TREVINOGYNStart: 04-21-2025 End: 86-93-6187Zimimbo encounter hiesoasdu21/06/2025 10:00 AM EST Office Visit [facility] [address] [place] [address] Surinder Hernandez MD [address] [place] [address] [facility] NeurologyStart: 16-90-7857Xulyrdizw vaccinationInfluenza Vaccine (#1)[facility] Hospitaltart: 01-13-2025 End: 32-15-3450RR Brain WO and W contrast IVMR brain w and wo contrast routine Imaging Routine Multiple sclerosis (HCC) Expected: 01/13/2025, Expires: 01/13/2026[facility] Work Phone: Comment on above:Expected: 01/13/2025, Expires: 01/13/2026Start: 01-11-2025 End: 83-15-1740JZIRC TB SCREENBLOOD TB SCREEN Lab Routine Multiple sclerosis (HCC) Medication monitoring encounter Expected: 01/11/2025, Expires: 04/12/2025 [facility] Work Phone: Comment on above:Expected: 01/11/2025, Expires: 04/12/2025Start: 01-11-2025 End: 38-48-7960RQ36 ABSOLUTE UCEYTUW80 ABSOLUTE COUNT Lab Routine Multiple sclerosis (HCC) Medication monitoring encounter Expected: 01/11/2025, Expires: 04/12/2025[facility] ClinicComment on above:Expected: 01/11/2025, Expires: 04/12/2025Start: 01-11-2025 End: 70-90-8107Ircokqb hepatitis differentiation between hepatitis B and C virus panel - Serum or PlasmaHEP REMOTE PANEL BL Lab Routine Multiple sclerosis (HCC) Medication monitoring encounter Expected: 01/11/2025, Expires: 04/12/2025 [facility]Comment on above:Expected: 01/11/2025, Expires: 04/12/2025Start: 01-11-2025 End: 19-17-7007DVHPGXDVPODPFMX,IGG,IGA,IGMIMMUNOGLOBULINS,IGG,IGA,IGM Lab Routine Multiple sclerosis (HCC) Medication monitoring encounter Expected: 01/11/2025, Expires: 04/12/2025[facility] ClinicComment on above:Expected: 01/11/2025, Expires: 04/12/2025Start: 01-11-2025 End: 65-32-6759Tkufkafwdpz [Units/volume] in Serum or PlasmaTHYROID STIMULATING HORMONE Lab Routine Multiple sclerosis (HCC) Medication monitoring encounter Hyp othyroidism, unspecified type Expected: 01/11/2025, Expires: 04/12/2025[facility] ClinicComment on above:Expected: 01/11/2025, Expires: 04/12/2025Start: 01-01-2025Medicare Advantage Annual Wellness VisitMedicare Advantage Annual Wellness VisitAultman Alliance Community Hospitaltart: 03-01-2024 End: 71-25-8117Xqtdfok encounter ppktlabpg42/16/2024 11:00 AM EDT Office Visit [facility] [address] [phone] Surinder Hernandez MD [address] [place] [address] [facility] NEURStart: 07-18-2023 End: 99-72-0548Ryejlnq encounter ojvxyethk52/02/2024 9:50 AM EST Office Visit [facility] [address] [place] [phone] Surinder Hernandez MD [address] [address] [facility] NEURStart: 70-63-5951Xpiuuodsf vaccinationAultman Alliance Community Hospitaltart: 14-58-1035DIHNYDEQKT ASSESSMENTDEPRESSION ASSESSMENTAultman Alliance Community Hospitaltart: 15-60-0470MAH TESTINGHPV TESTINGAultman Alliance Community Hospitaltart: 44-82-4437JYL TESTINGPAP TESTINGAultman Alliance Community Hospitaltart: 2006 Screening for malignant neoplasm of cervixCervical Cancer ScreeningAultman Alliance Community Hospitaltart: 01-42-3696Yxhzhvfzw B Vaccine (1 of 3 - 19+ 3-dose series)Hepatitis B Vaccine (1 of 3 - 19+ 3-dose series)[facility] Hospitaltart: 2004 Pneumococcal vaccinationPneumococcal Vaccine (1 of 2 - PCV)[facility] Start: 86-63-4920Fodip microalbumin profileAultman Alliance Community Hospitaltart: 12-17-2003 Anxiety ScreeningAnxiety ScreeningAultman Alliance Community Hospitaltart: 36-21-5026Nwlzohrvlp ScreeningDepression ScreeningAultman Alliance Community Hospitaltart: 03-52-3061XQITKHGNI C SCREENINGHEPATITIS C SCREENINGAultman Alliance Community Hospitaltart: 91-20-1829Iqechdtvw C screeningHepatitis C ScreeningAultman Alliance Community Hospitaltart: 71-47-1085FLZ SCREENINGHIV SCREENINGAultman Alliance Community Hospitaltart: 09-40-0615FMA screeningHIV ScreeningAultman Alliance Community Hospitaltart: 48-99-9137JAWTMOMXBCWB (1 - PCV)PNEUMOCOCCAL (1 - PCV)[facility]: 78-79-4163Jvbbhgjaqarr vaccinationPneumococcal Vaccine (1 - PCV) [facility]: 25-08-2341YGEWN-19 VACCINE (#1)COVID-19 VACCINE (#1) [facility]: 21-26-8079SQIAWXIFA B (1 of 3 - 3-dose series)HEPATITIS B (1 of 3 - 3-dose series)[facility]: 71-22-9441Ebyfrcgxe B Vaccine (1 of 3 - 3-dose series)Hepatitis B Vaccine (1 of 3 - 3-dose series)[facility] End: 25-36-2052YA Brain WO and W contrast IVMRI BRAIN WO/W IVCON Radiology Routine Multiple sclerosis (HCC) 1 Occurrences starting 01/11/2025 until 6[facility] ClinicComment on above:1 Occurrences starting 01/11/2025 until 02/10/2026 End: 85-21-7114QB Cervical spine WO and W contrast IVMRI CERVICAL SPINE WO/W IVCON Radiology Routine Multiple sclerosis (HCC) 1 Occurrences starting 12/15 until 6[facility] ClinicComment on above:1 Occurrences starting 01/11/2025 until 02/10/2026 Immunizations Immunization DateImmunizationNotesCare SufthaqhHiwgdtjk99-65-3728ywvngvesw virus vaccine, unspecified formulationJim Gonsalez MD Work Phone: [facility] Payers DatePayer CategoryPayerPolicy [id number] 2023Medicare (Managed Care)[id number] [facility] 2022-Present [address] [place] REN [id number] 2021MedicareDFKCCF [id number]-eqy [id number] 2021Medicare [id number] 2013Medicaid [id number] 2.0.1.669870.3.57[id number] 2.0.1.622062.3.57[id number] 2.0.1.231542.3.57[id number] 2.0.1.330500.3.57[id number] 2.16840.1.189092.3.57[id number] 2.840.1.583832.3.57[id number] 2.0.1.659436.3.57[id number] 2.840.1.214883.3.579.2.727 [id number] MediBlue Dual [id number] 2.840.1.4[id number] 2.840.1.521362.3.579.2.531 [id number] 2.0.1.139828.3.579.2.531 Social History DateTypeDetailFacilityTobacco smoking status NHISUnknown if ever smokedGalion Community Hospital Work Phone: Start: 97-85-8539Vhc Assigned At [facility]tart: 08-14-2015 End: 13-49-9986Nptoahh smoking status NHISSmokes tobacco dailyK[facility] Start: 06-17-2008 End: 02-42-7122Tcjmoci of tobacco useCigarette SmokerAultman Alliance Community Hospitaltart: 08-14-2015 End: 81-27-6641Obsipynwas smoked current (pack per day) - Evyaxurm9Qceohrtyn ClinicStart: 08-14-2015 End: 82-79-0584Ttmufvo use and exposureSmokeless tobacco non-userAultman Alliance Community Hospitaltart: 12-23-2016 End: 66-31-2167Vhxmxdo intakeCurrent drinker of alcohol (finding)[facility]tart: 12-15-2017 End: 33-18-2666Tokkmvj use panelAultman Alliance Community Hospitaltart: 01-24-4854Kddpu Depression Screening Hknvoguuse2Fofccsgjn ClinicStart: 08-14-2015 End: 75-58-9438Uardves CommentPatient states she is currently trying to quit [facility]art: 21-77-6418Zet Assigned At BirthNot on fileAultman Alliance Community Hospitaltart: 65-89-0251Uhlrtj identityIdentifies as female gender (finding) [facility]tart: 87-89-7630Efvshhh Lwsgbtk45-34 cigarettes/dayOGDEN [facility] HealthcareStart: 13-42-4639Ukyxldu Comment1-2 drinks on a typical dayOGDEN REGIONAL MEDICAL CENTER HealthcareStart: 74-50-8111Qhdujfc smoking status NHISEx-smokerNONM Healthcare Start: 06-17-2008 End: 12-02-2344Xhufwcv of tobacco useCurrent smokerNONM HealthcareStart: 99-78-4545Mynnbml CommentI switched to vapingNOMS Healthcare Functional Status ZejuSmzifstkttAusqcwBkisjhvj00-01-6985Yvr you deaf, or do you have serious difficulty hearingNo 04/25/2014 2:21 PM Eveline Kaur MA [facility] 38-89-8676Uoi you blind, or do you have serious difficulty seeing, even when wearing glassesNo 04/25/2014 2:21 PM Eveline Kaur MA [facility] 49-77-3098Kq you have serious difficulty walking or climbing stairsNo 04/25/2014 2:21 PM Eveline Kaur MA [facility]11-10-2014Do you have difficulty dressing or bathingNo 04/25/2014 2:21 PM Eveline Kaur MA [facility] HospitalBcxkyt35-34-2121Xdzmljz of a physical, mental, or emotional condition, do you have difficulty doing errands alone such as visiting a physician's office or shoppingNo 04/25/2014 2:21 PM Eveline Kaur MA [facility] Mental Status VxekCsszmtnuruGhutxrGgumjznx85-03-5791Dnpcvsz of a physical, mental, or emotional condition, do you have serious difficulty concentrating, remembering, or making decisionsYes 04/25/2014 2:21 PM Eveline Kaur MA [facility] Clinical Notes 02-21-2023 to 01-13-2025 Note Date & XghjXqziJabnznta91-50-4172 History of Present illness Narrative* Surinder Hernandez [...] She consulted with Dr. Gal Isaac at [facility], who recommended resuming Keytruda, a medication that had previously improved her symptoms. She reports no issues with the dosing of Kesimpta at home. She recently underwent blood work at [facility] on 01/12/2025. She also mentions that Ocrevus [...] signed today. Blood work hasbeen conducted at [facility]. 2. Fatigue. An MRI has been ordered [...] including This clinical note was created utilizing [employer] documentation system. All information has beenthoroughly reviewed, corrected as necessary, and authenticated by the provider to ensure accuracy and completeness. On occasion, [employer] documentation system erroneously drops words or replaces aspoken word with a similar sounding word. Please notify with any questions or concerns regarding this clinical note. documented in this encounterMercy hospital springfieldSymyeqvwvo43-56-7295 Instructions* Patient Instructions* Gal Nogueira APRN.[facility] - 01/11/2025 3:51 PM EDT Schedule MRIs and repeat screening labs for Kesimpta. Let us know if you would like our office or Dr Hernandez to prescribe Kesimpta. If you want to go to a closer [facility] location, Dr Carmen Bobo and Natalya Logan, her nurse practitioner, see patients at [facility]. Recommend eye exam locally. documented in this encounterK[facility]07-29-2025 History of Present illness Narrative* Gal Nogueira APRN.CNP - 01/11/2025 2:30 PM EDT Images from the original note were not included. [facility] FOLLOWUP/ESTABLISHED PATIENT VISIT PRINCIPAL NEUROLOGIC DIAGNOSIS: Multiple [...] interim, following with Dr Surinder Hernandez in [place] for MS care. Switched from Ocrevus to Kesimpta given perceived lack of benefit. Switched Adderall to Vyvanse for cognitive symptoms. Last office visit 11/2023. Reports wanted to continue following with Dr Hernandez but her kids felt she should follow up at [facility] since she was historically seen here. Admits she has difficulty driving to [place] and [place] would be easier. Lost on way to appt today and arrived at 3:09 for 2:30 appt. Has been without all medications for the past 6 months or so. Reports medical records got messed up . Liked Kesimpta and was tolerating well. [place] she was able to manage injections. Had [...] Flowsheet [facility] from 02/21/2023 in [facility] Office Visit from 08/14/2015 in [facility] Appointment from 07/03/2015 in [facility] Upper Extremity Domain T Score 30 35.13 45.23 Lower Extremity Domain T Score 36 44.4 44.4 Cognitive Function Domain T Score 38 -- -- Positive Affect Well Being T Score -- -- -- Ability To Participate In Social Roles T Score 42 -- -- Satisfaction With Social Roles T Score 46 -- -- Neuro-QoL Symptoms (higher=worse symptoms) Flowsheet [facility] from 02/21/2023 in [facility] Office Visit from 08/14/2015 in [facility] Appointment from 07/03/2015 in [facility] Sleep Domain T Score 65 65.92 [...] oz) BMI 23.83 kg/m MSPT Results Flowsheet Row Office Visit from 12/23/2016 in [facility] Office Visit from 08/14/2015 in [facility] Appointment from 07/03/2015 in [facility] Processing Speed Total Number Correct 47 [...] 5 Biceps 5 5 Triceps 5 5 Media Relations Coordinator 5 5 Dorsal interossei 5 5 Lower [...] Dr Hernandez, but discussed Milana providers at [facility] may be additional resource moving forward. PLAN: - repeat Kesimpta screening labs - MRI brain and cervical w/wo - f/u with [facility] Milana, CCCurry Gage, or Dr Hernandez pending patient preference - recommend local ophthalmology eval Office Visit on 01/11/25 MRI BRAIN WO/W IVCON MRI CERVICAL SPINE WO/W IVCON BLOOD TB SCREEN CD19 ABSOLUTE COUNT HEP REMOTE PANEL BL IMMUNOGLOBULINS,IGG,IGA,IGM THYROID STIMULATING HORMONE Patient Health Education Discussed at Visit: Risks and Common side effects of MS medications Follow-up: In 6 months or PRN at [place] with [facility] APC I spent a total of 40 minutes on the date of the service which included preparing to see the patient, dnkd-oj-yyva patient care, completing clinical documentation, obtaining and/or reviewing separately obtained history, performing a medically appropriate examination, counseling and educating the pat ient/family/caregiver, ordering medications, tests, or procedures, communicating with other HCPs (not separately reported), independently interpreting results (not separately reported), and communicating results to the patient/family/caregiver. Gal Nogueira APRN.[facility] Multiple Sclerosis documented in this encounterK[facility]07-29-2025 NoteHNO ID: [id number] Author: GAL NOGUEIRA APRN.ATLITA Service: ? Author Type: Nurse Practitioner Type: Progress Notes Filed: 01/13/2025 16:33 Note Text: [facility] FOLLOWUP/ESTABLISHED PATIENT VISIT PRINCIPAL NEUROLOGIC DIAGNOSIS: Multiple [...] interim, following with Dr Surinder Hernandez in [place] for MS care. Switched from Ocrevus to Kesimpta given perceived lack of benefit. Switched Adderall to Vyvanse for cognitive symptoms. Last office visit 11/2023. Reports wanted to continue following with Dr Hernandez but her kids felt she should follow up at [facility] since she was historically seen here. Admits she has difficulty driving to [place] and [place] would be easier. Lost on way to appt today and arrived at 3:09 for 2:30 appt. Has been without all medications for the past 6 months or so. Reports medical records got messed up . Liked Kesimpta and was tolerating well. [place] she was able to manage injections. Had [...] or illnesses. Neuro-QoL Functions (higher=better functioning) Flowsheet [facility] from 02/21/2023 in [facility] Office Visit from 08/14/2015 in [facility] Appointment from 07/03/2015 in [facility] Upper Extremity Domain T Score 30 35.13 45.23 Lower Extremity Domain T Score 36 44.4 44.4 Cognitive Function Domain T Score 38 -- -- Positive Affect Well Being T Score -- -- -- Ability To Participate In Social Roles T Score 42 -- -- Satisfaction With Social Roles T Score 46 -- -- Neuro-QoL Symptoms (higher=worse symptoms) Flowsheet [facility] from 02/21/2023 in [facility] Office Visit from 08/14/2015 in [facility] Appointment from 07/03/2015 in [facility] Sleep Domain T Score 65 65.92 [...] oz) BMI 23.83 kg/m? MSPT Results Flowsheet [facility] Office Visit from 12/23/2016 in [facility] Office Visit from 08/14/2015 in [facility] Appointment from 07/03/2015 in [facility] Processing Speed Total Number Correct 47 [...] Triceps 5 5 G (more content not included)...[facility]05-09-2025 Telephone encounter Note* Telephone Encounter - Caitie Muñoz NP - 10/22/2024 3:42 PM EDT I called ER and they told me patient eloped no longer needed to speak with us. [facility] [employer] Work Phone: [phone] Miscellaneous Notes* Telephone Encounter - Caitie Muñoz [...] Kaur - 10/22/2024 1:39 PM EDT Martha Barfield Jimmy is a [address] Demarco called from [facility] requesting consult from Dr Hernandez for this pt . Call back number [phone] . (Secure chat sent to environmental health and safety manager provider) documented in this encounterMercy hospital springfieldQnnanrduzt29-72-8370 Telephone encounter Note* Telephone Encounter - Haley Kaur - 10/22/2024 2:34 PM EDT Per Caitie Muñoz NP i'll just call she hasn't been seen since last november [facility] hospital springfieldLdilijpbci57-34-4757 Telephone encounter Note* Telephone Encounter - Haley Kaur - 10/22/2024 1:39 PM EDT Martha Marquez is a [address] Demarco called from [facility] requesting consult from Dr Hernandez for this pt . Call back number [phone] . (Secure chat sent to environmental health and safety manager provider) [facility] hospital springfieldSalhnnlbzd29-32-5099 Telephone encounter Note* Telephone Encounter - Caitie Mñuoz NP - 02/19/2024 10:28 AM EDT Lixdexamfetamine was already sent on 02/16 per [facility]RS. [facility] Work Phone: 1(611) 443-549109-05-2024 Miscellaneous Notes* Telephone Encounter - Caitie Muñoz NP - 02/19/2024 10:28 AM EDT Lixdexamfetamine was already sent on 02/16 per OARRS. documented in this encounterMercy hospital springfieldRrfnflqfqk77-10-1549 History of Present illness Narrative* Bermel, Jim, MD - 02/21/2023 11:07 AM EDT [facility] FOR MULTIPLE SCLEROSIS VIRTUAL VISIT FOR NEW PATIENT EVALUATION Referral source: No referring provider defined for this encounter. Also followed by: Francesca Sands [address] [place] [address] PRINCIPAL NEUROLOGIC DIAGNOSIS: Multiple sclerosis, meningioma incidentally [...] 2016. Marty Jade from [facility] in [place] She has been dropping things with the left side of her body, and slurred speech, and severe headache, for about 6 months. Currently on Ocrevus for MS, since 2021 approximately. On a scan a few weeks ago they told her she had a brain tumor. Scan was at [facility] in [place]. She reads the report to me: mild diffuse volume loss. right anterior cranial fossa extraxial dural based enhancing [id number]. Likely meningioma. Neuro-Qol Functions (higher = better [...] have on file from 2017. -refer to [facility] neurosurgery/BTNC for management plan for meningioma -call to [facility] imaging who will send MRIs to [facility] PACS -for MS follow-up, a good option would be Dr. Carmen Bobo at [facility] I have communicated my name and active licensure. The patient's identity and physical location wereverified at the time of this visit. Either the patient or their legal pharmacy services representative has been informed of the risks and benefits of -- and alternatives to -- treatment through a remote evaluation andconsents to proceed with the evaluation remotely. Jim Gonsalez MD Staff Neurologist [facility] documented in this encounterACMC Healthcare System Glenbeighaluation noteNo assessment information availableGalion Community Hospital Work Phone: Evaluation note* Diagnosis Meningioma (HCC)- Primary Benign neoplasm of cerebral meninges documented in this encounter [facility]* Diagnosis Multiple sclerosis (CMS/HCC) Multiple sclerosis ADD (attention deficit disorder) without hyperactivity Attention deficit disorder without mention of hyperactivity documented [facility] encounter [facility] HealthcareEvaluation note* Diagnosis Multiple sclerosis (CMS/HCC) Multiple sclerosis ADD (attention deficit disorder) without hyperactivity Attention deficit disorder without mention of hyperactivity documented in this encounter [facility] HealthcareEvaluation note* Diagnosis Multiple sclerosis (HCC)- Primary Multiple sclerosis Medication monitoring encounter Encounter for therapeutic drug monitoring Hypothyroidism, unspecified type Blurry vision Other specified visual disturbances documented in this encounter [place] [facility]* Diagnosis Claustrophobia- Primary Other isolated or specific phobias Multiple sclerosis (HCC) Multiple sclerosis documented in this encounter [facility] Summary Purpose Family History No Family [...] Meningioma (HCC) Procedures CONSULT TO NEUROSURGERY OFFICE/OUTPATIENT [facility] 60-74 MINUTES Jim Gonsalez MD [address] [place] [address] Referral IDStatusReasonStart DateExpiration DateVisits RequestedVisits [id number] Review PCP Requested Referral / Additional Source Comments INFORMATION SOURCE (unrecogn ized section and content) DATE CREATED AUTHOR 01/10/2020 [facility] DATE CREATED AUTHOR AUTHOR'S ORGANIZ ATION 07/10/2022 [facility] DATE CREATED AUTHOR AUTHOR'S ORGANIZ ATION 02/16/2023 [facility] DATE CREATED AUTHOR AUTHOR'S ORGANIZ ATION 11/14/2024 [facility] DATE CREATED AUTHOR AUTHOR'S ORGANIZ ATION 01/15/2025 [facility] DATE CREATED AUTHOR AUTHOR'S ORGANIZ ATION 01/31/2025 [facility] DATE CREATED AUTHOR AUTHOR'S ORGANIZ ATION 03/10/2025 [facility] DATE CREATED AUTHOR AUTHOR'S ORGANIZ ATION 04/13/2025 [facility] Care Teams (unrecognized sec tion and [...] Francesca Sands MD Primary Care Provider Active Iram Coreaending ProviderActiveTeam MemberRelationship SpecialtyStart DateEnd Date Francesca Sands MD PCP - GeneralFamily Avwktxxb74/13/12Team MemberRelationshipSpecialtyStart Date End Date Francesca Sands MD PCP - GeneralFamily Ofxxfhrf18/13/12Team MemberRelationshipSpecialtyStart Date End Date Francesca Sands MD [address] [place] [address] PCP - GeneralFamily Deidmuyh92/11/23Team MemberRelationshipSpecialtyStart Date End Date Francesca Sands MD [address] [place] [address] PCP - GeneralFamily Ccndnbuo58/11/23Team MemberRelationshipSpecialtyStart Date End Date Francesca Sands MD [address] [place] [address] PCP - GeneralFamily Ougdzijw87/11/23Te MemberRelationshipSpecialtyStart Date End Date Francesca Sands MD [facility]03/26/23Te MemberRelationshipSpecialtyStart Date End Date Francesca Sands MD PCP - [facility]03/26/23Te MemberRelationshipSpecialtyStart Date End Date Francesca Sands MD PCP - [facility]05/28/12Te MemberRelationshipSpecialtyStart Date End Date Francesca Sands MD [facility] - [facility]03/26/23 Goals (unrecognized section and content) Goals may [...] or prosecute any alcohol or drug abuse patient.[facility] the event this information is protected by the Federal Confidentiality of Alcohol and Drug Abuse Patient Records regulations: The Federal rules restrict any use of the information to criminally investigate or prosecute any alcohol or drug abuse patient.[facility] HamiltonIn the event this information is protected by the Federal Confidentiality of Alcohol and Drug Abuse Patient Records regulations: The Federal rules restrict any use of the information to criminally investigate or prosecute any alcohol or drug abuse patient.[facility] Reason for Visit (unrecogniz ed section and content) ReasonCommentsNew Patient EvaluationReasonCommentsMed RefillReasonOnset Date HaqmvqakLdhke41/09/2025On callReasonCommentsEstablished PatientFollow Up FOR RECORDS PERTAINING TO [...] BE BASED ON THE PRIMARY CLINICAL RECORDS. [facility] [employer] [facility]. provides no warranty or guarantee of the accuracy or completeness of information in this document.
== END 2025-04-27 07:51 | disposition home or self-care (01) ==
LOC: NM 07:50
PROVIDERS: PCP Family Medicine; Visit Provider Family Medicine
DX: E03.9 Hypothyroidism, unspecified (principal)
CPT/HCPCS: 78014; A9516

== ENCOUNTER 2025-04-29 07:08 | Outpatient (OUT) | payer MEDICARE, SELFPAY ==
--- OUTSIDE RECORDS SUMMARY | 2023-12-09 06:30 | XMS_ITS ---
Author Organization The [facility] in [place] Address [address] [place] [address] Care Team Providers Care Automobile Body Repair Supervisor Name Role Phone Silver Sands Primary Care Provider [place] SANDS Unavailable [phone] REASON FOR VISIT wants to discuss meds Encounters Encounter Location Date Provider Diagnosis [facility] [address] [place] [place] [address] 12/09/2023 [place] SANDS Plan Of Treatment Next Appt Details Provider Name:Silver Sands, 08:45:00 AM, [address] [facility], [facility] [place], [address], Provider Name:Nupurarlyn Franco , 07/20/2025 10:30:00 AM, [address], [address] [facility], [place], [address], Progress Notes * Martha MARQUEZ LDOB:08/1985 (39 yo F)Acc No.[id number]:12/09/2023 UNLOCKED PROGRESS NOTE Progress Note Patient: Key MOYASterlingAmeliaMartha L :?Oh Sands M.D.:1985???Age:37 Y ???Sex:FemaleDate:4Phone:[phone]:[address], [address], [place], [id number]:Silver Sands Subjective: * Chief Complaints: * 1 . Wants to discuss meds. * Medical History: Objective: * Vitals: Assessment: Plan: * Treatment: * * Electronic signature of [place] SANDS MD on 04/29/2025 at 07:14 AM ESTSign off status: PendingVisit Status:?OFF CANC (OFFICE CANCEL) * Provider: Sterling Sands M.D. Date: 0 12/09/2023 Generated for Printing/Faxing/eTransmitting on:?04/29/2025 07:14 AM EST
--- OUTSIDE RECORDS SUMMARY | 2023-12-10 06:15 | XMS_ITS ---
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9)Activeconfirmed Encounters Encounter Location Date Provider Diagnosis [facility] [address] [place] [address] 12/10/2023 FRANCESCA SANDS Plan Of Treatment Next Appt Details Provider Name:Silver Webb Christopher, 08:45:00 AM, [address] [facility], [facility], [place], [address], Provider Name:Myra Gamez , 07/20/2025 10:30:00 AM, [address], [address], [place], [address], Progress Notes * Martha MARQUEZ LDOB:08/1985 (39 yo F)Acc No.[id number]:12/10/2023 UNLOCKED PROGRESS NOTE Progress Note Patient: Key MOYASterling Martha Carolyne :?Francesca Sands M.D.:1985???Age:37 Y ???Sex:FemaleDate:12/10/2023hone:[phone]:[address], [place], [place]Pcp:Silver Sands Subjective: * Chief Complaints: * * Medical History: Objective: * Vitals: Assessment: Plan: * Treatment: * * Electronic signature of FRANCESCA SANDS MD on 04/29/2025 at 07:15 AM ESTSign off status: PendingVisit Status:?CANCPHONE (Cancelled Phone) * Provider: Sterling Sands M.D. Date: 0 12/10/2023 Generated for Printing/Faxing/eTransmitting on:?04/29/2025 07:15 AM EST
--- OUTSIDE RECORDS SUMMARY | 2025-04-28 03:35 | XMS_ITS ---
Author Organization [facility] in [place] Address [address] [place] [address] Care Team Providers Care Digital Service Engineer Name Role Phone Silver White Primary Care Provider REASON FOR VISIT NM thyroid results Encounters Encounter Location Date Provider Diagnosis [facility] [address] [place] [address] 04/28/2025 Silver White Hypothyroidism E03.9 Assessments Encounter Date Diagnosis (ICD Code) Assessment Notes Treatment Notes Treatment Clinical Notes Section Notes 04/28/2025 Hypothyroidism (ICD-10 - E03.9) Plan Of Treatment Pending Test Test Name Order Date THYROID ANTIBODIES 04/28/2025 Next Appt Details Provider Name:Silver White, 08:45:00 AM, [address] [place], [address], Provider Name:Myra Gamez , 07/20/2025 10:30:00 AM, [address], [address] [facility], [place], [address], Progress Notes * Martha MARQUEZ LDOB:08/1985 (39 yo F)Acc No.[id number]:04/28/2025 Patient:?Martha MARQUEZ :1985???Age:39 Y???Sex:FemalePhone:[phone] Address:[facility] [address] [place], [address] Subjective: * Chief Complaints: * N M thyroid results * Medical History: * Surgical History: * Hospitalization/Major Diagno stic Procedure: * Medications: Objective: * Vitals: * Physical Examination: ??? Assessment: * Assessment: 1.?Hypothyroidism - E03.9 (Primary)??? Plan: * Treatment: ?LAB: THYROID ANTIBODIES * Procedure Codes: * true * Date:?Generated for Printing/Faxing/eTransmitting on:?04/29/2025 07:14 AM EST
--- OUTSIDE RECORDS SUMMARY | 2025-04-29 07:15 | XMS_ITS | Patient Health Record ---
Author Organization [facility] in [place] Address [address] [place] [address] Care Team Providers Care Back Up Worker Name Role Phone Silver White Primary Care Provider [phone] Allergies No Known Allergies Results Component Value Reference Range Notes Box Test Reviewed date:01/16/2025 08:27:20 PM Interpretation: Performing Lab: Notes/Report: ABS19 CD19 COUNT [facility] , BOX Test Sent Out CD19 COUNT BOX [facility] Test Date Sent01/12/25BOX Test Result 01/13/25SEE SCANNED REPORTPerforming Lab:see noteML - [facility] LBCBC AUTO DIFF Reviewed date:03/29/2025 02:11:28 PM Interpretation: Performing Lab: Notes/Report: [facility] ,White Blood Count8.44.0-11.0 10 3/uLRed Blood Count4.774.20-5.40 10 6/uL Psbpyzhobb28.812.0-16.0 g/rLMbptvodhmh97.636.0-48.0 %Mean Corpuscular Qjbrkr58.2 81.0-99.0 fLMean Corpuscular Rqatkwqjac26.926.7-34.0 pgMean Corpuscular HGB Conc 33.229.9-35.2 g/dLRed Cell Distribution Width13.811.0-15.0 %Platelet Wyfnk603 150-450 10 3/uLMean Platelet Volume9.59.5-13.5 fLNeutrophils Percent Auto71.7 43.0-75.0 %Lymphocytes Percent Auto15.020.5-60.0 %Monocytes Percent Auto9.31.7- 12.0 %Eosinophils Percent Auto3.00.9-7.0 %Basophils Percent Auto0.60.2-2.0 % Immature Granulocytes Pct Auto0.40.0-0.5 %Neutrophils Absolute Auto6.11.4-6.5 10 3/uLLymphocytes Absolute Auto1.31.2-3.8 10 3/uLMonocytes Absolute Auto0.80.3-0.8 10 3/uLEosinophils Absolute Auto0.30.0-0.7 10 3/uLBasophils Absolute Auto0.10.0- 0.1 10 3/uLImmature Granulocytes Abs Auto0.030.00-0.03 10 3/uLPerforming Lab:see noteML - [facility] LBFOLATE Reviewed date:03/29/2025 02:11:28 PM Interpretation: Performing Lab: Notes/Report: [facility] ,Folate6.908.60-58.90 ng/mLPerforming Lab:see noteML - [facility] LB FREE T3 Reviewed date:03/29/2025 02:11:28 PM Interpretation: Performing Lab: Notes/Report: [facility] ,Free T32.402.18-3.98 pg/mLPerforming Lab:see noteML - [facility] LB LIPID PROFILE Reviewed date:03/29/2025 02:11:28 PM Interpretation: Performing Lab: Notes/Report: [facility] ,Lsnukxfrljitl71<=150 mg/bZRapookjhkoa943<=200 mg/dLHDL Dwenvsjapfc9566-49 mg/dL > or =60 mg/dl - LOW CARDIOVASCULAR RISK <40 mg/dl - HIGH CARDIOVASCULAR RISK LDL Cholesterol Bwsfntbbvt81.0 <100 mg/dl OPTIMAL 100-129 mg/dl NEAR OR ABOVE OPTIMAL 130-159 mg/dl BORDERLINE HIGH 160-189 mg/dl HIGH >190 mg/dl VERY HIGH VLDL MREFLOFWLGR58.6Chol HDL Ratio2.5 3.3 - 4.4 LOW RISK 4.4 - 7.1 AVERAGE RISK 7.1 - 11.0 MODERATE RISK >11.0 HIGH RISK Performing Lab:see noteML - [facility] LBPROF 14(COMP METB) Reviewed date:03/29/2025 02:11:28 PM Interpretation: Performing Lab: Notes/Report: [facility] ,Ogmyhy033840-090 mmol/LPotassium4.23.5-5.1 mmol/BXvkcgqrd90770-562 mmol/LCarbon Opdfjpi36.421.0-32.0 mmol/LAnion Gap12.3Yhdvwct0519-921 mg/dLBlood Urea Nitrogen 12.07.0-18.0 mg/dLCreatinine0.790.55-1.02 mg/dLEstimated GFR ( Kathi>60 >=60 mL/min/1.73m 2Estimated GFR (Non- Honey>60>=60 mL/min/1.73m 2BUN Creatinine Ratio15.1Znzmppo9.08.5-10.1 mg/dLBilirubin Total0.90.2-1.0 mg/dL Aspartate Amino Irdmmvugait1131-20 U/LAlanine Vhgafybqrdsmbdmd4699-97 U/L Alkaline Wlzasuomhfb0765-132 U/LTotal Protein6.96.4-8.2 g/dLAlbumin Level3.73.4- 5.0 g/dLGlobulin3.2Albumin Globulin Ratio1.2Performing Lab:see note - [facility] LBT4 Reviewed date:03/29/2025 02:11:28 PM Interpretation: Performing Lab: Notes/Report: [facility] ,T4 Thyroxine6.904.80-13.90 ug/dLPerforming Lab:see noteML - [facility] LBTSH Reviewed date:03/29/2025 02:11:28 PM Interpretation: Performing Lab: Notes/Report: [facility] ,Thyroid Stimulating Hormone1.2470.358-3.740 uIU/mLPerforming Lab:see note - [facility] LBErythrocyte Sedimentation Rate Reviewed date:03/29/2025 02:11:28 PM Interpretation: Performing Lab: Notes/Report: [facility] ,Erythrocyte Sedimentation Rate2<=20 mm/hrPerforming Lab:see note - [facility] LBIRON Reviewed date:03/29/2025 02:11:28 PM Interpretation: Performing Lab: Notes/Report: [facility] ,Gsen399.050.0-170.0 ug/dLPerforming Lab:see note - [facility] GLYCOHEMOGLOBIN A1C Reviewed date:03/29/2025 02:11:28 PM Interpretation: Performing Lab: Notes/Report: [facility] ,Glycohemoglobin A1C5.74.5-6.2 % ADA RECOMMENDED LIMIT 4.0 - 6.0 ADA THERAPEUTIC TARGET < 7.0 ACTION SUGGESTED > 7.0 Estimated Average Egvgvnz131Uuqddqclzk Lab:see note - [facility] LB Immunoglobulins A/G/M, Qn, Ser Reviewed date:01/13/2025 12:58:14 PM Interpretation: Performing Lab: Notes/Report: [facility] ,Immunoglobulin G, Qn, Hxayv177046-0130 mg/dLImmunoglobulin A, Qn, Kzvok92978- 352 mg/dLImmunoglobulin M, Qn, Wpzar2982-633 mg/dL Performed at: [facility] [employer] [facility] [id number] Assessment Specialist: Mark Ugalde PhD, Phone: [phone] Performing Lab:see noteDoernbecher [facility] LBQuantiFERON-TB Gold Plus Reviewed date:01/16/2025 08:27:20 [...] <0.35 IU/mL. Chemiluminescence immunoassay methodology Performed at: [facility] Guest [facility] [employer] Guest[address] [id number] Assessment Specialist: Mark Ugalde PhD, Phone: [phone] QuantiFERON CriteriaComment. QuantiFERON-TB Gold Plus is a [...] Nil Value0.02. IU/mLQuantiFERON Mitogen Value>10.00. IU/mLPerforming Lab:see noteLC - [facility] LBXR chest 2V Reviewed date:12/20/2024 09:32:14 PM Interpretation: Performing Lab: Notes/Report: Source Facility: [place] [address] [place] [address] XRay Report Signed Patient: MARTHA VALENCIA MR#: [id number] : 1985 Acct:[id number] Age/Sex: 39 / F ADM Date: 12/20/24 Loc: ER Attending Dr: Ordering Physician: Jaja Ames D.O. Date of Service: 12/20/24 Procedure(s): XR chest 2V Accession Number(s): [id number] cc: Francesca White M.D.; Jaja Ames D.O. [place] [address] Patient Name: MARTHA VALENCIA MRN: [id number] date: 1985 Sex: F Assigned Patient Location: ER Current Patient Location: ED.MAIN Accession/Order Number: [id number] Exam Date: 12/20/2024 21:13 Report Date: 12/20/2024 21:14 At the request of: JAJA AMES DO Procedure: XR chest 2V PA AND LATERAL CHEST: CLINICAL HISTORY: CP COMPARISON: None FINDINGS: Unremarkable cardiomediastinal. Lungs clear. No effusion or pneumothorax. XR/XR chest 2V IMPRESSION: NO ACUTE CARDIOPULMONARY ABNORMALITY. Impression dictated by: Hector Mo M.D. 12/20/2024 9:14 PM Dictation Location: [place] [address] Electronically authenticated by: [id number] Y Date: 12/20/2024 21:14 Dictated By: Hector Mo M.D. Signed By: 12/20/242116 DD/ 13 TD/TT: Medical Case Manager:ECG 12 lead Reviewed date:12/21/2024 07:27:21 PM Interpretation: Performing Lab: Notes/Report: Source Facility: [place] [address] [place] [address] Electrocardiograph Report Signed Patient: MARTHA VALENCIA MR#: [id number] : 1985 Acct:[id number] Age/Sex: 39 / F ADM Date: 12/20/24 Loc: ER Attending Dr: Ordering Physician: Jaja Ames D.O. Date of Service: 12/20/24 Procedure(s): ECG 12 lead Accession Number(s): [id number] cc: [facility] Test Date: 2024-12-20 Pat Name: MARTHA VALENCIA Department: Room: - Gender: Female [employer]: : 1985 Requested By: 2381 Order Number: [id number] Reading MD: SATYA IBARRA M.D. Measurements Intervals [place] Rate: 86 P: 58 MS: 108 QRS: 77 QRSD: 70 T: 69 QT: 352 QTc: 395 Interpretive Statements 1100 Sinus rhythm 2210 Short MS interval 9150 abnormal ECG Compared to ECG 12/30/2020 18:55:53 Short MS interval now present T-wave abnormality no longer present Electronically Signed On 12-21-2024 17:49:49 EDT by SATYA IBARRA M.D. Dictated By: SATYA IBARRA Signed By: 12/21/241749 DD/ 37 TD/TT: Medical Case Manager:Troponin I High Sensitivity Reviewed date:12/20/2024 09:32:14 PM Interpretation: Performing Lab: Notes/Report: [facility] ,Troponin I High Sensitivity4.54.0-51.3 pg/mL CUT-OFF POINTS HAVE BEEN ESTABLISHED BASED ON THE FOURTH UNIVERSAL DEFINITION OF MYOCARDIAL INFARCTION. THE UPPER REFERENCE LIMIT (URL) OF TROPONIN, DEFINED THE 99TH PERCENTILE OF cTnI DISTRIBUTION IN A REFERENCE POPULATION, HAS BEEN CONFIRMED THE DECISION THRESHOLD FOR HI DIAGNOSIS. 99TH PERCENTILE = 51.4 PG/ML NOTE: HIGH-SENSITIVITY TROPONIN ASSAY IS NOT INTENDED TO BE USED IN ISOLATION BUT SHOULD BE INTERPRETED IN CONJUNCTION WITH OTHER DIAGNOSTIC AND CLINICAL INFORMATION. Performing Lab:see note - [facility] LBPROF 14(COMP METB) Reviewed date:12/20/2024 09:32:14 PM Interpretation: Performing Lab: Notes/Report: [facility] ,Nlrgez048150-500 mmol/LPotassium4.03.5-5.1 mmol/LNtkwpatn84006-047 mmol/LCarbon Iefnszo53.421.0-32.0 mmol/LAnion Gap12.3Aeyoyhe38834-660 mg/dLBlood Urea Gfvcfjbn86.07.0-18.0 mg/dLCreatinine0.800.55-1.02 mg/dLEstimated GFR ( Kathi>60>=60 mL/min/1.73m 2Estimated GFR (Non- Honey>60>=60 mL/min/1.73m 2BUN Creatinine Ratio13.6Tuypqbu4.78.5-10.1 mg/dLBilirubin Total0.40.2-1.0 mg/dL Aspartate Amino Ixfhkuaxgxf1209-06 U/LAlanine Vxizxvkgjlbpeuzx2699-84 U/L Alkaline Apcjtohmhqc5737-625 U/LTotal Protein7.06.4-8.2 g/dLAlbumin Level3.83.4- 5.0 g/dLGlobulin3.2Albumin Globulin Ratio1.2Performing Lab:see noteML - [facility] LBD-DIMER Reviewed date:12/20/2024 09:32:14 PM Interpretation: Performing Lab: Notes/Report: [facility] ,D Dimer0.21<=0.59 mg/L FEU Increases in D-Dimer [...] and generalized hospitalization. Performing Lab:see noteML - [facility] LBCBC AUTO DIFF Reviewed date:12/20/2024 09:32:14 PM Interpretation: Performing Lab: Notes/Report: [facility] ,White Blood Count9.54.0-11.0 10 3/uLRed Blood Count4.644.20-5.40 10 6/uL Rhcgrjgizm30.712.0-16.0 g/iQIwdwxdosjz48.236.0-48.0 %Mean Corpuscular Qtrwck16.6 81.0-99.0 fLMean Corpuscular Cndjxcdziu40.526.7-34.0 pgMean Corpuscular HGB Conc 34.129.9-35.2 g/dLRed Cell Distribution Width13.211.0-15.0 %Platelet Lyrwl509 150-450 10 3/uLMean Platelet Gpuqyg64.19.5-13.5 fLNeutrophils Percent Auto62.4 43.0-75.0 %Lymphocytes Percent Auto26.920.5-60.0 %Monocytes Percent Auto7.91.7- 12.0 %Eosinophils Percent Auto2.10.9-7.0 %Basophils Percent Auto0.50.2-2.0 % Immature Granulocytes Pct Auto0.20.0-0.5 %Neutrophils Absolute Auto5.91.4-6.5 10 3/uLLymphocytes Absolute Auto2.61.2-3.8 10 3/uLMonocytes Absolute Auto0.80.3-0.8 10 3/uLEosinophils Absolute Auto0.20.0-0.7 10 3/uLBasophils Absolute Auto0.10.0- 0.1 10 3/uLImmature Granulocytes Abs Auto0.020.00-0.03 10 3/uLPerforming Lab:see noteML - [facility] LBCRP Reviewed date:03/29/2025 02:11:28 PM Interpretation: Performing Lab: Notes/Report: [facility] ,C Reactive Protein<0.50<=0.50 mg/dLPerforming Lab:see noteML - [facility] thyroid w uptake Reviewed date:04/28/2025 08:38:37 AM Interpretation: Performing Lab: Notes/Report: Source Facility: [facility]-[address] [place] [address] Nuclear Medicine Report Signed Patient: MARTHA VALENCIA MR#: [id number] : 1985 Acct:[id number] Age/Sex: 39 / F ADM Date: 04/27/25 Loc: [place] Attending Dr: Francesca White M.D. Ordering Physician: Francesca White M.D. Date of Service: 04/27/25 Procedure(s): NM thyroid w uptake Accession Number(s): [id number] cc: Francesca White M.D. [place] [address] Patient Name: MARTHA VALENCIA MRN: [id number] date: 1985 Sex: F Assigned Patient Location: [place] Current Patient Location: Accession/Order Number: [id number] Exam Date: 04/27/2025 07:00 Report Date: 04/28/2025 08:02 At the request of: FRANCESCA WHITE MD Procedure: NM thyroid w uptake THYROID UPTAKE AND SCINTIGRAM CLINICAL DATA: Hypothyroidism COMPARISON: Ultrasound 04/12/2025 Following the oral ingestion of 202.6 microcuries I-123, thyroid uptakes were measured at 6 hours and 24 hours. The thyroid uptake values are 21% and 34% respectively. Normal ranges are from 6 - 14% and 10 - 30%. These values are slightly elevated. Camera camera imaging was also performed in multiple projections. The thyroid lobes are not significantly enlarged and there is uniform uptake. No discrete hotter cold nodules are seen. NM/NM thyroid w uptake IMPRESSION: MILD INCREASED THYROID UPTAKE. UNREMARKABLE SCINTIGRAM. Impression dictated by: Michelle Velasco M.D. 04/28/2025 8:02 AM Dictation Location: [place] [address] Electronically authenticated by: [id number] Date: 04/28/2025 08:02 Dictated By: Michelle Velasco M.D. Signed By: 04/28/25804 DD/ 1 TD/TT: Medical Case Manager:US THYROID Reviewed date:04/13/2025 12:37:37 PM Interpretation: Performing Lab: Notes/Report: Source Facility: [place] [address] [place] [address] Ultrasound Report Signed Patient: MARTHA VALENCIA MR#: [id number] : 1985 Acct:[id number] Age/Sex: 39 / F ADM Date: 04/12/25 Loc: US Attending Dr: Francesca White M.D. Ordering Physician: Francesca White M.D. Date of Service: 04/12/25 Procedure(s): US thyroid Accession Number(s): [id number] cc: Francesca White M.D. [place] [address] Patient Name: MARTHA VALENCIA MRN: [id number] date: 1985 Sex: F Assigned Patient Location: [place] Current Patient Location: Accession/Order Number: [id number] Exam Date: 04/12/2025 13:10 Report Date: 04/13/2025 [...] Velasco M.D. 04/13/2025 7:23 AM Dictation Location: [place] [address] Electronically authenticated by: [id number] Y Date: 04/13/2025 07:23 Dictated By: Michelle Velasco M.D. Signed By: 04/13/25725 DD/ 2 TD/TT: Medical Case Manager:MM tomosynthesis screening BI Reviewed date:04/05/2025 05:58:36 PM Interpretation: Performing Lab: Notes/Report: Source Facility: [place] [address] [place] [address] Mammography Report Signed Patient: MARTHA VALENCIA MR#: [id number] : 1985 Acct:[id number] Age/Sex: 39 / F ADM Date: 04/05/25 Loc: MAMMO Attending Dr: Francesca White M.D. Ordering Physician: Francesca White M.D. Results: Date of Service: 04/05/25 Follow Up: Procedure(s): MM tomosynthesis screening BI Accession Number(s): [id number] cc: Francesca White M.D. Patient Name: MARTHA VALENCIA MR#: [id number] : 1985 Exam Date: 04/05/2025 Ordering Doctor: [...] breast cancer at age 55. LOCATION: [facility] BREAST COMPOSITION: There are scattered areas of [...] M.D. Signed By: 04/05/251650 DD/ 50 TD/TT: Medical Case Manager:Vitamin B12 Reviewed date:03/30/2025 07:43:40 PM Interpretation: Performing Lab: Notes/Report: [facility] ,Vitamin E85988496-4467 pg/mL Performed at: [address] [id number] Assessment Specialist: Mark Ugalde PhD, Phone: [phone] Performing Lab:see noteDoernbec[facility] LBHep B Surface Ab Reviewed date:01/13/2025 12:58:14 PM Interpretation: Performing Lab: Notes/Report: [facility] ,Hep B Surface AbNon Reactive. Non Reactive: Not immune to HBV infection. Equivocal: Unable to determine if anti-HBs is present at levels consistent with immunity. Reactive: Anti-HBs concentration detected at greater than 10 mIU/mL. Individual is considered to be immune to infection with HBV. Performing Lab:see mandeepDoernbecher Children[facility] LBHep B Core Ab, Tot Reviewed date:01/13/2025 12:58:14 PM Interpretation: Performing Lab: Notes/Report: [facility] ,Hep B Core Ab, TotNegativeNegative Performed at: [address] [id number] Assessment Specialist: Mark Ugalde PhD, Phone: [phone] Performing Lab:see mandeepDoernbecher Children's [facility] LBHCV Antibody Reviewed date:01/13/2025 12:58:14 PM Interpretation: Performing Lab: Notes/Report: [facility] ,HCV AntibodyNon ReactiveNon Reactive HCV antibody alone does not differentiate between previously resolved infection and active infection. Equivocal and Reactive HCV antibody results should be followed up with an HCV RNA test to support the diagnosis of active HCV infection. Performing Lab:see mandeepDoernbecher Children's [facility] LBHBsAg Screen Reviewed date:01/13/2025 12:58:13 PM Interpretation: Performing Lab: Notes/Report: [facility] ,HBsAg ScreenNegativeNegativePerforming Lab:see mandeepLOURDES [facility] Labs[facility] LBTSH Reviewed date:01/12/2025 04:01:48 PM Interpretation: Performing Lab: Notes/Report: [facility] ,Thyroid Stimulating Hormone2.2400.358-3.740 uIU/mLPerforming Lab:see noteML - [facility] LB Reason For Referral Diagnosis 1 Primary progressive multiple sclerosis, unspecified (G35.B0) Referral Organization [facility] Referring Provider First Name Silver Referring Provider Last Name Christopher Referring Provider [facility] Referred Provider Marty Jade Referred Provider Specialty Neurology Referral Priority Routine Reason Hypothyroidism lab s in chart Diagnosis 1 Hypothyroidism (E03. 9) Referring Provider First Name Silver Referring Provider Last Name [facility] Referring Provider [facility] Referred Organization Endocrinology Referred Provider Myra Gamez Referred Address [address] [facility],[place],[address], Referred Provider Specialty Endocrinolog y General Notes Lindy Guerra 09:38:06 AM >appt made 07/20/25 Referral Priority Routine Diagnosis 1 Hypothyroidism (E03. 9) Referral Organization [facility] Referring Provider First Name Silver Referring Provider Last Name [facility] Referring Provider [facility] Referred Provider PHONG SARAVIA Referred Provider Specialty Endocrinolog y Referral Priority Routine Diagnosis 1 Hypothyroidism (E03. 9) Referral Organization [facility] Referring Provider First Name Silver Referring Provider Last Name [facility] Referring Provider [facility] Referred Provider Martha Ojeda Referred Provider Specialty [...] alcohol in the p ast year? No Leplvw2FdkpkuexubqvebPrsxozqu Problems Problem Type SNOMED Code ICD Code Onset Dates Problem Status W/U Status Risk Notes Problem Multiple sclerosis (47842095) Multiple sc lerosis (G35) ActiveconfirmedProblemWeakness (55739569)Weakness (R53.1)ActiveconfirmedProblem Hypothyroidism (21164322)Hypothyroidism (E03.9)ActiveconfirmedProblemNeck pain (90733258)Neck pain (M54.2)ActiveconfirmedProblemEdema (99101231)Edema (R60.9) ActiveconfirmedProblemDepression (051165477)Depression (F32.9)Activeconfirmed ProblemVertigo (494811563)Vertigo (R42)ActiveconfirmedProblemInsomnia (829701160)Insomnia (G47.00)ActiveconfirmedProblemMigraine (30672799)Migraine (G43.909)ActiveconfirmedProblemGait abnormality (94389993)Gait abnormality (R26.9)ActiveconfirmedProblemParesthesia (44058384)Paresthesia (R20.2)Active confirmedProblemCyst of thyroid (80480973)Thyroid cyst (E04.1)Activeconfirmed ProblemCOVID-19 (016451513)COVID-19 (U07.1)ActiveconfirmedProblem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 (578238157)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, 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)Active confirmedProblemPrimary progressive multiple sclerosis, unspecified (G35.B0) Activeconfirmed Vital Signs Blood pressure diastolic 72 mm Hg 03/28/2025 Wljfwf31 in03/28/2025lood pressure dpuvuqpw174 mm Hg03/28/20258821Mvszzm442.6 lbs 03/28/2025BMI23.89 kg/m203/28/2025 Encounters Encounter Location Date Provider Diagnosis [facility] [address] [place] [address] 01/16/2025 Silver White [facility] [place] [address] 04/28/2025Doug HoyHypothyroidism E03.9B[facility] [place] [address]/Doug [facility] [place] [address]/Doug [place]BJ[place] [address] [place] [address]/ [facility] [place] [facility] [place] [place] [address] 04/08/2025Doug HoyHypothyroidism E03.[address] [address] [place] [address]/Doug HoVeronica [place] [address] [place] [address]/Doug Hoy Hypothyroidism E03.9BJennifer [address] [place] [address]/Doug HoyInsomnia G47.00 ; Primary progressive multiple sclerosis, unspecified G35.B0 ; Edema R60.9 ; Migraine G43.909 and Well adult Z00.00[place] [address] [place] [address]/Doug HoyB12 deficiency E53.8 Assessments Encounter Date Diagnosis (ICD Code) Assessment Notes Treatment Notes Treatment Clinical Notes Section Notes 03/28/2025 Insomnia (ICD-10 - G47.00) 03/28/2025Primary progressive multiple sclerosis, unspecified (ICD-10 - G35.B0) 03/28/2025Edema (ICD-10 - R60.9)03/28/2025Migraine (ICD-10 - G43.909)04/01/2025 B12 deficiency (ICD-10 - E53.8)04/08/2025Hypothyroidism (ICD-10 - E03.9) 04/13/2025Hypothyroidism (ICD-10 - E03.9)04/28/2025Hypothyroidism (ICD-10 - E03.9)03/28/2025Well adult (ICD-10 - Z00.00) Plan Of Treatment Pending Test Test Name Order Date HEMOGLOBIN A1C (GLYCO) 03/28/2025 IRON, TOTAL 03/28/2025 LIPID PANEL (CHOL/TRIG/HDL/LDL) 03/28/20 25 US Thyroid 04/08/2025 NM Thyroid Imaging w/ Uptake 04/08/2025 SED RATE WESTERGREN 03/28/2025 THYROID ANTIBODIES 04/28/2025 VIT B12 AND FOLATE 03/28/2025 VITAMIN D 25 OH 03/28/2025 NM THY SCAN W UPT 04/13/2025 THYROID PANEL (T4/TSH/FREE T3) 5 MM screening mammo BI 03/28/2025 CMP (COMP MET GUTIÉRREZ) w/eGFR CKD-EPI 2024 CBC WITH DIFF 03/28/2025 Next Appt Details Provider Name:Silver Jon White, 08:45:00 AM, [address] [place], [address], Provider Name:Myra Gamez , 07/20/2025 10:30:00 AM, [address] [place], [address], Insurance Providers Payer Name Payer Address Payer Phone Subscriber Number Group Number Insured Name Patient Relationship to Insured Coverage Start Date Coverage End Date [place] [address] [place] [address] [id number] Shalini Valencia - patient is the insured Medications Administered Medication Instructions Date of Administration Dosage Notes Cyanocobalamin mL Medical (General) History Medical History History ICD Code Multiple sclerosis G35 Surgical History Surgery Date(Month/Year) [place] LithotripsygallbladderC-section
--- OUTSIDE RECORDS SUMMARY | 2025-04-29 07:15 | XMS_ITS | Clinical Summary ---
Author Organization [facility] Address [address] [place] [address] Phone Care Team Providers Care Manager Fire Name Role Phone Unavailable Primary Care Provider Unavailabl e Social History Tobacco UseTypesPacks/DayYears UsedDateSmoking Tobacco: Never Assessed CommentsUnknownSex and Gender InformationValueDate RecordedSex Assigned at Not on fileLegal GmzAkmjtc20/26/2022 8:15 AM ESTGender IdentityNot on fileSexual OrientationNot on file Plan of Treatment Not on file
--- OUTSIDE RECORDS SUMMARY | 2025-04-29 07:15 | XMS_ITS | Clinical Summary ---
Author Organization [facility] Address [address] [facility] [place] [address] Care Team Providers Care Bobbin Coil Winder Name Role Phone Oh White MD Primary Care Provider [phone] Allergies No known active allergies Medications MedicationSigDispense QuantityRefillsLast FilledStart DateEnd DateStatus LORazepam (Ativan) 0.5 MG tablet Indications:ClaustrophobiaTake 1 tablet (0.5 mg) by mouth every 12 (twelve) hours if needed for anxiety for up to 1 day 2 tablet 5Active Active Problems ProblemNoted DateDiagnosed DateCOVID-19003/01/20245488Pnfon98/16/2024Insomnia 03/01/2024Major depressive disorder, single episode, qvxfoispovz83/16/2024 Monoplegia of upper limb affecting left nondominant side03/01/2024aresthesia 03/01/20249478Dyvsdprd15/16/2024ervical paraspinal muscle spasm12/10/2023DD (attention deficit disorder) without uohglrxzgsean22/28/1889Koqfptpd60/09/2023 Kdyvnvyup67/09/2023bnormal gait03/24/2023Multiple wdclaksbs79/12/2013 Encounters DateTypeDepartmentCare XgncYqtzlbconuj07/03/2025Telephone [facility] [address] [facility] [address] [place] [address] Osmar Hernandez MD 03/14/2025Telephone [facility] [address] [facility] [address] [place] [address] Patti Pryor MA 02/24/2025Telephone [facility] [address] [place] [phone] Patti Pryor MA Kesemptifcharlotte Last 3 Months Family History Medical HistoryRelationNameCommentsADD / ADHDBrother 1Andrew LinkeyADD / ADHD Brother 2Christopher LinkeyAnxiety disorderBrother 2Christopher LinkeyDepression Brother 2Christopher LinkeySeizuresBrother 2Christopher LinkeyBreast cancer FatherColon cancerFatherHyperlipidemiaFatherHypertensionFatherDiabetesMother HypothyroidismMotherDepressionOtherFamily historyHeart diseaseOtherFamily historyHyperlipidemiaOtherFamily historyHypertensionOtherFamily historyRelation NameStatusCommentsBrother 1Andrew LinkeyBrother 2Christopher LinkeyFatherMother OtherFamily history Social History Tobacco UseTypesPacks/DayYears UsedDateSmoking Tobacco: XjltwwDtfiihrlhr091 06/17/2008 - 06/17/2023Smokeless Tobacco: Never Tobacco Cessation:Counseling Given: Not Answered Comments:I switched to vaping Alcohol UseStandard Drinks/WeekCommentsYes2 (1 standard drink = 0.6 oz pure alcohol)1-2 drinks on a typical dayCommentsUnknownSex and Gender InformationValueDate RecordedSex Assigned at BirthNot on fileLegal SexFemale 08/28/2022 6:36 PM EDTGender IdentityNot on fileSexual OrientationNot on file Last Filed Vital Signs Vital SignReadingTime TakenCommentsBlood Uotczwbj663/8007 9:35 AM EDT Kaaen60639/10/2023 8:59 AM ESTTemperature--Respiratory Rjbm866501/13/2025 9:35 AM EDTOxygen Saturation--Inhaled Oxygen Concentration--Wutfys36.5 kg (146 lb 9.6 oz)01/13/2025 9:35 AM LIVWgqsyr141.1 cm (5' 5 )01/13/2025 9:35 AM EDTBody Mass Index24. 9:35 AM EDT Plan of Treatment DateTypeDepartmentCare Team (Latest Contact Info)Qzjnduzllie06/19/2025 10:00 AM ESTProcedure Visit [facility] [address] [place] [address] Dot Calvo PA [address] [place] [address] Insurance Care Teams Team MemberRelationshipSpecialtyStart DateEnd Oh White MD [address] [facility] [place] [id number] PCP - GeneralFamily Gibgxczm15/11/23
--- OUTSIDE RECORDS SUMMARY | 2025-04-29 07:15 | XMS_ITS | Encounter Summary ---
Author Organization [facility] Address [address] [facility] [place] [address] Care Team Providers Care Invasive Cardiovascular Technologist Name Role Phone Oh White MD Primary Care Provider [phone] Encounter Details DateTypeDepartmentCare Team (Latest Contact Info)Vqmblighbvo89/03/2025Telephone [facility] [address] [place] [facility] [place] [address] Osmar Hernandez MD [address] [facility] [address] [place] [place] [address] Social History Tobacco UseTypesPacks/DayYears UsedDateSmoking Tobacco: OsmbbgUhjmaeqasb144 06/17/2008 - 06/17/2023Smokeless Tobacco: Never Comments:I switched to vapin g Alcohol UseStandard Drinks/WeekCommentsYes2 (1 standard drink = 0.6 oz pure alcohol)1-2 drinks on a typical dayCommentsUnknownSex and Gender InformationValueDate RecordedSex Assigned at BirthNot on fileLegal SexFemale 08/28/2022 6:36 PM EDTGender IdentityNot on fileSexual OrientationNot on file documented as of this encounter Plan of Treatment DateTypeDepartmentCare Team (Latest Contact Info)Stpschshgzr62/19/2025 10:00 AM ESTProcedure Visit [facility] [address] [place] [address] Dot Calvo PA [address] [facility] [place] [address] documented as of this encounter Visit Diagnoses Not on filedocumented in this encounter Care Teams Team MemberRelationshipSpecialtyStart DateEnd Date Oh White MD [address] [place] [phone] PCP - GeneralFamily Xleqjbru20/11/23documented as of this encounter
== END 2025-04-29 07:09 | disposition home or self-care (01) ==
LOC: LAB 07:11
PROVIDERS: PCP Family Medicine; Visit Provider Family Medicine
DX: E03.9 Hypothyroidism, unspecified (principal)
CPT/HCPCS: 36415; 86376; 86800